=== PATIENT | male | born 1950 | race Caucasian/White ===

== ENCOUNTER 2017-01-03 22:12 | Emergency (ER) | payer MEDICARE, OTHER ==
[~2017-01-03] VITALS: Ht 177.8 cm; Wt 98.0 kg
[~2017-01-03 22:12] MED LIST: AMLO-147 PO; ASPI81TA3 PO; CLON-379 PO; FURO20TA3 PO; HYDR-3012 PO; LANT3I SC; Lisinopril PO; PIOG15TA21 PO
[2017-01-03 22:23] VITALS: Ht 177.8 cm; Wt 98.0 kg
--- NOTE | 2017-01-03 23:45 | ERD ---
ER Documentation Chief Complaint Date/Time DATE: 01/03/17 TIME: 23:41 Chief Complaint had tooth taken out at 2pm wont stop bleeding HPI This 66-year-old diabetic male patient reports bleeding s/p tooth extraction today patient is a diabetic with renal failure, has a left AV fistula // Sun. patient reports pain, blood dripping down his throat, denies chest pain shortness of breath, or dizziness. ROS All systems reviewed and are negative except as per history of present illness. Medications Home Meds Active Scripts [Lisinopril] 10 MG TAB No Conflict Check, 40 MG PO DAILY, TAB Prov:HENRRY DUONG MD 01/05/14 Insulin Glargine* (Lantus*) 100 Unit/Ml Soln, 9 UNIT SC HS, #1 BOTTLE Prov:HENRRY DUONG MD 01/05/14 Aspirin (Aspirin) 81 Mg Chew, 81 MG PO DAILY, #30 TAB Prov:HENRRY DUONG MD 01/05/14 Reported Medications Pioglitazone Hcl* (Pioglitazone Hcl*) 15 Mg Tablet, 15 MG PO DAILY, TAB 03/05/14 Furosemide* (Furosemide*) 20 Mg Tablet, 20 MG PO DAILY, TAB 03/05/14 Hydroxyzine Hcl* (Hydroxyzine Hcl*) 50 Mg Tablet, 50 MG PO Q6H Y for ITCHING, TAB 01/01/14 Clonidine Hcl* (Clonidine Hcl*) 0.1 Mg Tab, 0.1 MG PO Q8 09/13/12 Amlodipine Besylate* (Amlodipine Besylate*) 10 Mg Tablet, 10 MG PO DAILY 09/13/12 Allergies Allergies: Coded Allergies: No Known Drug Allergy (Verified Allergy, Unknown, 03/05/14) PMhx/Soc History of Surgery: Yes (PERMACATH PLACEMENT) Anesthesia Reaction: No Hx Neurological Disorder: No Hx Respiratory Disorders: No Hx Cardiac Disorders: Yes (HTN) Hx Psychiatric Problems: No Hx Miscellaneous Medical Probl: No Hx Alcohol Use: No Hx Substance Use: No Hx Tobacco Use: No Physical Exam Vitals Vital Signs Date Time Temp Pulse Resp B/P Pulse Ox O2 Delivery O2 Flow Rate FiO2 01/03/17 22:23 99.0 68 20 176/78 97 Vitals stable, triage notes reviewed Physical Exam Const: Well-nourished well-appearing male patient in no acute distress Head: Atraumatic Eyes: Normal Conjunctiva ENT: Normal External Ears, Nose left upper molar extraction 14 and 15, black suture in place on 15th molar, 14th more alert open and bleeding. No clot visual. Neck: Resp: Clear to auscultation bilaterally no rales wheezes or rhonchi Cardio: S1-S2 no S3-S4, left AV fistula with good bruit and thrill Abd: Skin: Back: Ext: Neur: Awake and alert Psych: Normal Mood and Affect Results 24 hrs Current Medications Medications (Trade) Dose Ordered Sig/Jose Route PRN Reason Start Time Stop Time Status Last Admin Dose Admin Desmopressin Acetate/Sodium Chloride (Ddavp/NS) 55 ml @ 110 mls/hr ONCE ONCE IVPB 01/04/17 01:30 01/04/17 01:59 DC 01/04/17 01:52 Morphine Sulfate (morphine) 4 mg ONCE STAT IV 01/04/17 01:20 01/04/17 01:22 DC 01/04/17 01:29 Ondansetron HCl (Zofran Inj) 4 mg ONCE STAT IV 01/04/17 01:21 01/04/17 01:22 DC 01/04/17 01:29 Procedures/MDM This pleasant 66-year-old male patient presents to emergency department for ruptured suture from dental extraction today. Patient is actively bleeding, history of diabetes and dialysis 3 days a week. Next dialysis is tomorrow. Patient has no symptoms of anemia, choking or respiratory distress. Patient treated with direct pressure on bleeding socket and biting on teabags for 60 minutes intervention ineffective, bleeding socket covered with Surgicel, instructed to apply pressure by biting on gauze and 20 mcg of DDAVP intravenously. Patient reassessed after 60 minutes with effective cessation of bleeding. Patient will be discharged home to follow-up with dentist tomorrow, return to emergency department if bleeding resumes. Patient is stable with no new complaints during ER course, clinically there is no current evidence to suggest meningitis, sepsis, acute abdomen, acute coronary syndromes, pulmonary embolism or any other emergent condition appearing to require further evaluation or hospitalization. I feel the patient is stable for discharge at this time. I have discussed results, examination findings, the treatment plan with the patient and family present prior to discharge. Indications for emergent reevaluation, side effects of medication were also discussed. All questions were answered. Patient verbalizes understanding and agrees with plan of care. Departure Diagnosis: Primary Impression: Oral bleeding Condition: Good Patient Instructions: Dental Cavity Additional Instructions: Thank you for for coming to [facility] for your care today. Please ask your nurse or provider if you have questions about your care today and do not leave until all your questions have been answered. Please use any medications given as directed and follow-up with your doctor (or the doctor you were referred to) in the next 2-3 days. If you do not have a primary care doctor you may follow up at the [facility] [place] (listed below). You may also use motrin and tylenol as needed for fever and/or pain unless instructed otherwise by your provider or nurse. Indications for more urgent follow-up have been discussed, but you may return to the Emergency Department at ANY time for any worrisome or worsening symptoms. If you have abdominal pain, please know that no test or exam you received is perfect and you should follow up within 8 hours for continued pain. If you had any imaging studies today, such as an X-Ray or CT Scan, these studies will be reviewed later by a radiologist. You will be called if there are important findings that were not identified today, so make sure the contact information you provided at registration is correct. If you received any narcotic pain control medicine today, such as Vicodin, Morphine or Dilaudid, your coordination and judgment may be affected for a number of hours. Please do not drive or operate heavy machinery, and you may want someone to assist you at home. If you were given a prescription for narcotic medication, be aware that it is very addictive- use sparingly and only if necessary. NATALIA RAINES Jan 03, 2017 23:44
[2017-01-04] MEDS ORDERED: morphine 4 MG/ML VIAL IV STA (01:20)
[2017-01-04] MEDS ORDERED: ONDANSETRON 4 MG INJ IV STA (01:21)
[2017-01-04] MEDS ORDERED: DESMOPRESSIN 20 MCG in SOD CHLORIDE 0.9% 50 ML IVPB ONE (01:30)
[2017-01-04 03:36] VITALS: BP 170/78; PULSE 76; RESP 20
== END 2017-01-04 03:25 | disposition home or self-care (01) ==
LOC: FTE 22:12
DX: K91.840 Postprocedural hemorrhage of a digestive system organ or structure following a digestive system procedure (principal); I10 Essential (primary) hypertension; E11.9 Type 2 diabetes mellitus without complications; Z79.4 Long term (current) use of insulin; Z79.82 Long term (current) use of aspirin
CPT/HCPCS: 96374; 96375; 99284; J2270; J2405; J2597

== ENCOUNTER 2017-08-17 09:48 | Day surgery (SDC) | END 2017-08-17 16:30 | disposition home or self-care (01) ==

== ENCOUNTER 2017-08-31 12:22 | Emergency (ER) | END 2017-08-31 12:34 | disposition home or self-care (01) ==

== ENCOUNTER 2018-07-08 22:10 | Inpatient (IN) | payer MEDICARE, OTHER ==
[~2018-07-08] VITALS: Ht 185.4 cm; Wt 93.5 kg
[~2018-07-08 22:10] MED LIST changes: +ASPI-831 PO; -ASPI81TA3 PO; -HYDR-3012 PO; +HYDR50TA15 PO; +LISI-313 PO; -Lisinopril PO; -PIOG15TA21 PO; +PIOG15TA67 PO
[2018-07-09] VITALS (26 sets, daily range): BP systolic 136–178; BP diastolic 57–90; PULSE 50–84; RESP 17–20; Ht 185.4 cm; Wt 93.5 kg
[2018-07-09] MEDS ORDERED: CEFEPIME 1GM/50 ML (PMX) 50 ML IVPB STA (00:06)
[2018-07-09] MEDS ORDERED: VANCOMYCIN 1 GM (PMX) 250 ML IVPB STA (00:06)
--- NOTE | 2018-07-09 02:22 | ERD ---
ER Documentation Chief Complaint Chief Complaint abd pain, vomiting, cough sob x2 days. ESRD w/ dialysis HPI This is a 67-year-old male coming with abdominal pain vomiting and cough for 2 days. He also complains of mild shortness of breath. Cough is mildly productive with greenish sputum. No fevers or chills. No nausea or vomiting. Dialysis on Wednesdays and Fridays. Says he is seeing Dr. De La Rosa at another hospital previously. ROS All systems reviewed and are negative except as per history of present illness. Medications Home Meds Active Scripts Insulin Glargine* (Lantus*) 100 Unit/Ml Soln, 9 UNIT SC HS, #1 BOTTLE Prov:HENRRY DUONG MD 01/05/14 Aspirin (Aspirin) 81 Mg Chew, 81 MG PO DAILY, #30 TAB Prov:HENRRY DUONG MD 01/05/14 Reported Medications Lisinopril* (Lisinopril*) 5 Mg Tablet, 5 MG PO DAILY, #30 TAB 08/17/17 Pioglitazone Hcl* (Pioglitazone Hcl*) 15 Mg Tablet, 15 MG PO DAILY, TAB 03/05/14 Furosemide* (Furosemide*) 20 Mg Tablet, 20 MG PO DAILY, TAB 03/05/14 Hydroxyzine Hcl* (Hydroxyzine Hcl*) 50 Mg Tablet, 50 MG PO Q6H PRN for ITCHING, TAB 01/01/14 Clonidine Hcl* (Clonidine Hcl*) 0.1 Mg Tab, 0.1 MG PO Q8 09/13/12 Amlodipine Besylate* (Amlodipine Besylate*) 10 Mg Tablet, 10 MG PO DAILY 09/13/12 Allergies Allergies: Coded Allergies: No Known Drug Allergy (Verified Allergy, Unknown, 03/05/14) PMhx/Soc History of Surgery: Yes (rt hand sx) Anesthesia Reaction: No Hx Neurological Disorder: No Hx Respiratory Disorders: No Hx Cardiac Disorders: No Hx Psychiatric Problems: No Hx Miscellaneous Medical Probl: Yes (ESRD) Hx Alcohol Use: Yes (rarely) Hx Substance Use: No Hx Tobacco Use: No Smoking Status: Never smoker Physical Exam Vitals Vital Signs Date Temp Pulse Resp B/P (MAP) Pulse Ox O2 O2 Flow FiO2 Time Delivery Rate 07/09/18 99.0 77 16 155/68 98 Nasal 2.0 00:23 (97) Cannula 07/08/18 Nasal 2 23:02 Cannula 07/08/18 99.7 114 24 204/86 90 22:16 (125) Physical Exam Const: No acute distress Head: Atraumatic Eyes: Normal Conjunctiva ENT: Normal External Ears, Nose and Mouth. Neck: Full range of motion. No meningismus. Resp: Clear to auscultation bilaterally Cardio: Regular rate and rhythm, no murmurs Abd: Soft, non tender, non distended. Normal bowel sounds Skin: No petechiae or rashes Back: No midline or flank tenderness Ext: No cyanosis, or edema Neur: Awake and alert Psych: Normal Mood and Affect Result Diagram: 07/08/18225107/08/182251 Results 24 hrs Laboratory Tests Test 07/08/18 22:52 White Blood Count 11.3 10^3/ul Red Blood Count 4.16 10^6/ul Hemoglobin 11.4 g/dl Hematocrit 36.7 % Mean Corpuscular Volume 88.2 fl Mean Corpuscular Hemoglobin 27.4 pg Mean Corpuscular Hemoglobin Concent 31.1 g/dl Red Cell Distribution Width 13.4 % Platelet Count 268 10^3/UL Mean Platelet Volume 9.3 fl Immature Granulocytes % 0.400 % Neutrophils % 89.6 % Lymphocytes % 3.5 % Monocytes % 5.7 % Eosinophils % 0.6 % Basophils % 0.2 % Nucleated Red Blood Cells % 0.0 /100WBC Immature Granulocytes # 0.050 10^3/ul Neutrophils # 10.1 10^3/ul Lymphocytes # 0.4 10^3/ul Monocytes # 0.6 10^3/ul Eosinophils # 0.1 10^3/ul Basophils # 0.0 10^3/ul Nucleated Red Blood Cells # 0.0 10^3/ul Prothrombin Time 14.8 Sec Prothrombin Time Ratio 1.2 INR International Normalized Ratio 1.15 Activated Partial Thromboplast Time 32.6 Sec Sodium Level 138 mmol/L Potassium Level 5.2 mmol/L Chloride Level 94 mmol/L Carbon Dioxide Level 24 mmol/L Anion Gap 20 Blood Urea Nitrogen 88 mg/dl Creatinine 9.81 mg/dl Est Glomerular Filtrat Rate mL/min 5 mL/min Glucose Level 147 mg/dl POC Venous Lactate 1.5 mmol/L Calcium Level 10.1 mg/dl Total Bilirubin 0.3 mg/dl Direct Bilirubin 0.00 mg/dl Indirect Bilirubin 0.3 mg/dl Aspartate Amino Transf (AST/SGOT) 13 IU/L Alanine Aminotransferase (ALT/SGPT) 23 IU/L Alkaline Phosphatase 250 IU/L Troponin I 0.097 ng/ml Total Protein 8.2 g/dl Albumin 4.2 g/dl Globulin 4.00 g/dl Albumin/Globulin Ratio 1.05 Current Medications Medications Dose Sig/Jose Start Time Status Last (Trade) Ordered Route PRN Stop Time Admin Dose Reason Admin Cefepime HCl 50 ml @ ONCE STAT 07/09/18 DC 07/09/18 100 mls/hr IVPB 00:06 00:30 07/09/18 00:35 Vancomycin 250 ml @ ONCE STAT 07/09/18 DC 07/09/18 HCl 125 mls/hr IVPB 00:06 01:02 07/09/18 02:05 Procedures/MDM Emergency department course: Patient seen and evaluated. Code sepsis called secondary to flagging positive via vital signs. Had intravenous access established. Had blood work done. Blood cultures done. Start on antibiotics. Code sepsis canceled. EKG: Rate/Rhythm: [Normal Sinus Rhythm] QRS, ST, T-waves: [No changes consistent w/ acute ischemia] Impression: [No evidence of ischemia or arrhythmia] Chest X-ray 1V Interpreted by me: Soft Tissue: No acute abnormalities Bones: No acute abnormalities Mediastinum/Cardiac Silhouette/Lungs: Bilateral lower lobe infiltrates Medical decision making: This is a 67-year-old male comes in with bilateral lower lobe pneumonia. No evidence of sepsis on laboratory examination on physical examination. Patient started on appropriate healthcare acquired antibiotic protocol. Admitted to Dr. De La Rosa. Departure Diagnosis: Primary Impression: Bilateral pneumonia Pneumonia type: due to unspecified organism Lung location: lower lobe of lung Qualified Codes: J18.1 - Lobar pneumonia, unspecified organism Condition: Serious THELMA NARAYANAN Jul 09, 2018 02:22
[2018-07-09] MEDS ORDERED: ONDANSETRON 4 MG INJ IV PRN (04:00)
[2018-07-09] MEDS ORDERED: ACETAMINOPHEN 325 MG TAB PO PRN (04:00)
[2018-07-09] MEDS ORDERED: hydrOXYzine HCL 50 MG TAB PO PRN (04:00)
[2018-07-09] MEDS ORDERED: VANCOMYCIN IV PER PHARMACY XX SCH (04:00)
[2018-07-09] MEDS ORDERED: DEXTROSE 50% 50 ML SYRINGE IV PRN ×2 (05:00)
[2018-07-09] MEDS ORDERED: VANCOMYCIN 1 GM 250 ML IVPB SCH (05:00)
[2018-07-09] MEDS ORDERED: GLUCOSE GEL 15 GRAM TUBE BUCCAL PRN (05:00)
[2018-07-09] MEDS ORDERED: GLUCAGON 1 MG INJ IM PRN (05:00)
[2018-07-09] MEDS ORDERED: GLUCOSE GEL 15 GRAM TUBE PO PRN ×2 (05:00)
[2018-07-09] MEDS ORDERED: hydrOXYzine HCL 25 MG TAB PO PRN (07:00)
[2018-07-09] MEDS: ACCU-CHEK XX SCH ×4 (07:00→21:24)
[2018-07-09] MEDS: INSULIN ASPART [NOVOLOG] 3 ML PEN SC SCH ×4 (07:57→20:09)
[2018-07-09] MEDS ORDERED: AMLODIPINE 2.5 MG TAB PO SCH (09:00)
[2018-07-09] MEDS: ASPIRIN 81 MG TAB PO SCH (09:07)
[2018-07-09] MEDS: CEFEPIME 1GM/50 ML (PMX) 50 ML IVPB SCH (09:08)
[2018-07-09] MEDS: FUROSEMIDE 20 MG TAB PO SCH (09:08)
[2018-07-09] MEDS: PIOGLITAZONE 15 MG TAB PO SCH (09:08)
[2018-07-09] MEDS: AMLODIPINE 10 MG TAB PO SCH (09:08)
[2018-07-09] MEDS: LISINOPRIL 5 MG TAB PO SCH (09:09)
--- NOTE | 2018-07-09 12:16 | HP ---
Date/Time of Note Date/Time of Note DATE: 07/09/18 TIME: 11:53 Assessment/Plan VTE Prophylaxis Risk score (from Ns)>0 risk: 4 SCD applied (from [facility] [place] [facility]): No SCD contraindicated: other Pharmacological prophylaxis: other Lines/Catheters IV Catheter Type (from [facility]): Saline Lock Assessment/Plan Assessment/Plan -Bilateral Pneumonia - admit to tele - Cefepime; Vancomycin per pharmacy - admission orders done - Acute shortness of breath possibly sec to fluid oveload - abdominal pain - none at present - GI consult - Dr michaud notified - will order CT abdomen w/o IV contrast - FU - Acute hyperkalemia- eliezer Dobbins. HD is TTS-no Kayexalete today - Acute Hyperphosphatemia - nephro follows - CHF - Cardiology consult appreciated - CAD - sp Pacemaker - no acute issues reported - Hypertension- med reconciliation - ESRD on Hemodialysis TTS ( [facility] - Nephro consult- Dr Garrett notified - HD Tues, Thur, Sat -Skipped dialysis today. usual HD days are TTS 1st shift -Recheck CXR post HD - Diabetes Mellitus W/ Nephropathy - glycemic control - Diabetic - Anemia - monitor CBC - Inguinal hernia- reported -no acute issue; will consult general surgery if needed -Protonix for GI prophylaxis Eliezer Mujica Result Diagram: 07/09/1852607/09/18526 Results 24hrs Laboratory Tests Test 07/08/18 22:52 07/09/18 02:59 07/09/18 05:27 07/09/18 07:43 White Blood Count 11.3 #H 11.2 H Red Blood Count 4.16 #L 3.53 L Hemoglobin 11.4 L 9.9 L Hematocrit 36.7 #L 30.9 L Mean Corpuscular 88.2 87.5 Volume Mean Corpuscular 27.4 L 28.0 L Hemoglobin Mean Corpuscular 31.1 L 32.0 Hemoglobin Concent Red Cell 13.4 13.6 Distribution Width Platelet Count 268 # 200 # Mean Platelet Volume 9.3 9.3 Immature 0.400 0.500 H Granulocytes % Neutrophils % 89.6 H 89.5 H Lymphocytes % 3.5 L 3.3 L Monocytes % 5.7 6.2 Eosinophils % 0.6 0.3 Basophils % 0.2 0.2 Nucleated Red Blood 0.0 0.0 Cells % Immature 0.050 H 0.060 H Granulocytes # Neutrophils # 10.1 H 10.0 H Lymphocytes # 0.4 L 0.4 L Monocytes # 0.6 0.7 Eosinophils # 0.1 0.0 Basophils # 0.0 0.0 Nucleated Red Blood 0.0 0.0 Cells # Prothrombin Time 14.8 Prothrombin Time 1.2 Ratio INR International 1.15 Normalized Ratio Activated 32.6 Partial Thromboplast Time Sodium Level 138 138 Potassium Level 5.2 H 5.2 H Chloride Level 94 L 97 Carbon Dioxide Level 24 25 Anion Gap 20 H 16 H Blood Urea Nitrogen 88 H 91 H Creatinine 9.81 H 9.81 H Est Glomerular 5 L 5 L Filtrat Rate mL/min Glucose Level 147 95 # POC Venous Lactate 1.5 Calcium Level 10.1 9.6 Total Bilirubin 0.3 Direct Bilirubin 0.00 Indirect Bilirubin 0.3 Aspartate Amino 13 L Transf (AST/SGOT) Alanine 23 Aminotransferase (AL T/SGPT) Alkaline Phosphatase 250 H Troponin I 0.097 Total Protein 8.2 H Albumin 4.2 Globulin 4.00 H Albumin/Globulin 1.05 Ratio Lactic Acid Level 0.7 Hemoglobin A1c 5.2 Triglycerides Level 92 Cholesterol Level 97 L LDL Cholesterol, 51 Calculated HDL Cholesterol 28 L Cholesterol/HDL 3.4 Ratio Bedside Glucose 83 HPI/ROS Admit Date/Time Admit Date/Time Jul 09, 2018 at 00:40 Hx of Present Illness HPI This is a 67-year-old male patient with ESRD w/ dialysis is admitted abdominal pain vomiting and cough for 2 days. He also complained of mild shortness of breath in ER but none at present. Per patient his cough is mildly productive with greenish sputum. No fevers or chills. No nausea or vomiting. Dialysis on Sun, , Sun and patient missed HD today. Patient denies any chest pain, shortness of breath, palpitations, Headaches, fever. Patient is admitted under Dr Mujica for further evaluation and evaluation ROS All systems reviewed and are negative except as per history of present illness. Medications Home Meds Active Scripts Insulin Glargine* (Lantus*) 100 Unit/Ml Soln, 9 UNIT SC HS, #1 BOTTLE Prov:HENRRY DUONG MD 01/05/14 Aspirin (Aspirin) 81 Mg Chew, 81 MG PO DAILY, #30 TAB Prov:HENRRY DUONG MD 01/05/14 Reported Medications Lisinopril* (Lisinopril*) 5 Mg Tablet, 5 MG PO DAILY, #30 TAB 08/17/17 Pioglitazone Hcl* (Pioglitazone Hcl*) 15 Mg Tablet, 15 MG PO DAILY, TAB 03/05/14 Furosemide* (Furosemide*) 20 Mg Tablet, 20 MG PO DAILY, TAB 03/05/14 Hydroxyzine Hcl* (Hydroxyzine Hcl*) 50 Mg Tablet, 50 MG PO Q6H PRN for ITCHING, TAB 01/01/14 Clonidine Hcl* (Clonidine Hcl*) 0.1 Mg Tab, 0.1 MG PO Q8 09/13/12 Amlodipine Besylate* (Amlodipine Besylate*) 10 Mg Tablet, 10 MG PO DAILY 09/13/12 Allergies Allergies: Coded Allergies: No Known Drug Allergy (Verified Allergy, Unknown, 03/05/14) ROS Constitutional: improved Eyes: no complaints ENT: no complaints Respiratory: no complaints Cardiovascular: no complaints Gastrointestinal: no complaints Genitourinary: no complaints Musculoskeletal: no complaints Skin: no complaints Neurologic: no complaints Endocrine: no complaints PMH/Family/Social Past Medical History PMhx/Soc History of Surgery: Yes (rt hand sx) Anesthesia Reaction: No Hx Neurological Disorder: No Hx Respiratory Disorders: No Hx Cardiac Disorders: No Hx Psychiatric Problems: No Hx Miscellaneous Medical Probl: Yes (ESRD) Hx Alcohol Use: Yes (rarely) Hx Substance Use: No Hx Tobacco Use: No Smoking Status: Never smoker Inguinal Hernia Medical History: diabetes, hypertension Medications Current Medications Amlodipine Besylate (Norvasc) 10 mg DAILY PO Last administered on 07/09/18at 09:08; Admin Dose 10 MG; Start 07/09/18 at 09:00 Aspirin (Aspirin) 81 mg DAILY PO Last administered on 07/09/18at 09:07; Admin Dose 81 MG; Start 07/09/18 at 09:00 Clonidine (Catapres) 0.1 mg Q8 PO Last administered on 07/09/18at 06:03; Admin Dose 0.1 MG; Start 07/09/18 at 06:00 Furosemide (Lasix) 20 mg DAILY PO Last administered on 07/09/18at 09:08; Admin Dose 20 MG; Start 07/09/18 at 09:00 Insulin Glargine (Lantus) 9 units HS SC ; Start 07/09/18 at 21:00 Lisinopril (Zestril) 5 mg DAILY PO Last administered on 07/09/18at 09:09; Admin Dose 5 MG; Start 07/09/18 at 09:00 Pioglitazone HCl (Actos) 15 mg DAILY PO Last administered on 07/09/18at 09:08; Admin Dose 15 MG; Start 07/09/18 at 09:00 Diagnostic Test (Pha) (Accu-Chek) 1 ea AC MEALS AND BEDTIME XX ; Start 07/09/18 at 07:00 Insulin Aspart (Novolog Insulin Pen) NOVOLOG *MILD* ALGORITHM WITH MEALS BEDTIME SC ; Start 07/09/18 at 08:00 Hydralazine HCl (Apresoline) 25 mg Q6H PRN PO ELEVATED BLOOD PRESSURE; Start 07/09/18 at 04:00 Vancomycin HCl (Vanco Iv Per Pharmacy) VANCOMYCIN PER PHARMACY PER PROTOCOL XX ; Start 07/09/18 at 04:00 Cefepime HCl 50 ml @ 100 mls/hr DAILY IVPB Last administered on 07/09/18at 09:08; Admin Dose 100 MLS/HR; Start 07/09/18 at 09:00 Acetaminophen (Tylenol Tab) 650 mg Q4H PRN PO MILD PAIN(1-3)OR ELEVATED TEMP [facility] administered on 07/09/18at 04:44; Admin Dose 650 MG; Start 07/09/18 at 04:00 Ondansetron HCl (Zofran Inj) 4 mg Q4H PRN IV NAUSEA AND/OR VOMITING Last administered on 07/09/18at 04:44; Admin Dose 4 MG; Start 07/09/18 at 04:00 Miscellaneous Information 1 ea NOTE XX ; Start 07/09/18 at 05:00 Glucose (Glutose) 15 gm Q15M PRN PO DECREASED GLUCOSE; Start 07/09/18 at 05:00 Glucose (Glutose) 22.5 gm Q15M PRN PO DECREASED GLUCOSE; Start 07/09/18 at 05:00 Dextrose (D50w Syringe) 25 ml Q15M PRN IV DECREASED GLUCOSE; Start 07/09/18 at 05:00 Dextrose (D50w Syringe) 50 ml Q15M PRN IV DECREASED GLUCOSE; Start 07/09/18 at 05:00 Glucagon (Glucagen) 1 mg Q15M PRN IM DECREASED GLUCOSE; Start 07/09/18 at 05:00 Glucose (Glutose) 15 gm Q15M PRN BUCCAL DECREASED GLUCOSE; Start 07/09/18 at 05:00 Hydroxyzine HCl (Atarax) 50 mg Q6H PRN PO ITCHING; Start 07/09/18 at 07:00 Coded Allergies: No Known Drug Allergy (Verified Allergy, Unknown, 03/05/14) Past Surgical History elbow sx Past Surgical Hx: other (LEFT elbow- ) Family History Significant Family History: no pertinent family hx Social History Alcohol Use: none Smoking Status: Never smoker Drug Use: none Exam/Review of Systems Vital Signs Vitals Vital Signs Date Temp Pulse Resp B/P (MAP) Pulse Ox O2 O2 Flow FiO2 Time Delivery Rate 07/09/18 97.4 58 18 136/63 95 11:41 (87) 07/09/18 Nasal 2.0 08:06 Cannula Intake and Output 07/08/18 07/08/18 07/09/18 1515:00 23:00 07:00 IntakeIntake Total 50 ml BalanceBalance 50 ml Exam Constitutional: alert, oriented, well developed Psych: nl mood/affect Head: atraumatic Eyes: nl conjunctiva, EOMI, nl lids ENMT: nl external ears & nose, nl lips & teeth, nl nasal mucosa & septum Neck: non-tender Respiratory: diminished breath sounds (at bases bilaterally) Cardiovascular: nl pulses, other (s1s2) Gastrointestinal: soft, tender (RUQ tenderness) Musculoskeletal: muscle weakness Extremities: edema (trace BLE ) Neurological: nl mental status, nl speech, nl strength Lymph: nontender FANI AYALA Jul 09, 2018 12:03
--- NOTE | 2018-07-09 12:30 | CONS ---
Assessment/Plan Assessment/Plan Assessment/Plan (Daily) - ESRD on Hemodialysis TTS ( From [facility] ) - DM / DM Nephropathy - PNA - CAD / Hypertension - CAD / CHF - Anemia - Hyperphosphatemia PLAN: Skipped dialysis today ( usual HD days are TTS 1st shift ) GI will see patient for Abdomen pain IV antibiotics for possible PNA Recheck CXR post HD Follow up with H/H THANK YOU Consultation Date/Type/Reason Admit Date/Time Jul 09, 2018 at 00:40 Date of Consultation: Jul 09, 2018 Type of Consult NEPHROLOGY Reason for Consultation ESRD on Hemodialysis Date/Time of Note DATE: 07/09/18 TIME: 12:26 Constitutional: requiring O2 Eyes: no complaints ENT: no complaints Respiratory: shortness of breath Cardiovascular: no complaints Gastrointestinal: pain Genitourinary: no complaints Past Medical History Medical History: diabetes, hypertension, renal disease Home Meds Active Scripts Insulin Glargine* (Lantus*) 100 Unit/Ml Soln, 9 UNIT SC HS, #1 BOTTLE Prov:HENRRY DUONG MD 01/05/14 Aspirin (Aspirin) 81 Mg Chew, 81 MG PO DAILY, #30 TAB Prov:HNERRY DUONG MD 01/05/14 Reported Medications Lisinopril* (Lisinopril*) 5 Mg Tablet, 5 MG PO DAILY, #30 TAB 08/17/17 Pioglitazone Hcl* (Pioglitazone Hcl*) 15 Mg Tablet, 15 MG PO DAILY, TAB 03/05/14 Furosemide* (Furosemide*) 20 Mg Tablet, 20 MG PO DAILY, TAB 03/05/14 Hydroxyzine Hcl* (Hydroxyzine Hcl*) 50 Mg Tablet, 50 MG PO Q6H PRN for ITCHING, TAB 01/01/14 Clonidine Hcl* (Clonidine Hcl*) 0.1 Mg Tab, 0.1 MG PO Q8 09/13/12 Amlodipine Besylate* (Amlodipine Besylate*) 10 Mg Tablet, 10 MG PO DAILY 09/13/12 Medications Current Medications Amlodipine Besylate (Norvasc) 10 mg DAILY PO Last administered on 07/09/18at 09:08; Admin Dose 10 MG; Start 07/09/18 at 09:00 Aspirin (Aspirin) 81 mg DAILY PO Last administered on 07/09/18at 09:07; Admin Dose 81 MG; Start 07/09/18 at 09:00 Clonidine (Catapres) 0.1 mg Q8 PO Last administered on 07/09/18at 06:03; Admin Dose 0.1 MG; Start 07/09/18 at 06:00 Furosemide (Lasix) 20 mg DAILY PO Last administered on 07/09/18at 09:08; Admin Dose 20 MG; Start 07/09/18 at 09:00 Insulin Glargine (Lantus) 9 units HS SC ; Start 07/09/18 at 21:00 Lisinopril (Zestril) 5 mg DAILY PO Last administered on 07/09/18at 09:09; Admin Dose 5 MG; Start 07/09/18 at 09:00 Pioglitazone HCl (Actos) 15 mg DAILY PO Last administered on 07/09/18at 09:08; Admin Dose 15 MG; Start 07/09/18 at 09:00 Diagnostic Test (Pha) (Accu-Chek) 1 ea AC MEALS AND BEDTIME XX ; Start 07/09/18 at 07:00 Insulin Aspart (Novolog Insulin Pen) NOVOLOG *MILD* ALGORITHM WITH MEALS BEDTIME SC ; Start 07/09/18 at 08:00 Hydralazine HCl (Apresoline) 25 mg Q6H PRN PO ELEVATED BLOOD PRESSURE; Start 07/09/18 at 04:00 Vancomycin HCl (Vanco Iv Per Pharmacy) VANCOMYCIN PER PHARMACY PER PROTOCOL XX ; Start 07/09/18 at 04:00 Cefepime HCl 50 ml @ 100 mls/hr DAILY IVPB Last administered on 07/09/18at 09:08; Admin Dose 100 MLS/HR; Start 07/09/18 at 09:00 Acetaminophen (Tylenol Tab) 650 mg Q4H PRN PO MILD PAIN(1-3)OR ELEVATED TEMP Last administered on 07/09/18at 04:44; Admin Dose 650 MG; Start 07/09/18 at 04:00 Ondansetron HCl (Zofran Inj) 4 mg Q4H PRN IV NAUSEA AND/OR VOMITING Last administered on 07/09/18at 04:44; Admin Dose 4 MG; Start 07/09/18 at 04:00 Miscellaneous Information 1 ea NOTE XX ; Start 07/09/18 at 05:00 Glucose (Glutose) 15 gm Q15M PRN PO DECREASED GLUCOSE; Start 07/09/18 at 05:00 Glucose (Glutose) 22.5 gm Q15M PRN PO DECREASED GLUCOSE; Start 07/09/18 at 05:00 Dextrose (D50w Syringe) 25 ml Q15M PRN IV DECREASED GLUCOSE; Start 07/09/18 at 05:00 Dextrose (D50w Syringe) 50 ml Q15M PRN IV DECREASED GLUCOSE; Start 07/09/18 at 05:00 Glucagon (Glucagen) 1 mg Q15M PRN IM DECREASED GLUCOSE; Start 07/09/18 at 05:00 Glucose (Glutose) 15 gm Q15M PRN BUCCAL DECREASED GLUCOSE; Start 07/09/18 at 05:00 Hydroxyzine HCl (Atarax) 50 mg Q6H PRN PO ITCHING; Start 07/09/18 at 07:00 Allergies: Coded Allergies: No Known Drug Allergy (Verified Allergy, Unknown, 03/05/14) Past Surgical History Past Surgical Hx: other (LEFT elbow- ) Family History Significant Family History: no pertinent family hx Social History Alcohol Use: none Smoking Status: Never smoker Drug Use: none Exam/Review of Systems Exam Vitals Vital Signs Date Temp Pulse Resp B/P (MAP) Pulse Ox O2 O2 Flow FiO2 Time Delivery Rate 07/09/18 Nasal 2.0 12:15 Cannula 07/09/18 97.4 58 18 136/63 95 11:41 (87) Intake and Output 07/08/18 07/08/18 07/09/18 1515:00 23:00 07:00 IntakeIntake Total 50 ml BalanceBalance 50 ml Constitutional: alert, oriented Head: normocephalic Eyes: nl conjunctiva Neck: jvd Respiratory: crackles/rales Cardiovascular: regular rate and rhythm, systolic murmur Gastrointestinal: soft Results Result Diagram: 07/09/1852607/09/18526 Results 24hrs Laboratory Tests Test 07/08/18 22:52 07/09/18 02:59 07/09/18 05:27 07/09/18 07:43 White Blood Count 11.3 #H 11.2 H Red Blood Count 4.16 #L 3.53 L Hemoglobin 11.4 L 9.9 L Hematocrit 36.7 #L 30.9 L Mean Corpuscular 88.2 87.5 Volume Mean Corpuscular 27.4 L 28.0 L Hemoglobin Mean Corpuscular 31.1 L 32.0 Hemoglobin Concent Red Cell 13.4 13.6 Distribution Width Platelet Count 268 # 200 # Mean Platelet Volume 9.3 9.3 Immature 0.400 0.500 H Granulocytes % Neutrophils % 89.6 H 89.5 H Lymphocytes % 3.5 L 3.3 L Monocytes % 5.7 6.2 Eosinophils % 0.6 0.3 Basophils % 0.2 0.2 Nucleated Red Blood 0.0 0.0 Cells % Immature 0.050 H 0.060 H Granulocytes # Neutrophils # 10.1 H 10.0 H Lymphocytes # 0.4 L 0.4 L Monocytes # 0.6 0.7 Eosinophils # 0.1 0.0 Basophils # 0.0 0.0 Nucleated Red Blood 0.0 0.0 Cells # Prothrombin Time 14.8 Prothrombin Time 1.2 Ratio INR International 1.15 Normalized Ratio Activated 32.6 Partial Thromboplast Time Sodium Level 138 138 Potassium Level 5.2 H 5.2 H Chloride Level 94 L 97 Carbon Dioxide Level 24 25 Anion Gap 20 H 16 H Blood Urea Nitrogen 88 H 91 H Creatinine 9.81 H 9.81 H Est Glomerular 5 L 5 L Filtrat Rate mL/min Glucose Level 147 95 # POC Venous Lactate 1.5 Calcium Level 10.1 9.6 Total Bilirubin 0.3 Direct Bilirubin 0.00 Indirect Bilirubin 0.3 Aspartate Amino 13 L Transf (AST/SGOT) Alanine 23 Aminotransferase (AL T/SGPT) Alkaline Phosphatase 250 H Troponin I 0.097 Total Protein 8.2 H Albumin 4.2 Globulin 4.00 H Albumin/Globulin 1.05 Ratio Lactic Acid Level 0.7 Hemoglobin A1c 5.2 Triglycerides Level 92 Cholesterol Level 97 L LDL Cholesterol, 51 Calculated HDL Cholesterol 28 L Cholesterol/HDL 3.4 Ratio Bedside Glucose 83 Test 07/09/18 12:04 Bedside Glucose 106 Medications Medication Current Medications Amlodipine Besylate (Norvasc) 10 mg DAILY PO Last administered on 07/09/18at 09:08; Admin Dose 10 MG; Start 07/09/18 at 09:00 Aspirin (Aspirin) 81 mg DAILY PO Last administered on 07/09/18 09:07; Admin Dose 81 MG; Start 07/09/18 at 09:00 Clonidine (Catapres) 0.1 mg Q8 PO Last administered on 07/09/18at 06:03; Admin Dose 0.1 MG; Start 07/09/18 at 06:00 Furosemide (Lasix) 20 mg DAILY PO Last administered on 07/09/18at 09:08; Admin Dose 20 MG; Start 07/09/18 at 09:00 Insulin Glargine (Lantus) 9 units HS SC ; Start 07/09/18 at 21:00 Lisinopril (Zestril) 5 mg DAILY PO Last administered on 07/09/18at 09:09; Admin Dose 5 MG; Start 07/09/18 at 09:00 Pioglitazone HCl (Actos) 15 mg DAILY PO Last administered on 07/09/18at 09:08; Admin Dose 15 MG; Start 07/09/18 at 09:00 Diagnostic Test (Pha) (Accu-Chek) 1 ea AC MEALS AND BEDTIME XX ; Start 07/09/18 at 07:00 Insulin Aspart (Novolog Insulin Pen) NOVOLOG *MILD* ALGORITHM WITH MEALS BEDTIME SC ; Start 07/09/18 at 08:00 Hydralazine HCl (Apresoline) 25 mg Q6H PRN PO ELEVATED BLOOD PRESSURE; Start 07/09/18 at 04:00 Vancomycin HCl (Vanco Iv Per Pharmacy) VANCOMYCIN PER PHARMACY PER PROTOCOL XX ; Start 07/09/18 at 04:00 Cefepime HCl 50 ml @ 100 mls/hr DAILY IVPB Last administered on 07/09/18at 09:08; Admin Dose 100 MLS/HR; Start 07/09/18 at 09:00 Acetaminophen (Tylenol Tab) 650 mg Q4H PRN PO MILD PAIN(1-3)OR ELEVATED TEMP Last administered on 07/09/18at 04:44; Admin Dose 650 MG; Start 07/09/18 at 04:00 Ondansetron HCl (Zofran Inj) 4 mg Q4H PRN IV NAUSEA AND/OR VOMITING Last administered on 07/09/18at 04:44; Admin Dose 4 MG; Start 07/09/18 at 04:00 Miscellaneous Information 1 ea NOTE XX ; Start 07/09/18 at 05:00 Glucose (Glutose) 15 gm Q15M PRN PO DECREASED GLUCOSE; Start 07/09/18 at 05:00 Glucose (Glutose) 22.5 gm Q15M PRN PO DECREASED GLUCOSE; Start 07/09/18 at 05:00 Dextrose (D50w Syringe) 25 ml Q15M PRN IV DECREASED GLUCOSE; Start 07/09/18 at 05:00 Dextrose (D50w Syringe) 50 ml Q15M PRN IV DECREASED GLUCOSE; Start 07/09/18 at 05:00 Glucagon (Glucagen) 1 mg Q15M PRN IM DECREASED GLUCOSE; Start 07/09/18 at 05:00 Glucose (Glutose) 15 gm Q15M PRN BUCCAL DECREASED GLUCOSE; Start 07/09/18 at 05:00 Hydroxyzine HCl (Atarax) 50 mg Q6H PRN PO ITCHING; Start 07/09/18 at 07:00 PACO LAZO MD Jul 09, 2018 12:30
[2018-07-09] MEDS: METOCLOPRAMIDE 10 MG INJ IV SCH ×2 (17:30→20:09)
[2018-07-09] MEDS ORDERED: IOHEXOL 14.3 MG(I)/ML (ADULT) BTL PO ONE (17:30)
--- NOTE | 2018-07-09 17:40 | CONS ---
DATE OF ADMISSION: 07/09/2018 DATE OF CONSULTATION: TYPE OF CONSULTATION: Gastroenterology. Dear Dr. Mujica: Thank you for asking me to see Mr. Briggs in GI consultation. HISTORY OF PRESENT ILLNESS: As you know, the patient is a 67-year-old male. He is admitted to the hospital because of history of abdominal pain and vomiting which he has had for 1 week prior to this admission. He has no history of vomiting blood or passing blood from the rectum. No fever. He does have nausea . No fever, no jaundice. He also complains of right upper quadrant pain which has been constant for the past couple of days. He has a chronic kidney disease and he is on hemodialysis. The other medical problems include occasional alcohol consumption in the past, history of diabetes an d hypertension. MEDICATIONS PRIOR TO THE ADMISSION: Include: 1. Insulin. 2. Aspirin. 3. Lisinopril. 4. Pioglitazone. 5. Furosemide. 6. Hydroxyzine. 7. Clonidine. 8. Amlodipine. 9. Norvasc. 10. Aspirin. 11. Catapres. 12. Lasix. 13. Lantus. 14. Zestril. 15. Actos. 16. NovoLog. 17. Apresoline. 18. Zofran. PAST SURGICAL HISTORY: None. PHYSICAL EXAMINATION: GENERAL: The patient is a 67-year-old male who at this time is alert, well built. VITAL SIGNS: He is afebrile. CARDIOVASCULAR: Normal heart sounds. RESPIRATORY: Normal breath sounds. ABDOMEN: Showed unremarkable findings except has got some right upper quadrant tenderness. LABORATORY WORKUP: WBC count is 11,200, hemoglobin 9.9. Potassium 5.2. Bilirubin 0.3, AST 13, ALT 23, alkaline phosphatase 250, albumin 4.2. HDL 28, LDL is 51, cholesterol 97. IMAGING STUDY: Renal ultrasound is indicating no renal calculi, atrophic right kidney, incidental as cites noted as well. CLINICAL IMPRESSION: 1. The patient is presenting with history of nausea, vomiting. It could be due to diabetic gastropa resis. Rule out gastroesophageal reflux disease. Rule out candidiasis of the esophagus. Rule out p eptic ulcer disease, gastritis. 2. He has got elevated alkaline phosphatase. Rule out choledocholithiasis. 3. History of diabetes. 4. Hypertension. 5. Chronic kidney disease, on hemodialysis. PLAN: I recommend CAT scan of the abdomen today and also upper endoscopy tomorrow. Once again, doctor, thank you for this consultation. Dictated By: NAILA LEVINE/CANDY Conf#: [id number] DID#: [id number] CC: SAURABH MUJICA MD;*EndCC*
[2018-07-09] MEDS: INSULIN GLARGINE [LANTus] (100 UNITS/ML) SYG SC SCH (21:24)
[2018-07-10] VITALS (15 sets, daily range): BP systolic 129–155; BP diastolic 53–75; PULSE 52–67; RESP 16–30
[2018-07-10] MEDS: PANTOPRAZOLE (EC) 40 MG TAB PO SCH (06:14)
[2018-07-10] MEDS: METOCLOPRAMIDE 10 MG INJ IV SCH ×4 (06:15→20:06)
[2018-07-10] MEDS: ACCU-CHEK XX SCH ×4 (07:00→20:06)
[2018-07-10] MEDS: INSULIN ASPART [NOVOLOG] 3 ML PEN SC SCH ×4 (08:00→20:11)
--- NOTE | 2018-07-10 08:34 | PREAC ---
Date/Time of Note Date/Time of Note DATE: 07/10/18 TIME: 08:32 Anesthesia Eval and Record Evaluation Time Pre-Procedure Interview DATE: 07/10/18 TIME: 08:32 Age 67 Sex male NPO: 8 hrs Preoperative diagnosis Nausea Planned procedure EGD Past Medical History Past Medical History: Includes Cardio: HTN Endo: Diabetes Renal: ESRD on dialysis Heme: Anemia Surgery & Anesthesia Issues No known issue Meds Anticoagulation: No Beta Ruthann within 24 hr: No Reason Beta Ruthann not given: Pt. not on B-Ruthann Active Scripts Insulin Glargine* (Lantus*) 100 Unit/Ml Soln, 9 UNIT SC HS, #1 BOTTLE Prov:HENRRY DUONG MD 01/05/14 Aspirin (Aspirin) 81 Mg Chew, 81 MG PO DAILY, #30 TAB Prov:HENRRY DUONG MD 01/05/14 Reported Medications Lisinopril* (Lisinopril*) 5 Mg Tablet, 5 MG PO DAILY, #30 TAB 08/17/17 Pioglitazone Hcl* (Pioglitazone Hcl*) 15 Mg Tablet, 15 MG PO DAILY, TAB 03/05/14 Furosemide* (Furosemide*) 20 Mg Tablet, 20 MG PO DAILY, TAB 03/05/14 Hydroxyzine Hcl* (Hydroxyzine Hcl*) 50 Mg Tablet, 50 MG PO Q6H PRN for ITCHING, TAB 01/01/14 Clonidine Hcl* (Clonidine Hcl*) 0.1 Mg Tab, 0.1 MG PO Q8 09/13/12 Amlodipine Besylate* (Amlodipine Besylate*) 10 Mg Tablet, 10 MG PO DAILY 09/13/12 Current Medications Amlodipine Besylate (Norvasc) 10 mg DAILY PO Last administered on 07/09/18at 09:08; Admin Dose 10 MG; Start 07/09/18 at 09:00 Aspirin (Aspirin) 81 mg DAILY PO Last administered on 07/09/18at 09:07; Admin Dose 81 MG; Start 07/09/18 at 09:00 Clonidine (Catapres) 0.1 mg Q8 PO Last administered on 07/10/18at 06:14; Admin Dose 0.1 MG; Start 07/09/18 at 06:00 Furosemide (Lasix) 20 mg DAILY PO Last administered on 07/09/18at 09:08; Admin Dose 20 MG; Start 07/09/18 at 09:00 Insulin Glargine (Lantus) 9 units HS SC Last administered on 07/09/18at 21:24; Admin Dose 9 UNITS; Start 07/09/18 at 21:00 Lisinopril (Zestril) 5 mg DAILY PO Last administered on 07/09/18 09:09; Admin Dose 5 MG; Start 07/09/18 at 09:00 Pioglitazone HCl (Actos) 15 mg DAILY PO Last administered on 07/09/18at 09:08; Admin Dose 15 MG; Start 07/09/18 at 09:00 Diagnostic Test (Pha) (Accu-Chek) 1 ea AC MEALS AND BEDTIME XX Last administered on 07/09/18at 21:24; Admin Dose 1 EA; Start 07/09/18 at 07:00 Insulin Aspart (Novolog Insulin Pen) NOVOLOG *MILD* ALGORITHM WITH MEALS BEDTIME SC ; Start 07/09/18 at 08:00 Hydralazine HCl (Apresoline) 25 mg Q6H PRN PO ELEVATED BLOOD PRESSURE; Start 07/09/18 at 04:00 Vancomycin HCl (Vanco Iv Per Pharmacy) VANCOMYCIN PER PHARMACY PER PROTOCOL XX ; Start 07/09/18 at 04:00 Cefepime HCl 50 ml @ 100 mls/hr DAILY IVPB Last administered on 07/09/18at 09:08; Admin Dose 100 MLS/HR; Start 07/09/18 at 09:00 Acetaminophen (Tylenol Tab) 650 mg Q4H PRN PO MILD PAIN(1-3)OR ELEVATED TEMP Last administered on 07/09/18at 04:44; Admin Dose 650 MG; Start 07/09/18 at 04:00 Ondansetron HCl (Zofran Inj) 4 mg Q4H PRN IV NAUSEA AND/OR VOMITING Last administered on 07/09/18at 04:44; Admin Dose 4 MG; Start 07/09/18 at 04:00 Miscellaneous Information 1 ea NOTE XX ; Start 07/09/18 at 05:00 Glucose (Glutose) 15 gm Q15M PRN PO DECREASED GLUCOSE; Start 07/09/18 at 05:00 Glucose (Glutose) 22.5 gm Q15M PRN PO DECREASED GLUCOSE; Start 07/09/18 at 05:00 Dextrose (D50w Syringe) 25 ml Q15M PRN IV DECREASED GLUCOSE; Start 07/09/18 at 05:00 Dextrose (D50w Syringe) 50 ml Q15M PRN IV DECREASED GLUCOSE; Start 07/09/18 at 05:00 Glucagon (Glucagen) 1 mg Q15M PRN IM DECREASED GLUCOSE; Start 07/09/18 at 05:00 Glucose (Glutose) 15 gm Q15M PRN BUCCAL DECREASED GLUCOSE; Start 07/09/18 at 05:00 Hydroxyzine HCl (Atarax) 50 mg Q6H PRN PO ITCHING; Start 07/09/18 at 07:00 Metoclopramide HCl (Reglan) 5 mg AC MEALS AND BEDTIME IV Last administered on 07/10/18at 06:15; Admin Dose 5 MG; Start 07/09/18 at 17:30 Pantoprazole (Protonix Tab) 40 mg DAILY@06 PO Last administered on 07/10/18at 06 :14; Admin Dose 40 MG; Start 07/10/18 at 06:00 Meds reviewed: Yes Allergies Coded Allergies: No Known Drug Allergy (Verified Allergy, Unknown, 03/05/14) Allergies Reviewed: Yes Labs/Studies Labs Reviewed: Reviewed by anesthesiologist Result Diagram: 07/10/1815 07/10/1815 Laboratory Tests 07/10/18 05:15 test: N/A Studies: ECG (n/a), CXR (n/a) Pre-procedure Exam Last vitals Vital Signs Date Temp Pulse Resp B/P (MAP) Pulse Ox O2 O2 Flow FiO2 Time Delivery Rate 07/10/18 98.4 63 20 149/69 95 Nasal 2.0 04:10 (95) Cannula Airway: Adequate mouth opening, Adequate thyromental dist Mallampati: Mallampati II Teeth: Normal Lung: Normal Heart: Normal ASA Physical Status ASA physical status: 3 Emergency: None Planned Anesthetic General/MAC: MAC Planned Pain Management Parenteral pain med Pre-operative Attestations Prior to commencing anesthesia and surgery, the patient was re-evaluated, there was verification of: *The patient's identity *The results of appropriate recent lab work and preoperative vital signs *The above evaluation not changing prior to induction *Anesthetic plan, risk benefits, alternative and complications discussed with patient/family; questions answered; patient/family understands, accepts and wishes to proceed. SONIA PLASCENCIA MD Jul 10, 2018 08:34
--- NOTE | 2018-07-10 08:48 | PAC ---
Date/Time of Note Date/Time of Note DATE: 07/10/18 TIME: 08:47 Post-Anesthesia Notes Post-Anesthesia Note Last documented vital signs Vital Signs Date Temp Pulse Resp B/P (MAP) Pulse Ox O2 O2 Flow FiO2 Time Delivery Rate 07/10/18 98.4 63 20 149/69 95 Nasal 2.0 08:50 (95) Cannula Activity: WNL Respiratory function: WNL Cardiovascular function: WNL Mental status: Baseline Pain reasonably controlled: Yes Hydration appropriate: Yes Nausea/Vomiting absent: Yes SONIA PLASCENCIA MD Jul 10, 2018 08:48
[2018-07-10] MEDS: FUROSEMIDE 20 MG TAB PO SCH ×2 (08:49→09:39)
[2018-07-10] MEDS: PIOGLITAZONE 15 MG TAB PO SCH ×2 (08:49→09:38)
[2018-07-10] MEDS: CEFEPIME 1GM/50 ML (PMX) 50 ML IVPB SCH ×2 (08:49→09:38)
[2018-07-10] MEDS: ASPIRIN 81 MG TAB PO SCH ×2 (08:49→09:39)
[2018-07-10] MEDS: AMLODIPINE 10 MG TAB PO SCH ×2 (08:54→09:40)
[2018-07-10] MEDS: LISINOPRIL 5 MG TAB PO SCH ×2 (08:54→09:40)
[2018-07-10] MEDS ORDERED: PROPOFOL 20 ML ONE (08:59)
--- NOTE | 2018-07-10 09:37 | CONS ---
Assessment/Plan Assessment/Plan Hospital Course (Demo Recall) 1. Dyspnea probably multifactorial possible pneumonia 2. Rule out CHF echocardiogram is pending 3. History of possible coronary artery disease and AR 4. Renal failure on dialysis 5. Abdominal distention/ascites follow-up with GI recommendations 6. Diabetes 7. Hypertension 8. History of sick sinus syndrome nicely. Patient is status post permanent pacemaker Recommendations: GI workup as per GI. We will continue to monitor on telemetry Continue with the beta-kamlesh. Blood pressure currently stable Hemodialysis as per renal to be continued. Antibiotic as per internal medicine consultants. Echocardiogram has been ordered. We will reviewed once is done Thank you for his referral. We will continue to follow along with you CHANDNI LOPEZ MD [facility] Consultation Date/Type/Reason Admit Date/Time Jul 09, 2018 at 00:40 Date of Consultation: Jul 10, 2018 Type of Consult Cardiology Reason for Consultation CAD. sick sinus. r/o CHF Requesting Provider: FANI AYALA Date/Time of Note DATE: 07/10/18 TIME: 09:31 Hx of Present Illness Interventional cardiology consultation note Chief complaint: Abdominal distention nausea vomiting shortness of breath Reason for consult: Coronary artery disease sick sinus syndrome sent for permanent pacemaker. Rule out CHF History of present illness: Thank you for this referral. History was obtained from the patient is a poor historian from discussion with staff and physicians. From review of the chart review of the old chart. This is a pleasant 67-year-old gentleman with history of renal failure on dialysis who presents emergency above complaint. Patient denies any chest pain or pressure to me now. At this point denies any shortness of breath to me however apparent in the ER also complains of shortness of breath. Chest x-ray showed possible multiple infiltrate. GI has been consulted and GI workup is being done. Patient also has a pacemaker. Could not remember who his regular electronic health records specialist is. Patient is a poor historian Allergies: No known drug allergies Medications were reviewed as per medical reconciliation sheet Family history: No history of any coronary artery disease Social history: No smoking at the moment Past medical history: Renal failure on dialysis, diabetes, hypertension , history of coronary artery status post AR a few years ago currently. He could not tell me what kind of workup and treatment he has had History of most likely sick sinus syndrome status post what appears to be a si ngle-chamber permanent pacemaker placed Review of system: Patient denies all others except for above-mentioned Past Medical History Home Meds Active Scripts Insulin Glargine* (Lantus*) 100 Unit/Ml Soln, 9 UNIT SC HS, #1 BOTTLE Prov:HENRRY DUONG MD 01/05/14 Aspirin (Aspirin) 81 Mg Chew, 81 MG PO DAILY, #30 TAB Prov:HENRRY DUONG MD 01/05/14 Reported Medications Lisinopril* (Lisinopril*) 5 Mg Tablet, 5 MG PO DAILY, #30 TAB 08/17/17 Pioglitazone Hcl* (Pioglitazone Hcl*) 15 Mg Tablet, 15 MG PO DAILY, TAB 03/05/14 Furosemide* (Furosemide*) 20 Mg Tablet, 20 MG PO DAILY, TAB 03/05/14 Hydroxyzine Hcl* (Hydroxyzine Hcl*) 50 Mg Tablet, 50 MG PO Q6H PRN for ITCHING, TAB 01/01/14 Clonidine Hcl* (Clonidine Hcl*) 0.1 Mg Tab, 0.1 MG PO Q8 09/13/12 Amlodipine Besylate* (Amlodipine Besylate*) 10 Mg Tablet, 10 MG PO DAILY 09/13/12 Medications Current Medications Amlodipine Besylate (Norvasc) 10 mg DAILY PO Last administered on 07/09/18at 09:08; Admin Dose 10 MG; Start 07/09/18 at 09:00 Aspirin (Aspirin) 81 mg DAILY PO Last administered on 07/09/18 09:07; Admin Dose 81 MG; Start 07/09/18 at 09:00 Clonidine (Catapres) 0.1 mg Q8 PO Last administered on 07/10/18at 06:14; Admin Dose 0.1 MG; Start 07/09/18 at 06:00 Furosemide (Lasix) 20 mg DAILY PO Last administered on 07/09/18 09:08; Admin Dose 20 MG; Start 07/09/18 at 09:00 Insulin Glargine (Lantus) 9 units HS SC Last administered on 07/09/18at 21:24; Admin Dose 9 UNITS; Start 07/09/18 at 21:00 Lisinopril (Zestril) 5 mg DAILY PO Last administered on 07/09/18at 09:09; Admin Dose 5 MG; Start 07/09/18 at 09:00 Pioglitazone HCl (Actos) 15 mg DAILY PO Last administered on 07/09/18at 09:08; Admin Dose 15 MG; Start 07/09/18 at 09:00 Diagnostic Test (Pha) (Accu-Chek) 1 ea AC MEALS AND BEDTIME XX Last adminis tered on 07/09/18at 21:24; Admin Dose 1 EA; Start 07/09/18 at 07:00 Insulin Aspart (Novolog Insulin Pen) NOVOLOG *MILD* ALGORITHM WITH MEALS BEDTIME SC ; Start 07/09/18 at 08:00 Hydralazine HCl (Apresoline) 25 mg Q6H PRN PO ELEVATED BLOOD PRESSURE; Start 07/09/18 at 04:00 Vancomycin HCl (Vanco Iv Per Pharmacy) VANCOMYCIN PER PHARMACY PER PROTOCOL XX ; Start 07/09/18 at 04:00 Cefepime HCl 50 ml @ 100 mls/hr DAILY IVPB Last administered on 07/09/18at 09:08; Admin Dose 100 MLS/HR; Start 07/09/18 at 09:00 Acetaminophen (Tylenol Tab) 650 mg Q4H PRN PO MILD PAIN(1-3)OR ELEVATED TEMP Last administered on 07/09/18at 04:44; Admin Dose 650 MG; Start 07/09/18 at 04:00 Ondansetron HCl (Zofran Inj) 4 mg Q4H PRN IV NAUSEA AND/OR VOMITING Last administered on 07/09/18at 04:44; Admin Dose 4 MG; Start 07/09/18 at 04:00 Miscellaneous Information 1 ea NOTE XX ; Start 07/09/18 at 05:00 Glucose (Glutose) 15 gm Q15M PRN PO DECREASED GLUCOSE; Start 07/09/18 at 05:00 Glucose (Glutose) 22.5 gm Q15M PRN PO DECREASED GLUCOSE; Start 07/09/18 at 05:00 Dextrose (D50w Syringe) 25 ml Q15M PRN IV DECREASED GLUCOSE; Start 07/09/18 at 05:00 Dextrose (D50w Syringe) 50 ml Q15M PRN IV DECREASED GLUCOSE; Start 07/09/18 at 05:00 Glucagon (Glucagen) 1 mg Q15M PRN IM DECREASED GLUCOSE; Start 07/09/18 at 05:00 Glucose (Glutose) 15 gm Q15M PRN BUCCAL DECREASED GLUCOSE; Start 07/09/18 at 05:00 Hydroxyzine HCl (Atarax) 50 mg Q6H PRN PO ITCHING; Start 07/09/18 at 07:00 Metoclopramide HCl (Reglan) 5 mg AC MEALS AND BEDTIME IV Last administered on 07/10/18at 06:15; Admin Dose 5 MG; Start 07/09/18 at 17:30 Pantoprazole (Protonix Tab) 40 mg DAILY@06 PO Last administered on 07/10/18at 06:14; Admin Dose 40 MG; Start 07/10/18 at 06:00 Allergies: Coded Allergies: No Known Drug Allergy (Verified Allergy, Unknown, 03/05/14) Past Surgical History Past Surgical Hx: other (LEFT elbow- ) Social History Alcohol Use: none Smoking Status: Never smoker Drug Use: none Exam/Review of Systems Vital Signs Vitals Vital Signs Date Temp Pulse Resp B/P (MAP) Pulse Ox O2 O2 Flow FiO2 Time Delivery Rate 07/10/18 59 09:16 07/10/18 97.8 16 143/75 100 Mask 08:52 (97) 07/10/18 15 08:45 Intake and Output 07/09/18 07/09/18 07/10/18 1515:00 23:00 07:00 IntakeIntake Total 500 ml 600 ml 900 ml OutputOutput Total 3400 ml BalanceBalance 500 ml -2800 ml 900 ml Exam Exam General: no acute distress HEENT: NC/AT. pupils are equal. round. NECK: NO JVD. no stridor. CV: RRR. systolic murmur; no gallop or rubs. PULM: no wheezing . Mild rhonchi. GI: SOFT, NT, ND, no rebound or guarding Extremity: trace B/L LE edema. no clubbing. neuro: awake and alert, OX3. Psych: calm and pleasant rectal: deferred : normal Vascular left arm edema dialysis access in place Chest: Right-sided permanent pacemaker in place CT of the abdomen shows: 1. Large volume ascites throughout the abdomen and pelvis with fluid extending into the right inguinal canal and right wanda scrotum. There is a suggestion of nodularity of the omentum which is concerning for possible omental tumor. Paracentesis with cytologic evaluation of the fluid is suggested. 2. Small bilateral pleural effusions with bibasilar atelectasis or infiltrates. Chest x-ray done in the emergency room shows: Patchy bibasilar opacities, possibly representing atelectasis or pneumonia. Enlarged cardiac silhouette. Cardiac pacemaker. EKG done 07/08/2018 shows normal sinus rhythm with frequent PACs. Nonspecific ST abnormalities Labs Result Diagram: 07/10/18 0515 07/10/18 0515 Results 24hrs Laboratory Tests Test 07/09/18 12:04 07/09/18 14:17 07/09/18 16:47 07/09/18 20:07 Bedside Glucose 106 104 152 Hepatitis B Surface NEGATIVE Antigen Hepatitis B Surface POSITIVE H Antibody Test 07/10/18 05:15 White Blood Count 7.3 # Red Blood Count 3.74 L Hemoglobin 10.4 L Hematocrit 32.7 L Mean Corpuscular 87.4 Volume Mean Corpuscular 27.8 L Hemoglobin Mean Corpuscular 31.8 L Hemoglobin Concent Red Cell 13.8 Distribution Width Platelet Count 207 Mean Platelet Volume 9.8 Immature 0.300 Granulocytes % Neutrophils % 82.2 H Lymphocytes % 6.2 L Monocytes % 8.0 Eosinophils % 3.0 Basophils % 0.3 Nucleated Red Blood 0.0 Cells % Immature 0.020 Granulocytes # Neutrophils # 6.0 Lymphocytes # 0.5 L Monocytes # 0.6 Eosinophils # 0.2 Basophils # 0.0 Nucleated Red Blood 0.0 Cells # Sodium Level 139 Potassium Level 4.8 Chloride Level 98 Carbon Dioxide Level 27 Anion Gap 14 H Blood Urea Nitrogen 59 #H Creatinine 6.99 #H Est Glomerular 8 L Filtrat Rate mL/min Glucose Level 90 Hemoglobin A1c 5.1 Calcium Level 9.6 Triglycerides Level 93 Cholesterol Level 102 LDL Cholesterol, 58 Calculated HDL Cholesterol 25 L Cholesterol/HDL 4.0 Ratio Medications Medications Current Medications Amlodipine Besylate (Norvasc) 10 mg DAILY PO Last administered on 07/09/18at 09:08; Admin Dose 10 MG; Start 07/09/18 at 09:00 Aspirin (Aspirin) 81 mg DAILY PO Last administered on 07/09/18at 09:07; Admin Dose 81 MG; Start 07/09/18 at 09:00 Clonidine (Catapres) 0.1 mg Q8 PO Last administered on 07/10/18at 06:14; Admin Dose 0.1 MG; Start 07/09/18 at 06:00 Furosemide (Lasix) 20 mg DAILY PO Last administered on 07/09/18 09:08; Admin Dose 20 MG; Start 07/09/18 at 09:00 Insulin Glargine (Lantus) 9 units HS SC Last administered on 07/09/18 21:24; Admin Dose 9 UNITS; Start 07/09/18 at 21:00 Lisinopril (Zestril) 5 mg DAILY PO Last administered on 07/09/18 09:09; Admin Dose 5 MG; Start 07/09/18 at 09:00 Pioglitazone HCl (Actos) 15 mg DAILY PO Last administered on 07/09/18 09:08; Admin Dose 15 MG; Start 07/09/18 at 09:00 Diagnostic Test (Pha) (Accu-Chek) 1 ea AC MEALS AND BEDTIME XX Last administered on 07/09/18 21:24; Admin Dose 1 EA; Start 07/09/18 at 07:00 Insulin Aspart (Novolog Insulin Pen) NOVOLOG *MILD* ALGORITHM WITH MEALS BEDTIME SC ; Start 07/09/18 at 08:00 Hydralazine HCl (Apresoline) 25 mg Q6H PRN PO ELEVATED BLOOD PRESSURE; Start 07/09/18 at 04:00 Vancomycin HCl (Vanco Iv Per Pharmacy) VANCOMYCIN PER PHARMACY PER PROTOCOL XX ; Start 07/09/18 at 04:00 Cefepime HCl 50 ml @ 100 mls/hr DAILY IVPB Last administered on 07/09/18 09:08; Admin Dose 100 MLS/HR; Start 07/09/18 at 09:00 Acetaminophen (Tylenol Tab) 650 mg Q4H PRN PO MILD PAIN(1-3)OR ELEVATED TEMP Last administered on 07/09/18at 04:44; Admin Dose 650 MG; Start 07/09/18 at 04:00 Ondansetron HCl (Zofran Inj) 4 mg Q4H PRN IV NAUSEA AND/OR VOMITING Last administered on 07/09/18 04:44; Admin Dose 4 MG; Start 07/09/18 at 04:00 Miscellaneous Information 1 ea NOTE XX ; Start 07/09/18 at 05:00 Glucose (Glutose) 15 gm Q15M PRN PO DECREASED GLUCOSE; Start 07/09/18 at 05:00 Glucose (Glutose) 22.5 gm Q15M PRN PO DECREASED GLUCOSE; Start 07/09/18 at 05:00 Dextrose (D50w Syringe) 25 ml Q15M PRN IV DECREASED GLUCOSE; Start 07/09/18 at 05:00 Dextrose (D50w Syringe) 50 ml Q15M PRN IV DECREASED GLUCOSE; Start 07/09/18 at 05:00 Glucagon (Glucagen) 1 mg Q15M PRN IM DECREASED GLUCOSE; Start 07/09/18 at 05:00 Glucose (Glutose) 15 gm Q15M PRN BUCCAL DECREASED GLUCOSE; Start 07/09/18 at 05:00 Hydroxyzine HCl (Atarax) 50 mg Q6H PRN PO ITCHING; Start 07/09/18 at 07:00 Metoclopramide HCl (Reglan) 5 mg AC MEALS AND BEDTIME IV Last administered on 07/10/18at 06:15; Admin Dose 5 MG; Start 07/09/18 at 17:30 Pantoprazole (Protonix Tab) 40 mg DAILY@06 PO Last administered on 07/10/18at 06:14; Admin Dose 40 MG; Start 07/10/18 at 06:00 CHANDNI LOPEZ MD Jul 10, 2018 09:37
--- NOTE | 2018-07-10 11:12 | RADRPT ---
Echocardiogram Report Patient Name: Rudy HERNANDEZ ID: [id number] : 1950 (67y 11m)Study Date: 07/10/2018 9:55:27 AM Gender: MAccession #: [id number] Tech: SN Location: Ref.Physician: FANI AYALA Height(Cm): BSA: Weight(Kg): Quality: AdequateAccount #: Procedures: Echocardiographic Report: Transthoracic echocardiogram with complete 2D, M-Mode, and doppler examination. Indications: Congestive Heart Failure. Measurements: 2D/M Mode Doppler Measurement Value Normal Range Measurement Value Normal Range LVIDd 2D 4.8 [ 4.2 - 5.8 ] cm AV Peak Deepak 1.7 [ 100.0 - 170.0 ] cm/sec LVIDs 2D 3.3 [ 2.5 - 4.0 ] cm AV Peak PG 11.0 [ 2.0 - 9.0 ] mmHg LVPWd 2D 1.6 [ 0.6 - 1.0 ] cm LVOT Peak Deepak 1.2 [ 70.0 - 110.0 ] cm/sec IVSd 2D 1.6 [ 0.6 - 1.0 ] cm LVOT Peak PG 6.0 [ 2.0 - 6.0 ] mmHg IVS/LVPW 2D 1.0 ratio MV E Peak Deepak 1.6 [ 60.0 - 130.0 ] cm/sec AoR Diam 2D 2.9 [ 2.6 - 3.4 ] cm MV A Peak Deepak 1.0 [ 100.0 - 120.0 ] cm/sec LA/Ao 2D 2 ratio MV E/A 1.6 [ 0.8 - 1.5 ] ratio LA Dimen 2D 4.9 [ 3.0 - 4.0 ] cm MV Decel Time 261 [ 104 - 258 ] msec Lat E` Deepak 0.1 [ 10.0 - 15.0 ] cm/sec Med E` Deepak 0.1 cm/sec MV E/A 1.6 [ 0.8 - 1.5 ] ratio TR Peak Deepak 2.7 [ 100.0 - 280.0 ] cm/sec TR Peak PG 30.0 mmHg RVSP 40.0 [ 10.0 - 36.0 ] mmHg Findings: Left Ventricle: Normal left ventricular systolic function. Normal left ventricular cavity size. Moderate concentric left ventricular hypertrophy. Ejection fraction is visually estimated at 55 %. Tissue Doppler/Mitral Doppler indices are consistent with pseudonormalization with mildly elevated left atrial pressure (Stage II diastolic dysfunction). Right Ventricle: Normal right ventricular systolic function. Moderate enlargement of right ventricle. Pacemaker right heart. Left Atrium: There is moderate enlargement of left atrium. Right Atrium: There is severe enlargement of right atrium. Mitral Valve: Mild mitral leaflet calcification. Mild mitral annular calcification. Trace mitral regurgitation. Aortic Valve: Aortic cusps appear mildly calcified. Mild aortic valve regurgitation. Tricuspid Valve: Normal appearance of the tricuspid valve. Estimated peak PA systolic pressure 40 mmHg. There is mild to moderate tricuspid regurgitation. Pulmonic Valve: Normal pulmonic valve appearance. Pericardium: Trivial pericardial effusion. Left pleural effusion seen. Aorta: Normal aortic root. IVC: Dilated IVC with respiratory collapse consistent with elevated right atrial pressure. Conclusions: Normal left ventricular systolic function. Normal left ventricular cavity size. Moderate concentric left ventricular hypertrophy. Ejection fraction is visually estimated at 55 %. Tissue Doppler/Mitral Doppler indices are consistent with pseudonormalization with mildly elevated left atrial pressure (Stage II diastolic dysfunction). There is moderate enlargement of left atrium. There is severe enlargement of right atrium. Mild mitral leaflet calcification. Mild mitral annular calcification. Trace mitral regurgitation. Aortic cusps appear mildly calcified. Mild aortic valve regurgitation. Normal appearance of the tricuspid valve. Estimated peak PA systolic pressure 40 mmHg. There is mild to moderate tricuspid regurgitation. Dilated IVC with respiratory collapse consistent with elevated right atrial pressure. Trivial pericardial effusion. Left pleural effusion seen. Electronically Signed By: Venu Feldman 2018-07-10 11:11:20 PST
[2018-07-10] MEDS ORDERED: LIDOCAINE 1% (MDV) 20 ML INJ ONE (16:57)
[2018-07-10] MEDS: INSULIN GLARGINE [LANTus] (100 UNITS/ML) SYG SC SCH (20:11)
--- NOTE | 2018-07-10 23:34 | PN ---
DATE: 07/10/2018 SUBJECTIVE: Follow up on nausea, vomiting, hypertension, pneumonia, end-stage renal disease, ascites , history of sick sinus syndrome, hypertension. The patient is breathing comfortably at rest. He de nies any chest pain, no reported fever or chills. No reported bleeding inside. No reported wheezing , no reported focal weakness. PHYSICAL EXAMINATION: GENERAL: The patient is awake, alert, follows simple commands. VITAL SIGNS: Temperature 98.2, pulse 56, respirations 18, blood pressure 135/63, O2 saturation 95 to 96% on room air. HEENT: No eye discharge or redness. Conjunctivae normal. Nose and ears are normal . NECK: Supple. No thyromegaly. CHEST: Diminished breath sounds at the bases. No wheezes. CARDIOVASCULAR: S1, S2 normal, no murmur. ABDOMEN: Soft. Mild upper abdomen, poorly localized tenderness. No guarding, rigidity. Bowel soun ds plus. NEUROLOGIC: The patient is awake, alert, fairly oriented with no gross focal deficit. LABORATORY DATA: Done this morning, WBC 7.3, down from 11.3, hemoglobin 10.4, platelet 207. Carpenter Repairer ry: Sodium 139, potassium 4.8, BUN 59, creatinine 6.9, glucose 90. Hemoglobin A1c 5.1. CEA slightl y elevated at 5.4. LDL 58. IMPRESSION AND PLAN: 1. Pneumonia. Continue cefepime. The patient clinically has been improving. 2. Status post nausea, vomiting, and abdominal pain. Workup underway. The patient will go for a pa racentesis today. The patient was seen by Dr. Lopez from GI standpoint. 3. Hypertension. 4. Coronary artery disease. The patient is being followed by Dr. Feldman. Continue Norvasc, aspirin, Zestril, lisinopril. 6. Diabetes. Blood sugar reasonably controlled with current dose of Lantus and sliding scale insuli n. 7. History of coronary artery disease. Continue aspirin. 8. End-stage renal disease. The patient is being followed by Dr. Dobbins from nephrology standpoint . Continue hemodialysis. Further recommendation will depend on hospital course. Dictated By: SAURABH VENCES/CANDY Conf#: [id number] DID#: [id number] CC: SAURABH WEINSTEIN MD; NAILA LOPEZ MD;*End*
--- NOTE | 2018-07-10 23:47 | CONS ---
DATE OF ADMISSION: 07/09/2018 DATE OF CONSULTATION: 07/10/2018 SUBJECTIVE: The patient was seen by me because of abdominal pain and vomiting. Upper endoscopy show ed severe gastritis. The pathology report is pending about H. pylori, however, CAT scan of the abdom en showed evidence of massive ascites and possible omental tumor, calcification in the tail of the pa ncreas. PHYSICAL EXAMINATION: GENERAL: He is alert. He is very comfortable. He feels better. VITAL SIGNS: Blood pressure is 135/63, pulse 59. CARDIOVASCULAR: Normal heart sounds. RESPIRATORY: Normal breath sounds. ABDOMEN: Shows soft abdomen with lot less distention. LABORATORY WORKUP: Hemoglobin is 10.4 at one time 9.9. The serum CEA was ordered by me, CEA is 5.4. He does have an elevated alkaline phosphatase of 250, AST 13, ALT is 23. CLINICAL IMPRESSION: The patient presenting with history of nausea, vomiting, abdominal pain. CAT s can of the abdomen shows massive ascites, although there is no comment about cirrhosis. 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 Elevated alkaline phosphatase, etiology not known. Rule out choledocholithiasis, although it is unli milan. PLAN: I recommend a serum CA 19-9, alpha fetoprotein, fluid was sent for cytology. We will wait for the cytology of the ascitic fluid and will make further advice after the results are back. Dictated By: NAILA LEVINE/NTS Conf#: [id number] DID#: [id number] CC: SAURABH WEINSTEIN MD; NAILA MERCER MD;*EndCC*
[2018-07-11] VITALS (27 sets, daily range): BP systolic 118–151; BP diastolic 57–71; PULSE 51–63; RESP 16–19
[2018-07-11] MEDS: PANTOPRAZOLE (EC) 40 MG TAB PO SCH (06:15)
[2018-07-11] MEDS: METOCLOPRAMIDE 10 MG INJ IV SCH ×4 (06:15→20:58)
[2018-07-11] MEDS: ACCU-CHEK XX SCH ×4 (06:15→20:58)
[2018-07-11] MEDS: INSULIN ASPART [NOVOLOG] 3 ML PEN SC SCH ×4 (07:46→20:58)
--- NOTE | 2018-07-11 07:58 | CONS ---
Consult Date/Type/Reason Admit Date/Time Jul 09, 2018 at 00:40 Initial Consult Date 07/10/18 Type of Consultation: cv Requesting Provider: FANI AYALA Date/Time of Note DATE: 07/11/18 TIME: 07:55 Subjective Cardiovascular follow-up progress note Subjective: Discussed with the staff and telemetry was reviewed patient remained normal sinus rhythm/sinus bradycardia He denies any left-sided chest pain or pressure to me denies any palpitation to me Objective: General: no acute distress HEENT: NC/AT. pupils are equal. round. NECK: NO JVD. no stridor. CV: RRR. systolic murmur; no gallop or rubs. PULM: no wheezing . Mild rhonchi. GI: SOFT, NT, ND, no rebound or guarding Extremity: trace B/L LE edema. no clubbing. neuro: awake and alert, OX3. Psych: calm and pleasant rectal: deferred : normal Vascular left arm edema dialysis access in place Chest: Right-sided permanent pacemaker in place CT of the abdomen shows: 1. Large volume ascites throughout the abdomen and pelvis with fluid extending into the right inguinal canal and right wanda scrotum. There is a suggestion of nodularity of the omentum which is concerning for possible omental tumor. Paracentesis with cytologic evaluation of the fluid is suggested. 2. Small bilateral pleural effusions with bibasilar atelectasis or infiltrates. Chest x-ray done in the emergency room shows: Patchy bibasilar opacities, possibly representing atelectasis or pneumonia. Enlarged cardiac silhouette. Cardiac pacemaker. EKG done 07/08/2018 shows normal sinus rhythm with frequent PACs. Nonspecific ST abnormalities Objective Vitals Vital Signs Date Temp Pulse Resp B/P (MAP) Pulse Ox O2 O2 Flow FiO2 Time Delivery Rate 07/11/18 98.1 59 19 121/59 92 07:19 (79) 07/11/18 Room Air 03:56 07/10/18 15 08:45 Intake and Output 07/10/18 07/10/18 07/11/18 1515:00 23:00 07:00 IntakeIntake Total 1300 ml 400 ml BalanceBalance 1300 ml 400 ml Results/Medications Result Diagram: 07/10/18 0515 07/10/18 0515 Results 24 hrs Laboratory Tests Test 07/10/18 09:37 07/10/18 11:30 07/10/18 15:56 07/10/18 16:00 Bedside Glucose 80 111 Alpha Fetoprotein < 0.83 CA 19-9 Antigen 27.1 Prothrombin Time 15.8 H Prothrombin Time 1.2 Ratio INR International 1.25 Normalized Ratio Activated 33.[address] Time Carcinoembryonic 5.4 H Antigen Test 07/10/18 17:00 07/10/18 17:21 07/10/18 20:05 07/11/18 04:49 Body Fluid Type ASCITES FLUID Body Fluid Volume 1050.0 Body Fluid Color YELLOW Body Fluid SLIGHTLY CLOUDY Appearance Body Fluid WBC 3413 Body Fluid RBC 4000 (Auto) Body Fluid 72.8 Polynuclear WBCs (%) Body Fluid 27.2 Mononuclear Cells % Auto Body Fluid Glucose 118 Body Fluid Total 3.9 Protein Bedside Glucose 112 182 Random Vancomycin 12.5 Level Test 07/11/18 07:43 Bedside Glucose 69 L Home Meds Active Scripts Insulin Glargine* (Lantus*) 100 Unit/Ml Soln, 9 UNIT SC HS, #1 BOTTLE Prov:HENRRY DUONG MD 01/05/14 Aspirin (Aspirin) 81 Mg Chew, 81 MG PO DAILY, #30 TAB Prov:HENRRY DUONG MD 01/05/14 Reported Medications Lisinopril* (Lisinopril*) 5 Mg Tablet, 5 MG PO DAILY, #30 TAB 08/17/17 Pioglitazone Hcl* (Pioglitazone Hcl*) 15 Mg Tablet, 15 MG PO DAILY, TAB 03/05/14 Furosemide* (Furosemide*) 20 Mg Tablet, 20 MG PO DAILY, TAB 03/05/14 Hydroxyzine Hcl* (Hydroxyzine Hcl*) 50 Mg Tablet, 50 MG PO Q6H PRN for ITCHING, TAB 01/01/14 Clonidine Hcl* (Clonidine Hcl*) 0.1 Mg Tab, 0.1 MG PO Q8 09/13/12 Amlodipine Besylate* (Amlodipine Besylate*) 10 Mg Tablet, 10 MG PO DAILY 09/13/12 Medications Current Medications Amlodipine Besylate (Norvasc) 10 mg DAILY PO Last administered on 07/10/18at 09:40; Admin Dose 10 MG; Start 07/09/18 at 09:00 Aspirin (Aspirin) 81 mg DAILY PO Last administered on 07/10/18 09:39; Admin Dose 81 MG; Start 07/09/18 at 09:00 Clonidine (Catapres) 0.1 mg Q8 PO Last administered on 07/11/18 06:15; Admin Dose 0.1 MG; Start 07/09/18 at 06:00 Furosemide (Lasix) 20 mg DAILY PO Last administered on 07/10/18 09:39; Admin Dose 20 MG; Start 07/09/18 at 09:00 Insulin Glargine (Lantus) 9 units HS SC Last administered on 07/10/18 20:11; Admin Dose 9 UNITS; Start 07/09/18 at 21:00 Lisinopril (Zestril) 5 mg DAILY PO Last administered on 07/10/18 09:40; Admin Dose 5 MG; Start 07/09/18 at 09:00 Pioglitazone HCl (Actos) 15 mg DAILY PO Last administered on 07/10/18 09:38; Admin Dose 15 MG; Start 07/09/18 at 09:00 Diagnostic Test (Pha) (Accu-Chek) 1 ea AC MEALS AND BEDTIME XX Last administered on 07/09/18 21:24; Admin Dose 1 EA; Start 07/09/18 at 07:00 Insulin Aspart (Novolog Insulin Pen) NOVOLOG *MILD* ALGORITHM WITH MEALS BEDTIME SC Last administered on 07/10/18 20:11; Admin Dose 1 UNIT; Start 07/09/18 at 08:00 Hydralazine HCl (Apresoline) 25 mg Q6H PRN PO ELEVATED BLOOD PRESSURE; Start 07/09/18 at 04:00 Vancomycin HCl (Vanco Iv Per Pharmacy) VANCOMYCIN PER PHARMACY PER PROTOCOL XX ; Start 07/09/18 at 04:00 Cefepime HCl 50 ml @ 100 mls/hr DAILY IVPB Last administered on 07/10/18 09:38; Admin Dose 100 MLS/HR; Start 07/09/18 at 09:00 Acetaminophen (Tylenol Tab) 650 mg Q4H PRN PO MILD PAIN(1-3)OR ELEVATED TEMP Last administered on 07/09/18 04:44; Admin Dose 650 MG; Start 07/09/18 at 04:00 Ondansetron HCl (Zofran Inj) 4 mg Q4H PRN IV NAUSEA AND/OR VOMITING Last administered on 07/09/18at 04:44; Admin Dose 4 MG; Start 07/09/18 at 04:00 Miscellaneous Information 1 ea NOTE XX ; Start 07/09/18 at 05:00 Glucose (Glutose) 15 gm Q15M PRN PO DECREASED GLUCOSE; Start 07/09/18 at 05:00 Glucose (Glutose) 22.5 gm Q15M PRN PO DECREASED GLUCOSE; Start 07/09/18 at 05:00 Dextrose (D50w Syringe) 25 ml Q15M PRN IV DECREASED GLUCOSE; Start 07/09/18 at 05:00 Dextrose (D50w Syringe) 50 ml Q15M PRN IV DECREASED GLUCOSE; Start 07/09/18 at 05:00 Glucagon (Glucagen) 1 mg Q15M PRN IM DECREASED GLUCOSE; Start 07/09/18 at 05:00 Glucose (Glutose) 15 gm Q15M PRN BUCCAL DECREASED GLUCOSE; Start 07/09/18 at 05:00 Hydroxyzine HCl (Atarax) 50 mg Q6H PRN PO ITCHING; Start 07/09/18 at 07:00 Metoclopramide HCl (Reglan) 5 mg AC MEALS AND BEDTIME IV Last administered on 07/11/18at 06:15; Admin Dose 5 MG; Start 07/09/18 at 17:30 Pantoprazole (Protonix Tab) 40 mg DAILY@06 PO Last administered on 07/11/18at 06:15; Admin Dose 40 MG; Start 07/10/18 at 06:00 Assessment/Plan Hospital Course (Demo Recall) 1. Dyspnea probably multifactorial possible pneumonia 2. Ascites 3. History of possible coronary artery disease and [place] 4. Renal failure on dialysis 5. Abdominal distention/ascites follow-up with GI recommendations 6. Diabetes 7. Hypertension 8. History of sick sinus syndrome Patient is status post permanent pacemaker Recommendations: GI workup as per GI. Status post paracentesis Patient pacemaker information/card was obtained from the patient and . It is a [employer] pacemaker which was placed in 2018 patient appears that has been followed up by . I will notify Dr. Bolaños and associated to follow the pt Continue with the beta-kamlesh. Blood pressure currently stable Hemodialysis as per renal to be continued. Antibiotic as per internal medicine consultants. Thank you for his referral. We will continue to follow along with you until Dr Boalños / or associates take over the cardiac care CHANDNI LOPEZ MD [facility] CHANDNI LOPEZ MD Jul 11, 2018 07:58
[2018-07-11] MEDS: CEFEPIME 1GM/50 ML (PMX) 50 ML IVPB SCH (08:12)
[2018-07-11] MEDS: PIOGLITAZONE 15 MG TAB PO SCH (08:12)
[2018-07-11] MEDS: AMLODIPINE 10 MG TAB PO SCH (08:13)
[2018-07-11] MEDS: ASPIRIN 81 MG TAB PO SCH (08:13)
[2018-07-11] MEDS: FUROSEMIDE 20 MG TAB PO SCH (08:13)
--- NOTE | 2018-07-11 09:02 | CONS ---
Assessment/Plan Assessment/Plan Assessment/Plan (Daily) - [facility] - DM / DM Nephropathy - PNA - CAD / Hypertension - CAD / CHF - Anemia - Hyperphosphatemia PLAN: Skipped dialysis today ( usual HD days are TTS 1st shift ) GI will see patient for Abdomen pain IV antibiotics for possible PNA Recheck CXR post HD Follow up with H/H Post EGD Bedside dialysis 07/11/2018 Follow up with PARACENTESIS results Follow up with H/H Follow up with serology sent by GI Consultation Date/Type/Reason Admit Date/Time Jul 09, 2018 at 00:40 Initial Consult Date 07/10/18 Type of Consult NEPHROLOGY Reason for Consultation ESRD on Dialysis @ [facility] Requesting Provider: FANI AYALA Date/Time of Note DATE: 07/11/18 TIME: 09:01 24 HR Interval Summary Constitutional: no complaints, improved Exam/Review of Systems Exam Vitals Vital Signs Date Temp Pulse Resp B/P (MAP) Pulse Ox O2 O2 Flow FiO2 Time Delivery Rate 07/11/18 98.1 59 19 121/59 92 07:19 (79) 07/11/18 Room Air 03:56 07/10/18 15 08:45 Intake and Output 07/10/18 07/10/18 07/11/18 1515:00 23:00 07:00 IntakeIntake Total 1300 ml 400 ml BalanceBalance 1300 ml 400 ml Constitutional: alert Psych: no complaints Respiratory: crackles/rales Cardiovascular: regular rate and rhythm, edema, systolic murmur Gastrointestinal: soft Results Result Diagram: 07/10/18 0515 07/10/18 0515 Results 24hrs Laboratory Tests Test 07/10/18 09:37 07/10/18 11:30 07/10/18 15:56 07/10/18 16:00 Bedside Glucose 80 111 Alpha Fetoprotein < 0.83 CA 19-9 Antigen 27.1 Prothrombin Time 15.8 H Prothrombin Time 1.2 Ratio INR International 1.25 Normalized Ratio Activated 33.[address] Time Carcinoembryonic 5.4 H Antigen Test 07/10/18 17:00 07/10/18 17:21 07/10/18 20:05 07/11/18 04:49 Body Fluid Type ASCITES FLUID Body Fluid Volume 1050.0 Body Fluid Color YELLOW Body Fluid SLIGHTLY CLOUDY Appearance Body Fluid WBC 3413 Body Fluid RBC 4000 (Auto) Body Fluid 72.8 Polynuclear WBCs (%) Body Fluid 27.2 Mononuclear Cells % Auto Body Fluid Glucose 118 Body Fluid Total 3.9 Protein Bedside Glucose 112 182 Random Vancomycin 12.5 Level Test 07/11/18 07:43 07/11/18 08:08 Bedside Glucose 69 L 99 Medications Medication Current Medications Amlodipine Besylate (Norvasc) 10 mg DAILY PO Last administered on 07/11/18 08:13; Admin Dose 10 MG; Start 07/09/18 at 09:00 Aspirin (Aspirin) 81 mg DAILY PO Last administered on 07/11/18 08:13; Admin Dose 81 MG; Start 07/09/18 at 09:00 Clonidine (Catapres) 0.1 mg Q8 PO Last administered on 07/11/18 06:15; Admin Dose 0.1 MG; Start 07/09/18 at 06:00 Furosemide (Lasix) 20 mg DAILY PO Last administered on 07/11/18 08:13; Admin Dose 20 MG; Start 07/09/18 at 09:00 Insulin Glargine (Lantus) 9 units HS SC Last administered on 07/10/18 20:11; Admin Dose 9 UNITS; Start 07/09/18 at 21:00 Lisinopril (Zestril) 5 mg DAILY PO Last administered on 07/10/18 09:40; Admin Dose 5 MG; Start 07/09/18 at 09:00 Pioglitazone HCl (Actos) 15 mg DAILY PO Last administered on 07/11/18 08:12; Admin Dose 15 MG; Start 07/09/18 at 09:00 Diagnostic Test (Pha) (Accu-Chek) 1 ea AC MEALS AND BEDTIME XX Last administered on 07/09/18 21:24; Admin Dose 1 EA; Start 07/09/18 at 07:00 Insulin Aspart (Novolog Insulin Pen) NOVOLOG *MILD* ALGORITHM WITH MEALS BEDTIME SC Last administered on 07/10/18at 20:11; Admin Dose 1 UNIT; Start 07/09/18 at 08:00 Hydralazine HCl (Apresoline) 25 mg Q6H PRN PO ELEVATED BLOOD PRESSURE; Start 07/09/18 at 04:00 Vancomycin HCl (Vanco Iv Per Pharmacy) VANCOMYCIN PER PHARMACY PER PROTOCOL XX ; Start 07/09/18 at 04:00 Cefepime HCl 50 ml @ 100 mls/hr DAILY IVPB Last administered on 07/11/18at 08:12; Admin Dose 100 MLS/HR; Start 07/09/18 at 09:00 Acetaminophen (Tylenol Tab) 650 mg Q4H PRN PO MILD PAIN(1-3)OR ELEVATED TEMP Last administered on 07/09/18at 04:44; Admin Dose 650 MG; Start 07/09/18 at 04:00 Ondansetron HCl (Zofran Inj) 4 mg Q4H PRN IV NAUSEA AND/OR VOMITING Last administered on 07/09/18at 04:44; Admin Dose 4 MG; Start 07/09/18 at 04:00 Miscellaneous Information 1 ea NOTE XX ; Start 07/09/18 at 05:00 Glucose (Glutose) 15 gm Q15M PRN PO DECREASED GLUCOSE; Start 07/09/18 at 05:00 Glucose (Glutose) 22.5 gm Q15M PRN PO DECREASED GLUCOSE; Start 07/09/18 at 05:00 Dextrose (D50w Syringe) 25 ml Q15M PRN IV DECREASED GLUCOSE; Start 07/09/18 at 05:00 Dextrose (D50w Syringe) 50 ml Q15M PRN IV DECREASED GLUCOSE; Start 07/09/18 at 05:00 Glucagon (Glucagen) 1 mg Q15M PRN IM DECREASED GLUCOSE; Start 07/09/18 at 05:00 Glucose (Glutose) 15 gm Q15M PRN BUCCAL DECREASED GLUCOSE; Start 07/09/18 at 05:00 Hydroxyzine HCl (Atarax) 50 mg Q6H PRN PO ITCHING; Start 07/09/18 at 07:00 Metoclopramide HCl (Reglan) 5 mg AC MEALS AND BEDTIME IV Last administered on 07/11/18at 06:15; Admin Dose 5 MG; Start 2/26/19 at 17:30 Pantoprazole (Protonix Tab) 40 mg DAILY@06 PO Last administered on 07/11/18at 06:15; Admin Dose 40 MG; Start 07/10/18 at 06:00 PACO LAZO MD Jul 11, 2018 09:02
--- NOTE | 2018-07-11 10:02 | PN ---
Date/Time of Note Date/Time of Note DATE: 07/11/18 TIME: 10:01 Assessment/Plan VTE Prophylaxis Risk score (from Ns)>0 risk: 3 SCD applied (from Ns): No Lines/Catheters IV Catheter Type (from Nrs): Saline Lock Urinary Cath still in place: No Assessment/Plan Assessment/Plan 1. Pneumonia. Continue cefepime. The patient clinically has been improving. 2. Status post nausea, vomiting, and abdominal pain. Workup underway. The patient will go for a paracentesis today. The patient was seen by Dr. Lopez from GI standpoint. 3. Hypertension. 4. Coronary artery disease. The patient is being followed by Dr. Feldman. Continue Norvasc, aspirin, Zestril, lisinopril. 6. Diabetes. Blood sugar reasonably controlled with current dose of Lantus and sliding scale insulin. 7. History of coronary artery disease. Continue aspirin. 8. End-stage renal disease. The patient is being followed by Dr. Dobbins from nephrology standpoint. Continue hemodialysis. Further recommendation will depend on hospital course. Result Diagram: 07/10/1851407/10/1815 Results 24hrs Laboratory Tests Test 07/10/18 11:30 07/10/18 15:56 07/10/18 16:00 07/10/18 17:00 Bedside Glucose 111 Alpha Fetoprotein < 0.83 CA 19-9 Antigen 27.1 Prothrombin Time 15.8 H Prothrombin Time 1.2 Ratio INR International 1.25 Normalized Ratio Activated 33.[address] Time Carcinoembryonic 5.4 H Antigen Body Fluid Type ASCITES FLUID Body Fluid Volume 1050.0 Body Fluid Color YELLOW Body Fluid SLIGHTLY CLOUDY Appearance Body Fluid WBC 3413 Body Fluid RBC 4000 (Auto) Body Fluid 72.8 Polynuclear WBCs (%) Body Fluid 27.2 Mononuclear Cells % Auto Body Fluid Glucose 118 Body Fluid Total 3.9 Protein Test 07/10/18 17:21 07/10/18 20:05 07/11/18 04:49 07/11/18 07:43 Bedside Glucose 112 182 69 L Random Vancomycin 12.5 Level Test 07/11/18 08:08 Bedside Glucose 99 Exam/Review of Systems Exam Vitals Vital Signs Date Temp Pulse Resp B/P (MAP) Pulse Ox O2 O2 Flow FiO2 Time Delivery Rate 07/11/18 59 08:02 07/11/18 98.1 19 121/59 92 07:19 (79) 07/11/18 Room Air 03:56 07/10/18 15 08:45 Intake and Output 07/10/18 07/10/18 07/11/18 1515:00 23:00 07:00 IntakeIntake Total 1300 ml 400 ml BalanceBalance 1300 ml 400 ml Results Results 24hrs Laboratory Tests Test 07/10/18 11:30 07/10/18 15:56 07/10/18 16:00 07/10/18 17:00 Bedside Glucose 111 Alpha Fetoprotein < 0.83 CA 19-9 Antigen 27.1 Prothrombin Time 15.8 H Prothrombin Time 1.2 Ratio INR International 1.25 Normalized Ratio Activated 33.[address] Time Carcinoembryonic 5.4 H Antigen Body Fluid Type ASCITES FLUID Body Fluid Volume 1050.0 Body Fluid Color YELLOW Body Fluid SLIGHTLY CLOUDY Appearance Body Fluid WBC 3413 Body Fluid RBC 4000 (Auto) Body Fluid 72.8 Polynuclear WBCs (%) Body Fluid 27.2 Mononuclear Cells % Auto Body Fluid Glucose 118 Body Fluid Total 3.9 Protein Test 07/10/18 17:21 07/10/18 20:05 07/11/18 04:49 07/11/18 07:43 Bedside Glucose 112 182 69 L Random Vancomycin 12.5 Level Test 07/11/18 08:08 Bedside Glucose 99 Medications Medication Current Medications Amlodipine Besylate (Norvasc) 10 mg DAILY PO Last administered on 07/11/18 08:13; Admin Dose 10 MG; Start 07/09/18 at 09:00 Aspirin (Aspirin) 81 mg DAILY PO Last administered on 07/11/18 08:13; Admin Dose 81 MG; Start 07/09/18 at 09:00 Clonidine (Catapres) 0.1 mg Q8 PO Last administered on 07/11/18 06:15; Admin Dose 0.1 MG; Start 07/09/18 at 06:00 Furosemide (Lasix) 20 mg DAILY PO Last administered on 07/11/18 08:13; Admin Dose 20 MG; Start 07/09/18 at 09:00 Insulin Glargine (Lantus) 9 units HS SC Last administered on 07/10/18 20:11; Admin Dose 9 UNITS; Start 07/09/18 at 21:00 Lisinopril (Zestril) 5 mg DAILY PO Last administered on 07/10/18at 09:40; Admin Dose 5 MG; Start 07/09/18 at 09:00 Pioglitazone HCl (Actos) 15 mg DAILY PO Last administered on 07/11/18 08:12; Admin Dose 15 MG; Start 07/09/18 at 09:00 Diagnostic Test (Pha) (Accu-Chek) 1 ea AC MEALS AND BEDTIME XX Last administered on 07/09/18at 21:24; Admin Dose 1 EA; Start 07/09/18 at 07:00 Insulin Aspart (Novolog Insulin Pen) NOVOLOG *MILD* ALGORITHM WITH MEALS BEDTIME SC Last administered on 07/10/18at 20:11; Admin Dose 1 UNIT; Start 07/09/18 at 08:00 Hydralazine HCl (Apresoline) 25 mg Q6H PRN PO ELEVATED BLOOD PRESSURE; Start 07/09/18 at 04:00 Vancomycin HCl (Vanco Iv Per Pharmacy) VANCOMYCIN PER PHARMACY PER PROTOCOL XX ; Start 07/09/18 at 04:00 Cefepime HCl 50 ml @ 100 mls/hr DAILY IVPB Last administered on 07/11/18 08:12; Admin Dose 100 MLS/HR; Start 07/09/18 at 09:00 Acetaminophen (Tylenol Tab) 650 mg Q4H PRN PO MILD PAIN(1-3)OR ELEVATED TEMP Last administered on 07/09/18at 04:44; Admin Dose 650 MG; Start 07/09/18 at 04:00 Ondansetron HCl (Zofran Inj) 4 mg Q4H PRN IV NAUSEA AND/OR VOMITING Last administered on 07/09/18at 04:44; Admin Dose 4 MG; Start 07/09/18 at 04:00 Miscellaneous Information 1 ea NOTE XX ; Start 07/09/18 at 05:00 Glucose (Glutose) 15 gm Q15M PRN PO DECREASED GLUCOSE; Start 07/09/18 at 05:00 Glucose (Glutose) 22.5 gm Q15M PRN PO DECREASED GLUCOSE; Start 07/09/18 at 05:00 Dextrose (D50w Syringe) 25 ml Q15M PRN IV DECREASED GLUCOSE; Start 07/09/18 at 05:00 Dextrose (D50w Syringe) 50 ml Q15M PRN IV DECREASED GLUCOSE; Start 07/09/18 at 05:00 Glucagon (Glucagen) 1 mg Q15M PRN IM DECREASED GLUCOSE; Start 07/09/18 at 05:00 Glucose (Glutose) 15 gm Q15M PRN BUCCAL DECREASED GLUCOSE; Start 07/09/18 at 05:00 Hydroxyzine HCl (Atarax) 50 mg Q6H PRN PO ITCHING; Start 07/09/18 at 07:00 Metoclopramide HCl (Reglan) 5 mg AC MEALS AND BEDTIME IV Last administered on 07/11/18at 06:15; Admin Dose 5 MG; Start 07/09/18 at 17:30 Pantoprazole (Protonix Tab) 40 mg DAILY@06 PO Last administered on 07/11/18at 06:15; Admin Dose 40 MG; Start 07/10/18 at 06:00 FANI AYALA Jul 11, 2018 10:02
[2018-07-11] MEDS ORDERED: VANCOMYCIN 1 GM 250 ML IVPB SCH (15:00)
[2018-07-11] MEDS ORDERED: PIPER-TAZO 3.375 GM IV (PMX) 100 ML IVPB SCH (18:00)
[2018-07-11] MEDS: PIPER-TAZO 2.25 GM/NS 50 ML IVPB SCH (18:50)
[2018-07-11] MEDS: INSULIN GLARGINE [LANTus] (100 UNITS/ML) SYG SC SCH (21:24)
[2018-07-12] VITALS (11 sets, daily range): BP systolic 121–147; BP diastolic 58–71; PULSE 57–66; RESP 18–22
[2018-07-12] MEDS: PIPER-TAZO 2.25 GM/NS 50 ML IVPB SCH ×3 (04:52→21:26)
[2018-07-12] MEDS: PANTOPRAZOLE (EC) 40 MG TAB PO SCH (04:52)
[2018-07-12] MEDS: METOCLOPRAMIDE 10 MG INJ IV SCH ×4 (04:53→20:26)
--- NOTE | 2018-07-12 06:49 | PN ---
DATE: 07/11/2018 SUBJECTIVE: The patient seems to be feeling better. No nausea or vomiting. The abdominal pain is m uch better. OBJECTIVE: VITAL SIGNS: Temperature 98.4 and blood pressure is 141/64. CARDIOVASCULAR: Normal heart sounds. RESPIRATORY: Normal breath sounds. ABDOMEN: Showed unremarkable findings. LABORATORY WORKUP: WBC 7.3 and hemoglobin is 10.4. The ascitic fluid showed evidence of WBC of 3413 , RBCs of 4000, polymorphonuclear leukocytes 72.81, mononuclear 27.2, protein is 3.9 and glucose is 1 18. The patient seems to have evidence of exudate of the ascitic fluid indicating there is evidence of a probable spontaneous bacterial peritonitis based on the ascitic fluid cell count. The patient currently is on vancomycin and he is not on any other antibiotics and it appears that he may already have received one dose only. We may have to get an infectious disease consultation for p gibson antibiotic therapy. We will wait for the cytology of the ascitic fluid. Dictated By: NAILA MERCER MD NC/NTS Conf#: [id number] DID#: [id number] CC: SAURABH WEINSTEIN MD;*EndCC*
[2018-07-12] MEDS: ACCU-CHEK XX SCH ×4 (07:30→21:00)
[2018-07-12] MEDS: INSULIN ASPART [NOVOLOG] 3 ML PEN SC SCH ×4 (08:00→21:31)
[2018-07-12] MEDS: PIOGLITAZONE 15 MG TAB PO SCH (08:45)
[2018-07-12] MEDS: FUROSEMIDE 20 MG TAB PO SCH (08:46)
[2018-07-12] MEDS: ASPIRIN 81 MG TAB PO SCH (08:46)
[2018-07-12] MEDS: AMLODIPINE 10 MG TAB PO SCH (08:47)
[2018-07-12] MEDS: LISINOPRIL 5 MG TAB PO SCH (08:47)
--- NOTE | 2018-07-12 10:47 | CONS ---
Assessment/Plan Assessment/Plan Assessment/Plan (Daily) Skipped dialysis today ( usual HD days are TTS 1st shift ) GI will see patient for Abdomen pain IV antibiotics for possible PNA Recheck CXR post HD Follow up with H/H Post EGD Bedside dialysis 07/11/2018 Follow up with PARACENTESIS results Follow up with H/H Follow up with serology sent by GI Had dialysis last yesterday Feels well Labs reviewed No Acute need for HD Plan for next Dialysis 07/13/2018 Follow up with cytology results of the paracentesis Follow up with results of the cultures Consultation Date/Type/Reason Admit Date/Time Jul 09, 2018 at 00:40 Initial Consult Date 07/10/18 Type of Consult NEPHROLOGY Reason for Consultation - ESRD on hemodialysis Requesting Provider: FANI AYALA Date/Time of Note DATE: 07/12/18 TIME: 10:45 24 HR Interval Summary Constitutional: no complaints, improved Exam/Review of Systems Exam Vitals Vital Signs Date Temp Pulse Resp B/P (MAP) Pulse Ox O2 O2 Flow FiO2 Time Delivery Rate 07/12/18 97.8 63 22 132/62 96 Room Air 08:36 (85) 07/10/18 15 08:45 Intake and Output 07/11/18 07/11/18 07/12/18 1515:00 23:00 07:00 IntakeIntake Total 50 ml 750 ml 500 ml OutputOutput Total 3400 ml BalanceBalance -3350 ml 750 ml 500 ml Constitutional: alert, oriented Psych: no complaints Neck: supple, non-tender Respiratory: crackles/rales Cardiovascular: regular rate and rhythm, systolic murmur Gastrointestinal: soft Results Result Diagram: 07/10/18 0515 07/10/18 0515 Results 24hrs Laboratory Tests Test 07/11/18 11:52 07/11/18 17:11 07/11/18 20:57 07/12/18 07:41 Bedside Glucose 111 122 176 81 Medications Medication Current Medications Amlodipine Besylate (Norvasc) 10 mg DAILY PO Last administered on 07/12/18 08:47; Admin Dose 10 MG; Start 07/09/18 at 09:00 Aspirin (Aspirin) 81 mg DAILY PO Last administered on 07/12/18 08:46; Admin Dose 81 MG; Start 07/09/18 at 09:00 Clonidine (Catapres) 0.1 mg Q8 PO Last administered on 07/12/18 04:53; Admin Dose 0.1 MG; Start 07/09/18 at 06:00 Furosemide (Lasix) 20 mg DAILY PO Last administered on 07/12/18 08:46; Admin Dose 20 MG; Start 07/09/18 at 09:00 Insulin Glargine (Lantus) 9 units HS SC Last administered on 07/11/18 21:24; Admin Dose 9 UNITS; Start 07/09/18 at 21:00 Lisinopril (Zestril) 5 mg DAILY PO Last administered on 07/12/18 08:47; Admin Dose 5 MG; Start 07/09/18 at 09:00 Pioglitazone HCl (Actos) 15 mg DAILY PO Last administered on 07/12/18 08:45; Admin Dose 15 MG; Start 07/09/18 at 09:00 Diagnostic Test (Pha) (Accu-Chek) 1 ea AC MEALS AND BEDTIME XX Last administered on 07/12/18 07:30; Admin Dose 1 EA; Start 07/09/18 at 07:00 Insulin Aspart (Novolog Insulin Pen) NOVOLOG *MILD* ALGORITHM WITH MEALS BEDT OLYA SC Last administered on 07/10/18 20:11; Admin Dose 1 UNIT; Start 07/09/18 at 08:00 Hydralazine HCl (Apresoline) 25 mg Q6H PRN PO ELEVATED BLOOD PRESSURE; Start 07/09/18 at 04:00 Vancomycin HCl (Vanco Iv Per Pharmacy) VANCOMYCIN PER PHARMACY PER PROTOCOL XX ; Start 07/09/18 at 04:00 Acetaminophen (Tylenol Tab) 650 mg Q4H PRN PO MILD PAIN(1-3)OR ELEVATED TEMP Last administered on 07/09/18at 04:44; Admin Dose 650 MG; Start 07/09/18 at 04:00 Ondansetron HCl (Zofran Inj) 4 mg Q4H PRN IV NAUSEA AND/OR VOMITING Last administered on 07/09/18at 04:44; Admin Dose 4 MG; Start 07/09/18 at 04:00 Miscellaneous Information 1 ea NOTE XX ; Start 07/09/18 at 05:00 Glucose (Glutose) 15 gm Q15M PRN PO DECREASED GLUCOSE; Start 07/09/18 at 05:00 Glucose (Glutose) 22.5 gm Q15M PRN PO DECREASED GLUCOSE; Start 07/09/18 at 05:00 Dextrose (D50w Syringe) 25 ml Q15M PRN IV DECREASED GLUCOSE; Start 07/09/18 at 05:00 Dextrose (D50w Syringe) 50 ml Q15M PRN IV DECREASED GLUCOSE; Start 07/09/18 at 05:00 Glucagon (Glucagen) 1 mg Q15M PRN IM DECREASED GLUCOSE; Start 07/09/18 at 05:00 Glucose (Glutose) 15 gm Q15M PRN BUCCAL DECREASED GLUCOSE; Start 07/09/18 at 05:00 Hydroxyzine HCl (Atarax) 50 mg Q6H PRN PO ITCHING; Start 07/09/18 at 07:00 Metoclopramide HCl (Reglan) 5 mg AC MEALS AND BEDTIME IV Last administered on 07/12/18at 04:53; Admin Dose 5 MG; Start 07/09/18 at 17:30 Pantoprazole (Protonix Tab) 40 mg DAILY@06 PO Last administered on 07/12/18at 04:52; Admin Dose 40 MG; Start 07/10/18 at 06:00 Piperacillin Sod/ Tazobactam Sod 50 ml @ 100 mls/hr Q8 IVPB Last administered on 07/12/18at 04:52; Admin Dose 100 MLS/HR; Start 07/11/18 at 18:45 PACO LAZO MD Jul 12, 2018 10:47
--- NOTE | 2018-07-12 10:49 | CONS ---
Consultation Date/Type/Reason Admit Date/Time Jul 09, 2018 at 00:40 Requesting Provider: NAILA MERCER MD Date/Time of Note DATE: 07/12/18 TIME: 10:49 Past Medical History Medical History: diabetes, hypertension, renal disease Home Meds Active Scripts Insulin Glargine* (Lantus*) 100 Unit/Ml Soln, 9 UNIT SC HS, #1 BOTTLE Prov:HENRRY DUONG MD 01/05/14 Aspirin (Aspirin) 81 Mg Chew, 81 MG PO DAILY, #30 TAB Prov:HENRRY DUONG MD 01/05/14 Reported Medications Lisinopril* (Lisinopril*) 5 Mg Tablet, 5 MG PO DAILY, #30 TAB 08/17/17 Pioglitazone Hcl* (Pioglitazone Hcl*) 15 Mg Tablet, 15 MG PO DAILY, TAB 03/05/14 Furosemide* (Furosemide*) 20 Mg Tablet, 20 MG PO DAILY, TAB 03/05/14 Hydroxyzine Hcl* (Hydroxyzine Hcl*) 50 Mg Tablet, 50 MG PO Q6H PRN for ITCHING, TAB 01/01/14 Clonidine Hcl* (Clonidine Hcl*) 0.1 Mg Tab, 0.1 MG PO Q8 09/13/12 Amlodipine Besylate* (Amlodipine Besylate*) 10 Mg Tablet, 10 MG PO DAILY 09/13/12 Medications Current Medications Amlodipine Besylate (Norvasc) 10 mg DAILY PO Last administered on 07/12/18at 08:47; Admin Dose 10 MG; Start 07/09/18 at 09:00 Aspirin (Aspirin) 81 mg DAILY PO Last administered on 07/12/18at 08:46; Admin Dose 81 MG; Start 07/09/18 at 09:00 Clonidine (Catapres) 0.1 mg Q8 PO Last administered on 07/12/18at 04:53; Admin Dose 0.1 MG; Start 07/09/18 at 06:00 Furosemide (Lasix) 20 mg DAILY PO Last administered on 07/12/18at 08:46; Admin Dose 20 MG; Start 07/09/18 at 09:00 Insulin Glargine (Lantus) 9 units HS SC Last administered on 07/11/18at 21:24; Admin Dose 9 UNITS; Start 07/09/18 at 21:00 Lisinopril (Zestril) 5 mg DAILY PO Last administered on 07/12/18at 08:47; Admin Dose 5 MG; Start 07/09/18 at 09:00 Pioglitazone HCl (Actos) 15 mg DAILY PO Last administered on 07/12/18at 08:45; Admin Dose 15 MG; Start 07/09/18 at 09:00 Diagnostic Test (Pha) (Accu-Chek) 1 ea AC MEALS AND BEDTIME XX Last administered on 07/12/18at 07:30; Admin Dose 1 EA; Start 07/09/18 at 07:00 Insulin Aspart (Novolog Insulin Pen) NOVOLOG *MILD* ALGORITHM WITH MEALS BEDTIME SC Last administered on 07/10/18at 20:11; Admin Dose 1 UNIT; Start 07/09/18 at 08:00 Hydralazine HCl (Apresoline) 25 mg Q6H PRN PO ELEVATED BLOOD PRESSURE; Start at 04:00 Vancomycin HCl (Vanco Iv Per Pharmacy) VANCOMYCIN PER PHARMACY PER PROTOCOL XX ; Start 07/09/18 at 04:00 Acetaminophen (Tylenol Tab) 650 mg Q4H PRN PO MILD PAIN(1-3)OR ELEVATED TEMP L ast administered on 07/09/18at 04:44; Admin Dose 650 MG; Start 07/09/18 at 04:00 Ondansetron HCl (Zofran Inj) 4 mg Q4H PRN IV NAUSEA AND/OR VOMITING Last administered on 07/09/18at 04:44; Admin Dose 4 MG; Start 07/09/18 at 04:00 Miscellaneous Information 1 ea NOTE XX ; Start 07/09/18 at 05:00 Glucose (Glutose) 15 gm Q15M PRN PO DECREASED GLUCOSE; Start 07/09/18 at 05:00 Glucose (Glutose) 22.5 gm Q15M PRN PO DECREASED GLUCOSE; Start 07/09/18 at 05:00 Dextrose (D50w Syringe) 25 ml Q15M PRN IV DECREASED GLUCOSE; Start 07/09/18 at 05:00 Dextrose (D50w Syringe) 50 ml Q15M PRN IV DECREASED GLUCOSE; Start 07/09/18 at 05:00 Glucagon (Glucagen) 1 mg Q15M PRN IM DECREASED GLUCOSE; Start 07/09/18 at 05:00 Glucose (Glutose) 15 gm Q15M PRN BUCCAL DECREASED GLUCOSE; Start 07/09/18 at 05:00 Hydroxyzine HCl (Atarax) 50 mg Q6H PRN PO ITCHING; Start 07/09/18 at 07:00 Metoclopramide HCl (Reglan) 5 mg AC MEALS AND BEDTIME IV Last administered on 07/12/18at 04:53; Admin Dose 5 MG; Start 07/09/18 at 17:30 Pantoprazole (Protonix Tab) 40 mg DAILY@06 PO Last administered on 07/12/18at 04:52; Admin Dose 40 MG; Start 07/10/18 at 06:00 Piperacillin Sod/ Tazobactam Sod 50 ml @ 100 mls/hr Q8 IVPB Last administered on 07/12/18at 04:52; Admin Dose 100 MLS/HR; Start 07/11/18 at 18:45 Allergies: Coded Allergies: No Known Drug Allergy (Verified Allergy, Unknown, 03/05/14) Past Surgical History Past Surgical Hx: other (LEFT elbow- ) Social History Alcohol Use: none Smoking Status: Never smoker Drug Use: none Exam/Review of Systems Exam Vitals Vital Signs Date Temp Pulse Resp B/P (MAP) Pulse Ox O2 O2 Flow FiO2 Time Delivery Rate 07/12/18 97.8 63 22 132/62 96 Room Air 08:36 (85) 07/10/18 15 08:45 Intake and Output 07/11/18 07/11/18 07/12/18 1414:59 22:59 06:59 IntakeIntake Total 50 ml 750 ml 500 ml OutputOutput Total 3400 ml BalanceBalance -3350 ml 750 ml 500 ml Results Result Diagram: 07/10/18 0515 07/10/18 0515 Results 24hrs Laboratory Tests Test 07/11/18 11:52 07/11/18 17:11 07/11/18 20:57 07/12/18 07:41 Bedside Glucose 111 122 176 81 Medications Medication Current Medications Amlodipine Besylate (Norvasc) 10 mg DAILY PO Last administered on 07/12/18at 08:47; Admin Dose 10 MG; Start 07/09/18 at 09:00 Aspirin (Aspirin) 81 mg DAILY PO Last administered on 07/12/18at 08:46; Admin Dose 81 MG; Start 07/09/18 at 09:00 Clonidine (Catapres) 0.1 mg Q8 PO Last administered on 07/12/18 04:53; Admin Dose 0.1 MG; Start 07/09/18 at 06:00 Furosemide (Lasix) 20 mg DAILY PO Last administered on 07/12/18 08:46; Admin Dose 20 MG; Start 07/09/18 at 09:00 Insulin Glargine (Lantus) 9 units HS SC Last administered on 07/11/18 21:24; Admin Dose 9 UNITS; Start 07/09/18 at 21:00 Lisinopril (Zestril) 5 mg DAILY PO Last administered on 07/12/18 08:47; Admin Dose 5 MG; Start 07/09/18 at 09:00 Pioglitazone HCl (Actos) 15 mg DAILY PO Last administered on 07/12/18 08:45; Admin Dose 15 MG; Start 07/09/18 at 09:00 Diagnostic Test (Pha) (Accu-Chek) 1 ea AC MEALS AND BEDTIME XX Last administered on 07/12/18 07:30; Admin Dose 1 EA; Start 07/09/18 at 07:00 Insulin Aspart (Novolog Insulin Pen) NOVOLOG *MILD* ALGORITHM WITH MEALS BED TIME SC Last administered on 07/10/18 20:11; Admin Dose 1 UNIT; Start 07/09/18 at 08:00 Hydralazine HCl (Apresoline) 25 mg Q6H PRN PO ELEVATED BLOOD PRESSURE; Start 07/09/18 at 04:00 Vancomycin HCl (Vanco Iv Per Pharmacy) VANCOMYCIN PER PHARMACY PER PROTOCOL XX ; Start 07/09/18 at 04:00 Acetaminophen (Tylenol Tab) 650 mg Q4H PRN PO MILD PAIN(1-3)OR ELEVATED TEMP Last administered on 07/09/18 04:44; Admin Dose 650 MG; Start 07/09/18 at 04:00 Ondansetron HCl (Zofran Inj) 4 mg Q4H PRN IV NAUSEA AND/OR VOMITING Last administered on 07/09/18 04:44; Admin Dose 4 MG; Start 07/09/18 at 04:00 Miscellaneous Information 1 ea NOTE XX ; Start 07/09/18 at 05:00 Glucose (Glutose) 15 gm Q15M PRN PO DECREASED GLUCOSE; Start 07/09/18 at 05:00 Glucose (Glutose) 22.5 gm Q15M PRN PO DECREASED GLUCOSE; Start 07/09/18 at 05:00 Dextrose (D50w Syringe) 25 ml Q15M PRN IV DECREASED GLUCOSE; Start 07/09/18 at 05:00 Dextrose (D50w Syringe) 50 ml Q15M PRN IV DECREASED GLUCOSE; Start 07/09/18 at 05:00 Glucagon (Glucagen) 1 mg Q15M PRN IM DECREASED GLUCOSE; Start 07/09/18 at 05:00 Glucose (Glutose) 15 gm Q15M PRN BUCCAL DECREASED GLUCOSE; Start 07/09/18 at 05:00 Hydroxyzine HCl (Atarax) 50 mg Q6H PRN PO ITCHING; Start 07/09/18 at 07:00 Metoclopramide HCl (Reglan) 5 mg AC MEALS AND BEDTIME IV Last administered on 07/12/18at 04:53; Admin Dose 5 MG; Start 07/09/18 at 17:30 Pantoprazole (Protonix Tab) 40 mg DAILY@06 PO Last administered on 07/12/18at 04:52; Admin Dose 40 MG; Start 07/10/18 at 06:00 Piperacillin Sod/ Tazobactam Sod 50 ml @ 100 mls/hr Q8 IVPB Last administered on 07/12/18at 04:52; Admin Dose 100 MLS/HR; Start 07/11/18 at 18:45 SYEDA LEÓN NP Jul 12, 2018 10:49
--- NOTE | 2018-07-12 14:51 | CONS ---
DATE OF ADMISSION: 07/09/2018 DATE OF CONSULTATION: 07/12/2018 TYPE OF CONSULTATION: Infectious disease. REASON FOR CONSULTATION: Antibiotic management. HISTORY OF PRESENT ILLNESS: Gio Wagoner is a 67-year-old male admitted on [facility] 07/08/2018 with abdominal pain, nausea, vomiting and cough of 2 days' duration. The patient a lso has a history of end-stage renal failure on dialysis. On admission, his white count was 11.3, H and H of 11.4 and 36.7, platelet count 268,000. BUN and creatinine is 88/9.81, glucose of 147. The patient had 90% neutrophils, was on vancomycin and cefepime. The patient was noted to have bilateral lower lobe pneumonia. The patient was started as noted on vancomycin and cefepime. He was seen by Dr. Dobbins for renal consultation. He was seen by Dr. Lopez because of history of abdominal pain, nausea and vomiting which he had a week prior to admission. He complains of right upper quadrant raul n which has been constant for the past couple of days prior to admission. He has occasional alcohol consumption. On 07/09/2018, his white count was 11.2, hemoglobin 9.9. The patient was also seen by Dr. Venu Feldman in cardiology consultation. He had dyspnea, probably multifactorial related to pneu monia and possible CHF. He complained of abdominal distention. He has coronary artery disease, sick sinus syndrome, sent for permanent pacemaker, rule out CHF. He had upper endoscopy which showed sev ere gastritis. On 07/10/2018, CAT scan of the abdomen showed evidence of massive ascites and possibl e omental tumor, calcifications in the tail of the pancreas. The patient could have a carcinoma of t he peritoneum according to Dr. Lopez. On 07/11/2018, he felt better. Ascites fluid shows white cou nt of . He has evidence of exudate of the ascitic fluid, evidence of probable spontaneous bacte rial peritonitis. The patient is on vancomycin and currently is on Zosyn as well added by Dr. Lopez . On ultrasound, took out 5 liters of serous fluid. PAST MEDICAL HISTORY: Operations as outlined. Status post left elbow surgery. FAMILY HISTORY: Noncontributory. SOCIAL HISTORY: He does not smoke, drink or abuse drugs. ALLERGIES: NONE TO PENICILLIN, SULFA OR FOODS. MEDICATIONS: Per chart. REVIEW OF SYSTEMS: Noncontributory. PHYSICAL EXAMINATION: GENERAL: The patient is in no acute distress. VITAL SIGNS: Stable. He is afebrile. SKIN: Without generalized rash. HEENT: Within normal limits. NECK: Supple. LYMPH NODES: None palpable. CHEST: Decreased breath sounds at the bases. ABDOMEN: Soft, nontender without organosplenomegaly or masses. EXTREMITIES: Without cyanosis, clubbing or edema. RECTAL AND GENITAL: Deferred. NEUROLOGICAL: No focal neurological abnormality. IMPRESSION AND PLAN: The patient at this point appears to have spontaneous bacterial peritonitis. W e will await the culture results. He may require only Zosyn or cefepime rather than vancomycin. He has end-stage renal disease, so 1 dose of vancomycin will not do him any harm. I will dictate my fin dings to Dr. Weinstein, Dr. Lopez, Dr. Dobbins, Dr. Feldman. Dictated By: AGUEDA SHEARER MD, JD/NTS Conf#: [id number] DID#: [id number] CC: NAILA LOPEZ MD; SAURABH WEINSTEIN MD;*EndCC*
--- NOTE | 2018-07-12 15:05 | CONS ---
Consult Date/Type/Reason Admit Date/Time Jul 09, 2018 at 00:40 Initial Consult Date 07/10/18 Type of Consultation: cv Requesting Provider: FANI AYALA Date/Time of Note DATE: 07/12/18 TIME: 15:04 Subjective Cardiovascular follow-up progress note Subjective: Discussed with the staff and telemetry was reviewed patient remained normal sinus rhythm/sinus bradycardia He denies any left-sided chest pain or pressure to me denies any palpitation to me Feels better today Objective: General: no acute distress HEENT: NC/AT. pupils are equal. round. NECK: NO JVD. no stridor. CV: RRR. systolic murmur; no gallop or rubs. PULM: no wheezing . Mild rhonchi. GI: SOFT, NT, ND, no rebound or guarding Extremity: trace B/L LE edema. no clubbing. neuro: awake and alert, OX3. Psych: calm and pleasant rectal: deferred : normal Vascular left arm edema dialysis access in place Chest: Right-sided permanent pacemaker in place CT of the abdomen shows: 1. Large volume ascites throughout the abdomen and pelvis with fluid extending into the right inguinal canal and right wanda scrotum. There is a suggestion of nodularity of the omentum which is concerning for possible omental tumor. Paracentesis with cytologic evaluation of the fluid is suggested. 2. Small bilateral pleural effusions with bibasilar atelectasis or infiltrates. Chest x-ray done in the emergency room shows: Patchy bibasilar opacities, possibly representing atelectasis or pneumonia. Enlarged cardiac silhouette. Cardiac pacemaker. EKG done 07/08/2018 shows normal sinus rhythm with frequent PACs. Nonspecific ST abnormalities Objective Vitals Vital Signs Date Temp Pulse Resp B/P (MAP) Pulse Ox O2 O2 Flow FiO2 Time Delivery Rate 07/12/18 64 12:22 07/12/18 97.8 22 147/71 96 11:40 (96) 07/12/18 Room Air 08:36 07/10/18 15 08:45 Intake and Output 07/11/18 07/11/18 07/12/18 1515:00 23:00 07:00 IntakeIntake Total 50 ml 750 ml 500 ml OutputOutput Total 3400 ml BalanceBalance -3350 ml 750 ml 500 ml Results/Medications Result Diagram: 07/10/18 0515 07/10/18 0515 Results 24 hrs Laboratory Tests Test 07/11/18 17:11 07/11/18 20:57 07/12/18 07:41 07/12/18 11:46 Bedside Glucose 122 176 81 115 Home Meds Active Scripts Insulin Glargine* (Lantus*) 100 Unit/Ml Soln, 9 UNIT SC HS, #1 BOTTLE Prov:HENRRY DUONG MD 01/05/14 Aspirin (Aspirin) 81 Mg Chew, 81 MG PO DAILY, #30 TAB Prov:HENRRY DUONG MD 01/05/14 Reported Medications Lisinopril* (Lisinopril*) 5 Mg Tablet, 5 MG PO DAILY, #30 TAB 08/17/17 Pioglitazone Hcl* (Pioglitazone Hcl*) 15 Mg Tablet, 15 MG PO DAILY, TAB 03/05/14 Furosemide* (Furosemide*) 20 Mg Tablet, 20 MG PO DAILY, TAB 03/05/14 Hydroxyzine Hcl* (Hydroxyzine Hcl*) 50 Mg Tablet, 50 MG PO Q6H PRN for ITCHING, TAB 01/01/14 Clonidine Hcl* (Clonidine Hcl*) 0.1 Mg Tab, 0.1 MG PO Q8 09/13/12 Amlodipine Besylate* (Amlodipine Besylate*) 10 Mg Tablet, 10 MG PO DAILY 09/13/12 Medications Current Medications Amlodipine Besylate (Norvasc) 10 mg DAILY PO Last administered on 07/12/18at 08:47; Admin Dose 10 MG; Start 07/09/18 at 09:00 Aspirin (Aspirin) 81 mg DAILY PO Last administered on 07/12/18at 08:46; Admin Dose 81 MG; Start 07/09/18 at 09:00 Clonidine (Catapres) 0.1 mg Q8 PO Last administered on 07/12/18at 14:17; Admin Dose 0.1 MG; Start 07/09/18 at 06:00 Furosemide (Lasix) 20 mg DAILY PO Last administered on 07/12/18at 08:46; Admin Dose 20 MG; Start 07/09/18 at 09:00 Insulin Glargine (Lantus) 9 units HS SC Last administered on 07/11/18at 21:24; Admin Dose 9 UNITS; Start 07/09/18 at 21:00 Lisinopril (Zestril) 5 mg DAILY PO Last administered on 07/12/18at 08:47; Admin Dose 5 MG; Start 07/09/18 at 09:00 Pioglitazone HCl (Actos) 15 mg DAILY PO Last administered on 07/12/18at 08:45; Admin Dose 15 MG; Start 07/09/18 at 09:00 Diagnostic Test (Pha) (Accu-Chek) 1 ea AC MEALS AND BEDTIME XX Last administered on 07/12/18at 11:48; Admin Dose 1 EA; Start 07/09/18 at 07:00 Insulin Aspart (Novolog Insulin Pen) NOVOLOG *MILD* ALGORITHM WITH MEALS BEDTIME SC Last administered on 07/10/18at 20:11; Admin Dose 1 UNIT; Start 07/09/18 at 08:00 Hydralazine HCl (Apresoline) 25 mg Q6H PRN PO ELEVATED BLOOD PRESSURE; Start 07/09/18 at 04:00 Vancomycin HCl (Vanco Iv Per Pharmacy) VANCOMYCIN PER PHARMACY PER PROTOCOL XX ; Start 07/09/18 at 04:00 Acetaminophen (Tylenol Tab) 650 mg Q4H PRN PO MILD PAIN(1-3)OR ELEVATED TEMP Last administered on 07/09/18at 04:44; Admin Dose 650 MG; Start 07/09/18 at 04:00 Ondansetron HCl (Zofran Inj) 4 mg Q4H PRN IV NAUSEA AND/OR VOMITING Last administered on 07/09/18at 04:44; Admin Dose 4 MG; Start 07/09/18 at 04:00 Miscellaneous Information 1 ea NOTE XX ; Start 07/09/18 at 05:00 Glucose (Glutose) 15 gm Q15M PRN PO DECREASED GLUCOSE; Start 07/09/18 at 05:00 Glucose (Glutose) 22.5 gm Q15M PRN PO DECREASED GLUCOSE; Start 07/09/18 at 05: 00 Dextrose (D50w Syringe) 25 ml Q15M PRN IV DECREASED GLUCOSE; Start 07/09/18 at 05:00 Dextrose (D50w Syringe) 50 ml Q15M PRN IV DECREASED GLUCOSE; Start 07/09/18 at 05:00 Glucagon (Glucagen) 1 mg Q15M PRN IM DECREASED GLUCOSE; Start 07/09/18 at 05:00 Glucose (Glutose) 15 gm Q15M PRN BUCCAL DECREASED GLUCOSE; Start 07/09/18 at 05:00 Hydroxyzine HCl (Atarax) 50 mg Q6H PRN PO ITCHING; Start 07/09/18 at 07:00 Metoclopramide HCl (Reglan) 5 mg AC MEALS AND BEDTIME IV Last administered on 07/12/18at 11:48; Admin Dose 5 MG; Start 07/09/18 at 17:30 Pantoprazole (Protonix Tab) 40 mg DAILY@06 PO Last administered on 07/12/18at 04:52; Admin Dose 40 MG; Start 07/10/18 at 06:00 Piperacillin Sod/ Tazobactam Sod 50 ml @ 100 mls/hr Q8 IVPB Last administered on 07/12/18at 14:16; Admin Dose 100 MLS/HR; Start 07/11/18 at 18:45 Assessment/Plan Hospital Course (Demo Recall) 1. Dyspnea probably multifactorial possible pneumonia 2. Ascites: s/p paracentesis 3. History of possible coronary artery disease and [place] 4. Renal failure on dialysis 5. Abdominal distention/ascites follow-up with GI recommendations 6. Diabetes 7. Hypertension 8. History of sick sinus syndrome Patient is status post permanent pacemaker Recommendations: GI workup as per GI. Status post paracentesis Patient pacemaker information/card was obtained from the patient and . It is a [employer] pacemaker which was placed in 2018 patient appears that has been followed up by . Continue with the beta-kamlesh. Blood pressure currently stable Hemodialysis as per renal to be continued. Antibiotic as per internal medicine consultants. Dr. Bolaños and associated to follow the pt tomorrow Thank you for his referral. We will continue to follow along with you until Dr Bolaños / or associates take over the cardiac care CHANDNI LOPEZ MD [facility] CHANDNI LOPEZ MD Jul 12, 2018 15:05
--- NOTE | 2018-07-12 15:15 | PN ---
Date/Time of Note Date/Time of Note DATE: 07/12/18 TIME: 15:14 Assessment/Plan VTE Prophylaxis Risk score (from Nsg)>0 risk: 4 SCD applied (from Nsg): No Lines/Catheters IV Catheter Type (from Nrs): [place] Urinary Cath still in place: No Assessment/Plan Assessment/Plan 1. Pneumonia. Continue cefepime. The patient clinically has been improving. 2. Status post nausea, vomiting, and abdominal pain. Workup underway. The patient will go for a paracentesis today. The patient was seen by Dr. Lopez from GI standpoint. 3. Hypertension. 4. Coronary artery disease. The patient is being followed by Dr. Feldman. Continue Norvasc, aspirin, Zestril, lisinopril. 6. Diabetes. Blood sugar reasonably controlled with current dose of Lantus and sliding scale insulin. 7. History of coronary artery disease. Continue aspirin. 8. End-stage renal disease. The patient is being followed by Dr. Dobbins from nephrology standpoint. Continue hemodialysis. Further recommendation will depend on hospital course. Result Diagram: 07/10/1851407/10/1815 Results 24hrs Laboratory Tests Test 07/11/18 17:11 07/11/18 20:57 07/12/18 07:41 07/12/18 11:46 Bedside Glucose 122 176 81 115 Exam/Review of Systems Exam Vitals Vital Signs Date Temp Pulse Resp B/P (MAP) Pulse Ox O2 O2 Flow FiO2 Time Delivery Rate 07/12/18 64 12:22 07/12/18 97.8 22 147/71 96 11:40 (96) 07/12/18 Room Air 08:36 07/10/18 15 08:45 Intake and Output 07/11/18 07/11/18 07/12/18 1515:00 23:00 07:00 IntakeIntake Total 50 ml 750 ml 500 ml OutputOutput Total 3400 ml BalanceBalance -3350 ml 750 ml 500 ml Results Results 24hrs Laboratory Tests Test 07/11/18 17:11 07/11/18 20:57 07/12/18 07:41 07/12/18 11:46 Bedside Glucose 122 176 81 115 Medications Medication Current Medications Amlodipine Besylate (Norvasc) 10 mg DAILY PO Last administered on 07/12/18at 08:47; Admin Dose 10 MG; Start 07/09/18 at 09:00 Aspirin (Aspirin) 81 mg DAILY PO Last administered on 07/12/18 08:46; Admin Dose 81 MG; Start 07/09/18 at 09:00 Clonidine (Catapres) 0.1 mg Q8 PO Last administered on 07/12/18 14:17; Admin Dose 0.1 MG; Start 07/09/18 at 06:00 Furosemide (Lasix) 20 mg DAILY PO Last administered on 07/12/18 08:46; Admin Dose 20 MG; Start 07/09/18 at 09:00 Insulin Glargine (Lantus) 9 units HS SC Last administered on 07/11/18 21:24; Admin Dose 9 UNITS; Start 07/09/18 at 21:00 Lisinopril (Zestril) 5 mg DAILY PO Last administered on 07/12/18 08:47; Admin Dose 5 MG; Start 07/09/18 at 09:00 Pioglitazone HCl (Actos) 15 mg DAILY PO Last administered on 07/12/18 08:45; Admin Dose 15 MG; Start 07/09/18 at 09:00 Diagnostic Test (Pha) (Accu-Chek) 1 ea AC MEALS AND BEDTIME XX Last administered on 07/12/18 11:48; Admin Dose 1 EA; Start 07/09/18 at 07:00 Insulin Aspart (Novolog Insulin Pen) NOVOLOG *MILD* ALGORITHM WITH MEALS BEDTIME SC Last administered on 07/10/18 20:11; Admin Dose 1 UNIT; Start 07/09/18 at 08:00 Hydralazine HCl (Apresoline) 25 mg Q6H PRN PO ELEVATED BLOOD PRESSURE; Start 07/09/18 at 04:00 Vancomycin HCl (Vanco Iv Per Pharmacy) VANCOMYCIN PER PHARMACY PER PROTOCOL XX ; Start 07/09/18 at 04:00 Acetaminophen (Tylenol Tab) 650 mg Q4H PRN PO MILD PAIN(1-3)OR ELEVATED TEMP Last administered on 07/09/18 04:44; Admin Dose 650 MG; Start 07/09/18 at 04:00 Ondansetron HCl (Zofran Inj) 4 mg Q4H PRN IV NAUSEA AND/OR VOMITING Last administered on 07/09/18 04:44; Admin Dose 4 MG; Start 07/09/18 at 04:00 Miscellaneous Information 1 ea NOTE XX ; Start 07/09/18 at 05:00 Glucose (Glutose) 15 gm Q15M PRN PO DECREASED GLUCOSE; Start 07/09/18 at 05:00 Glucose (Glutose) 22.5 gm Q15M PRN PO DECREASED GLUCOSE; Start 07/09/18 at 05:00 Dextrose (D50w Syringe) 25 ml Q15M PRN IV DECREASED GLUCOSE; Start 07/09/18 at 05:00 Dextrose (D50w Syringe) 50 ml Q15M PRN IV DECREASED GLUCOSE; Start 07/09/18 at 05:00 Glucagon (Glucagen) 1 mg Q15M PRN IM DECREASED GLUCOSE; Start 07/09/18 at 05:00 Glucose (Glutose) 15 gm Q15M PRN BUCCAL DECREASED GLUCOSE; Start 07/09/18 at 05:00 Hydroxyzine HCl (Atarax) 50 mg Q6H PRN PO ITCHING; Start 07/09/18 at 07:00 Metoclopramide HCl (Reglan) 5 mg AC MEALS AND BEDTIME IV Last administered on 07/12/18at 11:48; Admin Dose 5 MG; Start 07/09/18 at 17:30 Pantoprazole (Protonix Tab) 40 mg DAILY@06 PO Last administered on 07/12/18at 04:52; Admin Dose 40 MG; Start 07/10/18 at 06:00 Piperacillin Sod/ Tazobactam Sod 50 ml @ 100 mls/hr Q8 IVPB Last administered on 07/12/18at 14:16; Admin Dose 100 MLS/HR; Start 07/11/18 at 18:45 FANI AYALA Jul 12, 2018 15:15
[2018-07-12] MEDS: INSULIN GLARGINE [LANTus] (100 UNITS/ML) SYG SC SCH (21:35)
[2018-07-13] VITALS (25 sets, daily range): BP systolic 109–144; BP diastolic 48–70; PULSE 50–69; RESP 16–20
[2018-07-13] MEDS: METOCLOPRAMIDE 10 MG INJ IV SCH ×4 (06:08→19:36)
[2018-07-13] MEDS: PANTOPRAZOLE (EC) 40 MG TAB PO SCH (06:09)
[2018-07-13] MEDS: PIPER-TAZO 2.25 GM/NS 50 ML IVPB SCH ×3 (06:10→19:36)
[2018-07-13] MEDS: ACCU-CHEK XX SCH ×4 (07:00→19:35)
[2018-07-13] MEDS: INSULIN ASPART [NOVOLOG] 3 ML PEN SC SCH ×4 (08:00→20:37)
[2018-07-13] MEDS: PIOGLITAZONE 15 MG TAB PO SCH (09:16)
[2018-07-13] MEDS: ASPIRIN 81 MG TAB PO SCH (09:16)
[2018-07-13] MEDS: FUROSEMIDE 20 MG TAB PO SCH (09:17)
[2018-07-13] MEDS: LISINOPRIL 5 MG TAB PO SCH (09:17)
[2018-07-13] MEDS: AMLODIPINE 10 MG TAB PO SCH (09:17)
--- NOTE | 2018-07-13 09:59 | CONS ---
Assessment/Plan Assessment/Plan Hospital Course (Demo Recall) ID PROGRESS NOTE CURRENT ABX: DAY #5=> Vanco IV + Zosyn s/p Cefepime 24H INTERVAL SUMMARY * Sleeping, VSS, no fevers,WBC normalized -- awakens -- overall feels better * s/p Paracentesis 07/10/18 == Approximately 5 liters of serous fluid 2/ 73% POLY WBCs * `PATHO: MICROSCOPIC DESCRIPTION:The cell button and the smears show numerous neutrophils with scattered histiocytes and mesothelial cells. MICR OSCOPIC DIAGNOSIS:Ascites: -- No malignant cells are identified. DIAGNOSTIC IMAGING CT of the abdomen shows: 1. Large volume ascites throughout the abdomen and pelvis with fluid extending into the right inguinal canal and right wanda scrotum. There is a suggestion of nodularity of the omentum which is concerning for possible omental tumor. Paracentesis with cytologic evaluation of the fluid is suggested. 2. Small bilateral pleural effusions with bibasilar atelectasis or infiltrates. Chest x-ray done in the emergency room shows: Patchy bibasilar opacities, possibly representing atelectasis or pneumonia. Enlarged cardiac silhouette. Cardiac pacemaker. EKG done 07/08/2018 shows normal sinus rhythm with frequent PACs. Nonspecific ST abnormalities MICRO/OTHER * All micro negative to date PHYSICAL EXAMINATION: GENERAL: VSS HEENT: AT, NC, anicteric NECK: Supple, CHEST: Equal chest rise bilaterally, without dyspnea on observation HEART: Pulse RRR / Pacer pocket without infection ABDOMEN: Soft / NT EXTREMITIES: Warm, dry == LUEXT edema /AVF SKIN: No rash, no diaphoresis ID ASSESSMENT 67 yo admit with: 1. Dyspnea probably multifactorial possible pneumonia + Ascites 2. Ascites: s/p paracentesis * Large volume ascites w/scrotal edema * CT concern: There is a suggestion of nodularity of the omentum which is concerning for possible omental tumor. * PATHO REPORT = No malignant cells 3. s/p SIRS due to spontaneous bacterial peritonitis vs PNA 4. Renal failure on dialysis 5. History of possible coronary artery disease and [place] 6. Diabetes 7. Hypertension 8. History of sick sinus syndrome Patient is status post permanent pacemaker ABX ALLERGIES: KNDA INVASIVES: PIV CURRENT ABX: DAY #5=> Vanco IV + Zosyn s/p Cefepime ID RECOMMENDATIONS/PLAN: 1. Continue current ABX 2. Consider change to PO Augmentin or Levaquin + Flagyl and DC soon Consultation Date/Type/Reason Admit Date/Time Jul 09, 2018 at 00:40 Initial Consult Date 07/10/18 Requesting Provider: FANI AYALA Date/Time of Note DATE: 07/13/18 TIME: 09:59 Exam/Review of Systems Exam Vitals Vital Signs Date Temp Pulse Resp B/P (MAP) Pulse Ox O2 O2 Flow FiO2 Time Delivery Rate 07/13/18 51 08:34 07/13/18 97.8 17 144/70 96 07:50 (94) 07/12/18 Room Air 16:00 07/10/18 15 08:45 Intake and Output 07/12/18 07/12/18 07/13/18 1515:00 23:00 07:00 IntakeIntake Total 360 ml 600 ml 480 ml BalanceBalance 360 ml 600 ml 480 ml Results Result Diagram: 07/13/18 0513 07/13/18 0513 Results 24hrs Laboratory Tests Test 07/12/18 11:46 07/12/18 17:19 07/12/18 20:22 07/13/18 02:50 Bedside Glucose 115 120 200 128 Test 07/13/18 05:13 07/13/18 08:29 White Blood Count 5.8 # Red Blood Count 3.61 L Hemoglobin 9.9 L Hematocrit 31.2 L Mean Corpuscular Volume 86.4 Mean Corpuscular 27.4 L Hemoglobin Mean Corpuscular 31.7 L Hemoglobin Concent Red Cell Distribution 13.8 Width Platelet Count 189 Mean Platelet Volume 10.0 Immature Granulocytes % 0.700 H Neutrophils % 76.0 Lymphocytes % 10.3 L Monocytes % 9.1 Eosinophils % 3.6 Basophils % 0.3 Nucleated Red Blood 0.0 Cells % Immature Granulocytes # 0.040 H Neutrophils # 4.4 Lymphocytes # 0.6 L Monocytes # 0.5 Eosinophils # 0.2 Basophils # 0.0 Nucleated Red Blood 0.0 Cells # Sodium Level 134 L Potassium Level 5.9 H Chloride Level 94 L Carbon Dioxide Level 25 Anion Gap 15 H Blood Urea Nitrogen 53 H Creatinine 6.53 H Est Glomerular Filtrat 9 L Rate mL/min Glucose Level 122 Calcium Level 9.0 Bedside Glucose 105 Medications Medication Current Medications Amlodipine Besylate (Norvasc) 10 mg DAILY PO Last administered on 07/13/18 09:17; Admin Dose 10 MG; Start 07/09/18 at 09:00 Aspirin (Aspirin) 81 mg DAILY PO Last administered on 07/13/18 09:16; Admin Dose 81 MG; Start 07/09/18 at 09:00 Clonidine (Catapres) 0.1 mg Q8 PO Last administered on 07/13/18 06:09; Admin Dose 0.1 MG; Start 07/09/18 at 06:00 Furosemide (Lasix) 20 mg DAILY PO Last administered on 07/13/18 09:17; Admin Dose 20 MG; Start 07/09/18 at 09:00 Insulin Glargine (Lantus) 9 units HS SC Last administered on 07/12/18 21:35; Admin Dose 9 UNITS; Start 07/09/18 at 21:00 Lisinopril (Zestril) 5 mg DAILY PO Last administered on 07/13/18 09:17; Admin Dose 5 MG; Start 07/09/18 at 09:00 Pioglitazone HCl (Actos) 15 mg DAILY PO Last administered on 07/13/18 09:16; Admin Dose 15 MG; Start 07/09/18 at 09:00 Diagnostic Test (Pha) (Accu-Chek) 1 ea AC MEALS AND BEDTIME XX Last administered on 07/13/18 07:00; Admin Dose 1 EA; Start 07/09/18 at 07:00 Insulin Aspart (Novolog Insulin Pen) NOVOLOG *MILD* ALGORITHM WITH MEALS BEDTIME SC Last administered on 07/12/18 21:31; Admin Dose 1 UNIT; Start 07/09/18 at 08:00 Hydralazine HCl (Apresoline) 25 mg Q6H PRN PO ELEVATED BLOOD PRESSURE; Start 07/09/18 at 04:00 Vancomycin HCl (Vanco Iv Per Pharmacy) VANCOMYCIN PER PHARMACY PER PROTOCOL XX ; Start 07/09/18 at 04:00 Acetaminophen (Tylenol Tab) 650 mg Q4H PRN PO MILD PAIN(1-3)OR ELEVATED TEMP Last administered on 07/09/18 04:44; Admin Dose 650 MG; Start 07/09/18 at 04:00 Ondansetron HCl (Zofran Inj) 4 mg Q4H PRN IV NAUSEA AND/OR VOMITING Last administered on 07/09/18at 04:44; Admin Dose 4 MG; Start 07/09/18 at 04:00 Miscellaneous Information 1 ea NOTE XX ; Start 07/09/18 at 05:00 Glucose (Glutose) 15 gm Q15M PRN PO DECREASED GLUCOSE; Start 07/09/18 at 05:00 Glucose (Glutose) 22.5 gm Q15M PRN PO DECREASED GLUCOSE; Start 07/09/18 at 0 5:00 Dextrose (D50w Syringe) 25 ml Q15M PRN IV DECREASED GLUCOSE; Start 07/09/18 at 05:00 Dextrose (D50w Syringe) 50 ml Q15M PRN IV DECREASED GLUCOSE; Start 07/09/18 at 05:00 Glucagon (Glucagen) 1 mg Q15M PRN IM DECREASED GLUCOSE; Start 07/09/18 at 05:00 Glucose (Glutose) 15 gm Q15M PRN BUCCAL DECREASED GLUCOSE; Start 07/09/18 at 05:00 Hydroxyzine HCl (Atarax) 50 mg Q6H PRN PO ITCHING; Start 07/09/18 at 07:00 Metoclopramide HCl (Reglan) 5 mg AC MEALS AND BEDTIME IV Last administered on 07/13/18at 06:08; Admin Dose 5 MG; Start 07/09/18 at 17:30 Pantoprazole (Protonix Tab) 40 mg DAILY@06 PO Last administered on 07/13/18at 06:09; Admin Dose 40 MG; Start 07/10/18 at 06:00 Piperacillin Sod/ Tazobactam Sod 50 ml @ 100 mls/hr Q8 IVPB Last administered on 07/13/18at 06:10; Admin Dose 100 MLS/HR; Start 07/11/18 at 18:45 CORNELIUS NUNES NP Jul 13, 2018 09:59
--- NOTE | 2018-07-13 10:58 | CONS ---
Assessment/Plan Assessment/Plan Assessment/Plan (Daily) 1. Dyspnea probably multifactorial possible pneumonia 2. Ascites: s/p paracentesis 3. History of possible coronary artery disease and [place] 4. Renal failure on dialysis 5. Abdominal distention/ascites follow-up with GI recommendations 6. Diabetes 7. Hypertension 8. History of sick sinus syndrome Patient is status post permanent pacemaker Recommendations: GI workup as per GI. Status post paracentesis Patient pacemaker information/card was obtained from the patient and . It is a [employer] pacemaker which was placed in 2018 patient appears that has been followed up by . Continue with the beta-kamlesh. Blood pressure currently stable Hemodialysis as per renal to be continued. Antibiotic as per internal medicine consultants. Consultation Date/Type/Reason Admit Date/Time Jul 09, 2018 at 00:40 Initial Consult Date 07/10/18 Type of Consult Cardiology Requesting Provider: FANI AYALA Date/Time of Note DATE: 07/13/18 TIME: 10:57 24 HR Interval Summary Free Text/Dictation the patient with no cahnge Exam/Review of Systems Vital Signs Vitals Vital Signs Date Temp Pulse Resp B/P (MAP) Pulse Ox O2 O2 Flow FiO2 Time Delivery Rate 07/13/18 51 08:34 07/13/18 97.8 17 144/70 96 07:50 (94) 07/12/18 Room Air 16:00 07/10/18 15 08:45 Intake and Output 07/12/18 07/12/18 07/13/18 1414:59 22:59 06:59 IntakeIntake Total 360 ml 600 ml 480 ml BalanceBalance 360 ml 600 ml 480 ml Labs Result Diagram: 07/13/18 0513 07/13/18 0513 Results 24hrs Laboratory Tests Test 07/12/18 11:46 07/12/18 17:19 07/12/18 20:22 07/13/18 02:50 Bedside Glucose 115 120 200 128 Test 07/13/18 05:13 07/13/18 08:29 White Blood Count 5.8 # Red Blood Count 3.61 L Hemoglobin 9.9 L Hematocrit 31.2 L Mean Corpuscular Volume 86.4 Mean Corpuscular 27.4 L Hemoglobin Mean Corpuscular 31.7 L Hemoglobin Concent Red Cell Distribution 13.8 Width Platelet Count 189 Mean Platelet Volume 10.0 Immature Granulocytes % 0.700 H Neutrophils % 76.0 Lymphocytes % 10.3 L Monocytes % 9.1 Eosinophils % 3.6 Basophils % 0.3 Nucleated Red Blood 0.0 Cells % Immature Granulocytes # 0.040 H Neutrophils # 4.4 Lymphocytes # 0.6 L Monocytes # 0.5 Eosinophils # 0.2 Basophils # 0.0 Nucleated Red Blood 0.0 Cells # Sodium Level 134 L Potassium Level 5.9 H Chloride Level 94 L Carbon Dioxide Level 25 Anion Gap 15 H Blood Urea Nitrogen 53 H Creatinine 6.53 H Est Glomerular Filtrat 9 L Rate mL/min Glucose Level 122 Calcium Level 9.0 Bedside Glucose 105 Medications Medications Current Medications Amlodipine Besylate (Norvasc) 10 mg DAILY PO Last administered on 07/13/18 09:17; Admin Dose 10 MG; Start 07/09/18 at 09:00 Aspirin (Aspirin) 81 mg DAILY PO Last administered on 07/13/18 09:16; Admin Dose 81 MG; Start 07/09/18 at 09:00 Clonidine (Catapres) 0.1 mg Q8 PO Last administered on 07/13/18 06:09; Admin Dose 0.1 MG; Start 07/09/18 at 06:00 Furosemide (Lasix) 20 mg DAILY PO Last administered on 07/13/18 09:17; Admin Dose 20 MG; Start 07/09/18 at 09:00 Insulin Glargine (Lantus) 9 units HS SC Last administered on 07/12/18 21:35; Admin Dose 9 UNITS; Start 07/09/18 at 21:00 Lisinopril (Zestril) 5 mg DAILY PO Last administered on 07/13/18 09:17; Admin Dose 5 MG; Start 07/09/18 at 09:00 Pioglitazone HCl (Actos) 15 mg DAILY PO Last administered on 07/13/18 09:16; Admin Dose 15 MG; Start 07/09/18 at 09:00 Diagnostic Test (Pha) (Accu-Chek) 1 ea AC MEALS AND BEDTIME XX Last administered on 07/13/18 07:00; Admin Dose 1 EA; Start 07/09/18 at 07:00 Insulin Aspart (Novolog Insulin Pen) NOVOLOG *MILD* ALGORITHM WITH MEALS BEDTIME SC Last administered on 3/1/19at 21:31; Admin Dose 1 UNIT; Start 07/09/18 at 08:00 Hydralazine HCl (Apresoline) 25 mg Q6H PRN PO ELEVATED BLOOD PRESSURE; Start 07/09/18 at 04:00 Vancomycin HCl (Vanco Iv Per Pharmacy) VANCOMYCIN PER PHARMACY PER PROTOCOL XX ; Start 07/09/18 at 04:00 Acetaminophen (Tylenol Tab) 650 mg Q4H PRN PO MILD PAIN(1-3)OR ELEVATED TEMP Last administered on 07/09/18at 04:44; Admin Dose 650 MG; Start 07/09/18 at 04:00 Ondansetron HCl (Zofran Inj) 4 mg Q4H PRN IV NAUSEA AND/OR VOMITING Last administered on 07/09/18at 04:44; Admin Dose 4 MG; Start 07/09/18 at 04:00 Miscellaneous Information 1 ea NOTE XX ; Start 07/09/18 at 05:00 Glucose (Glutose) 15 gm Q15M PRN PO DECREASED GLUCOSE; Start 07/09/18 at 05:00 Glucose (Glutose) 22.5 gm Q15M PRN PO DECREASED GLUCOSE; Start 07/09/18 at 05:00 Dextrose (D50w Syringe) 25 ml Q15M PRN IV DECREASED GLUCOSE; Start 07/09/18 at 05:00 Dextrose (D50w Syringe) 50 ml Q15M PRN IV DECREASED GLUCOSE; Start 07/09/18 at 05:00 Glucagon (Glucagen) 1 mg Q15M PRN IM DECREASED GLUCOSE; Start 07/09/18 at 05:00 Glucose (Glutose) 15 gm Q15M PRN BUCCAL DECREASED GLUCOSE; Start 07/09/18 at 05:00 Hydroxyzine HCl (Atarax) 50 mg Q6H PRN PO ITCHING; Start 07/09/18 at 07:00 Metoclopramide HCl (Reglan) 5 mg AC MEALS AND BEDTIME IV Last administered on 07/13/18at 06:08; Admin Dose 5 MG; Start 07/09/18 at 17:30 Pantoprazole (Protonix Tab) 40 mg DAILY@06 PO Last administered on 07/13/18at 06:09; Admin Dose 40 MG; Start 07/10/18 at 06:00 Piperacillin Sod/ Tazobactam Sod 50 ml @ 100 mls/hr Q8 IVPB Last administered on 07/13/18at 06:10; Admin Dose 100 MLS/HR; Start 07/11/18 at 18:45 BRIAN TYSON MD Jul 13, 2018 10:58
--- NOTE | 2018-07-13 12:34 | PN ---
Date/Time of Note Date/Time of Note DATE: 07/13/18 TIME: 12:34 Assessment/Plan VTE Prophylaxis Risk score (from Ns)>0 risk: 3 SCD applied (from Ns): No Lines/Catheters IV Catheter Type (from Nrs): Saline Lock Urinary Cath still in place: No Assessment/Plan Result Diagram: 07/13/18 0513 07/13/18 0513 Results 24hrs Laboratory Tests Test 07/12/18 17:19 07/12/18 20:22 07/13/18 02:50 07/13/18 05:13 Bedside Glucose 120 200 128 White Blood Count 5.8 # Red Blood Count 3.61 L Hemoglobin 9.9 L Hematocrit 31.2 L Mean Corpuscular Volume 86.4 Mean Corpuscular 27.4 L Hemoglobin Mean Corpuscular 31.7 L Hemoglobin Concent Red Cell Distribution 13.8 Width Platelet Count 189 Mean Platelet Volume 10.0 Immature Granulocytes % 0.700 H Neutrophils % 76.0 Lymphocytes % 10.3 L Monocytes % 9.1 Eosinophils % 3.6 Basophils % 0.3 Nucleated Red Blood 0.0 Cells % Immature Granulocytes # 0.040 H Neutrophils # 4.4 Lymphocytes # 0.6 L Monocytes # 0.5 Eosinophils # 0.2 Basophils # 0.0 Nucleated Red Blood 0.0 Cells # Sodium Level 134 L Potassium Level 5.9 H Chloride Level 94 L Carbon Dioxide Level 25 Anion Gap 15 H Blood Urea Nitrogen 53 H Creatinine 6.53 H Est Glomerular Filtrat 9 L Rate mL/min Glucose Level 122 Calcium Level 9.0 Test 07/13/18 08:29 Bedside Glucose 105 Exam/Review of Systems Exam Vitals Vital Signs Date Temp Pulse Resp B/P (MAP) Pulse Ox O2 O2 Flow FiO2 Time Delivery Rate 07/13/18 50 12:10 07/13/18 98.6 18 129/69 95 11:35 (89) 07/12/18 Room Air 16:00 07/10/18 15 08:45 Intake and Output 07/12/18 07/12/18 07/13/18 1515:00 23:00 07:00 IntakeIntake Total 360 ml 600 ml 480 ml BalanceBalance 360 ml 600 ml 480 ml Results Results 24hrs Laboratory Tests Test 07/12/18 17:19 07/12/18 20:22 07/13/18 02:50 07/13/18 05:13 Bedside Glucose 120 200 128 White Blood Count 5.8 # Red Blood Count 3.61 L Hemoglobin 9.9 L Hematocrit 31.2 L Mean Corpuscular Volume 86.4 Mean Corpuscular 27.4 L Hemoglobin Mean Corpuscular 31.7 L Hemoglobin Concent Red Cell Distribution 13.8 Width Platelet Count 189 Mean Platelet Volume 10.0 Immature Granulocytes % 0.700 H Neutrophils % 76.0 Lymphocytes % 10.3 L Monocytes % 9.1 Eosinophils % 3.6 Basophils % 0.3 Nucleated Red Blood 0.0 Cells % Immature Granulocytes # 0.040 H Neutrophils # 4.4 Lymphocytes # 0.6 L Monocytes # 0.5 Eosinophils # 0.2 Basophils # 0.0 Nucleated Red Blood 0.0 Cells # Sodium Level 134 L Potassium Level 5.9 H Chloride Level 94 L Carbon Dioxide Level 25 Anion Gap 15 H Blood Urea Nitrogen 53 H Creatinine 6.53 H Est Glomerular Filtrat 9 L Rate mL/min Glucose Level 122 Calcium Level 9.0 Test 07/13/18 08:29 Bedside Glucose 105 Medications Medication Current Medications Amlodipine Besylate (Norvasc) 10 mg DAILY PO Last administered on 07/13/18 09:17; Admin Dose 10 MG; Start 07/09/18 at 09:00 Aspirin (Aspirin) 81 mg DAILY PO Last administered on 07/13/18 09:16; Admin Dose 81 MG; Start 07/09/18 at 09:00 Clonidine (Catapres) 0.1 mg Q8 PO Last administered on 07/13/18 06:09; Admin Dose 0.1 MG; Start 07/09/18 at 06:00 Furosemide (Lasix) 20 mg DAILY PO Last administered on 07/13/18 09:17; Admin Dose 20 MG; Start 07/09/18 at 09:00 Insulin Glargine (Lantus) 9 units HS SC Last administered on 07/12/18 21:35; Admin Dose 9 UNITS; Start 07/09/18 at 21:00 Lisinopril (Zestril) 5 mg DAILY PO Last administered on 07/13/18 09:17; Admin Dose 5 MG; Start 07/09/18 at 09:00 Pioglitazone HCl (Actos) 15 mg DAILY PO Last administered on 07/13/18 09:16; Admin Dose 15 MG; Start 07/09/18 at 09:00 Diagnostic Test (Pha) (Accu-Chek) 1 ea AC MEALS AND BEDTIME XX Last administered on 07/13/18at 07:00; Admin Dose 1 EA; Start 07/09/18 at 07:00 Insulin Aspart (Novolog Insulin Pen) NOVOLOG *MILD* ALGORITHM WITH MEALS BEDTIME SC Last administered on 07/12/18at 21:31; Admin Dose 1 UNIT; Start 07/09/18 at 08:00 Hydralazine HCl (Apresoline) 25 mg Q6H PRN PO ELEVATED BLOOD PRESSURE; Start 07/09/18 at 04:00 Vancomycin HCl (Vanco Iv Per Pharmacy) VANCOMYCIN PER PHARMACY PER PROTOCOL XX ; Start 07/09/18 at 04:00 Acetaminophen (Tylenol Tab) 650 mg Q4H PRN PO MILD PAIN(1-3)OR ELEVATED TEMP Last administered on 07/09/18at 04:44; Admin Dose 650 MG; Start 07/09/18 at 04:00 Ondansetron HCl (Zofran Inj) 4 mg Q4H PRN IV NAUSEA AND/OR VOMITING Last administered on 07/09/18at 04:44; Admin Dose 4 MG; Start 07/09/18 at 04:00 Miscellaneous Information 1 ea NOTE XX ; Start 07/09/18 at 05:00 Glucose (Glutose) 15 gm Q15M PRN PO DECREASED GLUCOSE; Start 07/09/18 at 05:00 Glucose (Glutose) 22.5 gm Q15M PRN PO DECREASED GLUCOSE; Start 07/09/18 at 05:00 Dextrose (D50w Syringe) 25 ml Q15M PRN IV DECREASED GLUCOSE; Start 07/09/18 at 05:00 Dextrose (D50w Syringe) 50 ml Q15M PRN IV DECREASED GLUCOSE; Start 07/09/18 at 05:00 Glucagon (Glucagen) 1 mg Q15M PRN IM DECREASED GLUCOSE; Start 07/09/18 at 05:00 Glucose (Glutose) 15 gm Q15M PRN BUCCAL DECREASED GLUCOSE; Start 07/09/18 at 05:00 Hydroxyzine HCl (Atarax) 50 mg Q6H PRN PO ITCHING; Start 07/09/18 at 07:00 Metoclopramide HCl (Reglan) 5 mg AC MEALS AND BEDTIME IV Last administered on 3/2/19at 06:08; Admin Dose 5 MG; Start 07/09/18 at 17:30 Pantoprazole (Protonix Tab) 40 mg DAILY@06 PO Last administered on 07/13/18at 06:09; Admin Dose 40 MG; Start 07/10/18 at 06:00 Piperacillin Sod/ Tazobactam Sod 50 ml @ 100 mls/hr Q8 IVPB Last administered on 07/13/18at 06:10; Admin Dose 100 MLS/HR; Start 07/11/18 at 18:45 Miscellaneous Information (*Rx Drug Level Order Reminder*) RANDOM VANCOMYCIN LEVEL ... ONCE ONCE XX ; Start 07/14/18 at 05:00; Stop 07/14/18 at 05:01 FANI AYALA Jul 13, 2018 12:34
--- NOTE | 2018-07-13 17:07 | CONS ---
DATE OF ADMISSION: 07/09/2018 DATE OF CONSULTATION: The patient is seen by me because of abdominal pain, vomiting. Routine evaluation showed ascites. P aracentesis was done. At this time, still we are waiting for the cytology. However, I see that repo rt of the cytology is negative, but CAT scan of the abdomen shows a thickening of the omentum. Possi ble carcinomatosis is still a consideration. PLAN: At this time, it is a good idea to perhaps consider to do a biopsy of the peritoneal mass. Jose Martin l discuss with Dr. Mujica. Dictated By: NAILA MERCER MD NC/NTS Conf#: [id number] DID#: [id number] CC: SAURABH MUJICA MD;*EndCC*
[2018-07-13] MEDS: INSULIN GLARGINE [LANTus] (100 UNITS/ML) SYG SC SCH (20:37)
[2018-07-14] VITALS (11 sets, daily range): BP systolic 122–153; BP diastolic 57–71; PULSE 52–74; RESP 16–18
[2018-07-14] MEDS: PIPER-TAZO 2.25 GM/NS 50 ML IVPB SCH ×3 (06:39→20:18)
[2018-07-14] MEDS: METOCLOPRAMIDE 10 MG INJ IV SCH ×4 (06:49→20:17)
[2018-07-14] MEDS: PANTOPRAZOLE (EC) 40 MG TAB PO SCH (06:49)
[2018-07-14] MEDS: ACCU-CHEK XX SCH ×4 (07:56→20:17)
[2018-07-14] MEDS: INSULIN ASPART [NOVOLOG] 3 ML PEN SC SCH ×4 (08:00→20:17)
[2018-07-14] MEDS: AMLODIPINE 10 MG TAB PO SCH (08:21)
[2018-07-14] MEDS: PIOGLITAZONE 15 MG TAB PO SCH (08:21)
[2018-07-14] MEDS: LISINOPRIL 5 MG TAB PO SCH (08:22)
[2018-07-14] MEDS: FUROSEMIDE 20 MG TAB PO SCH (08:22)
[2018-07-14] MEDS: ASPIRIN 81 MG TAB PO SCH (08:22)
[2018-07-14] MEDS ORDERED: VANCOMYCIN 1 GM 250 ML IVPB SCH (10:00)
--- NOTE | 2018-07-14 11:00 | CONS ---
Consultation Date/Type/Reason Admit Date/Time Jul 09, 2018 at 00:40 Initial Consult Date 07/10/18 Type of Consult Cardiology Requesting Provider: FANI AYALA Date/Time of Note DATE: 07/14/18 TIME: 10:59 24 HR Interval Summary Free Text/Dictation 1. Dyspnea probably multifactorial possible pneumonia 2. Ascites: s/p paracentesis 3. History of possible coronary artery disease and [place] 4. Renal failure on dialysis 5. Abdominal distention/ascites follow-up with GI recommendations 6. Diabetes 7. Hypertension 8. History of sick sinus syndrome Patient is status post permanent pacemaker Recommendations: GI workup as per GI. Status post paracentesis Pacemaker Continue with the beta-kamlesh. Blood pressure currently stable Hemodialysis as per renal to be continued. Antibiotic as per internal medicine consultants. Constitutional: no complaints Detailed Summary Respiratory: no complaints (improving) Cardiovascular: no complaints Exam/Review of Systems Vital Signs Vitals Vital Signs Date Temp Pulse Resp B/P (MAP) Pulse Ox O2 O2 Flow FiO2 Time Delivery Rate 07/14/18 67 08:10 07/14/18 98.4 18 146/69 97 07:39 (94) 07/13/18 Room Air 20:00 07/10/18 15 08:45 Intake and Output 07/13/18 07/13/18 07/14/18 1515:00 23:00 07:00 IntakeIntake Total 600 ml 400 ml OutputOutput Total 0 ml 4400 ml BalanceBalance 0 ml -3800 ml 400 ml Exam Psych: no complaints Respiratory: diminished breath sounds Cardiovascular: regular rate and rhythm Musculoskeletal: nl extremities to inspection Labs Result Diagram: 07/13/18 0513 07/13/18 0513 Results 24hrs Laboratory Tests Test 07/13/18 12:56 07/13/18 18:10 07/13/18 19:34 07/14/18 05:21 Bedside Glucose 96 145 225 H Random Vancomycin Level 12.2 Test 07/14/18 07:54 07/14/18 08:19 Bedside Glucose 69 L 101 Medications Medications Current Medications Amlodipine Besylate (Norvasc) 10 mg DAILY PO Last administered on 07/14/18at 08:21; Admin Dose 10 MG; Start 07/09/18 at 09:00 Aspirin (Aspirin) 81 mg DAILY PO Last administered on 07/14/18at 08:22; Admin Dose 81 MG; Start 07/09/18 at 09:00 Clonidine (Catapres) 0.1 mg Q8 PO Last administered on 07/14/18 06:49; Admin Dose 0.1 MG; Start 07/09/18 at 06:00 Furosemide (Lasix) 20 mg DAILY PO Last administered on 07/14/18 08:22; Admin Dose 20 MG; Start 07/09/18 at 09:00 Insulin Glargine (Lantus) 9 units HS SC Last administered on 07/13/18 20:37; Admin Dose 9 UNITS; Start 07/09/18 at 21:00 Lisinopril (Zestril) 5 mg DAILY PO Last administered on 07/14/18 08:22; Admin Dose 5 MG; Start 07/09/18 at 09:00 Pioglitazone HCl (Actos) 15 mg DAILY PO Last administered on 07/14/18 08:21; Admin Dose 15 MG; Start 07/09/18 at 09:00 Diagnostic Test (Pha) (Accu-Chek) 1 ea AC MEALS AND BEDTIME XX Last administered on 07/14/18 07:56; Admin Dose 1 EA; Start 07/09/18 at 07:00 Insulin Aspart (Novolog Insulin Pen) NOVOLOG *MILD* ALGORITHM WITH MEALS BEDTIME SC Last administered on 07/13/18 20:37; Admin Dose 2 UNIT; Start at 08:00 Hydralazine HCl (Apresoline) 25 mg Q6H PRN PO ELEVATED BLOOD PRESSURE; Start 07/09/18 at 04:00 Vancomycin HCl (Vanco Iv Per Pharmacy) VANCOMYCIN PER PHARMACY PER PROTOCOL XX ; Start 07/09/18 at 04:00 Acetaminophen (Tylenol Tab) 650 mg Q4H PRN PO MILD PAIN(1-3)OR ELEVATED TEMP Last administered on 07/09/18 04:44; Admin Dose 650 MG; Start 07/09/18 at 04:00 Ondansetron HCl (Zofran Inj) 4 mg Q4H PRN IV NAUSEA AND/OR VOMITING Last administered on 07/09/18 04:44; Admin Dose 4 MG; Start 07/09/18 at 04:00 Miscellaneous Information 1 ea NOTE XX ; Start 07/09/18 at 05:00 Glucose (Glutose) 15 gm Q15M PRN PO DECREASED GLUCOSE; Start 07/09/18 at 05:00 Glucose (Glutose) 22.5 gm Q15M PRN PO DECREASED GLUCOSE; Start 07/09/18 at 05:00 Dextrose (D50w Syringe) 25 ml Q15M PRN IV DECREASED GLUCOSE; Start 07/09/18 at 05:00 Dextrose (D50w Syringe) 50 ml Q15M PRN IV DECREASED GLUCOSE; Start 07/09/18 at 05:00 Glucagon (Glucagen) 1 mg Q15M PRN IM DECREASED GLUCOSE; Start 07/09/18 at 05:00 Glucose (Glutose) 15 gm Q15M PRN BUCCAL DECREASED GLUCOSE; Start 07/09/18 at 05:00 Hydroxyzine HCl (Atarax) 50 mg Q6H PRN PO ITCHING; Start 07/09/18 at 07:00 Metoclopramide HCl (Reglan) 5 mg AC MEALS AND BEDTIME IV Last administered on 07/14/18at 06:49; Admin Dose 5 MG; Start 07/09/18 at 17:30 Pantoprazole (Protonix Tab) 40 mg DAILY@06 PO Last administered on 07/14/18at 06:49; Admin Dose 40 MG; Start 07/10/18 at 06:00 Piperacillin Sod/ Tazobactam Sod 50 ml @ 100 mls/hr Q8 IVPB Last administered on 07/14/18at 06:39; Admin Dose 100 MLS/HR; Start 07/11/18 at 18:45 Vancomycin HCl 250 ml @ 125 mls/hr ONCE IVPB Last administered on 07/14/18at 10:06; Admin Dose 125 MLS/HR; Start 07/14/18 at 10:00; Stop 07/14/18 at 23:59 VIRA CRUMP MD Jul 14, 2018 11:00
--- NOTE | 2018-07-14 12:38 | PN ---
DATE: 07/14/2018 SUBJECTIVE: Follow up on coronary artery disease, CKD on hemodialysis, possible pneumonia, ascites a nd status post paracentesis, history of pacemaker placement and possible spontaneous bacterial perito nitis with omental nodularity. The patient is breathing comfortably at rest. Denies any chest pain, abdominal pain. No reported nausea or vomiting. The patient did not have any bleeding from any sit e. No reported fever or chills. No reported hypoglycemic episode. PHYSICAL EXAMINATION: GENERAL: Revealed the patient to be awake, alert. VITAL SIGNS: Temperature 98.4, pulse 67, respiration 18, blood pressure 146/69, O2 saturation 97% on room air. HEENT: No eye discharge or redness. Conjunctivae and lids are normal. Oropharynx is clear. NECK: Supple. No thyromegaly. CHEST: Diminished air entry at bases. No use of accessory muscles. CARDIOVASCULAR: S1, S2 normal. No murmur. ABDOMEN: Soft, decreased ascites, nontender. EXTREMITIES: No edema, clubbing, cyanosis. NEUROLOGIC: The patient is awake, alert, fairly oriented with no gross focal deficit. LABORATORY DATA: Recently, WBC 5.8, hemoglobin 9.9, platelet 189. Coagulation profile revealed INR of 1.2. Chemistry: Glucose 101. Hemoglobin A1c is 5.1. Ascitic fluid cytology is negative for mal ignancy. Culture is negative. AFB and fungal are pending. Acid fast bacilli smear is however negat merlin. IMPRESSION: 1. Pneumonia, improving. Continue IV vancomycin and Zosyn. 2. Spontaneous bacterial peritonitis. Continue vancomycin and Zosyn. 3. Diabetes. The patient has 1 episode of blood sugar of 69 today; however, has not had any further episode of blood sugar less than 70. We will continue to monitor on current dose of Lantus and slid ing scale insulin. 4. Hypertension. Blood pressure is reasonably controlled with Norvasc, Lasix, Zestril and clonidine . 5. End-stage renal disease. Continue hemodialysis as tolerated. 6. Possible history of coronary artery disease, status post myocardial infarction. Continue aspirin . Echocardiogram however revealed EF of 55% with no wall motion abnormality. The patient does have diastolic dysfunction. We will continue to follow. Dictated By: SAURABH VENCES/CANDY Conf#: [id number] [facility]#: [id number] CC: NAILA MERCER MD;*End*
--- NOTE | 2018-07-14 16:02 | CONS ---
Assessment/Plan Assessment/Plan Hospital Course (Demo Recall) Patient is alert, looks comfortable, family at bedside, no fevers overnight. No labs this morning Microbiology: All cultures negative Antimicrobials: Vancomycin Zosyn Physical examination: Well-developed elderly man who is awake in no distress. Head atraumatic normocephalic sclera nonicteric. Neck is supple. Chest rise symmetrical, breath sounds diminished bases. Heart: S1-S2. abdomen soft, bowel sounds present. Extremities without cyanosis Assessment: 1. SBP 2. Questionable omental tumor per CT of the abdomen 3. Coronary artery disease, status post permanent pacemaker . 4. Chronic kidney disease, hemodialysis dependent 5. Questionable pneumonia Plan: Patient remains stable, continue present care and antibiotics, follow recommendations of specialists, per GI patient needs omental biopsy prior to discharge Consultation Date/Type/Reason Admit Date/Time Jul 09, 2018 at 00:40 Initial Consult Date 07/10/18 Type of Consult id Requesting Provider: FANI AYALA Date/Time of Note DATE: 07/14/18 TIME: 16:01 Exam/Review of Systems Exam Vitals Vital Signs Date Temp Pulse Resp B/P (MAP) Pulse Ox O2 O2 Flow FiO2 Time Delivery Rate 07/14/18 98.6 58 17 130/66 98 15:24 (87) 07/13/18 Room Air 20:00 07/10/18 15 08:45 Intake and Output 07/13/18 07/13/18 07/14/18 1515:00 23:00 07:00 IntakeIntake Total 600 ml 400 ml OutputOutput Total 0 ml 4400 ml BalanceBalance 0 ml -3800 ml 400 ml Results Result Diagram: 07/13/18 0513 07/13/18 0513 Results 24hrs Laboratory Tests Test 07/13/18 18:10 07/13/18 19:34 07/14/18 05:21 07/14/18 07:54 Bedside Glucose 145 225 H 69 L Random Vancomycin Level 12.2 Test 07/14/18 08:19 07/14/18 11:34 Bedside Glucose 101 118 Medications Medication Current Medications Amlodipine Besylate (Norvasc) 10 mg DAILY PO Last administered on 07/14/18at 08:21; Admin Dose 10 MG; Start 07/09/18 at 09:00 Aspirin (Aspirin) 81 mg DAILY PO Last administered on 07/14/18 08:22; Admin Dose 81 MG; Start 07/09/18 at 09:00 Clonidine (Catapres) 0.1 mg Q8 PO Last administered on 07/14/18 13:57; Admin Dose 0.1 MG; Start 07/09/18 at 06:00 Furosemide (Lasix) 20 mg DAILY PO Last administered on 07/14/18 08:22; Admin Dose 20 MG; Start 07/09/18 at 09:00 Insulin Glargine (Lantus) 9 units HS SC Last administered on 07/13/18 20:37; Admin Dose 9 UNITS; Start 07/09/18 at 21:00 Lisinopril (Zestril) 5 mg DAILY PO Last administered on 07/14/18 08:22; Admin Dose 5 MG; Start 07/09/18 at 09:00 Pioglitazone HCl (Actos) 15 mg DAILY PO Last administered on 07/14/18 08:21; Admin Dose 15 MG; Start 07/09/18 at 09:00 Diagnostic Test (Pha) (Accu-Chek) 1 ea AC MEALS AND BEDTIME XX Last administered on 07/14/18 11:35; Admin Dose 1 EA; Start 07/09/18 at 07:00 Insulin Aspart (Novolog Insulin Pen) NOVOLOG *MILD* ALGORITHM WITH MEALS BEDTIME SC Last administered on 07/13/18 20:37; Admin Dose 2 UNIT; Start 07/09/18 at 08:00 Hydralazine HCl (Apresoline) 25 mg Q6H PRN PO ELEVATED BLOOD PRESSURE; Start 07/09/18 at 04:00 Vancomycin HCl (Vanco Iv Per Pharmacy) VANCOMYCIN PER PHARMACY PER PROTOCOL XX ; Start 07/09/18 at 04:00 Acetaminophen (Tylenol Tab) 650 mg Q4H PRN PO MILD PAIN(1-3)OR ELEVATED TEMP Last administered on 07/09/18 04:44; Admin Dose 650 MG; Start 07/09/18 at 04:00 Ondansetron HCl (Zofran Inj) 4 mg Q4H PRN IV NAUSEA AND/OR VOMITING Last administered on 07/09/18 04:44; Admin Dose 4 MG; Start 07/09/18 at 04:00 Miscellaneous Information 1 ea NOTE XX ; Start 07/09/18 at 05:00 Glucose (Glutose) 15 gm Q15M PRN PO DECREASED GLUCOSE; Start 07/09/18 at 05:00 Glucose (Glutose) 22.5 gm Q15M PRN PO DECREASED GLUCOSE; Start 07/09/18 at 05:00 Dextrose (D50w Syringe) 25 ml Q15M PRN IV DECREASED GLUCOSE; Start 07/09/18 at 05:00 Dextrose (D50w Syringe) 50 ml Q15M PRN IV DECREASED GLUCOSE; Start 07/09/18 at 05:00 Glucagon (Glucagen) 1 mg Q15M PRN IM DECREASED GLUCOSE; Start 07/09/18 at 05:00 Glucose (Glutose) 15 gm Q15M PRN BUCCAL DECREASED GLUCOSE; Start 07/09/18 at 05:00 Hydroxyzine HCl (Atarax) 50 mg Q6H PRN PO ITCHING; Start 07/09/18 at 07:00 Metoclopramide HCl (Reglan) 5 mg AC MEALS AND BEDTIME IV Last administered on 07/14/18at 11:37; Admin Dose 5 MG; Start 07/09/18 at 17:30 Pantoprazole (Protonix Tab) 40 mg DAILY@06 PO Last administered on 07/14/18at 06:49; Admin Dose 40 MG; Start 07/10/18 at 06:00 Piperacillin Sod/ Tazobactam Sod 50 ml @ 100 mls/hr Q8 IVPB Last administered on 07/14/18at 13:57; Admin Dose 100 MLS/HR; Start 07/11/18 at 18:45 Vancomycin HCl 250 ml @ 125 mls/hr ONCE IVPB Last administered on 07/14/18at 10:06; Admin Dose 125 MLS/HR; Start 07/14/18 at 10:00; Stop 07/14/18 at 23:59 SYEDA LEÓN NP Jul 14, 2018 16:02
[2018-07-14] MEDS: INSULIN GLARGINE [LANTus] (100 UNITS/ML) SYG SC SCH (20:48)
[2018-07-15] VITALS (13 sets, daily range): BP systolic 117–158; BP diastolic 56–71; PULSE 56–84; RESP 17–18
[2018-07-15] MEDS: PANTOPRAZOLE (EC) 40 MG TAB PO SCH (06:24)
[2018-07-15] MEDS: METOCLOPRAMIDE 10 MG INJ IV SCH ×4 (06:27→20:48)
[2018-07-15] MEDS: PIPER-TAZO 2.25 GM/NS 50 ML IVPB SCH ×3 (06:27→20:48)
[2018-07-15] MEDS: ACCU-CHEK XX SCH ×4 (07:00→20:47)
[2018-07-15] MEDS: INSULIN ASPART [NOVOLOG] 3 ML PEN SC SCH ×4 (07:39→20:50)
[2018-07-15] MEDS: PIOGLITAZONE 15 MG TAB PO SCH (08:16)
[2018-07-15] MEDS: AMLODIPINE 10 MG TAB PO SCH (08:16)
[2018-07-15] MEDS: ASPIRIN 81 MG TAB PO SCH (08:16)
[2018-07-15] MEDS: LISINOPRIL 5 MG TAB PO SCH (08:16)
[2018-07-15] MEDS: FUROSEMIDE 20 MG TAB PO SCH (08:17)
--- NOTE | 2018-07-15 14:32 | CONS ---
Assessment/Plan Assessment/Plan Hospital Course (Demo Recall) Patient is alert, feels good wants to go home Microbiology: All cultures negative Antimicrobials: Vancomycin Zosyn Physical examination: Well-developed elderly man who is awake in no distress. Head atraumatic normocephalic sclera nonicteric. Neck is supple. Chest rise symmetrical, breath sounds diminished bases. Heart: S1-S2. abdomen soft, bowel sounds present. Extremities without cyanosis Assessment: 1. SBP 2. Questionable omental tumor per CT of the abdomen 3. Coronary artery disease, status post permanent pacemaker 4. Chronic kidney disease, hemodialysis dependent/L AVF 5. Questionable pneumonia Plan: Patient remains stable, ok dc on PO Levaquin and Augmentin for 7 more days, GI rec-s Consultation Date/Type/Reason Admit Date/Time Jul 09, 2018 at 00:40 Initial Consult Date 07/10/18 Type of Consult id Requesting Provider: FANI AYALA Date/Time of Note DATE: 07/15/18 TIME: 14:30 Exam/Review of Systems Exam Vitals Vital Signs Date Temp Pulse Resp B/P (MAP) Pulse Ox O2 O2 Flow FiO2 Time Delivery Rate 07/15/18 65 12:01 07/15/18 98.2 18 137/71 98 11:47 (93) 07/13/18 Room Air 20:00 Intake and Output 07/14/18 07/14/18 07/15/18 1515:00 23:00 07:00 IntakeIntake Total 250 ml 650 ml BalanceBalance 250 ml 650 ml Results Result Diagram: 07/15/18 0507 07/13/18 0513 Results 24hrs Laboratory Tests Test 07/14/18 17:13 07/14/18 20:16 07/15/18 05:07 07/15/18 07:39 Bedside Glucose 187 175 89 White Blood Count 6.6 Red Blood Count 3.70 L Hemoglobin 9.9 L Hematocrit 31.8 L Mean Corpuscular Volume 85.9 Mean Corpuscular 26.8 L Hemoglobin Mean Corpuscular 31.1 L Hemoglobin Concent Red Cell Distribution 14.0 Width Platelet Count 203 Mean Platelet Volume 9.8 Immature Granulocytes % 0.900 H Neutrophils % 76.3 Lymphocytes % 10.1 L Monocytes % 8.5 Eosinophils % 3.6 Basophils % 0.6 Nucleated Red Blood 0.0 Cells % Immature Granulocytes # 0.060 H Neutrophils # 5.0 Lymphocytes # 0.7 L Monocytes # 0.6 Eosinophils # 0.2 Basophils # 0.0 Nucleated Red Blood 0.0 Cells # Test 07/15/18 11:22 Bedside Glucose 102 Medications Medication Current Medications Amlodipine Besylate (Norvasc) 10 mg DAILY PO Last administered on 07/15/18 08:16; Admin Dose 10 MG; Start 07/09/18 at 09:00 Aspirin (Aspirin) 81 mg DAILY PO Last administered on 07/15/18 08:16; Admin Dose 81 MG; Start 07/09/18 at 09:00 Clonidine (Catapres) 0.1 mg Q8 PO Last administered on 07/15/18 13:05; Admin Dose 0.1 MG; Start 07/09/18 at 06:00 Furosemide (Lasix) 20 mg DAILY PO Last administered on 07/15/18 08:17; Admin Dose 20 MG; Start 07/09/18 at 09:00 Insulin Glargine (Lantus) 9 units HS SC Last administered on 07/14/18 20:48; Admin Dose 9 UNITS; Start 07/09/18 at 21:00 Lisinopril (Zestril) 5 mg DAILY PO Last administered on 07/15/18 08:16; Admin Dose 5 MG; Start 07/09/18 at 09:00 Pioglitazone HCl (Actos) 15 mg DAILY PO Last administered on 07/15/18 08:16; Admin Dose 15 MG; Start 07/09/18 at 09:00 Diagnostic Test (Pha) (Accu-Chek) 1 ea AC MEALS AND BEDTIME XX Last administered on 07/14/18 17:14; Admin Dose 1 EA; Start 07/09/18 at 07:00 Insulin Aspart (Novolog Insulin Pen) NOVOLOG *MILD* ALGORITHM WITH MEALS BEDTIME SC Last administered on 07/14/18 17:48; Admin Dose 2 UNIT; Start 07/09/18 at 08:00 Hydralazine HCl (Apresoline) 25 mg Q6H PRN PO ELEVATED BLOOD PRESSURE; Start 07/09/18 at 04:00 Vancomycin HCl (Vanco Iv Per Pharmacy) VANCOMYCIN PER PHARMACY PER PROTOCOL XX ; Start 07/09/18 at 04:00 Acetaminophen (Tylenol Tab) 650 mg Q4H PRN PO MILD PAIN(1-3)OR ELEVATED TEMP Last administered on 07/09/18at 04:44; Admin Dose 650 MG; Start 07/09/18 at 04:00 Ondansetron HCl (Zofran Inj) 4 mg Q4H PRN IV NAUSEA AND/OR VOMITING Last administered on 07/09/18at 04:44; Admin Dose 4 MG; Start 07/09/18 at 04:00 Miscellaneous Information 1 ea NOTE XX ; Start 07/09/18 at 05:00 Glucose (Glutose) 15 gm Q15M PRN PO DECREASED GLUCOSE; Start 07/09/18 at 05:00 Glucose (Glutose) 22.5 gm Q15M PRN PO DECREASED GLUCOSE; Start 07/09/18 at 05:00 Dextrose (D50w Syringe) 25 ml Q15M PRN IV DECREASED GLUCOSE; Start 07/09/18 at 05:00 Dextrose (D50w Syringe) 50 ml Q15M PRN IV DECREASED GLUCOSE; Start 07/09/18 at 05:00 Glucagon (Glucagen) 1 mg Q15M PRN IM DECREASED GLUCOSE; Start 07/09/18 at 05:00 Glucose (Glutose) 15 gm Q15M PRN BUCCAL DECREASED GLUCOSE; Start 07/09/18 at 05:00 Hydroxyzine HCl (Atarax) 50 mg Q6H PRN PO ITCHING; Start 07/09/18 at 07:00 Metoclopramide HCl (Reglan) 5 mg AC MEALS AND BEDTIME IV Last administered on 07/15/18at 11:53; Admin Dose 5 MG; Start 07/09/18 at 17:30 Pantoprazole (Protonix Tab) 40 mg DAILY@06 PO Last administered on 07/15/18 06:24; Admin Dose 40 MG; Start 07/10/18 at 06:00 Piperacillin Sod/ Tazobactam Sod 50 ml @ 100 mls/hr Q8 IVPB Last administered on 07/15/18at 13:06; Admin Dose 100 MLS/HR; Start 07/11/18 at 18:45 SYEDA LEÓN NP Jul 15, 2018 14:32
--- NOTE | 2018-07-15 16:47 | CONS ---
Assessment/Plan Assessment/Plan Hospital Course (Demo Recall) Dyspnea probably multifactorial possible pneumonia Preserved ejection fraction Ascites: s/p paracentesis History of possible coronary artery disease and [place] Renal failure on dialysis Abdominal distention/ascites status post paracentesis Diabetes Hypertension History of pacemaker -Denies any shortness of breath, palpitations or chest pain -Fluid management via hemodialysis as per nephrology -Blood pressure trend overall stable Consultation Date/Type/Reason Admit Date/Time Jul 09, 2018 at 00:40 Initial Consult Date 07/10/18 Type of Consult Cardiology Requesting Provider: FANI AYALA Date/Time of Note DATE: 07/15/18 TIME: 16:43 24 HR Interval Summary Free Text/Dictation Denies chest pain, shortness of breath or palpitations. Feeling better compared to yesterday. Exam/Review of Systems Vital Signs Vitals Vital Signs Date Temp Pulse Resp B/P (MAP) Pulse Ox O2 O2 Flow FiO2 Time Delivery Rate 07/15/18 56 16:01 07/15/18 97.9 18 117/56 98 15:24 (76) 07/13/18 Room Air 20:00 Intake and Output 07/14/18 07/14/18 07/15/18 1515:00 23:00 07:00 IntakeIntake Total 250 ml 650 ml BalanceBalance 250 ml 650 ml Exam Constitutional: alert, oriented (No apparent distress, no dyspnea with sp eaking) Head: normocephalic Respiratory: other (Coarse breath sounds bilaterally, no wheezing) Cardiovascular: regular rate and rhythm (S1-S2 heard) Gastrointestinal: soft, non-tender, bowel sounds Extremities: edema Labs Result Diagram: 07/15/18 0507 07/13/18 0513 Results 24hrs Laboratory Tests Test 07/14/18 17:13 07/14/18 20:16 07/15/18 05:07 07/15/18 07:39 Bedside Glucose 187 175 89 White Blood Count 6.6 Red Blood Count 3.70 L Hemoglobin 9.9 L Hematocrit 31.8 L Mean Corpuscular Volume 85.9 Mean Corpuscular 26.8 L Hemoglobin Mean Corpuscular 31.1 L Hemoglobin Concent Red Cell Distribution 14.0 Width Platelet Count 203 Mean Platelet Volume 9.8 Immature Granulocytes % 0.900 H Neutrophils % 76.3 Lymphocytes % 10.1 L Monocytes % 8.5 Eosinophils % 3.6 Basophils % 0.6 Nucleated Red Blood 0.0 Cells % Immature Granulocytes # 0.060 H Neutrophils # 5.0 Lymphocytes # 0.7 L Monocytes # 0.6 Eosinophils # 0.2 Basophils # 0.0 Nucleated Red Blood 0.0 Cells # Test 07/15/18 11:22 Bedside Glucose 102 Medications Medications Current Medications Amlodipine Besylate (Norvasc) 10 mg DAILY PO Last administered on 07/15/18 08:16; Admin Dose 10 MG; Start 07/09/18 at 09:00 Aspirin (Aspirin) 81 mg DAILY PO Last administered on 07/15/18 08:16; Admin Dose 81 MG; Start 07/09/18 at 09:00 Clonidine (Catapres) 0.1 mg Q8 PO Last administered on 07/15/18 13:05; Admin Dose 0.1 MG; Start 07/09/18 at 06:00 Furosemide (Lasix) 20 mg DAILY PO Last administered on 07/15/18 08:17; Admin Dose 20 MG; Start 07/09/18 at 09:00 Insulin Glargine (Lantus) 9 units HS SC Last administered on 07/14/18 20:48; Admin Dose 9 UNITS; Start 07/09/18 at 21:00 Lisinopril (Zestril) 5 mg DAILY PO Last administered on 07/15/18 08:16; Admin Dose 5 MG; Start 07/09/18 at 09:00 Pioglitazone HCl (Actos) 15 mg DAILY PO Last administered on 07/15/18 08:16; Admin Dose 15 MG; Start 07/09/18 at 09:00 Diagnostic Test (Pha) (Accu-Chek) 1 ea AC MEALS AND BEDTIME XX Last administered on 07/14/18 17:14; Admin Dose 1 EA; Start 07/09/18 at 07:00 Insulin Aspart (Novolog Insulin Pen) NOVOLOG *MILD* ALGORITHM WITH MEALS BEDTIME SC Last administered on 07/14/18 17:48; Admin Dose 2 UNIT; Start 07/09/18 at 08:00 Hydralazine HCl (Apresoline) 25 mg Q6H PRN PO ELEVATED BLOOD PRESSURE; Start 07/09/18 at 04:00 Vancomycin HCl (Vanco Iv Per Pharmacy) VANCOMYCIN PER PHARMACY PER PROTOCOL XX ; Start 07/09/18 at 04:00 Acetaminophen (Tylenol Tab) 650 mg Q4H PRN PO MILD PAIN(1-3)OR ELEVATED TEMP Last administered on 07/09/18at 04:44; Admin Dose 650 MG; Start 07/09/18 at 04:00 Ondansetron HCl (Zofran Inj) 4 mg Q4H PRN IV NAUSEA AND/OR VOMITING Last administered on 07/09/18at 04:44; Admin Dose 4 MG; Start 07/09/18 at 04:00 Miscellaneous Information 1 ea NOTE XX ; Start 07/09/18 at 05:00 Glucose (Glutose) 15 gm Q15M PRN PO DECREASED GLUCOSE; Start 07/09/18 at 05:00 Glucose (Glutose) 22.5 gm Q15M PRN PO DECREASED GLUCOSE; Start 07/09/18 at 05:00 Dextrose (D50w Syringe) 25 ml Q15M PRN IV DECREASED GLUCOSE; Start 07/09/18 at 05:00 Dextrose (D50w Syringe) 50 ml Q15M PRN IV DECREASED GLUCOSE; Start 07/09/18 at 05:00 Glucagon (Glucagen) 1 mg Q15M PRN IM DECREASED GLUCOSE; Start 07/09/18 at 05:00 Glucose (Glutose) 15 gm Q15M PRN BUCCAL DECREASED GLUCOSE; Start 07/09/18 at 05:00 Hydroxyzine HCl (Atarax) 50 mg Q6H PRN PO ITCHING; Start 07/09/18 at 07:00 Metoclopramide HCl (Reglan) 5 mg AC MEALS AND BEDTIME IV Last administered on 07/15/18at 11:53; Admin Dose 5 MG; Start 07/09/18 at 17:30 Pantoprazole (Protonix Tab) 40 mg DAILY@06 PO Last administered on 07/15/18 06:24; Admin Dose 40 MG; Start 07/10/18 at 06:00 Piperacillin Sod/ Tazobactam Sod 50 ml @ 100 mls/hr Q8 IVPB Last administered on 07/15/18at 13:06; Admin Dose 100 MLS/HR; Start 07/11/18 at 18:45 Edgar Holland DO Jul 15, 2018 16:47
--- NOTE | 2018-07-15 17:54 | PN ---
Date/Time of Note Date/Time of Note DATE: 07/15/18 TIME: 17:54 Assessment/Plan VTE Prophylaxis Risk score (from [facility] [place])>0 risk: 2 SCD applied (from [facility] [place]): Yes Pharmacological prophylaxis: NA/contraindicated Pharm contraindication: liver dx, other Lines/Catheters IV [facility]from [facility] Urinary Cath still in place: No Assessment/Plan Hospital Course Patient is sitting at the bedside eating dinner denies shortness of breath denies fevers Assessment/Plan - Pneumonia, improving. Continue IV vancomycin and Zosyn. - Spontaneous bacterial peritonitis. Continue vancomycin and Zosyn. - Diabetes. Continue Lantus and NovoLog. - Hypertension. Continue Norvasc, Lasix, Zestril and clonidine. - End-stage renal disease. Continue hemodialysis as tolerated. - Possible history of coronary artery disease, status post myocardial infar ction. Continue aspirin. - EF is 55% - Ascites, status post paracentesis. Dr. Lopez is following in gastroenterology consultation. Further recommendations based on clinical course. Plan of care discussed with Dr. Mujica. Result Diagram: 07/15/18 0507 07/13/18 0513 Results 24hrs Laboratory Tests Test 07/14/18 20:16 07/15/18 05:07 07/15/18 07:39 07/15/18 11:22 Bedside Glucose 175 89 102 White Blood Count 6.6 Red Blood Count 3.70 L Hemoglobin 9.9 L Hematocrit 31.8 L Mean Corpuscular Volume 85.9 Mean Corpuscular 26.8 L Hemoglobin Mean Corpuscular 31.1 L Hemoglobin Concent Red Cell Distribution 14.0 Width Platelet Count 203 Mean Platelet Volume 9.8 Immature Granulocytes % 0.900 H Neutrophils % 76.3 Lymphocytes % 10.1 L Monocytes % 8.5 Eosinophils % 3.6 Basophils % 0.6 Nucleated Red Blood 0.0 Cells % Immature Granulocytes # 0.060 H Neutrophils # 5.0 Lymphocytes # 0.7 L Monocytes # 0.6 Eosinophils # 0.2 Basophils # 0.0 Nucleated Red Blood 0.0 Cells # Test 07/15/18 17:23 Bedside Glucose 131 Exam/Review of Systems Exam Vitals Vital Signs Date Temp Pulse Resp B/P (MAP) Pulse Ox O2 O2 Flow FiO2 Time Delivery Rate 07/15/18 56 16:01 07/15/18 97.9 18 117/56 98 15:24 (76) 07/13/18 Room Air 20:00 Intake and Output 07/14/18 07/14/18 07/15/18 1515:00 23:00 07:00 IntakeIntake Total 250 ml 650 ml BalanceBalance 250 ml 650 ml Constitutional: alert, oriented Head: normocephalic Neck: supple Respiratory: diminished breath sounds Cardiovascular: regular rate and rhythm Gastrointestinal: soft, non-tender Musculoskeletal: nl extremities to inspection Results Results 24hrs Laboratory Tests Test 07/14/18 20:16 07/15/18 05:07 07/15/18 07:39 07/15/18 11:22 Bedside Glucose 175 89 102 White Blood Count 6.6 Red Blood Count 3.70 L Hemoglobin 9.9 L Hematocrit 31.8 L Mean Corpuscular Volume 85.9 Mean Corpuscular 26.8 L Hemoglobin Mean Corpuscular 31.1 L Hemoglobin Concent Red Cell Distribution 14.0 Width Platelet Count 203 Mean Platelet Volume 9.8 Immature Granulocytes % 0.900 H Neutrophils % 76.3 Lymphocytes % 10.1 L Monocytes % 8.5 Eosinophils % 3.6 Basophils % 0.6 Nucleated Red Blood 0.0 Cells % Immature Granulocytes # 0.060 H Neutrophils # 5.0 Lymphocytes # 0.7 L Monocytes # 0.6 Eosinophils # 0.2 Basophils # 0.0 Nucleated Red Blood 0.0 Cells # Test 07/15/18 17:23 Bedside Glucose 131 Medications Medication Current Medications Amlodipine Besylate (Norvasc) 10 mg DAILY PO Last administered on 07/15/18 08:16; Admin Dose 10 MG; Start 07/09/18 at 09:00 Aspirin (Aspirin) 81 mg DAILY PO Last administered on 07/15/18 08:16; Admin Dose 81 MG; Start 07/09/18 at 09:00 Clonidine (Catapres) 0.1 mg Q8 PO Last administered on 07/15/18 13:05; Admin Dose 0.1 MG; Start 07/09/18 at 06:00 Furosemide (Lasix) 20 mg DAILY PO Last administered on 07/15/18 08:17; Admin Dose 20 MG; Start 07/09/18 at 09:00 Insulin Glargine (Lantus) 9 units HS SC Last administered on 07/14/18 20:48; Admin Dose 9 UNITS; Start 07/09/18 at 21:00 Lisinopril (Zestril) 5 mg DAILY PO Last administered on 07/15/18 08:16; Admin Dose 5 MG; Start 07/09/18 at 09:00 Pioglitazone HCl (Actos) 15 mg DAILY PO Last administered on 07/15/18 08:16; Admin Dose 15 MG; Start 07/09/18 at 09:00 Diagnostic Test (Pha) (Accu-Chek) 1 ea AC MEALS AND BEDTIME XX Last administered on 07/14/18 17:14; Admin Dose 1 EA; Start 07/09/18 at 07:00 Insulin Aspart (Novolog Insulin Pen) NOVOLOG *MILD* ALGORITHM WITH MEALS BEDTIME SC Last administered on 07/14/18 17:48; Admin Dose 2 UNIT; Start 07/09/18 at 08:00 Hydralazine HCl (Apresoline) 25 mg Q6H PRN PO ELEVATED BLOOD PRESSURE; Start 07/09/18 at 04:00 Vancomycin HCl (Vanco Iv Per Pharmacy) VANCOMYCIN PER PHARMACY PER PROTOCOL XX ; Start 07/09/18 at 04:00 Acetaminophen (Tylenol Tab) 650 mg Q4H PRN PO MILD PAIN(1-3)OR ELEVATED TEMP Last administered on 07/09/18 04:44; Admin Dose 650 MG; Start 07/09/18 at 04:00 Ondansetron HCl (Zofran Inj) 4 mg Q4H PRN IV NAUSEA AND/OR VOMITING Last administered on 07/09/18 04:44; Admin Dose 4 MG; Start 07/09/18 at 04:00 Miscellaneous Information 1 ea NOTE XX ; Start 07/09/18 at 05:00 Glucose (Glutose) 15 gm Q15M PRN PO DECREASED GLUCOSE; Start 07/09/18 at 05:00 Glucose (Glutose) 22.5 gm Q15M PRN PO DECREASED GLUCOSE; Start 07/09/18 at 05:00 Dextrose (D50w Syringe) 25 ml Q15M PRN IV DECREASED GLUCOSE; Start 07/09/18 at 05:00 Dextrose (D50w Syringe) 50 ml Q15M PRN IV DECREASED GLUCOSE; Start 07/09/18 at 05:00 Glucagon (Glucagen) 1 mg Q15M PRN IM DECREASED GLUCOSE; Start 07/09/18 at 05:00 Glucose (Glutose) 15 gm Q15M PRN BUCCAL DECREASED GLUCOSE; Start 07/09/18 at 05:00 Hydroxyzine HCl (Atarax) 50 mg Q6H PRN PO ITCHING; Start 07/09/18 at 07:00 Metoclopramide HCl (Reglan) 5 mg AC MEALS AND BEDTIME IV Last administered on 07/15/18 17:22; Admin Dose 5 MG; Start 07/09/18 at 17:30 Pantoprazole (Protonix Tab) 40 mg DAILY@06 PO Last administered on 07/15/18 06:24; Admin Dose 40 MG; Start 07/10/18 at 06:00 Piperacillin Sod/ Tazobactam Sod 50 ml @ 100 mls/hr Q8 IVPB Last administered on 07/15/18 13:06; Admin Dose 100 MLS/HR; Start 07/11/18 at 18:45 YUMIKO PAINTING Jul 15, 2018 17:54
[2018-07-15] MEDS: INSULIN GLARGINE [LANTus] (100 UNITS/ML) SYG SC SCH (20:51)
[2018-07-16] VITALS (23 sets, daily range): BP systolic 133–166; BP diastolic 60–77; PULSE 52–79; RESP 18
[2018-07-16] MEDS: PANTOPRAZOLE (EC) 40 MG TAB PO SCH (06:08)
[2018-07-16] MEDS: METOCLOPRAMIDE 10 MG INJ IV SCH ×3 (06:09→17:27)
[2018-07-16] MEDS: PIPER-TAZO 2.25 GM/NS 50 ML IVPB SCH (06:09)
[2018-07-16] MEDS: ACCU-CHEK XX SCH ×4 (07:00→21:00)
[2018-07-16] MEDS ORDERED: SODIUM POLYSTYRENE 15 GM KIT (POWDER + SORBITOL) PO ONE (07:00)
[2018-07-16] MEDS: INSULIN ASPART [NOVOLOG] 3 ML PEN SC SCH ×4 (07:57→19:57)
[2018-07-16] MEDS ORDERED: NA POLYST SULFON 15 GM/60 ML BTL PO ONE ×2 (08:00)
[2018-07-16] MEDS: PIOGLITAZONE 15 MG TAB PO SCH (08:06)
[2018-07-16] MEDS: ASPIRIN 81 MG TAB PO SCH (08:47)
[2018-07-16] MEDS: AMLODIPINE 10 MG TAB PO SCH (08:47)
[2018-07-16] MEDS: LISINOPRIL 5 MG TAB PO SCH (08:47)
[2018-07-16] MEDS: FUROSEMIDE 20 MG TAB PO SCH (08:47)
--- NOTE | 2018-07-16 12:57 | CONS ---
Assessment/Plan Assessment/Plan Hospital Course (Demo Recall) No events, afebrile, nad, no fevers Microbiology: All cultures negative Antimicrobials: Vancomycin Zosyn Physical examination: Well-developed elderly man who is awake in no distress. Head atraumatic normocephalic sclera nonicteric. Neck is supple. Chest rise symmetrical, breath sounds diminished bases. Heart: S1-S2. abdomen soft, bowel sounds present. Extremities without cyanosis Assessment: 1. SBP 2. Questionable omental tumor per CT of the abdomen 3. Coronary artery disease, status post permanent pacemaker 4. Chronic kidney disease, hemodialysis dependent/L AVF 5. Questionable pneumonia Plan: Patient remains stable, change abx to PO Levaquin and Augmentin for 7 more days Consultation Date/Type/Reason Admit Date/Time Jul 09, 2018 at 00:40 Initial Consult Date 07/10/18 Type of Consult id Requesting Provider: FANI AYALA Date/Time of Note DATE: 07/16/18 TIME: 12:56 Exam/Review of Systems Exam Vitals Vital Signs Date Temp Pulse Resp B/P (MAP) Pulse Ox O2 O2 Flow FiO2 Time Delivery Rate 07/16/18 62 12:01 07/16/18 98.3 18 166/77 96 11:47 (106) 07/13/18 Room Air 20:00 Intake and Output 07/15/18 07/15/18 07/16/18 1515:00 23:00 07:00 IntakeIntake Total 50 ml 800 ml 600 ml BalanceBalance 50 ml 800 ml 600 ml Results Result Diagram: 07/16/18 0454 07/16/18 0454 Results 24hrs Laboratory Tests Test 07/15/18 17:23 07/15/18 20:49 07/16/18 04:54 07/16/18 07:49 Bedside Glucose 131 151 80 White Blood Count 6.9 Red Blood Count 3.64 L Hemoglobin 9.8 L Hematocrit 31.8 L Mean Corpuscular Volume 87.4 Mean Corpuscular 26.9 L Hemoglobin Mean Corpuscular 30.8 L Hemoglobin Concent Red Cell Distribution 14.1 Width Platelet Count 206 Mean Platelet Volume 9.7 Immature Granulocytes % 1.000 H Neutrophils % 78.3 H Lymphocytes % 8.8 L Monocytes % 8.8 Eosinophils % 3.0 Basophils % 0.1 Nucleated Red Blood 0.0 Cells % Immature Granulocytes # 0.070 H Neutrophils # 5.4 Lymphocytes # 0.6 L Monocytes # 0.6 Eosinophils # 0.2 Basophils # 0.0 Nucleated Red Blood 0.0 Cells # Sodium Level 133 L Potassium Level 6.6 *H Chloride Level 96 L Carbon Dioxide Level 22 Anion Gap 15 H Blood Urea Nitrogen 49 H Creatinine 6.79 H Est Glomerular Filtrat 8 L Rate mL/min Glucose Level 85 Calcium Level 9.0 Test 07/16/18 12:34 Bedside Glucose 126 Medications Medication Current Medications Amlodipine Besylate (Norvasc) 10 mg DAILY PO Last administered on 07/16/18 08:47; Admin Dose 10 MG; Start 07/09/18 at 09:00 Aspirin (Aspirin) 81 mg DAILY PO Last administered on 07/16/18 08:47; Admin Dose 81 MG; Start 07/09/18 at 09:00 Clonidine (Catapres) 0.1 mg Q8 PO Last administered on 07/16/18 06:09; Admin Dose 0.1 MG; Start 07/09/18 at 06:00 Furosemide (Lasix) 20 mg DAILY PO Last administered on 07/16/18 08:47; Admin Dose 20 MG; Start 07/09/18 at 09:00 Insulin Glargine (Lantus) 9 units HS SC Last administered on 07/15/18 20:51; Admin Dose 9 UNITS; Start 07/09/18 at 21:00 Lisinopril (Zestril) 5 mg DAILY PO Last administered on 07/16/18 08:47; Admin Dose 5 MG; Start 07/09/18 at 09:00 Pioglitazone HCl (Actos) 15 mg DAILY PO Last administered on 07/16/18 08:06; Admin Dose 15 MG; Start 07/09/18 at 09:00 Diagnostic Test (Pha) (Accu-Chek) 1 ea AC MEALS AND BEDTIME XX Last administered on 07/15/18 20:47; Admin Dose 1 EA; Start 07/09/18 at 07:00 Insulin Aspart (Novolog Insulin Pen) NOVOLOG *MILD* ALGORITHM WITH MEALS BEDTIME SC Last administered on 07/14/18 17:48; Admin Dose 2 UNIT; Start 07/09/18 at 08:00 Hydralazine HCl (Apresoline) 25 mg Q6H PRN PO ELEVATED BLOOD PRESSURE; Start 07/09/18 at 04:00 Vancomycin HCl (Vanco Iv Per Pharmacy) VANCOMYCIN PER PHARMACY PER PROTOCOL XX ; Start 07/09/18 at 04:00 Acetaminophen (Tylenol Tab) 650 mg Q4H PRN PO MILD PAIN(1-3)OR ELEVATED TEMP Last administered on 07/09/18at 04:44; Admin Dose 650 MG; Start 07/09/18 at 04:00 Ondansetron HCl (Zofran Inj) 4 mg Q4H PRN IV NAUSEA AND/OR VOMITING Last administered on 07/09/18at 04:44; Admin Dose 4 MG; Start 07/09/18 at 04:00 Miscellaneous Information 1 ea NOTE XX ; Start 07/09/18 at 05:00 Glucose (Glutose) 15 gm Q15M PRN PO DECREASED GLUCOSE; Start 07/09/18 at 05:00 Glucose (Glutose) 22.5 gm Q15M PRN PO DECREASED GLUCOSE; Start 07/09/18 at 05:00 Dextrose (D50w Syringe) 25 ml Q15M PRN IV DECREASED GLUCOSE; Start 07/09/18 at 05:00 Dextrose (D50w Syringe) 50 ml Q15M PRN IV DECREASED GLUCOSE; Start 07/09/18 at 05:00 Glucagon (Glucagen) 1 mg Q15M PRN IM DECREASED GLUCOSE; Start 07/09/18 at 05:00 Glucose (Glutose) 15 gm Q15M PRN BUCCAL DECREASED GLUCOSE; Start 07/09/18 at 05:00 Hydroxyzine HCl (Atarax) 50 mg Q6H PRN PO ITCHING; Start 07/09/18 at 07:00 Metoclopramide HCl (Reglan) 5 mg AC MEALS AND BEDTIME IV Last administered on 07/16/18at 11:30; Admin Dose 5 MG; Start 07/09/18 at 17:30 Pantoprazole (Protonix Tab) 40 mg DAILY@06 PO Last administered on 07/16/18at 06:08; Admin Dose 40 MG; Start 07/10/18 at 06:00 Piperacillin Sod/ Tazobactam Sod 50 ml @ 100 mls/hr Q8 IVPB Last administered on 07/16/18at 06:09; Admin Dose 100 MLS/HR; Start 07/11/18 at 18:45 SYEDA LEÓN NP Jul 16, 2018 12:57
--- NOTE | 2018-07-16 13:54 | CONS ---
Assessment/Plan Assessment/Plan Assessment/Plan (Daily) ESRD on Hemodialysis TTS ( From [facility] ) - DM / DM Nephropathy - PNA - CAD / Hypertension - CAD / CHF - Anemia - Hyperphosphatemia PLAN: Bedside dialysis for hyperkalemia On Abx for PNA & Peritonitis Monitor H/H Recheck Potassium in AM for need for another HD Limit PO intake of potassium Consultation Date/Type/Reason Admit Date/Time Jul 09, 2018 at 00:40 Initial Consult Date 07/10/18 Type of Consult NEPHROLOGY Reason for Consultation - ESRD on hemodialysis Requesting Provider: FANI AYALA Date/Time of Note DATE: 07/16/18 TIME: 13:53 24 HR Interval Summary Constitutional: no complaints, improved Exam/Review of Systems Exam Vitals Vital Signs Date Temp Pulse Resp B/P (MAP) Pulse Ox O2 O2 Flow FiO2 Time Delivery Rate 07/16/18 62 12:01 07/16/18 98.3 18 166/77 96 11:47 (106) 07/13/18 Room Air 20:00 Intake and Output 07/15/18 07/15/18 07/16/18 1515:00 23:00 07:00 IntakeIntake Total 50 ml 800 ml 600 ml BalanceBalance 50 ml 800 ml 600 ml Constitutional: alert, oriented Psych: no complaints Head: normocephalic Respiratory: crackles/rales Cardiovascular: regular rate and rhythm, edema, systolic murmur Gastrointestinal: soft Results Result Diagram: 07/16/18 0454 07/16/18 0454 Results 24hrs Laboratory Tests Test 07/15/18 17:23 07/15/18 20:49 07/16/18 04:54 07/16/18 07:49 Bedside Glucose 131 151 80 White Blood Count 6.9 Red Blood Count 3.64 L Hemoglobin 9.8 L Hematocrit 31.8 L Mean Corpuscular Volume 87.4 Mean Corpuscular 26.9 L Hemoglobin Mean Corpuscular 30.8 L Hemoglobin Concent Red Cell Distribution 14.1 Width Platelet Count 206 Mean Platelet Volume 9.7 Immature Granulocytes % 1.000 H Neutrophils % 78.3 H Lymphocytes % 8.8 L Monocytes % 8.8 Eosinophils % 3.0 Basophils % 0.1 Nucleated Red Blood 0.0 Cells % Immature Granulocytes # 0.070 H Neutrophils # 5.4 Lymphocytes # 0.6 L Monocytes # 0.6 Eosinophils # 0.2 Basophils # 0.0 Nucleated Red Blood 0.0 Cells # Sodium Level 133 L Potassium Level 6.6 *H Chloride Level 96 L Carbon Dioxide Level 22 Anion Gap 15 H Blood Urea Nitrogen 49 H Creatinine 6.79 H Est Glomerular Filtrat 8 L Rate mL/min Glucose Level 85 Calcium Level 9.0 Test 07/16/18 12:34 Bedside Glucose 126 Medications Medication Current Medications Amlodipine Besylate (Norvasc) 10 mg DAILY PO Last administered on 07/16/18 08:47; Admin Dose 10 MG; Start 07/09/18 at 09:00 Aspirin (Aspirin) 81 mg DAILY PO Last administered on 07/16/18 08:47; Admin Dose 81 MG; Start 07/09/18 at 09:00 Clonidine (Catapres) 0.1 mg Q8 PO Last administered on 07/16/18 06:09; Admin Dose 0.1 MG; Start 07/09/18 at 06:00 Furosemide (Lasix) 20 mg DAILY PO Last administered on 07/16/18 08:47; Admin Dose 20 MG; Start 07/09/18 at 09:00 Insulin Glargine (Lantus) 9 units HS SC Last administered on 07/15/18 20:51; Admin Dose 9 UNITS; Start 07/09/18 at 21:00 Lisinopril (Zestril) 5 mg DAILY PO Last administered on 07/16/18 08:47; Admin Dose 5 MG; Start 07/09/18 at 09:00 Pioglitazone HCl (Actos) 15 mg DAILY PO Last administered on 07/16/18 08:06; Admin Dose 15 MG; Start 07/09/18 at 09:00 Diagnostic Test (Pha) (Accu-Chek) 1 ea AC MEALS AND BEDTIME XX Last administered on 07/15/18 20:47; Admin Dose 1 EA; Start 07/09/18 at 07:00 Insulin Aspart (Novolog Insulin Pen) NOVOLOG *MILD* ALGORITHM WITH MEALS BEDTIME SC Last administered on 07/14/18 17:48; Admin Dose 2 UNIT; Start 07/09/18 at 08:00 Hydralazine HCl (Apresoline) 25 mg Q6H PRN PO ELEVATED BLOOD PRESSURE; Start at 04:00 Acetaminophen (Tylenol Tab) 650 mg Q4H PRN PO MILD PAIN(1-3)OR ELEVATED TEMP Last administered on 07/09/18at 04:44; Admin Dose 650 MG; Start 07/09/18 at 04:00 Ondansetron HCl (Zofran Inj) 4 mg Q4H PRN IV NAUSEA AND/OR VOMITING Last administered on 07/09/18at 04:44; Admin Dose 4 MG; Start 07/09/18 at 04:00 Miscellaneous Information 1 ea NOTE XX ; Start 07/09/18 at 05:00 Glucose (Glutose) 15 gm Q15M PRN PO DECREASED GLUCOSE; Start 07/09/18 at 05:00 Glucose (Glutose) 22.5 gm Q15M PRN PO DECREASED GLUCOSE; Start 07/09/18 at 05:00 Dextrose (D50w Syringe) 25 ml Q15M PRN IV DECREASED GLUCOSE; Start 07/09/18 at 05:00 Dextrose (D50w Syringe) 50 ml Q15M PRN IV DECREASED GLUCOSE; Start 07/09/18 at 05:00 Glucagon (Glucagen) 1 mg Q15M PRN IM DECREASED GLUCOSE; Start 07/09/18 at 05:00 Glucose (Glutose) 15 gm Q15M PRN BUCCAL DECREASED GLUCOSE; Start 07/09/18 at 05:00 Hydroxyzine HCl (Atarax) 50 mg Q6H PRN PO ITCHING; Start 07/09/18 at 07:00 Metoclopramide HCl (Reglan) 5 mg AC MEALS AND BEDTIME IV Last administered on 07/16/18at 11:30; Admin Dose 5 MG; Start 07/09/18 at 17:30 Pantoprazole (Protonix Tab) 40 mg DAILY@06 PO Last administered on 07/16/18at 06:08; Admin Dose 40 MG; Start 07/10/18 at 06:00 Levofloxacin (Levaquin) 250 mg DAILY@06 PO ; Start 07/17/18 at 06:00 Amoxicillin/ Clavulanate Potassium (Augmentin) 250 mg Q8 PO ; Start 07/16/18 at 14:00 PACO LAZO MD Jul 16, 2018 13:53
[2018-07-16] MEDS: AMOXICILLIN/CLAV 250 MG TAB PO SCH (15:03)
--- NOTE | 2018-07-16 16:34 | CONS ---
Assessment/Plan Assessment/Plan Hospital Course (Demo Recall) Dyspnea probably multifactorial possible pneumonia Preserved ejection fraction Ascites: s/p paracentesis History of possible coronary artery disease and RI Renal failure on dialysis Abdominal distention/ascites status post paracentesis Diabetes Hypertension History of pacemaker -Denies any shortness of breath, palpitations or chest pain -Fluid management via hemodialysis as per nephrology -Blood pressure trend overall stable Consultation Date/Type/Reason Admit Date/Time Jul 09, 2018 at 00:40 Initial Consult Date 07/10/18 Type of Consult Cardiology Requesting Provider: FANI AYALA Date/Time of Note DATE: 07/16/18 TIME: 16:33 24 HR Interval Summary Free Text/Dictation No shortness of breath, chest pain, palpitations Exam/Review of Systems Vital Signs Vitals Vital Signs Date Temp Pulse Resp B/P (MAP) Pulse Ox O2 O2 Flow FiO2 Time Delivery Rate 07/16/18 98.6 58 18 154/72 98 15:53 (99) 07/13/18 Room Air 20:00 Intake and Output 07/15/18 07/15/18 07/16/18 1515:00 23:00 07:00 IntakeIntake Total 50 ml 800 ml 600 ml BalanceBalance 50 ml 800 ml 600 ml Exam Constitutional: alert, oriented (No apparent distress) Head: normocephalic Respiratory: other (Coarse breath sounds bilaterally, no wheezing) Cardiovascular: regular rate and rhythm, other (S1-S2 heard) Gastrointestinal: soft, non-tender, bowel sounds Extremities: edema Labs Result Diagram: 07/16/18 0454 07/16/18 0454 Results 24hrs Laboratory Tests Test 07/15/18 17:23 07/15/18 20:49 07/16/18 04:54 07/16/18 07:49 Bedside Glucose 131 151 80 White Blood Count 6.9 Red Blood Count 3.64 L Hemoglobin 9.8 L Hematocrit 31.8 L Mean Corpuscular Volume 87.4 Mean Corpuscular 26.9 L Hemoglobin Mean Corpuscular 30.8 L Hemoglobin Concent Red Cell Distribution 14.1 Width Platelet Count 206 Mean Platelet Volume 9.7 Immature Granulocytes % 1.000 H Neutrophils % 78.3 H Lymphocytes % 8.8 L Monocytes % 8.8 Eosinophils % 3.0 Basophils % 0.1 Nucleated Red Blood 0.0 Cells % Immature Granulocytes # 0.070 H Neutrophils # 5.4 Lymphocytes # 0.6 L Monocytes # 0.6 Eosinophils # 0.2 Basophils # 0.0 Nucleated Red Blood 0.0 Cells # Sodium Level 133 L Potassium Level 6.6 *H Chloride Level 96 L Carbon Dioxide Level 22 Anion Gap 15 H Blood Urea Nitrogen 49 H Creatinine 6.79 H Est Glomerular Filtrat 8 L Rate mL/min Glucose Level 85 Calcium Level 9.0 Test 07/16/18 12:34 Bedside Glucose 126 Medications Medications Current Medications Amlodipine Besylate (Norvasc) 10 mg DAILY PO Last administered on 07/16/18 08:47; Admin Dose 10 MG; Start 07/09/18 at 09:00 Aspirin (Aspirin) 81 mg DAILY PO Last administered on 07/16/18 08:47; Admin Dose 81 MG; Start 07/09/18 at 09:00 Clonidine (Catapres) 0.1 mg Q8 PO Last administered on 07/16/18 15:03; Admin Dose 0.1 MG; Start 07/09/18 at 06:00 Furosemide (Lasix) 20 mg DAILY PO Last administered on 07/16/18 08:47; Admin Dose 20 MG; Start 07/09/18 at 09:00 Insulin Glargine (Lantus) 9 units HS SC Last administered on 07/15/18 20:51; Admin Dose 9 UNITS; Start 07/09/18 at 21:00 Lisinopril (Zestril) 5 mg DAILY PO Last administered on 07/16/18 08:47; Admin Dose 5 MG; Start 07/09/18 at 09:00 Pioglitazone HCl (Actos) 15 mg DAILY PO Last administered on 07/16/18 08:06; Admin Dose 15 MG; Start 07/09/18 at 09:00 Diagnostic Test (Pha) (Accu-Chek) 1 ea AC MEALS AND BEDTIME XX Last administered on 07/15/18 20:47; Admin Dose 1 EA; Start 07/09/18 at 07:00 Insulin Aspart (Novolog Insulin Pen) NOVOLOG *MILD* ALGORITHM WITH MEALS BEDTIME SC Last administered on 07/14/18 17:48; Admin Dose 2 UNIT; Start 07/09/18 at 08:00 Hydralazine HCl (Apresoline) 25 mg Q6H PRN PO ELEVATED BLOOD PRESSURE; Start 07/09/18 at 04:00 Acetaminophen (Tylenol Tab) 650 mg Q4H PRN PO MILD PAIN(1-3)OR ELEVATED TEMP Last administered on 07/09/18at 04:44; Admin Dose 650 MG; Start 07/09/18 at 04:00 Ondansetron HCl (Zofran Inj) 4 mg Q4H PRN IV NAUSEA AND/OR VOMITING Last administered on 07/09/18at 04:44; Admin Dose 4 MG; Start 07/09/18 at 04:00 Miscellaneous Information 1 ea NOTE XX ; Start 07/09/18 at 05:00 Glucose (Glutose) 15 gm Q15M PRN PO DECREASED GLUCOSE; Start 07/09/18 at 05:00 Glucose (Glutose) 22.5 gm Q15M PRN PO DECREASED GLUCOSE; Start 07/09/18 at 05:00 Dextrose (D50w Syringe) 25 ml Q15M PRN IV DECREASED GLUCOSE; Start 07/09/18 at 05:00 Dextrose (D50w Syringe) 50 ml Q15M PRN IV DECREASED GLUCOSE; Start 07/09/18 at 05:00 Glucagon (Glucagen) 1 mg Q15M PRN IM DECREASED GLUCOSE; Start 07/09/18 at 05:00 Glucose (Glutose) 15 gm Q15M PRN BUCCAL DECREASED GLUCOSE; Start 07/09/18 at 05:00 Hydroxyzine HCl (Atarax) 50 mg Q6H PRN PO ITCHING; Start 07/09/18 at 07:00 Metoclopramide HCl (Reglan) 5 mg AC MEALS AND BEDTIME IV Last administered on 07/16/18at 11:30; Admin Dose 5 MG; Start 07/09/18 at 17:30 Pantoprazole (Protonix Tab) 40 mg DAILY@06 PO Last administered on 07/16/18 06:08; Admin Dose 40 MG; Start 07/10/18 at 06:00 Levofloxacin (Levaquin) 250 mg DAILY@06 PO ; Start 07/17/18 at 06:00 Amoxicillin/ Clavulanate Potassium (Augmentin) 250 mg Q8 PO Last administered on 07/16/18at 15:03; Admin Dose 250 MG; Start 07/16/18 at 14:00 Edgar Holland DO Jul 16, 2018 16:34
--- NOTE | 2018-07-16 17:39 | PN ---
Date/Time of Note Date/Time of Note DATE: 07/16/18 TIME: 17:33 Assessment/Plan VTE Prophylaxis Risk score (from [facility]0 risk: 4 SCD applied (from [facility]): Yes Pharmacological prophylaxis: NA/contraindicated Pharm contraindication: surgical contra Lines/Catheters IV [facility]from [facility] [place] Urinary Cath still in place: No Assessment/Plan Hospital Course Patient was given Kayexalate for potassium 6.6, hemodialysis. Omental mass, di scussed with Dr. Lopez, ordered CT-guided biopsy by radiology. Assessment/Plan - Hyperkalemia status post Kayexalate, pending hemodialysis - Pneumonia, improving. Status post vancomycin and Zosyn, currently on Augmentin and Levaquin. - Spontaneous bacterial peritonitis. S/p vancomycin and Zosyn. - Diabetes. Continue Lantus and NovoLog. - Hypertension. Continue Norvasc and lisinopril. - End-stage renal disease. Continue hemodialysis as tolerated. - Possible history of coronary artery disease, status post myocardial infarction. Continue aspirin. - EF is 55% - Ascites, status post paracentesis. Dr. Lopez is following in gastroenterology consultation. - Omental mass, pending CT-guided biopsy by radiology. Further recommendations based on clinical course. Plan of care discussed with Dr. Mujica. Result Diagram: 07/16/18 0454 07/16/18 0454 Results 24hrs Laboratory Tests Test 07/15/18 20:49 07/16/18 04:54 07/16/18 07:49 07/16/18 12:34 Bedside Glucose 151 80 126 White Blood Count 6.9 Red Blood Count 3.64 L Hemoglobin 9.8 L Hematocrit 31.8 L Mean Corpuscular Volume 87.4 Mean Corpuscular 26.9 L Hemoglobin Mean Corpuscular 30.8 L Hemoglobin Concent Red Cell Distribution 14.1 Width Platelet Count 206 Mean Platelet Volume 9.7 Immature Granulocytes % 1.000 H Neutrophils % 78.3 H Lymphocytes % 8.8 L Monocytes % 8.8 Eosinophils % 3.0 Basophils % 0.1 Nucleated Red Blood 0.0 Cells % Immature Granulocytes # 0.070 H Neutrophils # 5.4 Lymphocytes # 0.6 L Monocytes # 0.6 Eosinophils # 0.2 Basophils # 0.0 Nucleated Red Blood 0.0 Cells # Sodium Level 133 L Potassium Level 6.6 *H Chloride Level 96 L Carbon Dioxide Level 22 Anion Gap 15 H Blood Urea Nitrogen 49 H Creatinine 6.79 H Est Glomerular Filtrat 8 L Rate mL/min Glucose Level 85 Calcium Level 9.0 Test 07/16/18 17:20 Bedside Glucose 108 Exam/Review of Systems Exam Vitals Vital Signs Date Temp Pulse Resp B/P (MAP) Pulse Ox O2 O2 Flow FiO2 Time Delivery Rate 07/16/18 56 16:01 07/16/18 98.6 18 154/72 98 15:53 (99) 07/13/18 Room Air 20:00 Intake and Output 07/15/18 07/15/18 07/16/18 1515:00 23:00 07:00 IntakeIntake Total 50 ml 800 ml 600 ml BalanceBalance 50 ml 800 ml 600 ml Exam Constitutional: alert, oriented Neck: supple Respiratory: diminished breath sounds Cardiovascular: regular rate and rhythm Gastrointestinal: soft, non-tender Musculoskeletal: nl extremities to inspection Results Results 24hrs Laboratory Tests Test 07/15/18 20:49 07/16/18 04:54 07/16/18 07:49 07/16/18 12:34 Bedside Glucose 151 80 126 White Blood Count 6.9 Red Blood Count 3.64 L Hemoglobin 9.8 L Hematocrit 31.8 L Mean Corpuscular Volume 87.4 Mean Corpuscular 26.9 L Hemoglobin Mean Corpuscular 30.8 L Hemoglobin Concent Red Cell Distribution 14.1 Width Platelet Count 206 Mean Platelet Volume 9.7 Immature Granulocytes % 1.000 H Neutrophils % 78.3 H Lymphocytes % 8.8 L Monocytes % 8.8 Eosinophils % 3.0 Basophils % 0.1 Nucleated Red Blood 0.0 Cells % Immature Granulocytes # 0.070 H Neutrophils # 5.4 Lymphocytes # 0.6 L Monocytes # 0.6 Eosinophils # 0.2 Basophils # 0.0 Nucleated Red Blood 0.0 Cells # Sodium Level 133 L Potassium Level 6.6 *H Chloride Level 96 L Carbon Dioxide Level 22 Anion Gap 15 H Blood Urea Nitrogen 49 H Creatinine 6.79 H Est Glomerular Filtrat 8 L Rate mL/min Glucose Level 85 Calcium Level 9.0 Test 07/16/18 17:20 Bedside Glucose 108 Medications Medication Current Medications Amlodipine Besylate (Norvasc) 10 mg DAILY PO Last administered on 07/16/18 08:47; Admin Dose 10 MG; Start 07/09/18 at 09:00 Aspirin (Aspirin) 81 mg DAILY PO Last administered on 07/16/18 08:47; Admin Dose 81 MG; Start 07/09/18 at 09:00 Clonidine (Catapres) 0.1 mg Q8 PO Last administered on 07/16/18 15:03; Admin D ose 0.1 MG; Start 07/09/18 at 06:00 Furosemide (Lasix) 20 mg DAILY PO Last administered on 07/16/18 08:47; Admin Dose 20 MG; Start 07/09/18 at 09:00 Insulin Glargine (Lantus) 9 units HS SC Last administered on 07/15/18 20:51; Admin Dose 9 UNITS; Start 07/09/18 at 21:00 Lisinopril (Zestril) 5 mg DAILY PO Last administered on 07/16/18 08:47; Admin Dose 5 MG; Start 07/09/18 at 09:00 Pioglitazone HCl (Actos) 15 mg DAILY PO Last administered on 07/16/18 08:06; Admin Dose 15 MG; Start 07/09/18 at 09:00 Diagnostic Test (Pha) (Accu-Chek) 1 ea AC MEALS AND BEDTIME XX Last administered on 07/15/18 20:47; Admin Dose 1 EA; Start 07/09/18 at 07:00 Insulin Aspart (Novolog Insulin Pen) NOVOLOG *MILD* ALGORITHM WITH MEALS BEDTIME SC Last administered on 07/14/18 17:48; Admin Dose 2 UNIT; Start at 08:00 Hydralazine HCl (Apresoline) 25 mg Q6H PRN PO ELEVATED BLOOD PRESSURE; Start 07/09/18 at 04:00 Acetaminophen (Tylenol Tab) 650 mg Q4H PRN PO MILD PAIN(1-3)OR ELEVATED TEMP Last administered on 07/09/18 04:44; Admin Dose 650 MG; Start 07/09/18 at 04:00 Ondansetron HCl (Zofran Inj) 4 mg Q4H PRN IV NAUSEA AND/OR VOMITING Last administered on 07/09/18 04:44; Admin Dose 4 MG; Start 07/09/18 at 04:00 Miscellaneous Information 1 ea NOTE XX ; Start 07/09/18 at 05:00 Glucose (Glutose) 15 gm Q15M PRN PO DECREASED GLUCOSE; Start 07/09/18 at 05:00 Glucose (Glutose) 22.5 gm Q15M PRN PO DECREASED GLUCOSE; Start 07/09/18 at 05:00 Dextrose (D50w Syringe) 25 ml Q15M PRN IV DECREASED GLUCOSE; Start 07/09/18 at 05:00 Dextrose (D50w Syringe) 50 ml Q15M PRN IV DECREASED GLUCOSE; Start 07/09/18 at 05:00 Glucagon (Glucagen) 1 mg Q15M PRN IM DECREASED GLUCOSE; Start 07/09/18 at 05:00 Glucose (Glutose) 15 gm Q15M PRN BUCCAL DECREASED GLUCOSE; Start 07/09/18 at 05:00 Hydroxyzine HCl (Atarax) 50 mg Q6H PRN PO ITCHING; Start 07/09/18 at 07:00 Metoclopramide HCl (Reglan) 5 mg AC MEALS AND BEDTIME IV Last administered on 07/16/18at 17:27; Admin Dose 5 MG; Start 07/09/18 at 17:30 Pantoprazole (Protonix Tab) 40 mg DAILY@06 PO Last administered on 07/16/18at 06:08; Admin Dose 40 MG; Start 07/10/18 at 06:00 Levofloxacin (Levaquin) 250 mg DAILY@06 PO ; Start 07/17/18 at 06:00 Amoxicillin/ Clavulanate Potassium (Augmentin) 250 mg Q8 PO Last administered on 07/16/18at 15:03; Admin Dose 250 MG; Start 07/16/18 at 14:00 YUMIKO PAINTING Jul 16, 2018 17:39
[2018-07-16] MEDS: INSULIN GLARGINE [LANTus] (100 UNITS/ML) SYG SC SCH (19:57)
[2018-07-17] VITALS (20 sets, daily range): BP systolic 114–155; BP diastolic 53–74; PULSE 56–67; RESP 14–25
[2018-07-17] MEDS: AMOXICILLIN/CLAV 250 MG TAB PO SCH ×4 (00:42→21:16)
[2018-07-17] MEDS: METOCLOPRAMIDE 10 MG INJ IV SCH ×5 (00:42→21:20)
[2018-07-17] MEDS: LEVOFLOXACIN 250 MG TAB PO SCH (05:52)
[2018-07-17] MEDS: PANTOPRAZOLE (EC) 40 MG TAB PO SCH (05:52)
[2018-07-17] MEDS: ACCU-CHEK XX SCH ×4 (07:00→21:16)
[2018-07-17] MEDS: INSULIN ASPART [NOVOLOG] 3 ML PEN SC SCH ×4 (08:00→21:00)
[2018-07-17] MEDS ORDERED: LIDOCAINE 1% (MDV) 20 ML INJ ONE (09:12)
--- NOTE | 2018-07-17 09:46 | PREAC ---
Date/Time of Note Date/Time of Note DATE: 07/17/18 TIME: 09:44 Anesthesia Eval and Record Evaluation Time Pre-Procedure Interview DATE: 07/17/18 TIME: 09:44 Age 67 Sex male NPO: 8 hrs Preoperative diagnosis omentum biopsy Planned procedure omentum biopsy IR guided Past Medical History Past Medical History: Includes Cardio: HTN, Dyslipidemia, PPM/AICD, CHF Endo: Diabetes Neuro: Peripheral neuropathy Renal: ESRD on dialysis Heme: Anemia Surgery & Anesthesia Issues No known issue Meds Anticoagulation: No Beta Ruthann within 24 hr: No Reason Beta Ruthann not given: Pt. not on B-Ruthann Active Scripts Insulin Glargine* (Lantus*) 100 Unit/Ml Soln, 9 UNIT SC HS, #1 BOTTLE Prov:HENRRY DUONG MD 01/05/14 Aspirin (Aspirin) 81 Mg Chew, 81 MG PO DAILY, #30 TAB Prov:HENRRY DUONG MD 01/05/14 Reported Medications Lisinopril* (Lisinopril*) 5 Mg Tablet, 5 MG PO DAILY, #30 TAB 08/17/17 Pioglitazone Hcl* (Pioglitazone Hcl*) 15 Mg Tablet, 15 MG PO DAILY, TAB 03/05/14 Furosemide* (Furosemide*) 20 Mg Tablet, 20 MG PO DAILY, TAB 03/05/14 Hydroxyzine Hcl* (Hydroxyzine Hcl*) 50 Mg Tablet, 50 MG PO Q6H PRN for ITCHING, TAB 01/01/14 Clonidine Hcl* (Clonidine Hcl*) 0.1 Mg Tab, 0.1 MG PO Q8 09/13/12 Amlodipine Besylate* (Amlodipine Besylate*) 10 Mg Tablet, 10 MG PO DAILY 09/13/12 Current Medications Amlodipine Besylate (Norvasc) 10 mg DAILY PO Last administered on 07/16/18at 08 :47; Admin Dose 10 MG; Start 07/09/18 at 09:00 Aspirin (Aspirin) 81 mg DAILY PO Last administered on 07/16/18at 08:47; Admin Dose 81 MG; Start 07/09/18 at 09:00 Clonidine (Catapres) 0.1 mg Q8 PO Last administered on 07/17/18at 05:54; Admin Dose 0.1 MG; Start 07/09/18 at 06:00 Furosemide (Lasix) 20 mg DAILY PO Last administered on 07/16/18 08:47; Admin Dose 20 MG; Start 07/09/18 at 09:00 Insulin Glargine (Lantus) 9 units HS SC Last administered on 07/16/18 19:57; Admin Dose 9 UNITS; Start 07/09/18 at 21:00 Lisinopril (Zestril) 5 mg DAILY PO Last administered on 07/16/18 08:47; Admin Dose 5 MG; Start 07/09/18 at 09:00 Pioglitazone HCl (Actos) 15 mg DAILY PO Last administered on 07/16/18 08:06; Admin Dose 15 MG; Start 07/09/18 at 09:00 Diagnostic Test (Pha) (Accu-Chek) 1 ea AC MEALS AND BEDTIME XX Last administered on 07/16/18 21:00; Admin Dose 1 EA; Start 07/09/18 at 07:00 Insulin Aspart (Novolog Insulin Pen) NOVOLOG *MILD* ALGORITHM WITH MEALS BEDTIME SC Last administered on 07/14/18 17:48; Admin Dose 2 UNIT; Start 07/09/18 at 08:00 Hydralazine HCl (Apresoline) 25 mg Q6H PRN PO ELEVATED BLOOD PRESSURE; Start 07/09/18 at 04:00 Acetaminophen (Tylenol Tab) 650 mg Q4H PRN PO MILD PAIN(1-3)OR ELEVATED TEMP Last administered on 07/09/18 04:44; Admin Dose 650 MG; Start 07/09/18 at 04:00 Ondansetron HCl (Zofran Inj) 4 mg Q4H PRN IV NAUSEA AND/OR VOMITING Last administered on 07/09/18 04:44; Admin Dose 4 MG; Start 07/09/18 at 04:00 Miscellaneous Information 1 ea NOTE XX ; Start 07/09/18 at 05:00 Glucose (Glutose) 15 gm Q15M PRN PO DECREASED GLUCOSE; Start 07/09/18 at 05:00 Glucose (Glutose) 22.5 gm Q15M PRN PO DECREASED GLUCOSE; Start 07/09/18 at 05:00 Dextrose (D50w Syringe) 25 ml Q15M PRN IV DECREASED GLUCOSE Last administered on 07/17/18 08:21; Admin Dose 25 ML; Start 07/09/18 at 05:00 Dextrose (D50w Syringe) 50 ml Q15M PRN IV DECREASED GLUCOSE; Start 07/09/18 at 05:00 Glucagon (Glucagen) 1 mg Q15M PRN IM DECREASED GLUCOSE; Start 07/09/18 at 05:00 Glucose (Glutose) 15 gm Q15M PRN BUCCAL DECREASED GLUCOSE; Start 07/09/18 at 05:00 Hydroxyzine HCl (Atarax) 50 mg Q6H PRN PO ITCHING; Start 07/09/18 at 07:00 Metoclopramide HCl (Reglan) 5 mg AC MEALS AND BEDTIME IV Last administered on 07/17/18at 06:20; Admin Dose 5 MG; Start 07/09/18 at 17:30 Pantoprazole (Protonix Tab) 40 mg DAILY@06 PO Last administered on 07/17/18at 05:52; Admin Dose 40 MG; Start 07/10/18 at 06:00 Levofloxacin (Levaquin) 250 mg DAILY@06 PO Last administered on 07/17/18at 05:52; Admin Dose 250 MG; Start 07/17/18 at 06:00 Amoxicillin/ Clavulanate Potassium (Augmentin) 250 mg Q8 PO Last administered on 07/17/18at 05:51; Admin Dose 250 MG; Start 07/16/18 at 14:00 Meds reviewed: Yes Allergies Coded Allergies: No Known Drug Allergy (Verified Allergy, Unknown, 03/05/14) Allergies Reviewed: Yes Labs/Studies Labs Reviewed: Reviewed by anesthesiologist Result Diagram: 07/17/1852607/17/18526 Laboratory Tests 07/17/18 05:27 test: N/A Pre-procedure Exam Last vitals Vital Signs Date Temp Pulse Resp B/P (MAP) Pulse Ox O2 O2 Flow FiO2 Time Delivery Rate 07/17/18 60 08:00 07/17/18 98.0 22 134/61 96 07:53 (85) 07/17/18 Room Air 00:11 Airway: Adequate mouth opening, Adequate thyromental dist Mallampati: Mallampati III Teeth: Normal Lung: Normal Heart: Normal ASA Physical Status ASA physical status: 4 Emergency: None Pre-operative Attestations Prior to commencing anesthesia and surgery, the patient was re-evaluated, there was verification of: *The patient's identity *The results of appropriate recent lab work and preoperative vital signs *The above evaluation not changing prior to induction *Anesthetic plan, risk benefits, alternative and complications discussed with patient/family; questions answered; patient/family understands, accepts and wishes to proceed. JIMBO MATUTE DO Jul 17, 2018 09:46
[2018-07-17] MEDS ORDERED: MIDAZOLAM 1 MG/ML 2 ML INJ ONE (09:49)
[2018-07-17] MEDS ORDERED: FENTAnyl 50 MCG/ML VIAL ONE ×2 (09:49)
[2018-07-17] MEDS ORDERED: NALOXONE (0.4 MG/ML) INJ ONE (09:50)
--- NOTE | 2018-07-17 10:19 | PN ---
Date/Time of Note Date/Time of Note DATE: 07/17/18 TIME: 10:16 Assessment/Plan VTE Prophylaxis [place] [facility] risk: 4 SCD applied [place] [facility] Yes Pharmacological prophylaxis: NA/contraindicated Pharm contraindication: surgical contra Lines/Catheters [facility]from [facility] [place] Urinary Cath still in place: No Assessment/Plan Hospital Course Patient is taken to radiology for CT-guided biopsy of omental mass, no acute events reported prior to procedure, discussed with OSCAR Clayton Assessment/Plan - Hyperkalemia status post Kayexalate, pending hemodialysis - Pneumonia, improving. Status post vancomycin and Zosyn, currently on Augmentin and Levaquin. - Spontaneous bacterial peritonitis. S/p vancomycin and Zosyn. - Diabetes. Continue Lantus and NovoLog. - Hypertension. Continue Norvasc and lisinopril. - End-stage renal disease. Continue hemodialysis as tolerated. - Possible history of coronary artery disease, status post myocardial infarction. Continue aspirin. - EF is 55% - Ascites, status post paracentesis. Dr. Lopez is following in gastroenterology consultation. - Omental mass, pending CT-guided biopsy by radiology. Further recommendations based on clinical course. Plan of care discussed with Dr. Mujica. Result Diagram: 07/17/1852607/17/18526 Results 24hrs Laboratory Tests Test 07/16/18 12:34 07/16/18 17:20 07/16/18 19:52 07/17/18 05:27 Bedside Glucose 126 108 140 Platelet Count 185 Prothrombin Time 15.6 H Prothrombin Time Ratio 1.2 INR International 1.23 Normalized Ratio Activated 36.5 H Partial Thromboplast Time Thrombin Time 15.6 Sodium Level 136 Potassium Level 4.5 # Chloride Level 97 Carbon Dioxide Level 30 Anion Gap 9 # Blood Urea Nitrogen 28 #H Creatinine 4.70 #H Est Glomerular Filtrat 12 L Rate mL/min Glucose Level 83 Calcium Level 8.6 Test 07/17/18 08:09 07/17/18 08:42 Bedside Glucose 65 L 113 Exam/Review of Systems Exam Vitals Vital Signs Date Temp Pulse Resp B/P (MAP) Pulse Ox O2 O2 Flow FiO2 Time Delivery Rate 07/17/18 60 08:00 07/17/18 98.0 22 134/61 96 07:53 (85) 07/17/18 Room Air 00:11 Intake and Output 07/16/18 07/16/18 07/17/18 1515:00 23:00 07:00 IntakeIntake Total 450 ml 100 ml OutputOutput Total 2400 ml BalanceBalance 450 ml -2300 ml Results Results 24hrs Laboratory Tests Test 07/16/18 12:34 07/16/18 17:20 07/16/18 19:52 07/17/18 05:27 Bedside Glucose 126 108 140 Platelet Count 185 Prothrombin Time 15.6 H Prothrombin Time Ratio 1.2 INR International 1.23 Normalized Ratio Activated 36.5 H Partial Thromboplast Time Thrombin Time 15.6 Sodium Level 136 Potassium Level 4.5 # Chloride Level 97 Carbon Dioxide Level 30 Anion Gap 9 # Blood Urea Nitrogen 28 #H Creatinine 4.70 #H Est Glomerular Filtrat 12 L Rate mL/min Glucose Level 83 Calcium Level 8.6 Test 07/17/18 08:09 07/17/18 08:42 Bedside Glucose 65 L 113 Medications Medication Current Medications Amlodipine Besylate (Norvasc) 10 mg DAILY PO Last administered on 07/16/18 08:47; Admin Dose 10 MG; Start 07/09/18 at 09:00 Aspirin (Aspirin) 81 mg DAILY PO Last administered on 07/16/18 08:47; Admin Dose 81 MG; Start 07/09/18 at 09:00 Clonidine (Catapres) 0.1 mg Q8 PO Last administered on 07/17/18 05:54; Admin Dose 0.1 MG; Start 07/09/18 at 06:00 Furosemide (Lasix) 20 mg DAILY PO Last administered on 07/16/18 08:47; Admin Dose 20 MG; Start 07/09/18 at 09:00 Insulin Glargine (Lantus) 9 units HS SC Last administered on 07/16/18 19:57; Admin Dose 9 UNITS; Start 07/09/18 at 21:00 Lisinopril (Zestril) 5 mg DAILY PO Last administered on 07/16/18 08:47; Admin Dose 5 MG; Start 07/09/18 at 09:00 Pioglitazone HCl (Actos) 15 mg DAILY PO Last administered on 07/16/18 08:06; Admin Dose 15 MG; Start 07/09/18 at 09:00 Diagnostic Test (Pha) (Accu-Chek) 1 ea AC MEALS AND BEDTIME XX Last administered on 07/16/18 21:00; Admin Dose 1 EA; Start 07/09/18 at 07:00 Insulin Aspart (Novolog Insulin Pen) NOVOLOG *MILD* ALGORITHM WITH MEALS BEDTIME SC Last administered on 07/14/18 17:48; Admin Dose 2 UNIT; Start 07/09/18 at 08:00 Hydralazine HCl (Apresoline) 25 mg Q6H PRN PO ELEVATED BLOOD PRESSURE; Start 07/09/18 at 04:00 Acetaminophen (Tylenol Tab) 650 mg Q4H PRN PO MILD PAIN(1-3)OR ELEVATED TEMP Last administered on 07/09/18at 04:44; Admin Dose 650 MG; Start 07/09/18 at 04:00 Ondansetron HCl (Zofran Inj) 4 mg Q4H PRN IV NAUSEA AND/OR VOMITING Last administered on 07/09/18at 04:44; Admin Dose 4 MG; Start 07/09/18 at 04:00 Miscellaneous Information 1 ea NOTE XX ; Start 07/09/18 at 05:00 Glucose (Glutose) 15 gm Q15M PRN PO DECREASED GLUCOSE; Start 07/09/18 at 05:00 Glucose (Glutose) 22.5 gm Q15M PRN PO DECREASED GLUCOSE; Start 07/09/18 at 05:0 0 Dextrose (D50w Syringe) 25 ml Q15M PRN IV DECREASED GLUCOSE Last administered on 07/17/18 08:21; Admin Dose 25 ML; Start 07/09/18 at 05:00 Dextrose (D50w Syringe) 50 ml Q15M PRN IV DECREASED GLUCOSE; Start 07/09/18 at 05:00 Glucagon (Glucagen) 1 mg Q15M PRN IM DECREASED GLUCOSE; Start 07/09/18 at 05:00 Glucose (Glutose) 15 gm Q15M PRN BUCCAL DECREASED GLUCOSE; Start 07/09/18 at 05:00 Hydroxyzine HCl (Atarax) 50 mg Q6H PRN PO ITCHING; Start 07/09/18 at 07:00 Metoclopramide HCl (Reglan) 5 mg AC MEALS AND BEDTIME IV Last administered on 07/17/18 06:20; Admin Dose 5 MG; Start 07/09/18 at 17:30 Pantoprazole (Protonix Tab) 40 mg DAILY@06 PO Last administered on 07/17/18at 05:52; Admin Dose 40 MG; Start 07/10/18 at 06:00 Levofloxacin (Levaquin) 250 mg DAILY@06 PO Last administered on 07/17/18at 05:52; Admin Dose 250 MG; Start 07/17/18 at 06:00 Amoxicillin/ Clavulanate Potassium (Augmentin) 250 mg Q8 PO Last administered on 07/17/18at 05:51; Admin Dose 250 MG; Start 07/16/18 at 14:00 YUMIKO PAINTING Jul 17, 2018 10:19
--- NOTE | 2018-07-17 10:37 | PAC ---
Date/Time of Note Date/Time of Note DATE: 07/17/18 TIME: 10:37 Post-Anesthesia Notes Post-Anesthesia Note Last documented vital signs Vital Signs Date Temp Pulse Resp B/P (MAP) Pulse Ox O2 O2 Flow FiO2 Time Delivery Rate 07/17/18 98 65 15 120/68 97 1037 07/17/18 98.0 22 134/61 96 07:53 (85) 07/17/18 Room Air 00:11 Activity: WNL Respiratory function: WNL Cardiovascular function: WNL Mental status: Baseline Pain reasonably controlled: Yes Hydration appropriate: Yes Nausea/Vomiting absent: Yes JIMBO MATUTE DO Jul 17, 2018 10:37
--- NOTE | 2018-07-17 10:48 | HPN ---
Date/Time of Note Date/Time of Note DATE: 07/17/18 TIME: 10:47 Interval H&P Admission Note Pt. seen H&P reviewed: No system changes JERRY SULLIVAN MD Jul 17, 2018 10:47
[2018-07-17] MEDS: AMLODIPINE 10 MG TAB PO SCH (12:11)
[2018-07-17] MEDS: ASPIRIN 81 MG TAB PO SCH (12:11)
[2018-07-17] MEDS: LISINOPRIL 5 MG TAB PO SCH (12:11)
[2018-07-17] MEDS: FUROSEMIDE 20 MG TAB PO SCH (12:12)
[2018-07-17] MEDS: PIOGLITAZONE 15 MG TAB PO SCH (12:17)
--- NOTE | 2018-07-17 12:55 | CONS ---
Assessment/Plan Assessment/Plan Hospital Course (Demo Recall) Dyspnea probably multifactorial possible pneumonia Preserved ejection fraction Ascites: s/p paracentesis History of possible coronary artery disease and [place] Renal failure on dialysis Abdominal distention/ascites status post paracentesis Diabetes Hypertension History of pacemaker -Denies any shortness of breath, palpitations or chest pain -Fluid management via hemodialysis as per nephrology -Blood pressure trend slightly elevated, if remains so, would titrate anti-HTN meds Consultation Date/Type/Reason Admit Date/Time Jul 09, 2018 at 00:40 Initial Consult Date 07/10/18 Type of Consult Cardiology Requesting Provider: FANI AYALA Date/Time of Note DATE: 07/17/18 TIME: 12:55 24 HR Interval Summary Free Text/Dictation Denies shortness of breath, palpitations, dizziness Exam/Review of Systems Vital Signs Vitals Vital Signs Date Temp Pulse Resp B/P (MAP) Pulse Ox O2 O2 Flow FiO2 Time Delivery Rate 07/17/18 98.2 59 22 137/71 96 Room Air 11:43 (93) Intake and Output 07/16/18 07/16/18 07/17/18 1515:00 23:00 07:00 IntakeIntake Total 450 ml 100 ml OutputOutput Total 2400 ml BalanceBalance 450 ml -2300 ml Exam Constitutional: alert, oriented (nad) Head: normocephalic Respiratory: other (course bs, no wheeze) Cardiovascular: regular rate and rhythm (s1s2) Gastrointestinal: soft, non-tender, bowel sounds Extremities: edema Labs Result Diagram: 07/17/1827 07/17/1827 Results 24hrs Laboratory Tests Test 07/16/18 17:20 07/16/18 19:52 07/17/18 05:27 07/17/18 08:09 Bedside Glucose 108 140 65 L Platelet Count 185 Prothrombin Time 15.6 H Prothrombin Time Ratio 1.2 INR International 1.23 Normalized Ratio Activated 36.5 H Partial Thromboplast Time Thrombin Time 15.6 Sodium Level 136 Potassium Level 4.5 # Chloride Level 97 Carbon Dioxide Level 30 Anion Gap 9 # Blood Urea Nitrogen 28 #H Creatinine 4.70 #H Est Glomerular Filtrat 12 L Rate mL/min Glucose Level 83 Calcium Level 8.6 Test 07/17/18 08:42 07/17/18 12:10 Bedside Glucose 113 80 Medications Medications Current Medications Amlodipine Besylate (Norvasc) 10 mg DAILY PO Last administered on 07/17/18 12:11; Admin Dose 10 MG; Start 07/09/18 at 09:00 Aspirin (Aspirin) 81 mg DAILY PO Last administered on 07/17/18 12:11; Admin Dose 81 MG; Start 07/09/18 at 09:00 Clonidine (Catapres) 0.1 mg Q8 PO Last administered on 07/17/18 05:54; Admin Dose 0.1 MG; Start 07/09/18 at 06:00 Furosemide (Lasix) 20 mg DAILY PO Last administered on 07/17/18 12:12; Admin Dose 20 MG; Start 07/09/18 at 09:00 Insulin Glargine (Lantus) 9 units HS SC Last administered on 07/16/18 19:57; Admin Dose 9 UNITS; Start 07/09/18 at 21:00 Lisinopril (Zestril) 5 mg DAILY PO Last administered on 07/17/18 12:11; Admin Dose 5 MG; Start 07/09/18 at 09:00 Pioglitazone HCl (Actos) 15 mg DAILY PO Last administered on 07/17/18 12:17; Admin Dose 15 MG; Start 07/09/18 at 09:00 Diagnostic Test (Pha) (Accu-Chek) 1 ea AC MEALS AND BEDTIME XX Last administered on 07/16/18 21:00; Admin Dose 1 EA; Start 07/09/18 at 07:00 Insulin Aspart (Novolog Insulin Pen) NOVOLOG *MILD* ALGORITHM WITH MEALS BEDTIME SC Last administered on 07/14/18 17:48; Admin Dose 2 UNIT; Start 07/09/18 at 08:00 Hydralazine HCl (Apresoline) 25 mg Q6H PRN PO ELEVATED BLOOD PRESSURE; Start 07/09/18 at 04:00 Acetaminophen (Tylenol Tab) 650 mg Q4H PRN PO MILD PAIN(1-3)OR ELEVATED TEMP Last administered on 07/09/18 04:44; Admin Dose 650 MG; Start 07/09/18 at 04:00 Ondansetron HCl (Zofran Inj) 4 mg Q4H PRN IV NAUSEA AND/OR VOMITING Last administered on 07/09/18 04:44; Admin Dose 4 MG; Start 07/09/18 at 04:00 Miscellaneous Information 1 ea NOTE XX ; Start 07/09/18 at 05:00 Glucose (Glutose) 15 gm Q15M PRN PO DECREASED GLUCOSE; Start 07/09/18 at 05:00 Glucose (Glutose) 22.5 gm Q15M PRN PO DECREASED GLUCOSE; Start 07/09/18 at 05 :00 Dextrose (D50w Syringe) 25 ml Q15M PRN IV DECREASED GLUCOSE Last administered on 07/17/18at 08:21; Admin Dose 25 ML; Start 07/09/18 at 05:00 Dextrose (D50w Syringe) 50 ml Q15M PRN IV DECREASED GLUCOSE; Start 07/09/18 at 05:00 Glucagon (Glucagen) 1 mg Q15M PRN IM DECREASED GLUCOSE; Start 07/09/18 at 05:00 Glucose (Glutose) 15 gm Q15M PRN BUCCAL DECREASED GLUCOSE; Start 07/09/18 at 05:00 Hydroxyzine HCl (Atarax) 50 mg Q6H PRN PO ITCHING; Start 07/09/18 at 07:00 Metoclopramide HCl (Reglan) 5 mg AC MEALS AND BEDTIME IV Last administered on 07/17/18at 12:11; Admin Dose 5 MG; Start 07/09/18 at 17:30 Pantoprazole (Protonix Tab) 40 mg DAILY@06 PO Last administered on 07/17/18at 05:52; Admin Dose 40 MG; Start 07/10/18 at 06:00 Levofloxacin (Levaquin) 250 mg DAILY@06 PO Last administered on 07/17/18at 05:52; Admin Dose 250 MG; Start 07/17/18 at 06:00 Amoxicillin/ Clavulanate Potassium (Augmentin) 250 mg Q8 PO Last administered on 07/17/18at 05:51; Admin Dose 250 MG; Start 07/16/18 at 14:00 Edgar Holland DO Jul 17, 2018 12:55
--- NOTE | 2018-07-17 14:17 | CONS ---
Assessment/Plan Assessment/Plan Hospital Course (Demo Recall) No acute changes patient is alert looks comfortable status post CT-guided biopsy of right upper quadrant omental thickening this morning, no fevers Antimicrobials: Augmentin, Levaquin Microbiology: All cultures negative Physical examination: Well-developed elderly man who is awake in no distress. Head atraumatic normocephalic sclera nonicteric. Neck is supple. Chest rise symmetrical, breath sounds diminished bases. Heart: S1-S2. abdomen soft, bowel sounds present. Extremities without cyanosis Assessment: 1. SBP 2. Questionable omental tumor per CT of the abdomen 3. Coronary artery disease, status post permanent pacemaker 4. Chronic kidney disease, hemodialysis dependent/L AVF 5. Questionable pneumonia Plan: Patient remains stable, okay to discharge on current antibiotics for 6 more days, follow-up pathology report and GI recommendations Consultation Date/Type/Reason Admit Date/Time Jul 09, 2018 at 00:40 Initial Consult Date 07/10/18 Type of Consult id Requesting Provider: FANI AYALA Date/Time of Note DATE: 07/17/18 TIME: 14:17 Exam/Review of Systems Exam Vitals Vital Signs Date Temp Pulse Resp B/P (MAP) Pulse Ox O2 O2 Flow FiO2 Time Delivery Rate 07/17/18 59 12:00 07/17/18 98.2 22 137/71 96 Room Air 11:43 (93) Intake and Output 07/16/18 07/16/18 07/17/18 1515:00 23:00 07:00 IntakeIntake Total 450 ml 100 ml OutputOutput Total 2400 ml BalanceBalance 450 ml -2300 ml Results Result Diagram: 07/17/18 0527 07/17/18 0527 Results 24hrs Laboratory Tests Test 07/16/18 17:20 07/16/18 19:52 07/17/18 05:27 07/17/18 08:09 Bedside Glucose 108 140 65 L Platelet Count 185 Prothrombin Time 15.6 H Prothrombin Time Ratio 1.2 INR International 1.23 Normalized Ratio Activated 36.5 H Partial Thromboplast Time Thrombin Time 15.6 Sodium Level 136 Potassium Level 4.5 # Chloride Level 97 Carbon Dioxide Level 30 Anion Gap 9 # Blood Urea Nitrogen 28 #H Creatinine 4.70 #H Est Glomerular Filtrat 12 L Rate mL/min Glucose Level 83 Calcium Level 8.6 Test 07/17/18 08:42 07/17/18 12:10 Bedside Glucose 113 80 Medications Medication Current Medications Amlodipine Besylate (Norvasc) 10 mg DAILY PO Last administered on 07/17/18 12:11; Admin Dose 10 MG; Start 07/09/18 at 09:00 Aspirin (Aspirin) 81 mg DAILY PO Last administered on 07/17/18 12:11; Admin Dose 81 MG; Start 07/09/18 at 09:00 Clonidine (Catapres) 0.1 mg Q8 PO Last administered on 07/17/18 05:54; Admin Dose 0.1 MG; Start 07/09/18 at 06:00 Furosemide (Lasix) 20 mg DAILY PO Last administered on 07/17/18 12:12; Admin Dose 20 MG; Start 07/09/18 at 09:00 Insulin Glargine (Lantus) 9 units HS SC Last administered on 07/16/18 19:57; A dmin Dose 9 UNITS; Start 07/09/18 at 21:00 Lisinopril (Zestril) 5 mg DAILY PO Last administered on 07/17/18 12:11; Admin Dose 5 MG; Start 07/09/18 at 09:00 Pioglitazone HCl (Actos) 15 mg DAILY PO Last administered on 07/17/18 12:17; Admin Dose 15 MG; Start 07/09/18 at 09:00 Diagnostic Test (Pha) (Accu-Chek) 1 ea AC MEALS AND BEDTIME XX Last administered on 07/16/18 21:00; Admin Dose 1 EA; Start 07/09/18 at 07:00 Insulin Aspart (Novolog Insulin Pen) NOVOLOG *MILD* ALGORITHM WITH MEALS BEDTIM E SC Last administered on 07/14/18 17:48; Admin Dose 2 UNIT; Start 07/09/18 at 08:00 Hydralazine HCl (Apresoline) 25 mg Q6H PRN PO ELEVATED BLOOD PRESSURE; Start 07/09/18 at 04:00 Acetaminophen (Tylenol Tab) 650 mg Q4H PRN PO MILD PAIN(1-3)OR ELEVATED TEMP Last administered on 07/09/18 04:44; Admin Dose 650 MG; Start 07/09/18 at 04:00 Ondansetron HCl (Zofran Inj) 4 mg Q4H PRN IV NAUSEA AND/OR VOMITING Last administered on 07/09/18at 04:44; Admin Dose 4 MG; Start 07/09/18 at 04:00 Miscellaneous Information 1 ea NOTE XX ; Start 07/09/18 at 05:00 Glucose (Glutose) 15 gm Q15M PRN PO DECREASED GLUCOSE; Start 07/09/18 at 05:00 Glucose (Glutose) 22.5 gm Q15M PRN PO DECREASED GLUCOSE; Start 07/09/18 at 05:00 Dextrose (D50w Syringe) 25 ml Q15M PRN IV DECREASED GLUCOSE Last administered on 07/17/18at 08:21; Admin Dose 25 ML; Start 07/09/18 at 05:00 Dextrose (D50w Syringe) 50 ml Q15M PRN IV DECREASED GLUCOSE; Start 07/09/18 at 05:00 Glucagon (Glucagen) 1 mg Q15M PRN IM DECREASED GLUCOSE; Start 07/09/18 at 05:00 Glucose (Glutose) 15 gm Q15M PRN BUCCAL DECREASED GLUCOSE; Start 07/09/18 at 05:00 Hydroxyzine HCl (Atarax) 50 mg Q6H PRN PO ITCHING; Start 07/09/18 at 07:00 Metoclopramide HCl (Reglan) 5 mg AC MEALS AND BEDTIME IV Last administered on 07/17/18at 12:11; Admin Dose 5 MG; Start 07/09/18 at 17:30 Pantoprazole (Protonix Tab) 40 mg DAILY@06 PO Last administered on 07/17/18at 05: 52; Admin Dose 40 MG; Start 07/10/18 at 06:00 Levofloxacin (Levaquin) 250 mg DAILY@06 PO Last administered on 07/17/18at 05:52; Admin Dose 250 MG; Start 07/17/18 at 06:00 Amoxicillin/ Clavulanate Potassium (Augmentin) 250 mg Q8 PO Last administered on 07/17/18at 05:51; Admin Dose 250 MG; Start 07/16/18 at 14:00 SYEDA LEÓN NP Jul 17, 2018 14:17
--- NOTE | 2018-07-17 19:24 | CONS ---
DATE OF ADMISSION: 07/09/2018 DATE OF CONSULTATION: SUBJECTIVE: The patient has omental mass in the CAT scan. Discussed with Dr. Lee Johnson, [facility] radiologist who has agreed to do a needle biopsy through the CT guidance of the mass. Tumor markers are negative. PHYSICAL EXAMINATION: VITAL SIGNS: Temperature 98, pulse is 63, blood pressure 154/74. ABDOMEN: Unremarkable except a soft abdomen with ascites. CLINICAL IMPRESSION: The patient does have omental mass and ascites. It appears that the patient al ready had a CT-guided needle biopsy of the omental mass. PLAN: We will wait for the pathology report. Dictated By: NAILA MERCER MD NC/NTS Conf#: [id number] DID#: [id number] CC: SAURABH WEINSTEIN MD;*EndCC*
[2018-07-17] MEDS: INSULIN GLARGINE [LANTus] (100 UNITS/ML) SYG SC SCH (21:26)
[2018-07-18] VITALS (25 sets, daily range): BP systolic 110–162; BP diastolic 55–73; PULSE 53–70; RESP 18–20
[2018-07-18] MEDS: LEVOFLOXACIN 250 MG TAB PO SCH (06:06)
[2018-07-18] MEDS: PANTOPRAZOLE (EC) 40 MG TAB PO SCH (06:06)
[2018-07-18] MEDS: METOCLOPRAMIDE 10 MG INJ IV SCH ×4 (06:07→21:10)
[2018-07-18] MEDS: AMOXICILLIN/CLAV 250 MG TAB PO SCH ×3 (06:07→21:09)
[2018-07-18] MEDS: ACCU-CHEK XX SCH ×4 (07:00→21:22)
[2018-07-18] MEDS: INSULIN ASPART [NOVOLOG] 3 ML PEN SC SCH ×4 (08:00→21:18)
[2018-07-18] MEDS: LISINOPRIL 5 MG TAB PO SCH (08:51)
[2018-07-18] MEDS: ASPIRIN 81 MG TAB PO SCH (08:51)
[2018-07-18] MEDS: FUROSEMIDE 20 MG TAB PO SCH (08:51)
[2018-07-18] MEDS: AMLODIPINE 10 MG TAB PO SCH (08:51)
[2018-07-18] MEDS: PIOGLITAZONE 15 MG TAB PO SCH (08:51)
--- NOTE | 2018-07-18 08:57 | CONS ---
Assessment/Plan Assessment/Plan Assessment/Plan (Daily) - ESRD on Hemodialysis TTS ( From [facility] ) - DM / DM Nephropathy - PNA - CAD / Hypertension - CAD / CHF - Anemia - Hyperphosphatemia PLAN: Bedside dialysis for hyperkalemia ( regular HD days are TTS ) On Abx for PNA & Peritonitis Monitor H/H Limit PO intake of potassium Aim for UF ~ 2-3 kg as tolerates Next HD on 07/20/2018 Consultation Date/Type/Reason Admit Date/Time Jul 09, 2018 at 00:40 Initial Consult Date 07/10/18 Type of Consult NEPHROLOGY Reason for Consultation - ESRD on Hemodialysis Requesting Provider: FANI AYALA Date/Time of Note DATE: 07/18/18 TIME: 08:56 24 HR Interval Summary Constitutional: no complaints, improved Exam/Review of Systems Exam Vitals Vital Signs Date Temp Pulse Resp B/P (MAP) Pulse Ox O2 O2 Flow FiO2 Time Delivery Rate 07/18/18 64 08:00 07/18/18 98.3 18 141/68 94 Room Air 07:11 (92) Intake and Output 07/17/18 07/17/18 07/18/18 1414:59 22:59 06:59 IntakeIntake Total 600 ml BalanceBalance 600 ml Constitutional: alert, oriented Psych: no complaints Respiratory: crackles/rales Cardiovascular: regular rate and rhythm, edema, systolic murmur Gastrointestinal: soft Results Result Diagram: 07/17/18 0527 07/18/18 0537 Results 24hrs Laboratory Tests Test 07/17/18 12:10 07/17/18 17:52 07/17/18 21:08 07/18/18 05:37 Bedside Glucose 80 140 151 Sodium Level 132 L Potassium Level 5.3 H Chloride Level 93 L Carbon Dioxide Level 27 Anion Gap 12 Blood Urea Nitrogen 37 H Creatinine 6.13 H Est Glomerular Filtrat 9 L Rate mL/min Glucose Level 92 Calcium Level 8.9 Test 07/18/18 07:54 Bedside Glucose 93 Medications Medication Current Medications Amlodipine Besylate (Norvasc) 10 mg DAILY PO Last administered on 07/18/18at 08:51; Admin Dose 10 MG; Start 07/09/18 at 09:00 Aspirin (Aspirin) 81 mg DAILY PO Last administered on 07/18/18at 08:51; Admin Dose 81 MG; Start 07/09/18 at 09:00 Clonidine (Catapres) 0.1 mg Q8 PO Last administered on 07/18/18 06:07; Admin Dose 0.1 MG; Start 07/09/18 at 06:00 Furosemide (Lasix) 20 mg DAILY PO Last administered on 07/18/18 08:51; Admin Dose 20 MG; Start 07/09/18 at 09:00 Insulin Glargine (Lantus) 9 units HS SC Last administered on 07/17/18 21:26; Admin Dose 9 UNITS; Start 07/09/18 at 21:00 Lisinopril (Zestril) 5 mg DAILY PO Last administered on 07/18/18 08:51; Admin Dose 5 MG; Start 07/09/18 at 09:00 Pioglitazone HCl (Actos) 15 mg DAILY PO Last administered on 07/18/18 08:51; Admin Dose 15 MG; Start 07/09/18 at 09:00 Diagnostic Test (Pha) (Accu-Chek) 1 ea AC MEALS AND BEDTIME XX Last administe red on 07/18/18 07:00; Admin Dose 1 EA; Start 07/09/18 at 07:00 Insulin Aspart (Novolog Insulin Pen) NOVOLOG *MILD* ALGORITHM WITH MEALS BEDTIME SC Last administered on 07/14/18 17:48; Admin Dose 2 UNIT; Start 07/09/18 at 08:00 Hydralazine HCl (Apresoline) 25 mg Q6H PRN PO ELEVATED BLOOD PRESSURE; Start 07/09/18 at 04:00 Acetaminophen (Tylenol Tab) 650 mg Q4H PRN PO MILD PAIN(1-3)OR ELEVATED TEMP Last administered on 07/09/18 04:44; Admin Dose 650 MG; Start 07/09/18 at 04:00 Ondansetron HCl (Zofran Inj) 4 mg Q4H PRN IV NAUSEA AND/OR VOMITING Last administered on 07/09/18 04:44; Admin Dose 4 MG; Start 07/09/18 at 04:00 Miscellaneous Information 1 ea NOTE XX ; Start 07/09/18 at 05:00 Glucose (Glutose) 15 gm Q15M PRN PO DECREASED GLUCOSE; Start 07/09/18 at 05:00 Glucose (Glutose) 22.5 gm Q15M PRN PO DECREASED GLUCOSE; Start 07/09/18 at 05:00 Dextrose (D50w Syringe) 25 ml Q15M PRN IV DECREASED GLUCOSE Last administered on 07/17/18at 08:21; Admin Dose 25 ML; Start 07/09/18 at 05:00 Dextrose (D50w Syringe) 50 ml Q15M PRN IV DECREASED GLUCOSE; Start 07/09/18 at 05:00 Glucagon (Glucagen) 1 mg Q15M PRN IM DECREASED GLUCOSE; Start 07/09/18 at 05:00 Glucose (Glutose) 15 gm Q15M PRN BUCCAL DECREASED GLUCOSE; Start 07/09/18 at 05:00 Hydroxyzine HCl (Atarax) 50 mg Q6H PRN PO ITCHING; Start 07/09/18 at 07:00 Metoclopramide HCl (Reglan) 5 mg AC MEALS AND BEDTIME IV Last administered on 07/18/18at 06:07; Admin Dose 5 MG; Start 07/09/18 at 17:30 Pantoprazole (Protonix Tab) 40 mg DAILY@06 PO Last administered on 07/18/18at 06:06; Admin Dose 40 MG; Start 07/10/18 at 06:00 Levofloxacin (Levaquin) 250 mg DAILY@06 PO Last administered on 07/18/18at 06:06; Admin Dose 250 MG; Start 07/17/18 at 06:00 Amoxicillin/ Clavulanate Potassium (Augmentin) 250 mg Q8 PO Last administered on 07/18/18at 06:07; Admin Dose 250 MG; Start 07/16/18 at 14:00 PACO LAZO MD Jul 18, 2018 08:57
--- NOTE | 2018-07-18 13:13 | PN ---
Date/Time of Note Date/Time of Note DATE: 07/18/18 TIME: 13:10 Assessment/Plan VTE Prophylaxis Risk score (from [facility])>0 risk: 5 SCD applied (from [facility]): Yes Pharmacological prophylaxis: NA/contraindicated Pharm contraindication: other Lines/Catheters IV Catheter Type (from [facility]): Peripheral IV Urinary Cath still in place: No Assessment/Plan Hospital Course Patient is undergoing hemodialysis, status post CT-guided biopsy of omental mass yesterday. Assessment/Plan - Hyperkalemia, continue hemodialysis per nephrology. Dr. Dobbins is following in nephrology consultation - Pneumonia, improving. Status post vancomycin and Zosyn, currently on Augmentin and Levaquin. - Spontaneous bacterial peritonitis. S/p vancomycin and Zosyn. - Diabetes. Continue Lantus and NovoLog. - Hypertension. Continue Norvasc and lisinopril. - End-stage renal disease. Continue hemodialysis as tolerated. - Possible history of coronary artery disease, status post myocardial infarction. Continue aspirin. - EF is 55% - Ascites, status post paracentesis. Dr. Lopez is following in gastroenterology consultation. - Omental mass, s/p CT-guided biopsy by radiology, follow-up on the results. Further recommendations based on clinical course. Plan of care discussed with Dr. Mujica. Result Diagram: 07/17/18 0527 07/18/18 0537 Results 24hrs Laboratory Tests Test 07/17/18 17:52 07/17/18 21:08 07/18/18 05:37 07/18/18 07:54 Bedside Glucose 140 151 93 Sodium Level 132 L Potassium Level 5.3 H Chloride Level 93 L Carbon Dioxide Level 27 Anion Gap 12 Blood Urea Nitrogen 37 H Creatinine 6.13 H Est Glomerular Filtrat 9 L Rate mL/min Glucose Level 92 Calcium Level 8.9 Test 07/18/18 11:47 Bedside Glucose 147 Exam/Review of Systems Exam Vitals Vital Signs Date Temp Pulse Resp B/P (MAP) Pulse Ox O2 O2 Flow FiO2 Time Delivery Rate 07/18/18 59 12:00 07/18/18 98.0 20 141/67 94 Room Air 11:09 (91) Intake and Output 07/17/18 07/17/18 07/18/18 1414:59 22:59 06:59 IntakeIntake Total 600 ml BalanceBalance 600 ml Exam Constitutional: alert, oriented Respiratory: diminished breath sounds Cardiovascular: regular rate and rhythm Gastrointestinal: soft, non-tender Musculoskeletal: nl extremities to inspection Results Results 24hrs Laboratory Tests Test 07/17/18 17:52 07/17/18 21:08 07/18/18 05:37 07/18/18 07:54 Bedside Glucose 140 151 93 Sodium Level 132 L Potassium Level 5.3 H Chloride Level 93 L Carbon Dioxide Level 27 Anion Gap 12 Blood Urea Nitrogen 37 H Creatinine 6.13 H Est Glomerular Filtrat 9 L Rate mL/min Glucose Level 92 Calcium Level 8.9 Test 07/18/18 11:47 Bedside Glucose 147 Medications Medication Current Medications Amlodipine Besylate (Norvasc) 10 mg DAILY PO Last administered on 07/18/18 0 8:51; Admin Dose 10 MG; Start 07/09/18 at 09:00 Aspirin (Aspirin) 81 mg DAILY PO Last administered on 07/18/18 08:51; Admin Dose 81 MG; Start 07/09/18 at 09:00 Clonidine (Catapres) 0.1 mg Q8 PO Last administered on 07/18/18 06:07; Admin Dose 0.1 MG; Start 07/09/18 at 06:00 Furosemide (Lasix) 20 mg DAILY PO Last administered on 07/18/18 08:51; Admin Dose 20 MG; Start 07/09/18 at 09:00 Insulin Glargine (Lantus) 9 units HS SC Last administered on 07/17/18 21:26; Admin Dose 9 UNITS; Start 07/09/18 at 21:00 Lisinopril (Zestril) 5 mg DAILY PO Last administered on 07/18/18 08:51; Admin Dose 5 MG; Start 07/09/18 at 09:00 Pioglitazone HCl (Actos) 15 mg DAILY PO Last administered on 07/18/18 08:51; Admin Dose 15 MG; Start 07/09/18 at 09:00 Diagnostic Test (Pha) (Accu-Chek) 1 ea AC MEALS AND BEDTIME XX Last administered on 07/18/18 11:46; Admin Dose 1 EA; Start 07/09/18 at 07:00 Insulin Aspart (Novolog Insulin Pen) NOVOLOG *MILD* ALGORITHM WITH MEALS BEDTIME SC Last administered on 3/3/19at 17:48; Admin Dose 2 UNIT; Start 07/09/18 at 08:00 Hydralazine HCl (Apresoline) 25 mg Q6H PRN PO ELEVATED BLOOD PRESSURE; Start 07/09/18 at 04:00 Acetaminophen (Tylenol Tab) 650 mg Q4H PRN PO MILD PAIN(1-3)OR ELEVATED TEMP Last administered on 07/09/18at 04:44; Admin Dose 650 MG; Start 07/09/18 at 04:00 Ondansetron HCl (Zofran Inj) 4 mg Q4H PRN IV NAUSEA AND/OR VOMITING Last administered on 07/09/18at 04:44; Admin Dose 4 MG; Start 07/09/18 at 04:00 Miscellaneous Information 1 ea NOTE XX ; Start 07/09/18 at 05:00 Glucose (Glutose) 15 gm Q15M PRN PO DECREASED GLUCOSE; Start 07/09/18 at 05:00 Glucose (Glutose) 22.5 gm Q15M PRN PO DECREASED GLUCOSE; Start 07/09/18 at 05:00 Dextrose (D50w Syringe) 25 ml Q15M PRN IV DECREASED GLUCOSE Last administered on 07/17/18 08:21; Admin Dose 25 ML; Start 07/09/18 at 05:00 Dextrose (D50w Syringe) 50 ml Q15M PRN IV DECREASED GLUCOSE; Start 07/09/18 at 05:00 Glucagon (Glucagen) 1 mg Q15M PRN IM DECREASED GLUCOSE; Start 07/09/18 at 05:00 Glucose (Glutose) 15 gm Q15M PRN BUCCAL DECREASED GLUCOSE; Start 07/09/18 at 05:00 Hydroxyzine HCl (Atarax) 50 mg Q6H PRN PO ITCHING; Start 07/09/18 at 07:00 Metoclopramide HCl (Reglan) 5 mg AC MEALS AND BEDTIME IV Last administered on 07/18/18at 11:46; Admin Dose 5 MG; Start 07/09/18 at 17:30 Pantoprazole (Protonix Tab) 40 mg DAILY@06 PO Last administered on 07/18/18 06:06; Admin Dose 40 MG; Start 07/10/18 at 06:00 Levofloxacin (Levaquin) 250 mg DAILY@06 PO Last administered on 07/18/18at 06:06; Admin Dose 250 MG; Start 07/17/18 at 06:00 Amoxicillin/ Clavulanate Potassium (Augmentin) 250 mg Q8 PO Last administered on 07/18/18at 06:07; Admin Dose 250 MG; Start 07/16/18 at 14:00 YUMIKO PAINTING Jul 18, 2018 13:13
--- NOTE | 2018-07-18 15:01 | CONS ---
Assessment/Plan Assessment/Plan Hospital Course (Demo Recall) No acute changes patient looks comfortable no fevers Antimicrobials: Augmentin, Levaquin Microbiology: All cultures negative Physical examination: Well-developed elderly man who is awake in no distress. Head atraumatic normocephalic sclera nonicteric. Neck is supple. Chest rise symmetrical, breath sounds diminished bases. Heart: S1-S2. abdomen soft, bowel sounds present. Extremities without cyanosis Assessment: 1. SBP 2. Questionable omental tumor per CT of the abdomen 3. Coronary artery disease, status post permanent pacemaker 4. Chronic kidney disease, hemodialysis dependent/L AVF 5. Questionable pneumonia Plan: Patient remains stable, okay to discharge on current antibiotics for 5 more days, follow-up pathology report and GI recommendations Consultation Date/Type/Reason Admit Date/Time Jul 09, 2018 at 00:40 Initial Consult Date 07/10/18 Type of Consult id Requesting Provider: FANI AYALA Date/Time of Note DATE: 07/18/18 TIME: 15:00 Exam/Review of Systems Exam Vitals Vital Signs Date Temp Pulse Resp B/P (MAP) Pulse Ox O2 O2 Flow FiO2 Time Delivery Rate 07/18/18 61 14:45 07/18/18 20 118/55 Room Air 12:30 (76) 07/18/18 98.0 94 11:09 Intake and Output 07/17/18 07/17/18 07/18/18 1515:00 23:00 07:00 IntakeIntake Total 600 ml BalanceBalance 600 ml Results Result Diagram: 07/17/18 0527 07/18/18 0537 Results 24hrs Laboratory Tests Test 07/17/18 17:52 07/17/18 21:08 07/18/18 05:37 07/18/18 07:54 Bedside Glucose 140 151 93 Sodium Level 132 L Potassium Level 5.3 H Chloride Level 93 L Carbon Dioxide Level 27 Anion Gap 12 Blood Urea Nitrogen 37 H Creatinine 6.13 H Est Glomerular Filtrat 9 L Rate mL/min Glucose Level 92 Calcium Level 8.9 Test 07/18/18 11:47 Bedside Glucose 147 Medications Medication Current Medications Amlodipine Besylate (Norvasc) 10 mg DAILY PO Last administered on 07/18/18at 08:51; Admin Dose 10 MG; Start 07/09/18 at 09:00 Aspirin (Aspirin) 81 mg DAILY PO Last administered on 07/18/18 08:51; Admin Dose 81 MG; Start 07/09/18 at 09:00 Clonidine (Catapres) 0.1 mg Q8 PO Last administered on 07/18/18 06:07; Admin Dose 0.1 MG; Start 07/09/18 at 06:00 Furosemide (Lasix) 20 mg DAILY PO Last administered on 07/18/18 08:51; Admin Dose 20 MG; Start 07/09/18 at 09:00 Insulin Glargine (Lantus) 9 units HS SC Last administered on 07/17/18 21:26; Admin Dose 9 UNITS; Start 07/09/18 at 21:00 Lisinopril (Zestril) 5 mg DAILY PO Last administered on 07/18/18 08:51; Admin Dose 5 MG; Start 07/09/18 at 09:00 Pioglitazone HCl (Actos) 15 mg DAILY PO Last administered on 07/18/18 08:51; Admin Dose 15 MG; Start 07/09/18 at 09:00 Diagnostic Test (Pha) (Accu-Chek) 1 ea AC MEALS AND BEDTIME XX Last a dministered on 07/18/18 11:46; Admin Dose 1 EA; Start 07/09/18 at 07:00 Insulin Aspart (Novolog Insulin Pen) NOVOLOG *MILD* ALGORITHM WITH MEALS BEDTIME SC Last administered on 07/14/18 17:48; Admin Dose 2 UNIT; Start 07/09/18 at 08:00 Hydralazine HCl (Apresoline) 25 mg Q6H PRN PO ELEVATED BLOOD PRESSURE; Start 07/09/18 at 04:00 Acetaminophen (Tylenol Tab) 650 mg Q4H PRN PO MILD PAIN(1-3)OR ELEVATED TEMP Last administered on 07/09/18 04:44; Admin Dose 650 MG; Start 07/09/18 at 04:00 Ondansetron HCl (Zofran Inj) 4 mg Q4H PRN IV NAUSEA AND/OR VOMITING Last administered on 07/09/18 04:44; Admin Dose 4 MG; Start 07/09/18 at 04:00 Miscellaneous Information 1 ea NOTE XX ; Start 07/09/18 at 05:00 Glucose (Glutose) 15 gm Q15M PRN PO DECREASED GLUCOSE; Start 07/09/18 at 05:00 Glucose (Glutose) 22.5 gm Q15M PRN PO DECREASED GLUCOSE; Start 07/09/18 at 05:00 Dextrose (D50w Syringe) 25 ml Q15M PRN IV DECREASED GLUCOSE Last administered on 07/17/18at 08:21; Admin Dose 25 ML; Start 07/09/18 at 05:00 Dextrose (D50w Syringe) 50 ml Q15M PRN IV DECREASED GLUCOSE; Start 07/09/18 at 05:00 Glucagon (Glucagen) 1 mg Q15M PRN IM DECREASED GLUCOSE; Start 07/09/18 at 05:00 Glucose (Glutose) 15 gm Q15M PRN BUCCAL DECREASED GLUCOSE; Start 07/09/18 at 05:00 Hydroxyzine HCl (Atarax) 50 mg Q6H PRN PO ITCHING; Start 07/09/18 at 07:00 Metoclopramide HCl (Reglan) 5 mg AC MEALS AND BEDTIME IV Last administered on 07/18/18at 11:46; Admin Dose 5 MG; Start 07/09/18 at 17:30 Pantoprazole (Protonix Tab) 40 mg DAILY@06 PO Last administered on 07/18/18at 06:06; Admin Dose 40 MG; Start 07/10/18 at 06:00 Levofloxacin (Levaquin) 250 mg DAILY@06 PO Last administered on 07/18/18at 06:06; Admin Dose 250 MG; Start 07/17/18 at 06:00 Amoxicillin/ Clavulanate Potassium (Augmentin) 250 mg Q8 PO Last administered on 07/18/18at 06:07; Admin Dose 250 MG; Start 07/16/18 at 14:00 SYEDA LEÓN NP Jul 18, 2018 15:01
--- NOTE | 2018-07-18 15:06 | CONS ---
Assessment/Plan Assessment/Plan Hospital Course (Demo Recall) Dyspnea probably multifactorial possible pneumonia Preserved ejection fraction Ascites: s/p paracentesis History of possible coronary artery disease and ND Renal failure on dialysis Abdominal distention/ascites status post paracentesis Diabetes Hypertension History of pacemaker -Denies any shortness of breath, palpitations or chest pain -Fluid management via hemodialysis as per nephrology -Blood pressure trend improved, if needed, titrate antihypertensives Consultation Date/Type/Reason Admit Date/Time Jul 09, 2018 at 00:40 Initial Consult Date 07/10/18 Type of Consult Cardiology Requesting Provider: FANI AYALA Date/Time of Note DATE: 07/18/18 TIME: 15:05 24 HR Interval Summary Free Text/Dictation No shortness of breath, chest pain or palpitations Exam/Review of Systems Vital Signs Vitals Vital Signs Date Temp Pulse Resp B/P (MAP) Pulse Ox O2 O2 Flow FiO2 Time Delivery Rate 07/18/18 61 14:45 07/18/18 20 118/55 Room Air 12:30 (76) 07/18/18 98.0 94 11:09 Intake and Output 07/17/18 07/17/18 07/18/18 1515:00 23:00 07:00 IntakeIntake Total 600 ml BalanceBalance 600 ml Exam Constitutional: alert, oriented (Undergoing hemodialysis) Respiratory: other (Coarse breath sounds bilaterally, no wheezing) Cardiovascular: regular rate and rhythm (S1-S2 heard) Gastrointestinal: soft, non-tender, bowel sounds Extremities: edema Labs Result Diagram: 07/17/18 0527 07/18/18 0537 Results 24hrs Laboratory Tests Test 07/17/18 17:52 07/17/18 21:08 07/18/18 05:37 07/18/18 07:54 Bedside Glucose 140 151 93 Sodium Level 132 L Potassium Level 5.3 H Chloride Level 93 L Carbon Dioxide Level 27 Anion Gap 12 Blood Urea Nitrogen 37 H Creatinine 6.13 H Est Glomerular Filtrat 9 L Rate mL/min Glucose Level 92 Calcium Level 8.9 Test 07/18/18 11:47 Bedside Glucose 147 Medications Medications Current Medications Amlodipine Besylate (Norvasc) 10 mg DAILY PO Last administered on 07/18/18at 08:51; Admin Dose 10 MG; Start 07/09/18 at 09:00 Aspirin (Aspirin) 81 mg DAILY PO Last administered on 07/18/18 08:51; Admin Dose 81 MG; Start 07/09/18 at 09:00 Clonidine (Catapres) 0.1 mg Q8 PO Last administered on 07/18/18 06:07; Admin Dose 0.1 MG; Start 07/09/18 at 06:00 Furosemide (Lasix) 20 mg DAILY PO Last administered on 07/18/18 08:51; Admin Dose 20 MG; Start 07/09/18 at 09:00 Insulin Glargine (Lantus) 9 units HS SC Last administered on 07/17/18 21:26; Admin Dose 9 UNITS; Start 07/09/18 at 21:00 Lisinopril (Zestril) 5 mg DAILY PO Last administered on 07/18/18 08:51; Admin Dose 5 MG; Start 07/09/18 at 09:00 Pioglitazone HCl (Actos) 15 mg DAILY PO Last administered on 07/18/18 08:51; Admin Dose 15 MG; Start 07/09/18 at 09:00 Diagnostic Test (Pha) (Accu-Chek) 1 ea AC MEALS AND BEDTIME XX Last a dministered on 07/18/18 11:46; Admin Dose 1 EA; Start 07/09/18 at 07:00 Insulin Aspart (Novolog Insulin Pen) NOVOLOG *MILD* ALGORITHM WITH MEALS BEDTIME SC Last administered on 07/14/18 17:48; Admin Dose 2 UNIT; Start 07/09/18 at 08:00 Hydralazine HCl (Apresoline) 25 mg Q6H PRN PO ELEVATED BLOOD PRESSURE; Start 07/09/18 at 04:00 Acetaminophen (Tylenol Tab) 650 mg Q4H PRN PO MILD PAIN(1-3)OR ELEVATED TEMP Last administered on 07/09/18 04:44; Admin Dose 650 MG; Start 07/09/18 at 04:00 Ondansetron HCl (Zofran Inj) 4 mg Q4H PRN IV NAUSEA AND/OR VOMITING Last administered on 07/09/18 04:44; Admin Dose 4 MG; Start 07/09/18 at 04:00 Miscellaneous Information 1 ea NOTE XX ; Start 07/09/18 at 05:00 Glucose (Glutose) 15 gm Q15M PRN PO DECREASED GLUCOSE; Start 07/09/18 at 05:00 Glucose (Glutose) 22.5 gm Q15M PRN PO DECREASED GLUCOSE; Start 07/09/18 at 05:00 Dextrose (D50w Syringe) 25 ml Q15M PRN IV DECREASED GLUCOSE Last administered on 07/17/18at 08:21; Admin Dose 25 ML; Start 07/09/18 at 05:00 Dextrose (D50w Syringe) 50 ml Q15M PRN IV DECREASED GLUCOSE; Start 07/09/18 at 05:00 Glucagon (Glucagen) 1 mg Q15M PRN IM DECREASED GLUCOSE; Start 07/09/18 at 05:00 Glucose (Glutose) 15 gm Q15M PRN BUCCAL DECREASED GLUCOSE; Start 07/09/18 at 05:00 Hydroxyzine HCl (Atarax) 50 mg Q6H PRN PO ITCHING; Start 07/09/18 at 07:00 Metoclopramide HCl (Reglan) 5 mg AC MEALS AND BEDTIME IV Last administered on 07/18/18at 11:46; Admin Dose 5 MG; Start 07/09/18 at 17:30 Pantoprazole (Protonix Tab) 40 mg DAILY@06 PO Last administered on 07/18/18at 06:06; Admin Dose 40 MG; Start 07/10/18 at 06:00 Levofloxacin (Levaquin) 250 mg DAILY@06 PO Last administered on 07/18/18at 06:06; Admin Dose 250 MG; Start 07/17/18 at 06:00 Amoxicillin/ Clavulanate Potassium (Augmentin) 250 mg Q8 PO Last administered on 07/18/18at 06:07; Admin Dose 250 MG; Start 07/16/18 at 14:00 Edgar Holland DO Jul 18, 2018 15:06
[2018-07-18] MEDS: INSULIN GLARGINE [LANTus] (100 UNITS/ML) SYG SC SCH (21:12)
[2018-07-19] VITALS (11 sets, daily range): BP systolic 123–158; BP diastolic 59–70; PULSE 59–85; RESP 18–19
[2018-07-19] MEDS: AMOXICILLIN/CLAV 250 MG TAB PO SCH ×2 (05:50→13:42)
[2018-07-19] MEDS: LEVOFLOXACIN 250 MG TAB PO SCH (05:50)
[2018-07-19] MEDS: PANTOPRAZOLE (EC) 40 MG TAB PO SCH (05:50)
[2018-07-19] MEDS: METOCLOPRAMIDE 10 MG INJ IV SCH ×4 (07:00→22:57)
[2018-07-19] MEDS: ACCU-CHEK XX SCH ×4 (07:00→22:50)
[2018-07-19] MEDS: INSULIN ASPART [NOVOLOG] 3 ML PEN SC SCH ×4 (08:00→22:50)
[2018-07-19] MEDS: ASPIRIN 81 MG TAB PO SCH (08:03)
[2018-07-19] MEDS: AMLODIPINE 10 MG TAB PO SCH (08:03)
[2018-07-19] MEDS: FUROSEMIDE 20 MG TAB PO SCH (08:03)
[2018-07-19] MEDS: LISINOPRIL 5 MG TAB PO SCH (08:03)
[2018-07-19] MEDS: PIOGLITAZONE 15 MG TAB PO SCH (08:03)
--- NOTE | 2018-07-19 12:22 | CONS ---
Assessment/Plan Assessment/Plan Hospital Course (Demo Recall) Dyspnea probably multifactorial possible pneumonia Preserved ejection fraction Ascites: s/p paracentesis History of possible coronary artery disease and OH Renal failure on dialysis Abdominal distention/ascites status post paracentesis Diabetes Hypertension History of pacemaker -Denies any shortness of breath, palpitations or chest pain -Fluid management via hemodialysis as per nephrology -Blood pressure trend overall stable Consultation Date/Type/Reason Admit Date/Time Jul 09, 2018 at 00:40 Initial Consult Date 07/10/18 Type of Consult Cardiology Requesting Provider: FANI AYALA Date/Time of Note DATE: 07/19/18 TIME: 12:21 24 HR Interval Summary Free Text/Dictation No shortness of breath, dizziness, palpitations or chest pain Exam/Review of Systems Vital Signs Vitals Vital Signs Date Temp Pulse Resp B/P (MAP) Pulse Ox O2 O2 Flow FiO2 Time Delivery Rate 07/19/18 69 12:13 07/19/18 98.2 18 141/62 96 11:09 (88) 07/18/18 Room Air 15:11 Intake and Output 07/18/18 07/18/18 07/19/18 1515:00 23:00 07:00 IntakeIntake Total 800 ml 320 ml OutputOutput Total 200 ml 2400 ml BalanceBalance -200 ml -1600 ml 320 ml Exam Constitutional: alert, oriented (No apparent distress, sitting in chair) Head: normocephalic Respiratory: other (Coarse breath sounds bilaterally, no wheezing) Cardiovascular: regular rate and rhythm (S1-S2 heard) Gastrointestinal: soft, non-tender, bowel sounds Extremities: edema Labs Result Diagram: 07/19/18 0533 07/19/18 0533 Results 24hrs Laboratory Tests Test 07/18/18 16:41 07/18/18 20:05 07/19/18 05:33 07/19/18 07:51 Bedside Glucose 150 195 112 White Blood Count 5.9 Red Blood Count 3.42 L Hemoglobin 9.2 L Hematocrit 29.4 L Mean Corpuscular Volume 86.0 Mean Corpuscular 26.9 L Hemoglobin Mean Corpuscular 31.3 L Hemoglobin Concent Red Cell Distribution 14.4 Width Platelet Count 175 Mean Platelet Volume 9.4 Immature Granulocytes % 0.500 H Neutrophils % 78.2 H Lymphocytes % 9.5 L Monocytes % 9.8 Eosinophils % 1.7 Basophils % 0.3 Nucleated Red Blood 0.0 Cells % Immature Granulocytes # 0.030 Neutrophils # 4.6 Lymphocytes # 0.6 L Monocytes # 0.6 Eosinophils # 0.1 Basophils # 0.0 Nucleated Red Blood 0.0 Cells # Sodium Level 137 Potassium Level 4.5 Chloride Level 97 Carbon Dioxide Level 29 Anion Gap 11 Blood Urea Nitrogen 26 #H Creatinine 4.90 #H Est Glomerular Filtrat 12 L Rate mL/min Glucose Level 105 Calcium Level 8.7 Test 07/19/18 11:24 Bedside Glucose 166 Medications Medications Current Medications Amlodipine Besylate (Norvasc) 10 mg DAILY PO Last administered on 07/19/18 08:03; Admin Dose 10 MG; Start 07/09/18 at 09:00 Aspirin (Aspirin) 81 mg DAILY PO Last administered on 07/19/18 08:03; Admin Dose 81 MG; Start 07/09/18 at 09:00 Clonidine (Catapres) 0.1 mg Q8 PO Last administered on 07/19/18 05:50; Admin Dose 0.1 MG; Start 07/09/18 at 06:00 Furosemide (Lasix) 20 mg DAILY PO Last administered on 07/19/18 08:03; Admin Dose 20 MG; Start 07/09/18 at 09:00 Insulin Glargine (Lantus) 9 units HS SC Last administered on 07/18/18 21:12; Admin Dose 9 UNITS; Start 07/09/18 at 21:00 Lisinopril (Zestril) 5 mg DAILY PO Last administered on 07/19/18 08:03; Admin Dose 5 MG; Start 07/09/18 at 09:00 Pioglitazone HCl (Actos) 15 mg DAILY PO Last administered on 07/19/18 08:03; Admin Dose 15 MG; Start 07/09/18 at 09:00 Diagnostic Test (Pha) (Accu-Chek) 1 ea AC MEALS AND BEDTIME XX Last administered on 07/19/18 11:25; Admin Dose 1 EA; Start 07/09/18 at 07:00 Insulin Aspart (Novolog Insulin Pen) NOVOLOG *MILD* ALGORITHM WITH MEALS BEDTIME SC Last administered on 07/19/18 11:38; Admin Dose 1 UNIT; Start 07/09/18 at 08:00 Hydralazine HCl (Apresoline) 25 mg Q6H PRN PO ELEVATED BLOOD PRESSURE; Start 07/09/18 at 04:00 Acetaminophen (Tylenol Tab) 650 mg Q4H PRN PO MILD PAIN(1-3)OR ELEVATED TEMP Last administered on 07/09/18at 04:44; Admin Dose 650 MG; Start 07/09/18 at 04:00 Ondansetron HCl (Zofran Inj) 4 mg Q4H PRN IV NAUSEA AND/OR VOMITING Last administered on 07/09/18at 04:44; Admin Dose 4 MG; Start 07/09/18 at 04:00 Miscellaneous Information 1 ea NOTE XX ; Start 07/09/18 at 05:00 Glucose (Glutose) 15 gm Q15M PRN PO DECREASED GLUCOSE; Start 07/09/18 at 05:00 Glucose (Glutose) 22.5 gm Q15M PRN PO DECREASED GLUCOSE; Start 07/09/18 at 05:00 Dextrose (D50w Syringe) 25 ml Q15M PRN IV DECREASED GLUCOSE Last administered on 07/17/18at 08:21; Admin Dose 25 ML; Start 07/09/18 at 05:00 Dextrose (D50w Syringe) 50 ml Q15M PRN IV DECREASED GLUCOSE; Start 07/09/18 at 05:00 Glucagon (Glucagen) 1 mg Q15M PRN IM DECREASED GLUCOSE; Start 07/09/18 at 05:00 Glucose (Glutose) 15 gm Q15M PRN BUCCAL DECREASED GLUCOSE; Start 07/09/18 at 05:00 Hydroxyzine HCl (Atarax) 50 mg Q6H PRN PO ITCHING; Start 07/09/18 at 07:00 Metoclopramide HCl (Reglan) 5 mg AC MEALS AND BEDTIME IV Last administered on 07/18/18at 21:10; Admin Dose 5 MG; Start 07/09/18 at 17:30 Pantoprazole (Protonix Tab) 40 mg DAILY@06 PO Last administered on 07/19/18 05:50; Admin Dose 40 MG; Start 07/10/18 at 06:00 Levofloxacin (Levaquin) 250 mg DAILY@06 PO Last administered on 07/19/18at 05:50; Admin Dose 250 MG; Start 07/17/18 at 06:00 Amoxicillin/ Clavulanate Potassium (Augmentin) 250 mg Q8 PO Last administered on 07/19/18at 05:50; Admin Dose 250 MG; Start 07/16/18 at 14:00 Edgar Holland DO Jul 19, 2018 12:22
--- NOTE | 2018-07-19 13:45 | PN ---
Date/Time of Note Date/Time of Note DATE: 07/19/18 TIME: 13:43 Assessment/Plan VTE Prophylaxis Risk score (from [facility] [place])>0 risk: 3 SCD applied (from [facility] [place]): No SCD contraindicated: other Pharmacological prophylaxis: other Pharm contraindication: other Lines/Catheters IV Catheter Type (from [facility]): [facility] Urinary Cath still in place: No Assessment/Plan Assessment/Plan - Hyperkalemia- resolved - continue hemodialysis per nephrology. Dr. Dobbins is following in nephrology consultation - Pneumonia, improving. Status post vancomycin and Zosyn, currently on Augmentin and Levaquin. - Spontaneous bacterial peritonitis. S/p vancomycin and Zosyn. - Diabetes. Continue Lantus and NovoLog. - Hypertension. Continue Norvasc and lisinopril. - End-stage renal disease. Continue hemodialysis as tolerated. - Possible history of coronary artery disease, status post myocardial infarction. Continue aspirin. - EF is 55% - Ascites, status post paracentesis. -Dr. Lopez is following in gastroenterology consultation. - Omental mass, s/p CT-guided biopsy by radiology- fu results Further recommendations based on clinical course. Plan of care discussed with Dr. Mujica. Result Diagram: 07/19/18 0533 07/19/18 0533 Results 24hrs Laboratory Tests Test 07/18/18 16:41 07/18/18 20:05 07/19/18 05:33 07/19/18 07:51 Bedside Glucose 150 195 112 White Blood Count 5.9 Red Blood Count 3.42 L Hemoglobin 9.2 L Hematocrit 29.4 L Mean Corpuscular Volume 86.0 Mean Corpuscular 26.9 L Hemoglobin Mean Corpuscular 31.3 L Hemoglobin Concent Red Cell Distribution 14.4 Width Platelet Count 175 Mean Platelet Volume 9.4 Immature Granulocytes % 0.500 H Neutrophils % 78.2 H Lymphocytes % 9.5 L Monocytes % 9.8 Eosinophils % 1.7 Basophils % 0.3 Nucleated Red Blood 0.0 Cells % Immature Granulocytes # 0.030 Neutrophils # 4.6 Lymphocytes # 0.6 L Monocytes # 0.6 Eosinophils # 0.1 Basophils # 0.0 Nucleated Red Blood 0.0 Cells # Sodium Level 137 Potassium Level 4.5 Chloride Level 97 Carbon Dioxide Level 29 Anion Gap 11 Blood Urea Nitrogen 26 #H Creatinine 4.90 #H Est Glomerular Filtrat 12 L Rate mL/min Glucose Level 105 Calcium Level 8.7 Test 07/19/18 11:24 Bedside Glucose 166 Subjective 24 Hr Interval Summary Free Text/Dictation nad - afebrile - 07/17/2018- SP CT guided biopsy of right upper quadrant omental thickening. - no new events reported last night per staff Constitutional: improved Eyes: no complaints ENT: no complaints Respiratory: no complaints Cardiovascular: no complaints Gastrointestinal: no complaints Genitourinary: no complaints Musculoskeletal: no complaints Skin: no complaints Neurologic: no complaints Endocrine: no complaints Lymphatic: no complaints Psychological: nl mood/affect Immunologic: no complaints Exam/Review of Systems Exam Vitals Vital Signs Date Temp Pulse Resp B/P (MAP) Pulse Ox O2 O2 Flow FiO2 Time Delivery Rate 07/19/18 69 12:13 07/19/18 98.2 18 141/62 96 11:09 (88) 07/18/18 Room Air 15:11 Intake and Output 07/18/18 07/18/18 07/19/18 1414:59 22:59 06:59 IntakeIntake Total 800 ml 320 ml OutputOutput Total 200 ml 2400 ml BalanceBalance -200 ml -1600 ml 320 ml Constitutional: alert, oriented, well developed Psych: nl mood/affect Head: atraumatic Eyes: EOMI, nl lids, nl sclera ENMT: nl external ears & nose Neck: non-tender Respiratory: clear to auscultation, diminished breath sounds Cardiovascular: nl pulses, other (s1s2) Gastrointestinal: soft, tender (RUQ tenderness positive), other Musculoskeletal: nl extremities to inspection Extremities: normal pulses Neurological: nl mental status, nl speech Lymph: nontender Results Results 24hrs Laboratory Tests Test 07/18/18 16:41 07/18/18 20:05 07/19/18 05:33 07/19/18 07:51 Bedside Glucose 150 195 112 White Blood Count 5.9 Red Blood Count 3.42 L Hemoglobin 9.2 L Hematocrit 29.4 L Mean Corpuscular Volume 86.0 Mean Corpuscular 26.9 L Hemoglobin Mean Corpuscular 31.3 L Hemoglobin Concent Red Cell Distribution 14.4 Width Platelet Count 175 Mean Platelet Volume 9.4 Immature Granulocytes % 0.500 H Neutrophils % 78.2 H Lymphocytes % 9.5 L Monocytes % 9.8 Eosinophils % 1.7 Basophils % 0.3 Nucleated Red Blood 0.0 Cells % Immature Granulocytes # 0.030 Neutrophils # 4.6 Lymphocytes # 0.6 L Monocytes # 0.6 Eosinophils # 0.1 Basophils # 0.0 Nucleated Red Blood 0.0 Cells # Sodium Level 137 Potassium Level 4.5 Chloride Level 97 Carbon Dioxide Level 29 Anion Gap 11 Blood Urea Nitrogen 26 #H Creatinine 4.90 #H Est Glomerular Filtrat 12 L Rate mL/min Glucose Level 105 Calcium Level 8.7 Test 07/19/18 11:24 Bedside Glucose 166 Medications Medication Current Medications Amlodipine Besylate (Norvasc) 10 mg DAILY PO Last administered on 07/19/18 08 :03; Admin Dose 10 MG; Start 07/09/18 at 09:00 Aspirin (Aspirin) 81 mg DAILY PO Last administered on 07/19/18 08:03; Admin Dose 81 MG; Start 07/09/18 at 09:00 Clonidine (Catapres) 0.1 mg Q8 PO Last administered on 07/19/18 13:42; Admin Dose 0.1 MG; Start 07/09/18 at 06:00 Furosemide (Lasix) 20 mg DAILY PO Last administered on 07/19/18 08:03; Admin Dose 20 MG; Start 07/09/18 at 09:00 Insulin Glargine (Lantus) 9 units HS SC Last administered on 07/18/18 21:12; Admin Dose 9 UNITS; Start 07/09/18 at 21:00 Lisinopril (Zestril) 5 mg DAILY PO Last administered on 07/19/18 08:03; Admin Dose 5 MG; Start 07/09/18 at 09:00 Pioglitazone HCl (Actos) 15 mg DAILY PO Last administered on 07/19/18 08:03; Admin Dose 15 MG; Start 07/09/18 at 09:00 Diagnostic Test (Pha) (Accu-Chek) 1 ea AC MEALS AND BEDTIME XX Last administered on 07/19/18 11:25; Admin Dose 1 EA; Start 07/09/18 at 07:00 Insulin Aspart (Novolog Insulin Pen) NOVOLOG *MILD* ALGORITHM WITH MEALS BEDTIME SC Last administered on 07/19/18 11:38; Admin Dose 1 UNIT; Start 07/09/18 at 08:00 Hydralazine HCl (Apresoline) 25 mg Q6H PRN PO ELEVATED BLOOD PRESSURE; Start 07/09/18 at 04:00 Acetaminophen (Tylenol Tab) 650 mg Q4H PRN PO MILD PAIN(1-3)OR ELEVATED TEMP Last administered on 07/09/18at 04:44; Admin Dose 650 MG; Start 07/09/18 at 04:00 Ondansetron HCl (Zofran Inj) 4 mg Q4H PRN IV NAUSEA AND/OR VOMITING Last administered on 07/09/18at 04:44; Admin Dose 4 MG; Start 07/09/18 at 04:00 Miscellaneous Information 1 ea NOTE XX ; Start 07/09/18 at 05:00 Glucose (Glutose) 15 gm Q15M PRN PO DECREASED GLUCOSE; Start 07/09/18 at 05:00 Glucose (Glutose) 22.5 gm Q15M PRN PO DECREASED GLUCOSE; Start 07/09/18 at 05:00 Dextrose (D50w Syringe) 25 ml Q15M PRN IV DECREASED GLUCOSE Last administered on 07/17/18at 08:21; Admin Dose 25 ML; Start 07/09/18 at 05:00 Dextrose (D50w Syringe) 50 ml Q15M PRN IV DECREASED GLUCOSE; Start 07/09/18 at 05:00 Glucagon (Glucagen) 1 mg Q15M PRN IM DECREASED GLUCOSE; Start 07/09/18 at 05:00 Glucose (Glutose) 15 gm Q15M PRN BUCCAL DECREASED GLUCOSE; Start 07/09/18 at 05:00 Hydroxyzine HCl (Atarax) 50 mg Q6H PRN PO ITCHING; Start 07/09/18 at 07:00 Metoclopramide HCl (Reglan) 5 mg AC MEALS AND BEDTIME IV Last administered on 07/18/18at 21:10; Admin Dose 5 MG; Start 07/09/18 at 17:30 Pantoprazole (Protonix Tab) 40 mg DAILY@06 PO Last administered on 07/19/18 05:50; Admin Dose 40 MG; Start 07/10/18 at 06:00 Levofloxacin (Levaquin) 250 mg DAILY@06 PO Last administered on 07/19/18at 05:50; Admin Dose 250 MG; Start 07/17/18 at 06:00 Amoxicillin/ Clavulanate Potassium (Augmentin) 250 mg Q8 PO Last administered on 07/19/18at 13:42; Admin Dose 250 MG; Start 07/16/18 at 14:00 FANI AYALA Jul 19, 2018 13:45
--- NOTE | 2018-07-19 15:13 | CONS ---
Assessment/Plan Assessment/Plan Hospital Course (Demo Recall) No acute changes patient looks comfortable no fevers Antimicrobials: Augmentin, Levaquin Microbiology: All cultures negative Omental mass, CT-guided needle core biopsies: -- Adipose tissue with interstitial fibrosis, mesothelial cell hyperplasia, focal fat necrosis and focal mild chronic inflammation (see comment). Physical examination: Well-developed elderly man who is awake in no distress. Head atraumatic normocephalic sclera nonicteric. Neck is supple. Chest rise symmetrical, breath sounds diminished bases. Heart: S1-S2. abdomen soft, bowel sounds present. Extremities without cyanosis Assessment: 1. SBP 2. Questionable omental tumor per CT of the abdomen 3. Coronary artery disease, status post permanent pacemaker 4. Chronic kidney disease, hemodialysis dependent/L AVF 5. Questionable pneumonia Plan: Patient remains stable, DC Augmentin, continue oral Levaquin for 4 more days Consultation Date/Type/Reason Admit Date/Time Jul 09, 2018 at 00:40 Initial Consult Date 07/10/18 Type of Consult id Requesting Provider: FANI AYALA Date/Time of Note DATE: 07/19/18 TIME: 15:12 Exam/Review of Systems Exam Vitals Vital Signs Date Temp Pulse Resp B/P (MAP) Pulse Ox O2 O2 Flow FiO2 Time Delivery Rate 07/19/18 69 12:13 07/19/18 98.2 18 141/62 96 11:09 (88) 07/18/18 Room Air 15:11 Intake and Output 07/18/18 07/18/18 07/19/18 1414:59 22:59 06:59 IntakeIntake Total 800 ml 320 ml OutputOutput Total 200 ml 2400 ml BalanceBalance -200 ml -1600 ml 320 ml Results Result Diagram: 07/19/18 0533 07/19/18 0533 Results 24hrs Laboratory Tests Test 07/18/18 16:41 07/18/18 20:05 07/19/18 05:33 07/19/18 07:51 Bedside Glucose 150 195 112 White Blood Count 5.9 Red Blood Count 3.42 L Hemoglobin 9.2 L Hematocrit 29.4 L Mean Corpuscular Volume 86.0 Mean Corpuscular 26.9 L Hemoglobin Mean Corpuscular 31.3 L Hemoglobin Concent Red Cell Distribution 14.4 Width Platelet Count 175 Mean Platelet Volume 9.4 Immature Granulocytes % 0.500 H Neutrophils % 78.2 H Lymphocytes % 9.5 L Monocytes % 9.8 Eosinophils % 1.7 Basophils % 0.3 Nucleated Red Blood 0.0 Cells % Immature Granulocytes # 0.030 Neutrophils # 4.6 Lymphocytes # 0.6 L Monocytes # 0.6 Eosinophils # 0.1 Basophils # 0.0 Nucleated Red Blood 0.0 Cells # Sodium Level 137 Potassium Level 4.5 Chloride Level 97 Carbon Dioxide Level 29 Anion Gap 11 Blood Urea Nitrogen 26 #H Creatinine 4.90 #H Est Glomerular Filtrat 12 L Rate mL/min Glucose Level 105 Calcium Level 8.7 Test 07/19/18 11:24 Bedside Glucose 166 Medications Medication Current Medications Amlodipine Besylate (Norvasc) 10 mg DAILY PO Last administered on 07/19/18 08:03; Admin Dose 10 MG; Start 07/09/18 at 09:00 Aspirin (Aspirin) 81 mg DAILY PO Last administered on 07/19/18 08:03; Admin Dose 81 MG; Start 07/09/18 at 09:00 Clonidine (Catapres) 0.1 mg Q8 PO Last administered on 07/19/18 13:42; Admin Dose 0.1 MG; Start 07/09/18 at 06:00 Furosemide (Lasix) 20 mg DAILY PO Last administered on 07/19/18 08:03; Admin Dose 20 MG; Start 07/09/18 at 09:00 Insulin Glargine (Lantus) 9 units HS SC Last administered on 07/18/18 21:12; Admin Dose 9 UNITS; Start 07/09/18 at 21:00 Lisinopril (Zestril) 5 mg DAILY PO Last administered on 07/19/18 08:03; Admin Dose 5 MG; Start 07/09/18 at 09:00 Pioglitazone HCl (Actos) 15 mg DAILY PO Last administered on 07/19/18 08:03; Admin Dose 15 MG; Start 07/09/18 at 09:00 Diagnostic Test (Pha) (Accu-Chek) 1 ea AC MEALS AND BEDTIME XX Last administered on 07/19/18 11:25; Admin Dose 1 EA; Start 07/09/18 at 07:00 Insulin Aspart (Novolog Insulin Pen) NOVOLOG *MILD* ALGORITHM WITH MEALS BEDTIME SC Last administered on 07/19/18at 11:38; Admin Dose 1 UNIT; Start 07/09/18 at 08:00 Hydralazine HCl (Apresoline) 25 mg Q6H PRN PO ELEVATED BLOOD PRESSURE; Start 07/09/18 at 04:00 Acetaminophen (Tylenol Tab) 650 mg Q4H PRN PO MILD PAIN(1-3)OR ELEVATED TEMP Last administered on 07/09/18at 04:44; Admin Dose 650 MG; Start 07/09/18 at 04:00 Ondansetron HCl (Zofran Inj) 4 mg Q4H PRN IV NAUSEA AND/OR VOMITING Last administered on 07/09/18 04:44; Admin Dose 4 MG; Start 07/09/18 at 04:00 Miscellaneous Information 1 ea NOTE XX ; Start 07/09/18 at 05:00 Glucose (Glutose) 15 gm Q15M PRN PO DECREASED GLUCOSE; Start 07/09/18 at 05:00 Glucose (Glutose) 22.5 gm Q15M PRN PO DECREASED GLUCOSE; Start 07/09/18 at 05:00 Dextrose (D50w Syringe) 25 ml Q15M PRN IV DECREASED GLUCOSE Last administered on 07/17/18 08:21; Admin Dose 25 ML; Start 07/09/18 at 05:00 Dextrose (D50w Syringe) 50 ml Q15M PRN IV DECREASED GLUCOSE; Start 07/09/18 at 05:00 Glucagon (Glucagen) 1 mg Q15M PRN IM DECREASED GLUCOSE; Start 07/09/18 at 05:00 Glucose (Glutose) 15 gm Q15M PRN BUCCAL DECREASED GLUCOSE; Start 07/09/18 at 05:00 Hydroxyzine HCl (Atarax) 50 mg Q6H PRN PO ITCHING; Start 07/09/18 at 07:00 Metoclopramide HCl (Reglan) 5 mg AC MEALS AND BEDTIME IV Last administered on 07/18/18at 21:10; Admin Dose 5 MG; Start 07/09/18 at 17:30 Pantoprazole (Protonix Tab) 40 mg DAILY@06 PO Last administered on 07/19/18 05:50; Admin Dose 40 MG; Start 07/10/18 at 06:00 Levofloxacin (Levaquin) 250 mg DAILY@06 PO Last administered on 3/8/19at 05:50; Admin Dose 250 MG; Start 07/17/18 at 06:00 Amoxicillin/ Clavulanate Potassium (Augmentin) 250 mg Q8 PO Last administered on 07/19/18at 13:42; Admin Dose 250 MG; Start 07/16/18 at 14:00 SYEDA LEÓN NP Jul 19, 2018 15:13
--- NOTE | 2018-07-19 16:08 | CONS ---
Assessment/Plan Assessment/Plan Assessment/Plan (Daily) - [facility] [place] [facility] - DM / DM Nephropathy - PNA - CAD / Hypertension - CAD / CHF - Anemia - Hyperphosphatemia PLAN: Bedside dialysis for hyperkalemia ( regular HD days are TTS ) On Abx for PNA & Peritonitis Monitor H/H Limit PO intake of potassium Aim for UF ~ 2-3 kg as tolerates Next HD on 07/20/2018 Uneventful day Plan for HD 07/20/2018 Monitor labs Follow up with H/H Abx per ID Consultation Date/Type/Reason Admit Date/Time Jul 09, 2018 at 00:40 Initial Consult Date 07/10/18 Type of Consult NEPHROLOGY Requesting Provider: FANI AYALA Date/Time of Note DATE: 07/19/18 TIME: 16:07 24 HR Interval Summary Constitutional: no complaints, improved Exam/Review of Systems Exam Vitals Vital Signs Date Temp Pulse Resp B/P (MAP) Pulse Ox O2 O2 Flow FiO2 Time Delivery Rate 07/19/18 98.2 60 19 123/59 97 15:26 (80) 07/18/18 Room Air 15:11 Intake and Output 07/18/18 07/18/18 07/19/18 1414:59 22:59 06:59 IntakeIntake Total 800 ml 320 ml OutputOutput Total 200 ml 2400 ml BalanceBalance -200 ml -1600 ml 320 ml Constitutional: alert, oriented Respiratory: clear to auscultation Cardiovascular: regular rate and rhythm, systolic murmur Gastrointestinal: soft Results Result Diagram: 07/19/18 0533 07/19/18 0533 Results 24hrs Laboratory Tests Test 07/18/18 16:41 07/18/18 20:05 07/19/18 05:33 07/19/18 07:51 Bedside Glucose 150 195 112 White Blood Count 5.9 Red Blood Count 3.42 L Hemoglobin 9.2 L Hematocrit 29.4 L Mean Corpuscular Volume 86.0 Mean Corpuscular 26.9 L Hemoglobin Mean Corpuscular 31.3 L Hemoglobin Concent Red Cell Distribution 14.4 Width Platelet Count 175 Mean Platelet Volume 9.4 Immature Granulocytes % 0.500 H Neutrophils % 78.2 H Lymphocytes % 9.5 L Monocytes % 9.8 Eosinophils % 1.7 Basophils % 0.3 Nucleated Red Blood 0.0 Cells % Immature Granulocytes # 0.030 Neutrophils # 4.6 Lymphocytes # 0.6 L Monocytes # 0.6 Eosinophils # 0.1 Basophils # 0.0 Nucleated Red Blood 0.0 Cells # Sodium Level 137 Potassium Level 4.5 Chloride Level 97 Carbon Dioxide Level 29 Anion Gap 11 Blood Urea Nitrogen 26 #H Creatinine 4.90 #H Est Glomerular Filtrat 12 L Rate mL/min Glucose Level 105 Calcium Level 8.7 Test 07/19/18 11:24 Bedside Glucose 166 Medications Medication Current Medications Amlodipine Besylate (Norvasc) 10 mg DAILY PO Last administered on 07/19/18 08:03; Admin Dose 10 MG; Start 07/09/18 at 09:00 Aspirin (Aspirin) 81 mg DAILY PO Last administered on 07/19/18 08:03; Admin Dose 81 MG; Start 07/09/18 at 09:00 Clonidine (Catapres) 0.1 mg Q8 PO Last administered on 07/19/18 13:42; Admin Dose 0.1 MG; Start 07/09/18 at 06:00 Furosemide (Lasix) 20 mg DAILY PO Last administered on 07/19/18 08:03; Admin Dose 20 MG; Start 07/09/18 at 09:00 Insulin Glargine (Lantus) 9 units HS SC Last administered on 07/18/18 21:12; Admin Dose 9 UNITS; Start 07/09/18 at 21:00 Lisinopril (Zestril) 5 mg DAILY PO Last administered on 07/19/18 08:03; Admin Dose 5 MG; Start 07/09/18 at 09:00 Pioglitazone HCl (Actos) 15 mg DAILY PO Last administered on 07/19/18 08:03; Admin Dose 15 MG; Start 07/09/18 at 09:00 Diagnostic Test (Pha) (Accu-Chek) 1 ea AC MEALS AND BEDTIME XX Last administered on 07/19/18 11:25; Admin Dose 1 EA; Start 07/09/18 at 07:00 Insulin Aspart (Novolog Insulin Pen) NOVOLOG *MILD* ALGORITHM WITH MEALS BEDTIME SC Last administered on 07/19/18 11:38; Admin Dose 1 UNIT; Start 07/09/18 at 08:00 Hydralazine HCl (Apresoline) 25 mg Q6H PRN PO ELEVATED BLOOD PRESSURE; Start 07/09/18 at 04:00 Acetaminophen (Tylenol Tab) 650 mg Q4H PRN PO MILD PAIN(1-3)OR ELEVATED TEMP Last administered on 07/09/18at 04:44; Admin Dose 650 MG; Start 07/09/18 at 04:00 Ondansetron HCl (Zofran Inj) 4 mg Q4H PRN IV NAUSEA AND/OR VOMITING Last administered on 07/09/18 04:44; Admin Dose 4 MG; Start 07/09/18 at 04:00 Miscellaneous Information 1 ea NOTE XX ; Start 07/09/18 at 05:00 Glucose (Glutose) 15 gm Q15M PRN PO DECREASED GLUCOSE; Start 07/09/18 at 05:00 Glucose (Glutose) 22.5 gm Q15M PRN PO DECREASED GLUCOSE; Start 07/09/18 at 05:00 Dextrose (D50w Syringe) 25 ml Q15M PRN IV DECREASED GLUCOSE Last administered on 07/17/18 08:21; Admin Dose 25 ML; Start 07/09/18 at 05:00 Dextrose (D50w Syringe) 50 ml Q15M PRN IV DECREASED GLUCOSE; Start 07/09/18 at 05:00 Glucagon (Glucagen) 1 mg Q15M PRN IM DECREASED GLUCOSE; Start 07/09/18 at 05:00 Glucose (Glutose) 15 gm Q15M PRN BUCCAL DECREASED GLUCOSE; Start 07/09/18 at 05:00 Hydroxyzine HCl (Atarax) 50 mg Q6H PRN PO ITCHING; Start 07/09/18 at 07:00 Metoclopramide HCl (Reglan) 5 mg AC MEALS AND BEDTIME IV Last administered on 07/18/18 21:10; Admin Dose 5 MG; Start 07/09/18 at 17:30 Pantoprazole (Protonix Tab) 40 mg DAILY@06 PO Last administered on 07/19/18 05:50; Admin Dose 40 MG; Start 07/10/18 at 06:00 Levofloxacin (Levaquin) 250 mg DAILY@06 PO Last administered on 07/19/18at 05:50; Admin Dose 250 MG; Start 07/17/18 at 06:00 PACO LAZO MD Jul 19, 2018 16:08
[2018-07-19] MEDS: INSULIN GLARGINE [LANTus] (100 UNITS/ML) SYG SC SCH (23:08)
[2018-07-20] VITALS (26 sets, daily range): BP systolic 111–152; BP diastolic 52–71; PULSE 50–90; RESP 17–22
[2018-07-20] MEDS: LEVOFLOXACIN 250 MG TAB PO SCH (05:36)
[2018-07-20] MEDS: PANTOPRAZOLE (EC) 40 MG TAB PO SCH (05:36)
[2018-07-20] MEDS: METOCLOPRAMIDE 10 MG INJ IV SCH ×4 (07:00→20:09)
[2018-07-20] MEDS: ACCU-CHEK XX SCH ×4 (07:00→21:08)
[2018-07-20] MEDS: INSULIN ASPART [NOVOLOG] 3 ML PEN SC SCH ×4 (08:00→20:08)
[2018-07-20] MEDS: PIOGLITAZONE 15 MG TAB PO SCH (08:35)
[2018-07-20] MEDS: ASPIRIN 81 MG TAB PO SCH (08:35)
--- NOTE | 2018-07-20 09:37 | PN ---
Date/Time of Note Date/Time of Note DATE: 07/20/18 TIME: 09:36 Assessment/Plan VTE Prophylaxis Risk score (from Ns)>0 risk: 3 SCD applied (from [facility]): No SCD contraindicated: other Pharmacological prophylaxis: heparin Lines/Catheters IV Catheter Type (from [facility] Saline Lock Urinary Cath still in place: No Assessment/Plan Hospital Course - Hyperkalemia- resolved - continue hemodialysis per nephrology. Dr. Dobbins is following in nephrology consultation - Pneumonia, improving. Status post vancomycin and Zosyn, currently on Augmentin and Levaquin. - Spontaneous bacterial peritonitis. S/p vancomycin and Zosyn. - Diabetes. Continue Lantus and NovoLog. - Hypertension. Continue Norvasc and lisinopril. - End-stage renal disease. Continue hemodialysis as tolerated. - Possible history of coronary artery disease, status post myocardial infarction. Continue aspirin. - EF is 55% - Ascites, status post paracentesis. -Dr. Lopez is following in gastroenterology consultation. - Omental mass, s/p CT-guided biopsy by radiology- fu results Result Diagram: 07/19/18 0533 07/20/18 0535 Results 24hrs Laboratory Tests Test 07/19/18 11:24 07/19/18 18:10 07/19/18 22:51 07/20/18 05:35 Bedside Glucose 166 139 144 Sodium Level 135 Potassium Level 4.7 Chloride Level 96 L Carbon Dioxide Level 25 Anion Gap 14 H Blood Urea Nitrogen 36 H Creatinine 6.62 H Est Glomerular Filtrat 8 L Rate mL/min Glucose Level 122 Calcium Level 8.7 Test 07/20/18 07:39 Bedside Glucose 129 Subjective 24 Hr Interval Summary Free Text/Dictation Patient has no complaints, is currently receiving hemodialysis Exam/Review of Systems Exam Vitals Vital Signs Date Temp Pulse Resp B/P (MAP) Pulse Ox O2 O2 Flow FiO2 Time Delivery Rate 07/20/18 51 09:20 07/20/18 20 144/60 98 Room Air 08:30 (88) 07/20/18 98.5 07:26 Intake and Output 07/19/18 07/19/18 07/20/18 1414:59 22:59 06:59 IntakeIntake Total 1300 ml 880 ml BalanceBalance 1300 ml 880 ml Constitutional: well developed Head: normocephalic, atraumatic Neck: supple Respiratory: diminished breath sounds Cardiovascular: regular rate and rhythm Gastrointestinal: soft, non-tender Extremities: normal pulses Results Results 24hrs Laboratory Tests Test 07/19/18 11:24 07/19/18 18:10 07/19/18 22:51 07/20/18 05:35 Bedside Glucose 166 139 144 Sodium Level 135 Potassium Level 4.7 Chloride Level 96 L Carbon Dioxide Level 25 Anion Gap 14 H Blood Urea Nitrogen 36 H Creatinine 6.62 H Est Glomerular Filtrat 8 L Rate mL/min Glucose Level 122 Calcium Level 8.7 Test 07/20/18 07:39 Bedside Glucose 129 Medications Medication Current Medications Amlodipine Besylate (Norvasc) 10 mg DAILY PO Last administered on 07/19/18 08:03; Admin Dose 10 MG; Start 07/09/18 at 09:00 Aspirin (Aspirin) 81 mg DAILY PO Last administered on 07/20/18 08:35; Admin Dose 81 MG; Start 07/09/18 at 09:00 Clonidine (Catapres) 0.1 mg Q8 PO Last administered on 07/20/18 05:36; Admin Dose 0.1 MG; Start 07/09/18 at 06:00 Furosemide (Lasix) 20 mg DAILY PO Last administered on 07/19/18 08:03; Admin Dose 20 MG; Start 07/09/18 at 09:00 Insulin Glargine (Lantus) 9 units HS SC Last administered on 07/19/18 23:08; Admin Dose 9 UNITS; Start 07/09/18 at 21:00 Lisinopril (Zestril) 5 mg DAILY PO Last administered on 07/19/18 08:03; Admin Dose 5 MG; Start 07/09/18 at 09:00 Pioglitazone HCl (Actos) 15 mg DAILY PO Last administered on 07/20/18 08:35; Admin Dose 15 MG; Start 07/09/18 at 09:00 Diagnostic Test (Pha) (Accu-Chek) 1 ea AC MEALS AND BEDTIME XX Last administered on 07/19/18 22:50; Admin Dose 1 EA; Start 07/09/18 at 07:00 Insulin Aspart (Novolog Insulin Pen) NOVOLOG *MILD* ALGORITHM WITH MEALS BEDTIME SC Last administered on 07/19/18 11:38; Admin Dose 1 UNIT; Start 07/09/18 at 08:00 Hydralazine HCl (Apresoline) 25 mg Q6H PRN PO ELEVATED BLOOD PRESSURE; Start 07/09/18 at 04:00 Acetaminophen (Tylenol Tab) 650 mg Q4H PRN PO MILD PAIN(1-3)OR ELEVATED TEMP Last administered on 07/09/18at 04:44; Admin Dose 650 MG; Start 07/09/18 at 04:00 Ondansetron HCl (Zofran Inj) 4 mg Q4H PRN IV NAUSEA AND/OR VOMITING Last administered on 07/09/18at 04:44; Admin Dose 4 MG; Start 07/09/18 at 04:00 Miscellaneous Information 1 ea NOTE XX ; Start 07/09/18 at 05:00 Glucose (Glutose) 15 gm Q15M PRN PO DECREASED GLUCOSE; Start 07/09/18 at 05:00 Glucose (Glutose) 22.5 gm Q15M PRN PO DECREASED GLUCOSE; Start 07/09/18 at 05:00 Dextrose (D50w Syringe) 25 ml Q15M PRN IV DECREASED GLUCOSE Last administered on 07/17/18at 08:21; Admin Dose 25 ML; Start 07/09/18 at 05:00 Dextrose (D50w Syringe) 50 ml Q15M PRN IV DECREASED GLUCOSE; Start 07/09/18 at 05:00 Glucagon (Glucagen) 1 mg Q15M PRN IM DECREASED GLUCOSE; Start 07/09/18 at 05:00 Glucose (Glutose) 15 gm Q15M PRN BUCCAL DECREASED GLUCOSE; Start 07/09/18 at 05:00 Hydroxyzine HCl (Atarax) 50 mg Q6H PRN PO ITCHING; Start 07/09/18 at 07:00 Metoclopramide HCl (Reglan) 5 mg AC MEALS AND BEDTIME IV Last administered on 07/19/18at 22:57; Admin Dose 5 MG; Start 07/09/18 at 17:30 Pantoprazole (Protonix Tab) 40 mg DAILY@06 PO Last administered on 07/20/18at 05:36; Admin Dose 40 MG; Start 07/10/18 at 06:00 Levofloxacin (Levaquin) 250 mg DAILY@06 PO Last administered on 07/20/18at 05:36; Admin Dose 250 MG; Start 07/17/18 at 06:00 RONALD HIDALGO Jul 20, 2018 09:37
[2018-07-20] MEDS: FUROSEMIDE 20 MG TAB PO SCH (12:02)
[2018-07-20] MEDS: LISINOPRIL 5 MG TAB PO SCH (12:03)
[2018-07-20] MEDS: AMLODIPINE 10 MG TAB PO SCH (12:03)
--- NOTE | 2018-07-20 13:57 | CONS ---
Consultation Date/Type/Reason Admit Date/Time Jul 09, 2018 at 00:40 Initial Consult Date SUBJECTIVE: Pt is awake, alert, afebrile. Resting in bed. VS: stable T: 98.4 LABS: reviewed. WBC remained WNL. Antimicrobials: Levaquin Microbiology: All cultures negative Omental mass, CT-guided needle core biopsies: -- Adipose tissue with interstitial fibrosis, mesothelial cell hyperplasia, focal fat necrosis and focal mild chronic inflammation (see comment). Physical examination: GEN: Well-developed elderly man who is awake in no distress. HENT: Head atraumatic normocephalic, sclera nonicteric. Neck is supple. PULM: Chest rise symmetrical, breath sounds diminished bases. Heart: S1-S2. Abdomen soft, bowel sounds present. Extremities without cyanosis Assessment: 1. SBP 2. Questionable omental tumor per CT of the abdomen 3. Coronary artery disease, status post permanent pacemaker 4. Chronic kidney disease, hemodialysis dependent/L AVF 5. Questionable pneumonia Plan: Patient remains stable. Continue oral Levaquin for 3 more days. Requesting Provider: FANI AYALA Date/Time of Note DATE: 07/20/18 TIME: 13:54 Exam/Review of Systems Exam Vitals Vital Signs Date Temp Pulse Resp B/P (MAP) Pulse Ox O2 O2 Flow FiO2 Time Delivery Rate 07/20/18 58 12:01 07/20/18 98.4 20 131/54 94 Room Air 11:04 (79) Intake and Output 07/19/18 07/19/18 07/20/18 1515:00 23:00 07:00 IntakeIntake Total 1300 ml 880 ml BalanceBalance 1300 ml 880 ml Results Result Diagram: 07/19/18 0533 07/20/18 0535 Results 24hrs Laboratory Tests Test 07/19/18 18:10 07/19/18 22:51 07/20/18 05:35 07/20/18 07:39 Bedside Glucose 139 144 129 Sodium Level 135 Potassium Level 4.7 Chloride Level 96 L Carbon Dioxide Level 25 Anion Gap 14 H Blood Urea Nitrogen 36 H Creatinine 6.62 H Est Glomerular Filtrat 8 L Rate mL/min Glucose Level 122 Calcium Level 8.7 Test 07/20/18 11:59 Bedside Glucose 122 Medications Medication Current Medications Amlodipine Besylate (Norvasc) 10 mg DAILY PO Last administered on 07/20/18 12:03; Admin Dose 10 MG; Start 07/09/18 at 09:00 Aspirin (Aspirin) 81 mg DAILY PO Last administered on 07/20/18 08:35; Admin Dose 81 MG; Start 07/09/18 at 09:00 Clonidine (Catapres) 0.1 mg Q8 PO Last administered on 07/20/18 13:33; Admin Dose 0.1 MG; Start 07/09/18 at 06:00 Furosemide (Lasix) 20 mg DAILY PO Last administered on 07/20/18 12:02; Admin Dose 20 MG; Start 07/09/18 at 09:00 Insulin Glargine (Lantus) 9 units HS SC Last administered on 07/19/18 23:08; Admin Dose 9 UNITS; Start 07/09/18 at 21:00 Lisinopril (Zestril) 5 mg DAILY PO Last administered on 07/20/18 12:03; Admin Dose 5 MG; Start 07/09/18 at 09:00 Pioglitazone HCl (Actos) 15 mg DAILY PO Last administered on 07/20/18 08:35; Admin Dose 15 MG; Start 07/09/18 at 09:00 Diagnostic Test (Pha) (Accu-Chek) 1 ea AC MEALS AND BEDTIME XX Last administered on 07/19/18 22:50; Admin Dose 1 EA; Start 07/09/18 at 07:00 Insulin Aspart (Novolog Insulin Pen) NOVOLOG *MILD* ALGORITHM WITH MEALS BEDTIME SC Last administered on 07/19/18 11:38; Admin Dose 1 UNIT; Start 07/09/18 at 08:00 Hydralazine HCl (Apresoline) 25 mg Q6H PRN PO ELEVATED BLOOD PRESSURE; Start 07/09/18 at 04:00 Acetaminophen (Tylenol Tab) 650 mg Q4H PRN PO MILD PAIN(1-3)OR ELEVATED TEMP Last administered on 07/09/18 04:44; Admin Dose 650 MG; Start 07/09/18 at 04:00 Ondansetron HCl (Zofran Inj) 4 mg Q4H PRN IV NAUSEA AND/OR VOMITING Last administered on 07/09/18 04:44; Admin Dose 4 MG; Start 07/09/18 at 04:00 Miscellaneous Information 1 ea NOTE XX ; Start 07/09/18 at 05:00 Glucose (Glutose) 15 gm Q15M PRN PO DECREASED GLUCOSE; Start 07/09/18 at 05:00 Glucose (Glutose) 22.5 gm Q15M PRN PO DECREASED GLUCOSE; Start 07/09/18 at 05:00 Dextrose (D50w Syringe) 25 ml Q15M PRN IV DECREASED GLUCOSE Last administered on 07/17/18at 08:21; Admin Dose 25 ML; Start 07/09/18 at 05:00 Dextrose (D50w Syringe) 50 ml Q15M PRN IV DECREASED GLUCOSE; Start 07/09/18 at 05:00 Glucagon (Glucagen) 1 mg Q15M PRN IM DECREASED GLUCOSE; Start 07/09/18 at 05:00 Glucose (Glutose) 15 gm Q15M PRN BUCCAL DECREASED GLUCOSE; Start 07/09/18 at 05:00 Hydroxyzine HCl (Atarax) 50 mg Q6H PRN PO ITCHING; Start 07/09/18 at 07:00 Metoclopramide HCl (Reglan) 5 mg AC MEALS AND BEDTIME IV Last administered on 07/20/18at 12:03; Admin Dose 5 MG; Start 07/09/18 at 17:30 Pantoprazole (Protonix Tab) 40 mg DAILY@06 PO Last administered on 07/20/18at 05:36; Admin Dose 40 MG; Start 07/10/18 at 06:00 Levofloxacin (Levaquin) 250 mg DAILY@06 PO Last administered on 07/20/18at 05:36; Admin Dose 250 MG; Start 07/17/18 at 06:00 ESA CARTER Jul 20, 2018 13:57
--- NOTE | 2018-07-20 15:17 | CONS ---
DATE OF ADMISSION: 07/09/2018 DATE OF CONSULTATION: The patient underwent percutaneous biopsy of the mesenteric mass-like structure. This pathology came back as benign process. There is no malignancy that was obviously seen in the given tissue. PHYSICAL EXAMINATION: GENERAL: The patient appears alert. VITAL SIGNS: Normal. CARDIOVASCULAR: Normal heart sounds. RESPIRATORY: Normal breath sounds. ABDOMEN: Showed unremarkable findings. Minimal prominence in terms of ascites is appreciated. LABORATORY WORKUP: Hemoglobin 9.2, potassium 4.7. CLINICAL IMPRESSION: The patient is status post CT-guided biopsy of the mesenteric mass which is a be nign process. Etiology of the ascites is not clear. It could be due to renal failure, could be due to congestive heart failure. PLAN: Continue diuretic therapy. Continue antibiotics for spontaneous bacterial peritonitis. Dictated By: NAILA MERCER MD NC/NTS Conf#: [id number] DID#: [id number] CC: SAURABH WEINSTEIN MD;*EndCC*
[2018-07-20] MEDS: INSULIN GLARGINE [LANTus] (100 UNITS/ML) SYG SC SCH (20:27)
[2018-07-21] VITALS (11 sets, daily range): BP systolic 129–160; BP diastolic 60–77; PULSE 54–71; RESP 18–20
[2018-07-21] MEDS: METOCLOPRAMIDE 10 MG INJ IV SCH ×4 (06:52→20:19)
[2018-07-21] MEDS: LEVOFLOXACIN 250 MG TAB PO SCH (06:52)
[2018-07-21] MEDS: PANTOPRAZOLE (EC) 40 MG TAB PO SCH (06:52)
[2018-07-21] MEDS: ACCU-CHEK XX SCH ×4 (07:34→20:20)
[2018-07-21] MEDS: INSULIN ASPART [NOVOLOG] 3 ML PEN SC SCH ×4 (08:00→20:19)
[2018-07-21] MEDS: PIOGLITAZONE 15 MG TAB PO SCH (08:12)
[2018-07-21] MEDS: AMLODIPINE 10 MG TAB PO SCH (08:12)
[2018-07-21] MEDS: FUROSEMIDE 20 MG TAB PO SCH (08:12)
[2018-07-21] MEDS: ASPIRIN 81 MG TAB PO SCH (08:13)
[2018-07-21] MEDS: LISINOPRIL 5 MG TAB PO SCH (08:13)
--- NOTE | 2018-07-21 11:24 | PN ---
Date/Time of Note Date/Time of Note DATE: 07/21/18 TIME: 11:23 Assessment/Plan VTE Prophylaxis Risk score (from Ns)>0 risk: 3 SCD applied (from [facility] No SCD contraindicated: other Pharmacological prophylaxis: LMWH Lines/Catheters IV Catheter Type (from [facility]): Saline Lock Urinary Cath still in place: No Assessment/Plan Hospital Course - Hyperkalemia- resolved - continue hemodialysis per nephrology. Dr. Dobbins is following in nephrology consultation - Pneumonia, improving. Status post vancomycin and Zosyn, currently on Augmentin and Levaquin. - Spontaneous bacterial peritonitis. S/p vancomycin and Zosyn. - Diabetes. Continue Lantus and NovoLog. - Hypertension. Continue Norvasc and lisinopril. - End-stage renal disease. Continue hemodialysis as tolerated. - Possible history of coronary artery disease, status post myocardial infarction. Continue aspirin. - EF is 55% - Ascites, status post paracentesis. -Dr. Lopez is following in gastroenterology consultation. - Omental mass, s/p CT-guided biopsy by radiology- fu results Result Diagram: 07/19/18 0533 07/21/18 0557 Results 24hrs Laboratory Tests Test 07/20/18 11:59 07/20/18 17:11 07/20/18 20:06 07/21/18 05:57 Bedside Glucose 122 121 150 Sodium Level 137 Potassium Level 4.3 Chloride Level 97 Carbon Dioxide Level 30 Anion Gap 10 Blood Urea Nitrogen 29 H Creatinine 5.49 H Est Glomerular Filtrat 10 L Rate mL/min Glucose Level 104 Calcium Level 8.8 Test 07/21/18 07:55 Bedside Glucose 105 Subjective 24 Hr Interval Summary Free Text/Dictation Patient has no complaints Exam/Review of Systems Exam Vitals Vital Signs Date Temp Pulse Resp B/P (MAP) Pulse Ox O2 O2 Flow FiO2 Time Delivery Rate 07/21/18 69 08:01 07/21/18 98.4 20 139/66 93 Room Air 07:45 (90) Intake and Output 07/20/18 07/20/18 07/21/18 1414:59 22:59 06:59 IntakeIntake Total 880 ml 500 ml OutputOutput Total 3700 ml 3100 ml BalanceBalance -3700 ml -2220 ml 500 ml Constitutional: well developed Head: normocephalic, atraumatic Neck: supple Respiratory: clear to auscultation Cardiovascular: regular rate and rhythm Gastrointestinal: soft, non-tender Extremities: normal pulses Results Results 24hrs Laboratory Tests Test 07/20/18 11:59 07/20/18 17:11 07/20/18 20:06 07/21/18 05:57 Bedside Glucose 122 121 150 Sodium Level 137 Potassium Level 4.3 Chloride Level 97 Carbon Dioxide Level 30 Anion Gap 10 Blood Urea Nitrogen 29 H Creatinine 5.49 H Est Glomerular Filtrat 10 L Rate mL/min Glucose Level 104 Calcium Level 8.8 Test 07/21/18 07:55 Bedside Glucose 105 Medications Medication Current Medications Amlodipine Besylate (Norvasc) 10 mg DAILY PO Last administered on 07/21/18 08:12; Admin Dose 10 MG; Start 07/09/18 at 09:00 Aspirin (Aspirin) 81 mg DAILY PO Last administered on 07/21/18 08:13; Admin Dose 81 MG; Start 07/09/18 at 09:00 Clonidine (Catapres) 0.1 mg Q8 PO Last administered on 07/21/18 06:53; Admin Dose 0.1 MG; Start 07/09/18 at 06:00 Furosemide (Lasix) 20 mg DAILY PO Last administered on 07/21/18 08:12; Admin Dose 20 MG; Start 07/09/18 at 09:00 Insulin Glargine (Lantus) 9 units HS SC Last administered on 07/20/18 20:27; Admin Dose 9 UNITS; Start 07/09/18 at 21:00 Lisinopril (Zestril) 5 mg DAILY PO Last administered on 07/21/18 08:13; Admin Dose 5 MG; Start 07/09/18 at 09:00 Pioglitazone HCl (Actos) 15 mg DAILY PO Last administered on 07/21/18 08:12; Admin Dose 15 MG; Start 07/09/18 at 09:00 Diagnostic Test (Pha) (Accu-Chek) 1 ea AC MEALS AND BEDTIME XX Last administered on 07/21/18 07:34; Admin Dose 1 EA; Start 07/09/18 at 07:00 Insulin Aspart (Novolog Insulin Pen) NOVOLOG *MILD* ALGORITHM WITH MEALS BEDTIME SC Last administered on 3/8/19at 11:38; Admin Dose 1 UNIT; Start 07/09/18 at 08:00 Hydralazine HCl (Apresoline) 25 mg Q6H PRN PO ELEVATED BLOOD PRESSURE; Start 07/09/18 at 04:00 Acetaminophen (Tylenol Tab) 650 mg Q4H PRN PO MILD PAIN(1-3)OR ELEVATED TEMP Last administered on 07/09/18at 04:44; Admin Dose 650 MG; Start 07/09/18 at 04:00 Ondansetron HCl (Zofran Inj) 4 mg Q4H PRN IV NAUSEA AND/OR VOMITING Last ad ministered on 07/09/18at 04:44; Admin Dose 4 MG; Start 07/09/18 at 04:00 Miscellaneous Information 1 ea NOTE XX ; Start 07/09/18 at 05:00 Glucose (Glutose) 15 gm Q15M PRN PO DECREASED GLUCOSE; Start 07/09/18 at 05:00 Glucose (Glutose) 22.5 gm Q15M PRN PO DECREASED GLUCOSE; Start 07/09/18 at 05:00 Dextrose (D50w Syringe) 25 ml Q15M PRN IV DECREASED GLUCOSE Last administered on 07/17/18at 08:21; Admin Dose 25 ML; Start 07/09/18 at 05:00 Dextrose (D50w Syringe) 50 ml Q15M PRN IV DECREASED GLUCOSE; Start 07/09/18 at 05:00 Glucagon (Glucagen) 1 mg Q15M PRN IM DECREASED GLUCOSE; Start 07/09/18 at 05:00 Glucose (Glutose) 15 gm Q15M PRN BUCCAL DECREASED GLUCOSE; Start 07/09/18 at 05:00 Hydroxyzine HCl (Atarax) 50 mg Q6H PRN PO ITCHING; Start 07/09/18 at 07:00 Metoclopramide HCl (Reglan) 5 mg AC MEALS AND BEDTIME IV Last administered on 07/20/18at 17:15; Admin Dose 5 MG; Start 07/09/18 at 17:30 Pantoprazole (Protonix Tab) 40 mg DAILY@06 PO Last administered on 07/21/18 06:52; Admin Dose 40 MG; Start 07/10/18 at 06:00 Levofloxacin (Levaquin) 250 mg DAILY@06 PO Last administered on 07/21/18at 06:52; Admin Dose 250 MG; Start 07/17/18 at 06:00 RONALD HIDALGO Jul 21, 2018 11:24
--- NOTE | 2018-07-21 11:41 | CONS ---
Consultation Date/Type/Reason Admit Date/Time Jul 09, 2018 at 00:40 Initial Consult Date SUBJECTIVE: Pt is awake, alert, afebrile. No acute events over night VS: stable T: 98.4 LABS: reviewed. Antimicrobials: Levaquin Microbiology: All cultures negative Omental mass, CT-guided needle core biopsies: -- Adipose tissue with interstitial fibrosis, mesothelial cell hyperplasia, focal fat necrosis and focal mild chronic inflammation (see comment). Physical examination: GEN: Well-developed elderly man who is awake in no distress. HENT: Head atraumatic normocephalic, sclera nonicteric. Neck is supple. PULM: Chest rise symmetrical, breath sounds diminished bases. Heart: S1-S2. Abdomen soft, bowel sounds present. Extremities without cyanosis Assessment: 1. SBP 2. Questionable omental tumor per CT of the abdomen 3. Coronary artery disease, status post permanent pacemaker 4. Chronic kidney disease, hemodialysis dependent/L AVF 5. Questionable pneumonia Plan: Patient remains stable. Continue oral Levaquin for 2 more days. Requesting Provider: FANI AYALA Date/Time of Note DATE: 07/21/18 TIME: 11:40 Exam/Review of Systems Exam Vitals Vital Signs Date Temp Pulse Resp B/P (MAP) Pulse Ox O2 O2 Flow FiO2 Time Delivery Rate 07/21/18 69 08:01 07/21/18 98.4 20 139/66 93 Room Air 07:45 (90) Intake and Output 07/20/18 07/20/18 07/21/18 1515:00 23:00 07:00 IntakeIntake Total 880 ml 500 ml OutputOutput Total 3700 ml 3100 ml BalanceBalance -3700 ml -2220 ml 500 ml Results Result Diagram: 07/19/18 0533 07/21/18 0557 Results 24hrs Laboratory Tests Test 07/20/18 11:59 07/20/18 17:11 07/20/18 20:06 07/21/18 05:57 Bedside Glucose 122 121 150 Sodium Level 137 Potassium Level 4.3 Chloride Level 97 Carbon Dioxide Level 30 Anion Gap 10 Blood Urea Nitrogen 29 H Creatinine 5.49 H Est Glomerular Filtrat 10 L Rate mL/min Glucose Level 104 Calcium Level 8.8 Test 07/21/18 07:55 Bedside Glucose 105 Medications Medication Current Medications Amlodipine Besylate (Norvasc) 10 mg DAILY PO Last administered on 07/21/18 08:12; Admin Dose 10 MG; Start 07/09/18 at 09:00 Aspirin (Aspirin) 81 mg DAILY PO Last administered on 07/21/18 08:13; Admin Dose 81 MG; Start 07/09/18 at 09:00 Clonidine (Catapres) 0.1 mg Q8 PO Last administered on 07/21/18 06:53; Admin Dose 0.1 MG; Start 07/09/18 at 06:00 Furosemide (Lasix) 20 mg DAILY PO Last administered on 07/21/18 08:12; Admin Dose 20 MG; Start 07/09/18 at 09:00 Insulin Glargine (Lantus) 9 units HS SC Last administered on 07/20/18 20:27; Admin Dose 9 UNITS; Start 07/09/18 at 21:00 Lisinopril (Zestril) 5 mg DAILY PO Last administered on 07/21/18 08:13; Admin Dose 5 MG; Start 07/09/18 at 09:00 Pioglitazone HCl (Actos) 15 mg DAILY PO Last administered on 07/21/18 08:12; Admin Dose 15 MG; Start 07/09/18 at 09:00 Diagnostic Test (Pha) (Accu-Chek) 1 ea AC MEALS AND BEDTIME XX Last administered on 07/21/18 07:34; Admin Dose 1 EA; Start 07/09/18 at 07:00 Insulin Aspart (Novolog Insulin Pen) NOVOLOG *MILD* ALGORITHM WITH MEALS BEDTIME SC Last administered on 07/19/18 11:38; Admin Dose 1 UNIT; Start 07/09/18 at 08:00 Hydralazine HCl (Apresoline) 25 mg Q6H PRN PO ELEVATED BLOOD PRESSURE; Start 07/09/18 at 04:00 Acetaminophen (Tylenol Tab) 650 mg Q4H PRN PO MILD PAIN(1-3)OR ELEVATED TEMP Last administered on 07/09/18 04:44; Admin Dose 650 MG; Start 07/09/18 at 04:00 Ondansetron HCl (Zofran Inj) 4 mg Q4H PRN IV NAUSEA AND/OR VOMITING Last ad ministered on 07/09/18 04:44; Admin Dose 4 MG; Start 07/09/18 at 04:00 Miscellaneous Information 1 ea NOTE XX ; Start 07/09/18 at 05:00 Glucose (Glutose) 15 gm Q15M PRN PO DECREASED GLUCOSE; Start 07/09/18 at 05:00 Glucose (Glutose) 22.5 gm Q15M PRN PO DECREASED GLUCOSE; Start 07/09/18 at 05:00 Dextrose (D50w Syringe) 25 ml Q15M PRN IV DECREASED GLUCOSE Last administered on 07/17/18at 08:21; Admin Dose 25 ML; Start 07/09/18 at 05:00 Dextrose (D50w Syringe) 50 ml Q15M PRN IV DECREASED GLUCOSE; Start 07/09/18 at 05:00 Glucagon (Glucagen) 1 mg Q15M PRN IM DECREASED GLUCOSE; Start 07/09/18 at 05:00 Glucose (Glutose) 15 gm Q15M PRN BUCCAL DECREASED GLUCOSE; Start 07/09/18 at 05:00 Hydroxyzine HCl (Atarax) 50 mg Q6H PRN PO ITCHING; Start 07/09/18 at 07:00 Metoclopramide HCl (Reglan) 5 mg AC MEALS AND BEDTIME IV Last administered on 07/20/18at 17:15; Admin Dose 5 MG; Start 07/09/18 at 17:30 Pantoprazole (Protonix Tab) 40 mg DAILY@06 PO Last administered on 07/21/18at 06:52; Admin Dose 40 MG; Start 07/10/18 at 06:00 Levofloxacin (Levaquin) 250 mg DAILY@06 PO Last administered on 07/21/18at 06:52; Admin Dose 250 MG; Start 07/17/18 at 06:00 ESA CARTER Jul 21, 2018 11:41
[2018-07-21] MEDS: INSULIN GLARGINE [LANTus] (100 UNITS/ML) SYG SC SCH (20:30)
[2018-07-22] VITALS (8 sets, daily range): BP systolic 136–162; BP diastolic 64–69; PULSE 57–65; RESP 17–19
[2018-07-22] MEDS: LEVOFLOXACIN 250 MG TAB PO SCH (06:14)
[2018-07-22] MEDS: PANTOPRAZOLE (EC) 40 MG TAB PO SCH (06:14)
[2018-07-22] MEDS: ACCU-CHEK XX SCH ×2 (07:00→11:30)
[2018-07-22] MEDS: INSULIN ASPART [NOVOLOG] 3 ML PEN SC SCH ×2 (07:35→11:53)
[2018-07-22] MEDS: METOCLOPRAMIDE 10 MG INJ IV SCH ×2 (07:43→11:30)
[2018-07-22] MEDS: PIOGLITAZONE 15 MG TAB PO SCH (08:09)
[2018-07-22] MEDS: ASPIRIN 81 MG TAB PO SCH (08:09)
[2018-07-22] MEDS: FUROSEMIDE 20 MG TAB PO SCH (08:09)
[2018-07-22] MEDS: AMLODIPINE 10 MG TAB PO SCH (08:09)
[2018-07-22] MEDS: LISINOPRIL 5 MG TAB PO SCH (08:10)
--- NOTE | 2018-07-22 12:33 | CONS ---
Assessment/Plan Assessment/Plan Hospital Course (Demo Recall) No acute changes patient looks comfortable no fevers Antimicrobials: Augmentin, Levaquin Microbiology: All cultures negative Omental mass, CT-guided needle core biopsies: -- Adipose tissue with interstitial fibrosis, mesothelial cell hyperplasia, focal fat necrosis and focal mild chronic inflammation (see comment). Physical examination: Well-developed elderly man who is awake in no distress. Head atraumatic normocephalic sclera nonicteric. Neck is supple. Chest rise symmetrical, breath sounds diminished bases. Heart: S1-S2. abdomen soft, bowel sounds present. Extremities without cyanosis Assessment: 1. SBP 2. Questionable omental tumor per CT of the abdomen 3. Coronary artery disease, status post permanent pacemaker 4. Chronic kidney disease, hemodialysis dependent/L AVF 5. Questionable pneumonia Plan: Patient remains stable, completing abx, pending dc home Consultation Date/Type/Reason Admit Date/Time Jul 09, 2018 at 00:40 Initial Consult Date 07/10/18 Type of Consult id Requesting Provider: FANI AYALA Date/Time of Note DATE: 07/22/18 TIME: 12:32 Exam/Review of Systems Exam Vitals Vital Signs Date Temp Pulse Resp B/P (MAP) Pulse Ox O2 O2 Flow FiO2 Time Delivery Rate 07/22/18 98.2 61 19 136/64 91 11:09 (88) 07/21/18 Room Air 16:02 Intake and Output 07/21/18 07/21/18 07/22/18 1515:00 23:00 07:00 IntakeIntake Total 880 ml 500 ml BalanceBalance 880 ml 500 ml Results Result Diagram: 07/19/18 0533 07/21/18 0557 Results 24hrs Laboratory Tests Test 07/21/18 17:38 07/21/18 20:18 07/22/18 07:34 07/22/18 11:53 Bedside Glucose 136 107 77 108 Medications Medication Current Medications Amlodipine Besylate (Norvasc) 10 mg DAILY PO Last administered on 07/22/18at 0 8:09; Admin Dose 10 MG; Start 07/09/18 at 09:00 Aspirin (Aspirin) 81 mg DAILY PO Last administered on 07/22/18at 08:09; Admin Dose 81 MG; Start 07/09/18 at 09:00 Clonidine (Catapres) 0.1 mg Q8 PO Last administered on 07/22/18 06:15; Admin Dose 0.1 MG; Start 07/09/18 at 06:00 Furosemide (Lasix) 20 mg DAILY PO Last administered on 07/22/18 08:09; Admin Dose 20 MG; Start 07/09/18 at 09:00 Insulin Glargine (Lantus) 9 units HS SC Last administered on 07/21/18 20:30; Admin Dose 9 UNITS; Start 07/09/18 at 21:00 Lisinopril (Zestril) 5 mg DAILY PO Last administered on 07/22/18 08:10; Admin Dose 5 MG; Start 07/09/18 at 09:00 Pioglitazone HCl (Actos) 15 mg DAILY PO Last administered on 07/22/18 08:09; Admin Dose 15 MG; Start 07/09/18 at 09:00 Diagnostic Test (Pha) (Accu-Chek) 1 ea AC MEALS AND BEDTIME XX Last administered on 07/21/18 20:20; Admin Dose 1 EA; Start 07/09/18 at 07:00 Insulin Aspart (Novolog Insulin Pen) NOVOLOG *MILD* ALGORITHM WITH MEALS BEDTIME SC Last administered on 07/21/18 12:09; Admin Dose 1 UNIT; Start 07/09/18 at 08:00 Hydralazine HCl (Apresoline) 25 mg Q6H PRN PO ELEVATED BLOOD PRESSURE; Start 07/09/18 at 04:00 Acetaminophen (Tylenol Tab) 650 mg Q4H PRN PO MILD PAIN(1-3)OR ELEVATED TEMP Last administered on 07/09/18 04:44; Admin Dose 650 MG; Start 07/09/18 at 04:00 Ondansetron HCl (Zofran Inj) 4 mg Q4H PRN IV NAUSEA AND/OR VOMITING Last administered on 07/09/18 04:44; Admin Dose 4 MG; Start 07/09/18 at 04:00 Miscellaneous Information 1 ea NOTE XX ; Start 07/09/18 at 05:00 Glucose (Glutose) 15 gm Q15M PRN PO DECREASED GLUCOSE; Start 07/09/18 at 05:00 Glucose (Glutose) 22.5 gm Q15M PRN PO DECREASED GLUCOSE; Start 07/09/18 at 05:00 Dextrose (D50w Syringe) 25 ml Q15M PRN IV DECREASED GLUCOSE Last administered on 07/17/18at 08:21; Admin Dose 25 ML; Start 07/09/18 at 05:00 Dextrose (D50w Syringe) 50 ml Q15M PRN IV DECREASED GLUCOSE; Start 07/09/18 at 05:00 Glucagon (Glucagen) 1 mg Q15M PRN IM DECREASED GLUCOSE; Start 07/09/18 at 05:00 Glucose (Glutose) 15 gm Q15M PRN BUCCAL DECREASED GLUCOSE; Start 07/09/18 at 05:00 Hydroxyzine HCl (Atarax) 50 mg Q6H PRN PO ITCHING; Start 07/09/18 at 07:00 Metoclopramide HCl (Reglan) 5 mg AC MEALS AND BEDTIME IV Last administered on 07/22/18at 07:43; Admin Dose 5 MG; Start 07/09/18 at 17:30 Pantoprazole (Protonix Tab) 40 mg DAILY@06 PO Last administered on 07/22/18at 06:14; Admin Dose 40 MG; Start 07/10/18 at 06:00 Levofloxacin (Levaquin) 250 mg DAILY@06 PO Last administered on 07/22/18at 06:14; Admin Dose 250 MG; Start 07/17/18 at 06:00 SYEDA LEÓN NP Jul 22, 2018 12:32
[2018-07-22] MEDS ORDERED: LANT3I SC (15:43)
[2018-07-22] MEDS ORDERED: PANT40TA4 PO (15:43)
== END 2018-07-22 16:50 | disposition home or self-care (01) | DRG 371 ==
LOC: E/R 22:10 → 6WM 07-09 00:40
PROVIDERS: ADMIT Internal Medicine; ATTEND Internal Medicine
PROC: 5A1D70Z Performance of Urinary Filtration, Intermittent, Less than 6 Hours Per Day (ICD-10-PCS; 2018-07-09)
PROC: 0DB38ZX Excision of Lower Esophagus, Via Natural or Artificial Opening Endoscopic, Diagnostic (ICD-10-PCS; 2018-07-10)
PROC: 0DB68ZX Excision of Stomach, Via Natural or Artificial Opening Endoscopic, Diagnostic (ICD-10-PCS; 2018-07-10)
PROC: 0W9G3ZZ Drainage of Peritoneal Cavity, Percutaneous Approach (ICD-10-PCS; principal; 2018-07-10 07:30)
PROC: 0DBU3ZX Excision of Omentum, Percutaneous Approach, Diagnostic (ICD-10-PCS; 2018-07-17)
DX: K65.2 Spontaneous bacterial peritonitis (principal); J18.9 Pneumonia, unspecified organism; N18.6 End stage renal disease; I13.2 Hypertensive heart and chronic kidney disease with heart failure and with stage 5 chronic kidney disease, or end stage renal disease; R18.8 Other ascites; D63.1 Anemia in chronic kidney disease; K29.30 Chronic superficial gastritis without bleeding; E11.22 Type 2 diabetes mellitus with diabetic chronic kidney disease; E87.5 Hyperkalemia; E11.21 Type 2 diabetes mellitus with diabetic nephropathy; E83.39 Other disorders of phosphorus metabolism; I50.9 Heart failure, unspecified; I25.10 Atherosclerotic heart disease of native coronary artery without angina pectoris; R19.09 Other intra-abdominal and pelvic swelling, mass and lump; I25.2 Old myocardial infarction; Z95.0 Presence of cardiac pacemaker; Z99.2 Dependence on renal dialysis; Z79.82 Long term (current) use of aspirin; Z79.4 Long term (current) use of insulin
CPT/HCPCS: 71045; 74176; 76775; 77012; 80048; 80053; 80061; 80202; 82105; 82378; 82945; 82962; 83036; 83605; 84157; 84484; 85025; 85049; 85610; 85670; 85730; 86301; 86706; 87040; 87070; 87102; 87116; 87340; 88104; 88305; 88307; 88312; 88313; 89051; 90935; 93005; 93306; 96374; J0692; J1815; J2250; J2310; J2405; J2543; J2765; J3010; J3370; Q9967

== ENCOUNTER 2018-08-07 08:32 | Emergency (ER) | payer MEDICARE, OTHER ==
[~2018-08-07] VITALS: Wt 80.0 kg
[~2018-08-07 08:32] MED LIST changes: +PANT40TA4 PO
[2018-08-07] MEDS ORDERED: POTA-57 PO (09:29)
[2018-08-07] MEDS ORDERED: SIMV10TA PO (09:29)
[2018-08-07] MEDS ORDERED: FER325 PO (09:29)
[2018-08-07] MEDS ORDERED: CALC667C PO (09:29)
--- NOTE | 2018-08-07 10:59 | ERD ---
ER Documentation Chief Complaint Chief Complaint AP / SWELLING HERE 2 WEEKS AGO HPI 67-year-old male presents the emergency department complaining of abdominal swelling Patient is a somewhat limited historian. He has an extensive medical history including dialysis dependent renal failure. He presents the emergency department complaining of increasing abdominal distention. He has a questionable discomfort with the distention, but no localizing abdominal pain. He reports no fevers, chills, vomiting. He reports no diarrhea. He reports no urinary symptoms. Patient reports no chest pain or shortness of breath associated with the distention. He states that he has been compliant with his dialysis. ROS All systems reviewed and are negative except as per history of present illness. Medications Home Meds Active Scripts Pantoprazole* (Pantoprazole*) 40 Mg Tablet.dr, 40 MG PO DAILY@06 for 30 Days Prov:YUMIKO PAINTING 07/22/18 Insulin Glargine* (Lantus*) 100 Unit/Ml Soln, 9 UNIT SC HS for 30 Days, #1 BOTTLE Prov:YUMIKO PAINTING 07/22/18 Reported Medications Simvastatin* (Zocor*) 10 Mg Tablet, 10 MG PO QHS, #30 TAB 08/07/18 Potassium Chloride* (Klor-Con*) 20 Meq Tabsr, 20 MEQ PO DAILY, TAB.SA 08/07/18 Calcium Acetate* (Calcium Acetate*) 667 Mg Capsule, 667 MG PO WITH MEALS, #30 CAP 08/07/18 Ferrous Sulfate* (Ferrous Sulfate*) 325 Mg Tabec, 325 MG PO DAILY, TAB 08/07/18 Amlodipine Besylate* (Amlodipine Besylate*) 10 Mg Tablet, 10 MG PO DAILY 09/13/12 Discontinued Reported Medications Lisinopril* (Lisinopril*) 5 Mg Tablet, 5 MG PO DAILY, #30 TAB 08/17/17 Pioglitazone Hcl* (Pioglitazone Hcl*) 15 Mg Tablet, 15 MG PO DAILY, TAB 03/05/14 Furosemide* (Furosemide*) 20 Mg Tablet, 20 MG PO DAILY, TAB 03/05/14 Hydroxyzine Hcl* (Hydroxyzine Hcl*) 50 Mg Tablet, 50 MG PO Q6H PRN for ITCHING, TAB 01/01/14 Clonidine Hcl* (Clonidine Hcl*) 0.1 Mg Tab, 0.1 MG PO Q8 09/13/12 Discontinued Scripts Aspirin (Aspirin) 81 Mg Chew, 81 MG PO DAILY, #30 TAB Prov:HENRRY DUONG MD 01/05/14 Allergies Allergies: Coded Allergies: No Known Drug Allergy (Verified Allergy, Unknown, 08/07/18) PMhx/Soc History of Surgery: Yes (L elbow fx reduction w/pin per spouse) Anesthesia Reaction: No Hx Neurological Disorder: No Hx Respiratory Disorders: Yes (SOB secondary to fluid overload) Hx Cardiac Disorders: Yes (HTN) Hx Psychiatric Problems: No Hx Miscellaneous Medical Probl: Yes (ESRD, Dialysis pt) Hx Alcohol Use: Yes (occasional) Hx Substance Use: No Hx Tobacco Use: No Smoking Status: Never smoker Physical Exam Vitals Vital Signs Date Temp Pulse Resp B/P (MAP) Pulse Ox O2 O2 Flow FiO2 Time Delivery Rate 08/07/18 97.8 71 18 169/77 99 08:36 (107) Physical Exam GENERAL: Chronically ill but in no acute distress HEENT: Pupils equal, round, and reactive to light. EOMI. There is no scleral icterus. NECK: C-spine is soft and supple, there is no meningismus. There is no cervical lymphadenopathy. LUNGS: Clear to auscultation bilaterally. There are no rales, wheezes or rhonchi. HEART: Regular rate and rhythm, no murmurs, clicks, rubs or gallops. ABDOMEN: Soft, distended with a fluid wave. Nontender. No rebound or guarding. EXTREMITIES: There is no peripheral cyanosis or edema. No focal swelling or erythema. NEURO: The patient moves all four extremities with 5/5 strength. Cranial nerves II - XII are intact. Normal gait. Alert and oriented SKIN: There is no apparent rash or petechiae. HEME/LYMPHATIC: There is no evidence of excessive bruising or lymphedema. PSYCHIATRIC: The patient does not appear anxious or depressed. Result Diagram: 08/07/18 0935 08/07/18 0935 Results 24 hrs Laboratory Tests Test 08/07/18 09:35 White Blood Count 4.8 10^3/ul Red Blood Count 3.64 10^6/ul Hemoglobin 9.6 g/dl Hematocrit 31.6 % Mean Corpuscular Volume 86.8 fl Mean Corpuscular Hemoglobin 26.4 pg Mean Corpuscular Hemoglobin Concent 30.4 g/dl Red Cell Distribution Width 14.6 % Platelet Count 195 10^3/UL Mean Platelet Volume 9.8 fl Immature Granulocytes % 0.800 % Neutrophils % 73.0 % Lymphocytes % 13.3 % Monocytes % 10.0 % Eosinophils % 2.5 % Basophils % 0.4 % Nucleated Red Blood Cells % 0.0 /100WBC Immature Granulocytes # 0.040 10^3/ul Neutrophils # 3.5 10^3/ul Lymphocytes # 0.6 10^3/ul Monocytes # 0.5 10^3/ul Eosinophils # 0.1 10^3/ul Basophils # 0.0 10^3/ul Nucleated Red Blood Cells # 0.0 10^3/ul Sodium Level 140 mmol/L Potassium Level 5.2 mmol/L Chloride Level 101 mmol/L Carbon Dioxide Level 28 mmol/L Anion Gap 11 Blood Urea Nitrogen 33 mg/dl Creatinine 6.14 mg/dl Est Glomerular Filtrat Rate mL/min 9 mL/min Glucose Level 77 mg/dl Calcium Level 9.5 mg/dl Total Bilirubin 0.3 mg/dl Direct Bilirubin 0.00 mg/dl Indirect Bilirubin 0.3 mg/dl Aspartate Amino Transf (AST/SGOT) 21 IU/L Alanine Aminotransferase (ALT/SGPT) 16 IU/L Alkaline Phosphatase 195 IU/L Troponin I 0.080 ng/ml Total Protein 7.0 g/dl Albumin 3.6 g/dl Globulin 3.40 g/dl Albumin/Globulin Ratio 1.05 Lipase 53 U/L Procedures/MDM Patient was taken to a room, seen and evaluated. Comfort measures were initiated. Diagnostic tests were ordered and reviewed. 3 LEAD RHYTHM STRIP: Normal sinus rhythm without ectopy EK lead EKG reviewed by myself: Normal Sinus Rhythm Normal [place] and intervals No ST elevation, depression, or T wave inversion Impression: Normal EKG RADIOLOGY: Reviewed with the radiologist REEVALUATION: 1055: Diagnostic tests were appreciated and arrangements were made for discharge. Patient remained comfortable and stable. His diagnostic tests were discussed with him. MEDICAL DECISION MAKIN-year-old male with a history of dialysis and a renal failure presents the emergency department with ascites. His abdominal distention workup demonstrates no signs of other significant concerns such as bowel obstruction. Patient has no evidence of SBP and no evidence of other fluid retention concerns including no evidence of congestive heart failure. He is compliant with his dialysis and understands that he will continue dialysis to help with the fluid. At this point he appears otherwise clinically stable and appropriate for outpatient supportive management. Departure Diagnosis: Primary Impression: Ascites Condition: Stable Patient Instructions: Ascites Additional Instructions: Consulte a marx mdico para el seguimiento segn lo discutido. Lleve dominguez copia de los resultados de marx prueba, si corresponde, a esta visita de seguimiento. Consulte a marx mdico o regrese aqu si nica sntomas no mejoran jasmin se esperaba. En cualquier momento, regrese al departamento de emergencias por cualquier cambio o empeoramiento en nica sntomas. JESSICA FARNSWORTH Aug 07, 2018 10:59
[2018-08-07 11:25] VITALS: BP 161/70; PULSE 89; RESP 20
== END 2018-08-07 11:28 | disposition home or self-care (01) ==
LOC: E/R 08:32
DX: R18.8 Other ascites (principal); I12.0 Hypertensive chronic kidney disease with stage 5 chronic kidney disease or end stage renal disease; N18.6 End stage renal disease; Z79.4 Long term (current) use of insulin; Z99.2 Dependence on renal dialysis
CPT/HCPCS: 36415; 71045; 74176; 80053; 83690; 84484; 85025; 93005

== ENCOUNTER 2018-09-30 19:31 | Inpatient (IN) | payer MEDICARE, OTHER ==
[~2018-09-30] VITALS: Ht 177.8 cm; Wt 88.8 kg
[~2018-09-30 19:31] MED LIST changes: -ASPI-831 PO; +CALC667C PO; -CLON-379 PO; +FER325 PO; -FURO20TA3 PO; -HYDR50TA15 PO; -LISI-313 PO; -PIOG15TA67 PO; +POTA-57 PO; +SIMV10TA PO
[2018-09-30 19:36] VITALS: Ht 177.8 cm; Wt 88.8 kg
[2018-09-30] MEDS ORDERED: VANCOMYCIN 1 GM (PMX) 250 ML IVPB STA (20:52)
[2018-09-30] MEDS ORDERED: PIPER-TAZO 3.375 GM IV (PMX) 100 ML IVPB STA (20:52)
[2018-09-30] MEDS ORDERED: SODIUM CHLORIDE 0.9% 1L BAG IV* STA (20:52)
[2018-09-30] MEDS ORDERED: ONDANSETRON 4 MG INJ IV STA (20:52)
[2018-09-30] MEDS ORDERED: ACETAMINOPHEN 325 MG TAB PO STA (20:52)
[2018-09-30] MEDS ORDERED: morphine 4 MG/ML VIAL IV STA (20:52)
[2018-09-30] MEDS ORDERED: NA BICARBONATE 8.4% 50 ML SYG IV STA (21:35)
[2018-09-30] MEDS ORDERED: ALBUTEROL 0.5% (NEB) 2.5 MG/0.5 ML AMP INH STA (21:35)
[2018-09-30] MEDS ORDERED: ACETAMINOPHEN 325 MG TAB PO PRN (22:30)
[2018-09-30] MEDS ORDERED: ONDANSETRON 4 MG INJ IV PRN (22:30)
--- NOTE | 2018-09-30 22:32 | ERD ---
ER Documentation Chief Complaint Chief Complaint LEFT FOOT SWELLING X'S 2 DAYS HPI Patient is a 68-year-old male with coronary disease, hypertension, and diabetes who presents with left foot swelling and redness. He has had the symptoms for the past 2 days. They are worsening. He has fevers and headache. His primary doctor is Dr. Fallon. ROS All systems reviewed and are negative except as per history of present illness. Medications Home Meds Active Scripts Pantoprazole* (Pantoprazole*) 40 Mg Tablet.dr, 40 MG PO DAILY@06 for 30 Days Prov:YUMIKO PAINTING 07/22/18 Insulin Glargine* (Lantus*) 100 Unit/Ml Soln, 9 UNIT SC HS for 30 Days, #1 BOTTLE Prov:YUMIKO PAINTING 07/22/18 Reported Medications Simvastatin* (Zocor*) 10 Mg Tablet, 10 MG PO QHS, #30 TAB 08/07/18 Potassium Chloride* (Klor-Con*) 20 Meq Tabsr, 20 MEQ PO DAILY, TAB.SA 08/07/18 Calcium Acetate* (Calcium Acetate*) 667 Mg Capsule, 667 MG PO WITH MEALS, #30 CAP 08/07/18 Ferrous Sulfate* (Ferrous Sulfate*) 325 Mg Tabec, 325 MG PO DAILY, TAB 08/07/18 Amlodipine Besylate* (Amlodipine Besylate*) 10 Mg Tablet, 10 MG PO DAILY 09/13/12 Allergies Allergies: Coded Allergies: No Known Drug Allergy (Verified Allergy, Unknown, 08/07/18) PMhx/Soc History of Surgery: Yes (L elbow fx reduction w/pin per spouse) Anesthesia Reaction: No Hx Neurological Disorder: No Hx Respiratory Disorders: Yes (SOB secondary to fluid overload) Hx Cardiac Disorders: Yes (HTN) Hx Psychiatric Problems: No Hx Miscellaneous Medical Probl: Yes (ESRD, Dialysis pt) Hx Alcohol Use: Yes (occasional) Hx Substance Use: No Hx Tobacco Use: No Smoking Status: Never smoker FmHx Family History: diabetes Physical Exam Vitals Vital Signs Date Temp Pulse Resp B/P (MAP) Pulse Ox O2 O2 Flow FiO2 Time Delivery Rate 09/30/18 78 20 95 2.0 22:03 09/30/18 Nasal 2 21:06 Cannula 09/30/18 100.6 104 18 185/81 94 19:36 (115) Physical Exam Const: No acute distress Head: Atraumatic Eyes: Normal Conjunctiva ENT: Normal External Ears, Nose and Mouth. Neck: Full range of motion. No meningismus. Resp: Clear to auscultation bilaterally Cardio: Regular rate and rhythm, no murmurs Abd: Soft, non tender, non distended. Normal bowel sounds Skin: Cellulitis of the left foot with radiation up the sol, no crepitus or abscess Back: No midline or flank tenderness Ext: No cyanosis, or edema Neur: Awake and alert Psych: Normal Mood and Affect Result Diagram: 09/30/18205809/30/182058 Results 24 hrs Laboratory Tests Test 09/30/18 20:40 09/30/18 20:58 09/30/18 20:59 09/30/18 21:00 Urine Color YELLOW Urine Clarity SLIGHTLY CLOUDY Urine pH 9.0 Urine Specific 1.012 [place] Urine Ketones NEGATIVE mg/dL Urine Nitrite NEGATIVE mg/dL Urine Bilirubin NEGATIVE mg/dL Urine NEGATIVE mg/dL Urobilinogen Urine Leukocyte NEGATIVE [place]/ul Esterase Urine Microscopic 1 /HPF RBC Urine Microscopic 2 /HPF WBC Urine Hemoglobin NEGATIVE mg/dL Urine Glucose 1+ mg/dL Urine Total 2+ mg/dl Protein Bedside Glucose 91 mg/dL White Blood Count 10.4 10^3/ul Red Blood Count 4.57 10^6/ul Hemoglobin 11.6 g/dl Hematocrit 38.0 % Mean Corpuscular 83.2 fl Volume Mean Corpuscular 25.4 pg Hemoglobin Mean Corpuscular 30.5 g/dl Hemoglobin Concen t Red Cell 14.8 % Distribution Width Platelet Count 173 10^3/UL Mean Platelet 9.8 fl Volume Immature 0.300 % Granulocytes % Neutrophils % 88.6 % Lymphocytes % 4.1 % Monocytes % 6.8 % Eosinophils % 0.1 % Basophils % 0.1 % Nucleated Red 0.0 /100WBC Blood Cells % Immature 0.030 10^3/ul Granulocytes # Neutrophils # 9.2 10^3/ul Lymphocytes # 0.4 10^3/ul Monocytes # 0.7 10^3/ul Eosinophils # 0.0 10^3/ul Basophils # 0.0 10^3/ul Nucleated Red 0.0 10^3/ul Blood Cells # Prothrombin Time 15.7 Sec Prothrombin Time 1.2 Ratio INR International 1.24 Normalized Ratio Activated 33.7 Sec Partial Thrombopl ast Time Sodium Level 139 mmol/L Potassium Level 6.2 mmol/L Chloride Level 99 mmol/L Carbon Dioxide 25 mmol/L Level Anion Gap 15 Blood Urea 61 mg/dl Nitrogen Creatinine 8.62 mg/dl Est Glomerular 6 mL/min Filtrat Rate mL/min Glucose Level 99 mg/dl Calcium Level 10.0 mg/dl Total Bilirubin 0.4 mg/dl Direct Bilirubin 0.00 mg/dl Indirect 0.4 mg/dl Bilirubin Aspartate Amino 15 IU/L Transf (AST/SGOT) Alanine 13 IU/L Aminotransferase (ALT/SGPT) Alkaline 179 IU/L Phosphatase Troponin I 0.061 ng/ml Total Protein 8.5 g/dl Albumin 4.3 g/dl Globulin 4.20 g/dl Albumin/Globulin 1.02 Ratio POC Venous 0.6 mmol/L Lactate Current Medications Medications Dose Sig/Jose Start Time Status Last (Trade) Ordered Route PRN Stop Time Admin Dose Reason Admin Sodium 2,660 ml BOLUS OVER 2 09/30/18 DC 09/30/18 Chloride HOURS STAT 20:52 21:07 (NS) IV* 09/30/18 20:53 650 mg ONCE STAT 09/30/18 DC 09/30/18 Acetaminophen PO 20:52 21:21 (Tylenol 09/30/18 20:53 Tab) Morphine 4 mg ONCE STAT 09/30/18 DC 09/30/18 Sulfate IV 20:52 21:21 (morphine) 09/30/18 20:53 Ondansetron 4 mg ONCE STAT 09/30/18 DC 09/30/18 HCl (Zofran IV 20:52 21:21 Inj) 09/30/18 20:53 Vancomycin 250 ml @ ONCE STAT 09/30/18 HCl 125 mls/hr IVPB 20:52 09/30/18 22:51 Piperacillin 100 ml @ ONCE STAT 09/30/18 DC 09/30/18 Sod/ 200 mls/hr IVPB 20:52 21:21 Tazobactam 09/30/18 21:21 Sod Albuterol 15 mg ONCE STAT 09/30/18 DC 09/30/18 (Proventil INH 21:35 22:02 0.5% (Neb)) 09/30/18 21:36 Sodium 50 ml ONCE STAT 09/30/18 DC 09/30/18 Bicarbonate IV 21:35 22:21 (Na Bicarb 09/30/18 21:36 8.4% Syg) Ondansetron 4 mg ER BRIDGE 09/30/18 HCl (Zofran PRN IV 22:30 Inj) NAUSEA/VOMITI 10/01/18 22:29 NG 650 mg ER BRIDGE 09/30/18 Acetaminophen PRN PO 22:30 (Tylenol .MILD PAIN 10/01/18 22:29 Tab) 1-3 OR TEMP Procedures/MDM EKG read by me: Rate/Rhythm: Regular rate and rhythm at a rate of 85 Intervals: Normal Impression: No evidence of ischemia or arrhythmia Chest x-ray left foot x-ray read by radiology. Sepsis Documentation: Patient's infectious symptoms have not stabilized and the patient is at risk of rapid decompensation. The patient will be admitted for careful hydration, antibiotic therapy, and infectious source control. SEVERE SEPSIS CRITERIA: Infectious source: Cellulitis End organ damage indicated by: No acute endorgan damage at this time SEPSIS MANAGEMENT Time of recognition of sepsis: 2058. Time of recognition of severe sepsis: No severe sepsis at this time. Time of recognition of septic shock: No septic shock at this time. 3 HOUR BUNDLE Blood cultures x 2 before broad-spectrum antibiotics: Yes 30 ml/kg NS bolus not given as the patient is a dialysis patient and I was concerned about fluid overload Initial lactate 0.6 Repeat lactate pending SEPTIC SHOCK ASSESSMENT: No lactic acid > 4.0 No persistent hypotension (SBP < 90 or 40 mmHg drop, MAP < 65) despite 30 mL/kg IV fluid bolus VOLUME REASSESSMENT FOR SEPTIC SHOCK: No septic shock at this time PERSISTENT HYPOTENSION TREATMENT: Comfort care no Central line not Required Vasopressor started not required I considered further perfusion assessment with CVP measurement, SCVO2, bedside ultrasound volume assessment, passive leg raise, trial of further fluid bolus. And proceeded with broad spectrum antibiotics, and admission. The patient has previously been admitted to Dr. Mujica and has Medicare insurance and will be admitted to Dr. Mujica again for continuity of care. The patient also had mi ld hyperkalemia and was given albuterol and bicarbonate. CRITICAL CARE Critical care time 35 minutes Emergent fluid management while maintaining close respiratory support. Provision of immediate and broad-spectrum antibiotic therapy. Simultaneous assessment for possible sources in order to direct targeted therapy. Consideration for invasive and chemical support to prevent cardiopulmonary col lapse. Critical care time is independent of procedures performed. Departure Diagnosis: Primary Impression: Hyperkalemia Additional Impressions: Swelling Cellulitis Site of cellulitis: extremity Site of cellulitis of extremity: lower extremity Laterality: left Qualified Codes: L03.116 - Cellulitis of left lower limb Sepsis Sepsis type: sepsis due to unspecified organism Qualified Codes: A41.9 - Sepsis, unspecified organism Condition: SNOW Randhawa MD September 30, 2018 22:32
[2018-09-30] MEDS ORDERED: VANCOMYCIN IV PER PHARMACY XX SCH (23:30)
[2018-09-30] MEDS ORDERED: ACETAMINOPHEN 500 MG TAB PO PRN (23:30)
[2018-09-30] MEDS ORDERED: HYDROCODONE/APAP (5/325) TAB PO PRN (23:30)
[2018-09-30 23:55] VITALS: PULSE 95
[2018-10-01] VITALS (28 sets, daily range): BP systolic 140–189; BP diastolic 66–86; PULSE 59–98; RESP 16–19
[2018-10-01] MEDS ORDERED: DEXTROSE 50% 50 ML SYRINGE IV PRN ×2 (04:00)
[2018-10-01] MEDS ORDERED: GLUCOSE GEL 15 GRAM TUBE PO PRN ×2 (04:00)
[2018-10-01] MEDS ORDERED: GLUCOSE GEL 15 GRAM TUBE BUCCAL PRN (04:00)
[2018-10-01] MEDS ORDERED: GLUCAGON 1 MG INJ IM PRN (04:00)
[2018-10-01] MEDS: PANTOPRAZOLE (EC) 40 MG TAB PO SCH (05:41)
[2018-10-01] MEDS: CEFEPIME 1GM/50 ML (PMX) 50 ML IVPB SCH (05:42)
[2018-10-01] MEDS ORDERED: VANCOMYCIN 750 MG (PMX) 250 ML IVPB SCH (06:00)
[2018-10-01] MEDS: INSULIN ASPART [NOVOLOG] 3 ML PEN SC SCH ×4 (07:43→20:18)
[2018-10-01] MEDS: AMLODIPINE 10 MG TAB PO SCH ×2 (08:12→15:49)
[2018-10-01] MEDS: FERROUS SULFATE (EC) 325 MG TAB PO SCH (08:19)
[2018-10-01] MEDS: CALCIUM ACETATE 667 MG CAP PO SCH ×4 (08:19→17:07)
--- NOTE | 2018-10-01 08:27 | CONS ---
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 Osteomyelitis as well - DM control - Follow up with H/H - On long acting EPO as out patient - Follow up with potassium & Phos. THANK YOU Delilah GUZMAN Consultation Date/Type/Reason Admit Date/Time September 30, 2018 at 22:07 Date of Consultation: October 01, 2018 Type of Consult Nephrology Reason for Consultation ESRD on hemodialysis Date/Time of Note DATE: 10/01/18 TIME: 08:21 Hx of Present Illness 68-year-old male with coronary disease, hypertension, and diabetes who presents with left foot swelling and redness. On Hemodialysis TTS @ [facility] [place]. Labs showed elevated serum potassium. Last Dialysis was Sunday. Eyes: no complaints ENT: no complaints Respiratory: no complaints Cardiovascular: no complaints Gastrointestinal: no complaints Genitourinary: no complaints Musculoskeletal: swelling, other (left foot pain & edema) Past Medical History Medical History: congestive heart failure, coronary artery disease, diabetes, hypertension, renal disease Home Meds Active Scripts Pantoprazole* (Pantoprazole*) 40 Mg Tablet.dr, 40 MG PO DAILY@06 for 30 Days Prov:YUMIKO PAINTING 07/22/18 Insulin Glargine* (Lantus*) 100 Unit/Ml Soln, 9 UNIT SC HS for 30 Days, #1 BOTTLE Prov:YUMIKO PAINTING 07/22/18 Reported Medications Simvastatin* (Zocor*) 10 Mg Tablet, 10 MG PO QHS, #30 TAB 08/07/18 Potassium Chloride* (Klor-Con*) 20 Meq Tabsr, 20 MEQ PO DAILY, TAB.SA 08/07/18 Calcium Acetate* (Calcium Acetate*) 667 Mg Capsule, 667 MG PO WITH MEALS, #30 CAP 08/07/18 Ferrous Sulfate* (Ferrous Sulfate*) 325 Mg Tabec, 325 MG PO DAILY, TAB 08/07/18 Amlodipine Besylate* (Amlodipine Besylate*) 10 Mg Tablet, 10 MG PO DAILY 5/3/13 Medications Current Medications Vancomycin HCl (Vanco Iv Per Pharmacy) VANCOMYCIN PER PHARMACY PER PROTOCOL XX ; Start 09/30/18 at 23:30 Cefepime HCl 50 ml @ 100 mls/hr Q24H IVPB Last administered on 10/01/18at 05:42; Admin Dose 100 MLS/HR; Start 10/01/18 at 05:00 Acetaminophen (Tylenol Tab) 500 mg Q4 PRN PO FEVER GREATER THAN 100.6; Start 09/30/18 at 23:30 Acetaminophen/ Hydrocodone Bitart ([place] (5/325)) 1 tab Q6H PRN PO MODERATE PAIN LEVEL 4-6; Start 09/30/18 at 23:30 Insulin Aspart (Novolog Insulin Pen) NOVOLOG *MILD* ALGORITHM WITH MEALS BEDTIME SC ; Start 10/01/18 at 08:00 Amlodipine Besylate (Norvasc) 10 mg DAILY PO ; Start 10/01/18 at 09:00 Calcium Acetate (Phoslo) 667 mg WITH MEALS PO Last administered on 10/01/18at 08:19; Admin Dose 667 MG; Start 10/01/18 at 08:00 Ferrous Sulfate (Ferrous Sulfate (Ec)) 325 mg DAILY PO Last administered on 10/01/18at 08:19; Admin Dose 325 MG; Start 10/01/18 at 09:00 Insulin Glargine (Lantus) 9 units HS SC ; Start 10/01/18 at 21:00 Pantoprazole (Protonix Tab) 40 mg DAILY@06 PO Last administered on 10/01/18at 05 :41; Admin Dose 40 MG; Start 10/01/18 at 06:00 Atorvastatin Calcium (Lipitor) 10 mg QHS PO ; Start 10/01/18 at 21:00 Miscellaneous Information 1 ea NOTE XX ; Start 10/01/18 at 04:00 Glucose (Glutose) 15 gm Q15M PRN PO DECREASED GLUCOSE; Start 10/01/18 at 04:00 Glucose (Glutose) 22.5 gm Q15M PRN PO DECREASED GLUCOSE; Start 10/01/18 at 04:00 Dextrose (D50w Syringe) 25 ml Q15M PRN IV DECREASED GLUCOSE; Start 10/01/18 at 04:00 Dextrose (D50w Syringe) 50 ml Q15M PRN IV DECREASED GLUCOSE; Start 10/01/18 at 04:00 Glucagon (Glucagen) 1 mg Q15M PRN IM DECREASED GLUCOSE; Start 10/01/18 at 04:00 Glucose (Glutose) 15 gm Q15M PRN BUCCAL DECREASED GLUCOSE; Start 10/01/18 at 04:00 Vancomycin/Sodium Chloride 250 ml @ 125 mls/hr ONCE@0600 IVPB Last administered on 10/01/18at 05:42; Admin Dose 125 MLS/HR; Start 10/01/18 at 06:00; Stop 10/01/18 at 11:00 Allergies: Coded Allergies: No Known Drug Allergy (Unverified Allergy, Unknown, 09/30/18) Past Surgical History Past Surgical Hx: other Family History Significant Family History: no pertinent family hx Social History Alcohol Use: none Smoking Status: Former smoker Drug Use: none Exam/Review of Systems Exam Vitals Vital Signs Date Temp Pulse Resp B/P (MAP) Pulse Ox O2 O2 Flow FiO2 Time Delivery Rate 10/01/18 98.9 72 19 159/77 92 07:13 (104) 10/01/18 2.0 01:00 10/01/18 Nasal 00:40 Cannula Intake and Output 09/30/18 09/30/18 10/01/18 1515:00 23:00 07:00 IntakeIntake Total 400 ml OutputOutput Total 0 ml BalanceBalance 400 ml Constitutional: alert, oriented, well developed Psych: no complaints Head: normocephalic Eyes: nl conjunctiva ENMT: nl external ears & nose Respiratory: crackles/rales Cardiovascular: regular rate and rhythm, systolic murmur Gastrointestinal: soft Extremities: edema, tenderness, other (Left foot. No Open wound noted) Results Result Diagram: 10/01/18 0459 10/01/18 0459 Results 24hrs Laboratory Tests Test 09/30/18 20:40 09/30/18 20:58 09/30/18 20:59 09/30/18 21:00 Urine Color YELLOW Urine Clarity SLIGHTLY CLOUDY A Urine pH 9.0 Urine Specific 1.012 [place] Urine Ketones NEGATIVE Urine Nitrite NEGATIVE Urine Bilirubin NEGATIVE Urine NEGATIVE Urobilinogen Urine Leukocyte NEGATIVE Esterase Urine Microscopic 1 RBC Urine Microscopic 2 WBC Urine Hemoglobin NEGATIVE Urine Glucose 1+ H Urine Total 2+ H Protein Bedside Glucose 91 White Blood Count 10.4 # Red Blood Count 4.57 #L Hemoglobin 11.6 #L Hematocrit 38.0 #L Mean Corpuscular 83.2 Volume Mean Corpuscular 25.4 L Hemoglobin Mean Corpuscular 30.5 L Hemoglobin Concen t Red Cell 14.8 H Distribution Width Platelet Count 173 Mean Platelet 9.8 Volume Immature 0.300 Granulocytes % Neutrophils % 88.6 H Lymphocytes % 4.1 L Monocytes % 6.8 Eosinophils % 0.1 Basophils % 0.1 Nucleated Red 0.0 Blood Cells % Immature 0.030 Granulocytes # Neutrophils # 9.2 H Lymphocytes # 0.4 L Monocytes # 0.7 Eosinophils # 0.0 Basophils # 0.0 Nucleated Red 0.0 Blood Cells # Prothrombin Time 15.7 H Prothrombin Time 1.2 Ratio INR International 1.24 Normalized Ratio Activated 33.7 Partial Thrombopl ast Time Sodium Level 139 Potassium Level 6.2 *H Chloride Level 99 Carbon Dioxide 25 Level Anion Gap 15 H Blood Urea 61 H Nitrogen Creatinine 8.62 H Est Glomerular 6 L Filtrat Rate mL/min Glucose Level 99 Calcium Level 10.0 Total Bilirubin 0.4 Direct Bilirubin 0.00 Indirect 0.4 Bilirubin Aspartate Amino 15 Transf (AST/SGOT) Alanine 13 Aminotransferase (ALT/SGPT) Alkaline 179 H Phosphatase Troponin I 0.061 Total Protein 8.5 H Albumin 4.3 Globulin 4.20 H Albumin/Globulin 1.02 Ratio POC Venous 0.6 Lactate Test 09/30/18 23:04 10/01/18 00:33 10/01/18 00:48 10/01/18 04:59 Lactic Acid Level 1.0 1.2 Bedside Glucose 104 White Blood Count 8.6 Red Blood Count 4.08 L Hemoglobin 10.4 L Hematocrit 34.9 L Mean Corpuscular 85.5 Volume Mean Corpuscular 25.5 L Hemoglobin Mean Corpuscular 29.8 L Hemoglobin Concen t Red Cell 15.0 H Distribution Width Platelet Count 142 Mean Platelet 9.9 Volume Immature 0.600 H Granulocytes % Neutrophils % 84.9 H Lymphocytes % 5.3 L Monocytes % 9.0 Eosinophils % 0.0 Basophils % 0.2 Nucleated Red 0.0 Blood Cells % Immature 0.050 H Granulocytes # Neutrophils # 7.3 Lymphocytes # 0.5 L Monocytes # 0.8 Eosinophils # 0.0 Basophils # 0.0 Nucleated Red 0.0 Blood Cells # Sodium Level 139 Potassium Level 6.4 *H Chloride Level 101 Carbon Dioxide 25 Level Anion Gap 13 Blood Urea 65 H Nitrogen Creatinine 8.67 H Est Glomerular 6 L Filtrat Rate mL/min Glucose Level 102 Hemoglobin A1c 4.7 Calcium Level 9.8 Triglycerides 89 Level Cholesterol Level 106 LDL Cholesterol, 53 Calculated HDL Cholesterol 35 Cholesterol/HDL 3.0 Ratio Test 10/01/18 07:41 Bedside Glucose 96 Medications Medication Current Medications Vancomycin HCl (Vanco Iv Per Pharmacy) VANCOMYCIN PER PHARMACY PER PROTOCOL XX ; Start 09/30/18 at 23:30 Cefepime HCl 50 ml @ 100 mls/hr Q24H IVPB Last administered on 10/01/18at 05:42; Admin Dose 100 MLS/HR; Start 10/01/18 at 05:00 Acetaminophen (Tylenol Tab) 500 mg Q4 PRN PO FEVER GREATER THAN 100.6; Start 09/30/18 at 23:30 Acetaminophen/ Hydrocodone Bitart ([place] (5/325)) 1 tab Q6H PRN PO MODERATE PAIN LEVEL 4-6; Start 09/30/18 at 23:30 Insulin Aspart (Novolog Insulin Pen) NOVOLOG *MILD* ALGORITHM WITH MEALS BEDTIME SC ; Start 10/01/18 at 08:00 Amlodipine Besylate (Norvasc) 10 mg DAILY PO ; Start 10/01/18 at 09:00 Calcium Acetate (Phoslo) 667 mg WITH MEALS PO Last administered on 10/01/18at 08:19; Admin Dose 667 MG; Start 10/01/18 at 08:00 Ferrous Sulfate (Ferrous Sulfate (Ec)) 325 mg DAILY PO Last administered on 10/01/18at 08:19; Admin Dose 325 MG; Start 10/01/18 at 09:00 Insulin Glargine (Lantus) 9 units HS SC ; Start 10/01/18 at 21:00 Pantoprazole (Protonix Tab) 40 mg DAILY@06 PO Last administered on 10/01/18at 05:41; Admin Dose 40 MG; Start 10/01/18 at 06:00 Atorvastatin Calcium (Lipitor) 10 mg QHS PO ; Start 10/01/18 at 21:00 Miscellaneous Information 1 ea NOTE XX ; Start 10/01/18 at 04:00 Glucose (Glutose) 15 gm Q15M PRN PO DECREASED GLUCOSE; Start 10/01/18 at 04:00 Glucose (Glutose) 22.5 gm Q15M PRN PO DECREASED GLUCOSE; Start 10/01/18 at 04:00 Dextrose (D50w Syringe) 25 ml Q15M PRN IV DECREASED GLUCOSE; Start 10/01/18 at 04:00 Dextrose (D50w Syringe) 50 ml Q15M PRN IV DECREASED GLUCOSE; Start 10/01/18 at 04:00 Glucagon (Glucagen) 1 mg Q15M PRN IM DECREASED GLUCOSE; Start 10/01/18 at 04:00 Glucose (Glutose) 15 gm Q15M PRN BUCCAL DECREASED GLUCOSE; Start 10/01/18 at 04:00 Vancomycin/Sodium Chloride 250 ml @ 125 mls/hr ONCE@0600 IVPB Last administered on 10/01/18at 05:42; Admin Dose 125 MLS/HR; Start 10/01/18 at 06:00; Stop 10/01/18 at 11:00 PACO LAZO MD October 01, 2018 08:27
--- NOTE | 2018-10-01 12:22 | HP ---
Date/Time of Note Date/Time of Note DATE: 10/01/18 TIME: 12:17 Assessment/Plan VTE Prophylaxis Risk score (from [facility] [place]0 risk: 2 SCD applied (from Ns): Yes Pharmacological prophylaxis: LMWH Lines/Catheters IV C[facility]ter Type (from [facility] Saline Lock Urinary Cath still in place: No Assessment/Plan Assessment/Plan - Left lower extremity cellulitis. Continue broad-spectrum antibiotics. Dr. Burt is asked to see patient in infection disease consultation. Dr. Delcid is asked to see patient in podiatry consultation. - Hyperkalemia. Dr. Dobbins is following in nephrology consultation - Hemodialysis dependent end-stage renal disease. - Diabetes. Continue Lantus and NovoLog. - Hypertension. Continue Norvasc and lisinopril. - History of coronary artery disease, status post myocardial infarction. Continue aspirin. - Preserved EF 55% per last Echo Further recommendations based on clinical course. Plan of care discussed with Dr. Mujica. Result Diagram: 10/01/18 0459 10/01/18 0459 Results 24hrs Laboratory Tests Test 09/30/18 20:40 09/30/18 20:58 09/30/18 20:59 09/30/18 21:00 Urine Color YELLOW Urine Clarity SLIGHTLY CLOUDY A Urine pH 9.0 Urine Specific 1.012 [place] Urine Ketones NEGATIVE Urine Nitrite NEGATIVE Urine Bilirubin NEGATIVE Urine NEGATIVE Urobilinogen Urine Leukocyte NEGATIVE Esterase Urine Microscopic 1 RBC Urine Microscopic 2 WBC Urine Hemoglobin NEGATIVE Urine Glucose 1+ H Urine Total 2+ H Protein Bedside Glucose 91 White Blood Count 10.4 # Red Blood Count 4.57 #L Hemoglobin 11.6 #L Hematocrit 38.0 #L Mean Corpuscular 83.2 Volume Mean Corpuscular 25.4 L Hemoglobin Mean Corpuscular 30.5 L Hemoglobin Concen t Red Cell 14.8 H Distribution Width Platelet Count 173 Mean Platelet 9.8 Volume Immature 0.300 Granulocytes % Neutrophils % 88.6 H Lymphocytes % 4.1 L Monocytes % 6.8 Eosinophils % 0.1 Basophils % 0.1 Nucleated Red 0.0 Blood Cells % Immature 0.030 Granulocytes # Neutrophils # 9.2 H Lymphocytes # 0.4 L Monocytes # 0.7 Eosinophils # 0.0 Basophils # 0.0 Nucleated Red 0.0 Blood Cells # Prothrombin Time 15.7 H Prothrombin Time 1.2 Ratio INR International 1.24 Normalized Ratio Activated 33.7 Partial Thrombopl ast Time Sodium Level 139 Potassium Level 6.2 *H Chloride Level 99 Carbon Dioxide 25 Level Anion Gap 15 H Blood Urea 61 H Nitrogen Creatinine 8.62 H Est Glomerular 6 L Filtrat Rate mL/min Glucose Level 99 Calcium Level 10.0 Total Bilirubin 0.4 Direct Bilirubin 0.00 Indirect 0.4 Bilirubin Aspartate Amino 15 Transf (AST/SGOT) Alanine 13 Aminotransferase (ALT/SGPT) Alkaline 179 H Phosphatase Troponin I 0.061 Total Protein 8.5 H Albumin 4.3 Globulin 4.20 H Albumin/Globulin 1.02 Ratio POC Venous 0.6 Lactate Test 09/30/18 23:04 10/01/18 00:33 10/01/18 00:48 10/01/18 04:57 Lactic Acid Level 1.0 1.2 Bedside Glucose 104 Hepatitis B NEGATIVE Surface Antigen Test 10/01/18 04:59 10/01/18 07:41 10/01/18 11:38 White Blood Count 8.6 Red Blood Count 4.08 L Hemoglobin 10.4 L Hematocrit 34.9 L Mean Corpuscular 85.5 Volume Mean Corpuscular 25.5 L Hemoglobin Mean Corpuscular 29.8 L Hemoglobin Concen t Red Cell 15.0 H Distribution Width Platelet Count 142 Mean Platelet 9.9 Volume Immature 0.600 H Granulocytes % Neutrophils % 84.9 H Lymphocytes % 5.3 L Monocytes % 9.0 Eosinophils % 0.0 Basophils % 0.2 Nucleated Red 0.0 Blood Cells % Immature 0.050 H Granulocytes # Neutrophils # 7.3 Lymphocytes # 0.5 L Monocytes # 0.8 Eosinophils # 0.0 Basophils # 0.0 Nucleated Red 0.0 Blood Cells # Sodium Level 139 Potassium Level 6.4 *H Chloride Level 101 Carbon Dioxide 25 Level Anion Gap 13 Blood Urea 65 H Nitrogen Creatinine 8.67 H Est Glomerular 6 L Filtrat Rate mL/min Glucose Level 102 Hemoglobin A1c 4.7 Calcium Level 9.8 Triglycerides 89 Level Cholesterol Level 106 LDL Cholesterol, 53 Calculated HDL Cholesterol 35 Cholesterol/HDL 3.0 Ratio Bedside Glucose 96 93 HPI/ROS Admit Date/Time Admit Date/Time September 30, 2018 at 22:07 Hx of Present Illness The patient is a 68-year-old gentleman known to me from previous admission. Patient has multiple comorbidities including hemodialysis dependent end-stage renal disease, diabetes, coronary artery disease, hypertension, history of ascites. Patient underwent omental mass biopsy which was benign during last admission. Patient presented to the emergency room with complaints of left foot swelling, redness and tenderness. PMH/Family/Social Past Medical History Medical History: congestive heart failure, coronary artery disease, diabetes, hypertension, renal disease Medications Current Medications Vancomycin HCl (Vanco Iv Per Pharmacy) VANCOMYCIN PER PHARMACY PER PROTOCOL XX ; Start 09/30/18 at 23:30 Cefepime HCl 50 ml @ 100 mls/hr Q24H IVPB Last administered on 10/01/18at 05:42; Admin Dose 100 MLS/HR; Start 10/01/18 at 05:00 Acetaminophen (Tylenol Tab) 500 mg Q4 PRN PO FEVER GREATER THAN 100.6; Start 09/30/18 at 23:30 Acetaminophen/ Hydrocodone Bitart ([place] (5/325)) 1 tab Q6H PRN PO MODERATE PAIN LEVEL 4-6; Start 09/30/18 at 23:30 Insulin Aspart (Novolog Insulin Pen) NOVOLOG *MILD* ALGORITHM WITH MEALS BEDT [place] SC ; Start 10/01/18 at 08:00 Amlodipine Besylate (Norvasc) 10 mg DAILY PO ; Start 10/01/18 at 09:00 Calcium Acetate (Phoslo) 667 mg WITH MEALS PO Last administered on 10/01/18at 08:19; Admin Dose 667 MG; Start 10/01/18 at 08:00 Ferrous Sulfate (Ferrous Sulfate (Ec)) 325 mg DAILY PO Last administered on 10/01/18at 08:19; Admin Dose 325 MG; Start 10/01/18 at 09:00 Insulin Glargine (Lantus) 9 units HS SC ; Start 10/01/18 at 21:00 Pantoprazole (Protonix Tab) 40 mg DAILY@06 PO Last administered on 10/01/18at 05:41; Admin Dose 40 MG; Start 10/01/18 at 06:00 Atorvastatin Calcium (Lipitor) 10 mg QHS PO ; Start 10/01/18 at 21:00 Miscellaneous Information 1 ea NOTE XX ; Start 10/01/18 at 04:00 Glucose (Glutose) 15 gm Q15M PRN PO DECREASED GLUCOSE; Start 10/01/18 at 04:00 Glucose (Glutose) 22.5 gm Q15M PRN PO DECREASED GLUCOSE; Start 10/01/18 at 04:00 Dextrose (D50w Syringe) 25 ml Q15M PRN IV DECREASED GLUCOSE; Start 10/01/18 at 04:00 Dextrose (D50w Syringe) 50 ml Q15M PRN IV DECREASED GLUCOSE; Start 10/01/18 at 04:00 Glucagon (Glucagen) 1 mg Q15M PRN IM DECREASED GLUCOSE; Start 10/01/18 at 04:00 Glucose (Glutose) 15 gm Q15M PRN BUCCAL DECREASED GLUCOSE; Start 10/01/18 at 04:00 Coded Allergies: No Known Drug Allergy (Unverified Allergy, Unknown, 09/30/18) Past Surgical History Past Surgical Hx: other (L elbow fx reduction, status post omental mass biopsy) Family History Significant Family History: diabetes Social History Alcohol Use: none Smoking Status: Former smoker Drug Use: none Exam/Review of Systems Vital Signs Vitals Vital Signs Date Temp Pulse Resp B/P (MAP) Pulse Ox O2 O2 Flow FiO2 Time Delivery Rate 10/01/18 70 11:55 10/01/18 16 170/82 98 Nasal 2.0 10:22 (111) Cannula 10/01/18 98.9 07:13 Intake and Output 09/30/18 09/30/18 10/01/18 1515:00 23:00 07:00 IntakeIntake Total 400 ml OutputOutput Total 0 ml BalanceBalance 400 ml Exam Constitutional: alert, oriented Head: normocephalic Neck: supple Respiratory: clear to auscultation Cardiovascular: regular rate and rhythm Gastrointestinal: soft, non-tender Musculoskeletal: nl extremities to inspection Extremities: other (Left lower remedy swelling, erythema and tenderness) Neurological: nl mental status YUMIKO PAINTING October 01, 2018 12:22
--- NOTE | 2018-10-01 15:49 | CONS ---
DATE OF ADMISSION: 09/30/2018 DATE OF CONSULTATION: 10/01/2018 TYPE OF CONSULTATION: Infectious disease. REQUESTING PHYSICIAN: Kathia Gooden NP Thank you for this consultation. HISTORY OF PRESENT ILLNESS: This is a well-nourished, well-developed elderly man with a past medical history significant for end-stage renal disease, hemodialysis dependent, diabetes, hypertension, coronary artery disease, status post [place]. The patient was admitted with left lower extremity cellulitis that started 3 days ago. VITAL SIGNS: He came with vital signs as follows: Temperature 100.6, pulse 104, respirations 18, blood pressure 185/81, saturation 94% on room air. LABORATORY DATA: WBC 10.4, H and H 11.6 and 38, platelets 173, neutrophils 88.6. Potassium 6.2. Alkaline phosphatase 179, normal LFT. MICROBIOLOGY: Urinalysis was negative for nitrite, leukocyte esterase. Urine culture came back negative. DIAGNOSTICS: Chest x-ray revealed increased mild pulmonary vascular congestion, new mild to moderate bilateral pleural effusions with atelectasis/consolidation. X-ray of the foot revealed no evidence of osteomyelitis or soft tissue and gas, no fracture or dislocation, soft tissue swelling along the forefoot. ALLERGIES: THE PATIENT HAS NO ALLERGIES. MEDICATIONS: 1. He was started on vancomycin. 2. He received a dose of Zosyn. 3. Cefepime. SOCIAL HISTORY: The patient came from home. Denies smoking, alcohol or illicits. HYDRAULIC PUNCH PRESS OPERATOR: Russel Dobbins MD PHYSICAL EXAMINATION: GENERAL: A well-nourished, well-developed, pleasant, elderly man who is alert, in no distress. HEENT: Head is atraumatic, normocephalic. Sclerae are anicteric. Buccal mucosa is pink. NECK: Supple. CHEST: Rise symmetrical. Breath sounds are clear. HEART: S1, S2. ABDOMEN: Soft. Bowel tones are present. EXTREMITIES: With left foot edema and erythema. DIAGNOSTIC IMPRESSION: This is a 68-year-old man admitted with low-grade fevers and left lower extremity cellulitis. The patient also came with abnormal chest x-ray, rule out infectious process. He is clinically improving. Left lower extremity looks slightly better and swelling subsides. He is on appropriate antibiotic regimen. We are going to order left lower extremity ultrasound to rule out deep venous thrombosis. Keep it elevated on 2 pillows. Swab nares for methicillin-resistant Staphylococcus aureus. Repeat chest x-ray in a.m. Further recommendations per patient's clinical course. Discussed with Dr. Brown who is covering for Dr. Shearer. Dictated By: SYEDA LEÓN BLENDING LINE ATTENDANT for AGUEDA SHEARER MD NI/NTS Conf#: [id number] DID#: [id number] CC: SAURABH WEINSTEIN MD;*EndCC* MTDD
[2018-10-01] MEDS: ATORVASTATIN 10 MG TAB PO SCH (20:18)
[2018-10-01] MEDS: INSULIN GLARGINE [LANTus] (100 UNITS/ML) SYG SC SCH (20:24)
[2018-10-02] VITALS (11 sets, daily range): BP systolic 140–167; BP diastolic 67–75; PULSE 61–91; RESP 18–20
[2018-10-02] MEDS: PANTOPRAZOLE (EC) 40 MG TAB PO SCH (05:51)
[2018-10-02] MEDS: CEFEPIME 1GM/50 ML (PMX) 50 ML IVPB SCH (05:51)
[2018-10-02] MEDS: INSULIN ASPART [NOVOLOG] 3 ML PEN SC SCH ×4 (08:00→21:00)
[2018-10-02] MEDS: FERROUS SULFATE (EC) 325 MG TAB PO SCH (08:38)
[2018-10-02] MEDS: AMLODIPINE 10 MG TAB PO SCH (08:38)
[2018-10-02] MEDS: CALCIUM ACETATE 667 MG CAP PO SCH ×3 (08:38→17:24)
--- NOTE | 2018-10-02 12:37 | CONS ---
Assessment/Plan Assessment/Plan Assessment/Plan (Daily) Left lower extremity cellulitis DM2 with peripheral neuropathy Edema ESRD on HD CAD Plan Patient was seen and examined with no obvious open lesions sites. X-rays were reviewed with no signs of osteomyelitis, no soft tissue emphysema, no fractures or dislocation appreciated. There are no obvious signs of charcot on plain X- rays. Ordered left foot/ankle MRI studies. DVT scan is negative. Patient on IV abx and appreciate ID recommendations. Continue to elevate and offload left lower extremity. Recommend compression dressings to assist with edema control. Consultation Date/Type/Reason Admit Date/Time September 30, 2018 at 22:07 Date/Time of Note DATE: 10/02/18 TIME: 12:35 Hx of Present Illness 68 y/o diabetic M patient on dialysis presents to the floor with left foot redness and swelling worsening since Sunday of last week. Patient denies stepping on any foreign objects and denies recent trauma. Patient unaware of how the symptoms began. He had noticed intermittent fevers and some chills previously but denies additional constitutional symptoms. Reports intermittent pain on the dorsum and plantar aspect of the foot which is non-radiating. States pain is sharp and aching in nature rates 4-5/10. Patient did not attempt any treatment, weight bearing worsens symptoms and elevation and offloading improves symptoms. ROS negative except for HPI Past Medical History Medical History: congestive heart failure, coronary artery disease, diabetes, hypertension, renal disease Home Meds Active Scripts Pantoprazole* (Pantoprazole*) 40 Mg Tablet.dr, 40 MG PO DAILY@06 for 30 Days Prov:YUMIKO PAINTING 07/22/18 Insulin Glargine* (Lantus*) 100 Unit/Ml Soln, 9 UNIT SC HS for 30 Days, #1 BOTTLE Prov:YUMIKO PAINTING 07/22/18 Reported Medications Simvastatin* (Zocor*) 10 Mg Tablet, 10 MG PO QHS, #30 TAB 08/07/18 Potassium Chloride* (Klor-Con*) 20 Meq Tabsr, 20 MEQ PO DAILY, TAB.SA 08/07/18 Calcium Acetate* (Calcium Acetate*) 667 Mg Capsule, 667 MG PO WITH MEALS, #30 CAP 08/07/18 Ferrous Sulfate* (Ferrous Sulfate*) 325 Mg Tabec, 325 MG PO DAILY, TAB 08/07/18 Amlodipine Besylate* (Amlodipine Besylate*) 10 Mg Tablet, 10 MG PO DAILY 09/13/12 Medications Current Medications Vancomycin HCl (Vanco Iv Per Pharmacy) VANCOMYCIN PER PHARMACY PER PROTOCOL XX ; Start 09/30/18 at 23:30 Cefepime HCl 50 ml @ 100 mls/hr Q24H IVPB Last administered on 10/02/18at 05:51; Admin Dose 100 MLS/HR; Start 10/01/18 at 05:00 Acetaminophen (Tylenol Tab) 500 mg Q4 PRN PO FEVER GREATER THAN 100.6; Start 09/30/18 at 23:30 Acetaminophen/ Hydrocodone Bitart ([place] (5/325)) 1 tab Q6H PRN PO MODERATE PAIN LEVEL 4-6; Start 09/30/18 at 23:30 Insulin Aspart (Novolog Insulin Pen) NOVOLOG *MILD* ALGORITHM WITH MEALS BEDTIME SC ; Start 10/01/18 at 08:00 Amlodipine Besylate (Norvasc) 10 mg DAILY PO Last administered on 10/02/18at 08:38; Admin Dose 10 MG; Start 10/01/18 at 09:00 Calcium Acetate (Phoslo) 667 mg WITH MEALS PO Last administered on 10/02/18at 11:41; Admin Dose 667 MG; Start 10/01/18 at 08:00 Ferrous Sulfate (Ferrous Sulfate (Ec)) 325 mg DAILY PO Last administered on 10/02/18at 08:38; Admin Dose 325 MG; Start 10/01/18 at 09:00 Insulin Glargine (Lantus) 9 units HS SC Last administered on 10/01/18at 20:24; Admin Dose 9 UNITS; Start 10/01/18 at 21:00 Pantoprazole (Protonix Tab) 40 mg DAILY@06 PO Last administered on 10/02/18at 05:51; Admin Dose 40 MG; Start 10/01/18 at 06:00 Atorvastatin Calcium (Lipitor) 10 mg QHS PO Last administered on 10/01/18at 20:18; Admin Dose 10 MG; Start 10/01/18 at 21:00 Miscellaneous Information 1 ea NOTE XX ; Start 10/01/18 at 04:00 Glucose (Glutose) 15 gm Q15M PRN PO DECREASED GLUCOSE; Start 10/01/18 at 04:00 Glucose (Glutose) 22.5 gm Q15M PRN PO DECREASED GLUCOSE; Start 10/01/18 at 04: 00 Dextrose (D50w Syringe) 25 ml Q15M PRN IV DECREASED GLUCOSE; Start 10/01/18 at 04:00 Dextrose (D50w Syringe) 50 ml Q15M PRN IV DECREASED GLUCOSE; Start 10/01/18 at 04:00 Glucagon (Glucagen) 1 mg Q15M PRN IM DECREASED GLUCOSE; Start 10/01/18 at 04:00 Glucose (Glutose) 15 gm Q15M PRN BUCCAL DECREASED GLUCOSE; Start 10/01/18 at 04:00 Hydralazine HCl (Apresoline) 25 mg TID GTB Last administered on 10/02/18at 11:42; Admin Dose 25 MG; Start 10/01/18 at 21:00 Clonidine (Catapres) 0.1 mg Q4H PRN GTB hypertension Last administered on 10/01/18at 16:20; Admin Dose 0.1 MG; Start 10/01/18 at 16:00 Allergies: Coded Allergies: No Known Drug Allergy (Unverified Allergy, Unknown, 09/30/18) Past Surgical History Past Surgical Hx: other (L elbow fx reduction, status post omental mass biopsy) Social History Alcohol Use: none Smoking Status: Former smoker Drug Use: none Exam/Review of Systems Exam Vitals Vital Signs Date Temp Pulse Resp B/P (MAP) Pulse Ox O2 O2 Flow FiO2 Time Delivery Rate 10/02/18 98.6 68 18 140/67 90 11:17 (91) 10/02/18 2.0 08:49 10/02/18 Nasal 04:35 Cannula Intake and Output 10/01/18 10/01/18 10/02/18 1515:00 23:00 07:00 IntakeIntake Total 1200 ml 250 ml OutputOutput Total 3400 ml BalanceBalance -3400 ml 1200 ml 250 ml Exam DP/PT and popliteal pulses palpable 2+ pitting edema to left lower extremity Absent protective sensations Erythema diffusely present to the dorsum of the foot and mildly to the plantar forefoot aspect No proximal streaking appreciated No open lesions appreciated Muscle strength 5/5 in all compartments fo the foot. Results Result Diagram: 10/02/18 0545 10/02/18 0545 Results 24hrs Laboratory Tests Test 10/01/18 17:07 10/01/18 20:16 10/02/18 05:45 10/02/18 07:49 Bedside Glucose 131 155 117 White Blood Count 8.4 Red Blood Count 3.95 L Hemoglobin 10.1 L Hematocrit 33.2 L Mean Corpuscular 84.1 Volume Mean Corpuscular 25.6 L Hemoglobin Mean Corpuscular 30.4 L Hemoglobin Concent Red Cell 14.9 H Distribution Width Platelet Count 164 Mean Platelet Volume 9.9 Immature 0.400 Granulocytes % Neutrophils % 83.7 H Lymphocytes % 6.5 L Monocytes % 8.4 Eosinophils % 0.6 Basophils % 0.4 Nucleated Red Blood 0.0 Cells % Immature 0.030 Granulocytes # Neutrophils # 7.0 Lymphocytes # 0.5 L Monocytes # 0.7 Eosinophils # 0.1 Basophils # 0.0 Nucleated Red Blood 0.0 Cells # Sodium Level 138 Potassium Level 5.4 H Chloride Level 101 Carbon Dioxide Level 27 Anion Gap 10 Blood Urea Nitrogen 41 #H Creatinine 6.61 #H Est Glomerular 8 L Filtrat Rate mL/min Glucose Level 88 Calcium Level 9.4 Test 10/02/18 11:43 Bedside Glucose 121 Medications Medication Current Medications Vancomycin HCl (Vanco Iv Per Pharmacy) VANCOMYCIN PER PHARMACY PER PROTOCOL XX ; Start 09/30/18 at 23:30 Cefepime HCl 50 ml @ 100 mls/hr Q24H IVPB Last administered on 10/02/18at 05:51; Admin Dose 100 MLS/HR; Start 10/01/18 at 05:00 Acetaminophen (Tylenol Tab) 500 mg Q4 PRN PO FEVER GREATER THAN 100.6; Start 09/30/18 at 23:30 Acetaminophen/ Hydrocodone Bitart ([place] (5/325)) 1 tab Q6H PRN PO MODERATE PAIN LEVEL 4-6; Start 09/30/18 at 23:30 Insulin Aspart (Novolog Insulin Pen) NOVOLOG *MILD* ALGORITHM WITH MEALS BEDTIME SC ; Start 10/01/18 at 08:00 Amlodipine Besylate (Norvasc) 10 mg DAILY PO Last administered on 10/02/18at 08 :38; Admin Dose 10 MG; Start 10/01/18 at 09:00 Calcium Acetate (Phoslo) 667 mg WITH MEALS PO Last administered on 10/02/18at 11:41; Admin Dose 667 MG; Start 10/01/18 at 08:00 Ferrous Sulfate (Ferrous Sulfate (Ec)) 325 mg DAILY PO Last administered on 10/02/18at 08:38; Admin Dose 325 MG; Start 10/01/18 at 09:00 Insulin Glargine (Lantus) 9 units HS SC Last administered on 10/01/18at 20:24; Admin Dose 9 UNITS; Start 10/01/18 at 21:00 Pantoprazole (Protonix Tab) 40 mg DAILY@06 PO Last administered on 10/02/18at 05:51; Admin Dose 40 MG; Start 10/01/18 at 06:00 Atorvastatin Calcium (Lipitor) 10 mg QHS PO Last administered on 10/01/18at 20:18; Admin Dose 10 MG; Start 10/01/18 at 21:00 Miscellaneous Information 1 ea NOTE XX ; Start 10/01/18 at 04:00 Glucose (Glutose) 15 gm Q15M PRN PO DECREASED GLUCOSE; Start 10/01/18 at 04:00 Glucose (Glutose) 22.5 gm Q15M PRN PO DECREASED GLUCOSE; Start 10/01/18 at 04:00 Dextrose (D50w Syringe) 25 ml Q15M PRN IV DECREASED GLUCOSE; Start 10/01/18 at 04:00 Dextrose (D50w Syringe) 50 ml Q15M PRN IV DECREASED GLUCOSE; Start 10/01/18 at 04:00 Glucagon (Glucagen) 1 mg Q15M PRN IM DECREASED GLUCOSE; Start 10/01/18 at 04:00 Glucose (Glutose) 15 gm Q15M PRN BUCCAL DECREASED GLUCOSE; Start 10/01/18 at 04:00 Hydralazine HCl (Apresoline) 25 mg TID GTB Last administered on 10/02/18at 11:42; Admin Dose 25 MG; Start 10/01/18 at 21:00 Clonidine (Catapres) 0.1 mg Q4H PRN GTB hypertension Last administered on 10/01/18at 16:20; Admin Dose 0.1 MG; Start 10/01/18 at 16:00 AMBER GOMEZ DPM October 02, 2018 12:37
--- NOTE | 2018-10-02 14:38 | CONS ---
Assessment/Plan Assessment/Plan Hospital Course (Demo Recall) Patient is in no distress sleeping looks comfortable no fevers overnight WBC 8.4 neutrophils 83.7 Microbiology: All cultures negative Chest x-ray this morning revealed persistent cardiomegaly with vascular congestion Indwelling: Left upper extremity AV fistula Antimicrobials: Vancomycin, cefepime PHYSICAL EXAMINATION: GENERAL: A well-nourished, well-developed, pleasant, elderly man who is alert, in no distress. HEENT: Head is atraumatic, normocephalic. Sclerae are anicteric. Buccal mucosa is pink. NECK: Supple. CHEST: Rise symmetrical. Breath sounds are clear. HEART: S1, S2. ABDOMEN: Soft. Bowel tones are present. EXTREMITIES: With left foot edema and erythema. Assessment: 1. Left diabetic foot with cellulitis 2. Diabetes 3. End-stage renal disease, hemodialysis dependent 4. Coronary artery disease Plan: Patient remains stable, continue on current antibiotics follow podiatry recommendations, await for MRI of the foot Consultation Date/Type/Reason Admit Date/Time September 30, 2018 at 22:07 Initial Consult Date 10/01/18 Type of Consult id Date/Time of Note DATE: 10/02/18 TIME: 14:37 Exam/Review of Systems Exam Vitals Vital Signs Date Temp Pulse Resp B/P (MAP) Pulse Ox O2 O2 Flow FiO2 Time Delivery Rate 10/02/18 72 12:00 10/02/18 98.6 18 140/67 90 11:17 (91) 10/02/18 2.0 08:49 10/02/18 Nasal 04:35 Cannula Intake and Output 10/01/18 10/01/18 10/02/18 1515:00 23:00 07:00 IntakeIntake Total 1200 ml 250 ml OutputOutput Total 3400 ml BalanceBalance -3400 ml 1200 ml 250 ml Results Result Diagram: 10/02/18 0545 10/02/18 0545 Results 24hrs Laboratory Tests Test 10/01/18 17:07 10/01/18 20:16 10/02/18 05:45 10/02/18 07:49 Bedside Glucose 131 155 117 White Blood Count 8.4 Red Blood Count 3.95 L Hemoglobin 10.1 L Hematocrit 33.2 L Mean Corpuscular 84.1 Volume Mean Corpuscular 25.6 L Hemoglobin Mean Corpuscular 30.4 L Hemoglobin Concent Red Cell 14.9 H Distribution Width Platelet Count 164 Mean Platelet Volume 9.9 Immature 0.400 Granulocytes % Neutrophils % 83.7 H Lymphocytes % 6.5 L Monocytes % 8.4 Eosinophils % 0.6 Basophils % 0.4 Nucleated Red Blood 0.0 Cells % Immature 0.030 Granulocytes # Neutrophils # 7.0 Lymphocytes # 0.5 L Monocytes # 0.7 Eosinophils # 0.1 Basophils # 0.0 Nucleated Red Blood 0.0 Cells # Sodium Level 138 Potassium Level 5.4 H Chloride Level 101 Carbon Dioxide Level 27 Anion Gap 10 Blood Urea Nitrogen 41 #H Creatinine 6.61 #H Est Glomerular 8 L Filtrat Rate mL/min Glucose Level 88 Calcium Level 9.4 Test 10/02/18 11:43 Bedside Glucose 121 Medications Medication Current Medications Vancomycin HCl (Vanco Iv Per Pharmacy) VANCOMYCIN PER PHARMACY PER PROTOCOL XX ; Start 09/30/18 at 23:30 Cefepime HCl 50 ml @ 100 mls/hr Q24H IVPB Last administered on 10/02/18at 05:51; Admin Dose 100 MLS/HR; Start 10/01/18 at 05:00 Acetaminophen (Tylenol Tab) 500 mg Q4 PRN PO FEVER GREATER THAN 100.6; Start 09/30/18 at 23:30 Acetaminophen/ Hydrocodone Bitart ([place] (5/325)) 1 tab Q6H PRN PO MODERATE PAIN LEVEL 4-6; Start 09/30/18 at 23:30 Insulin Aspart (Novolog Insulin Pen) NOVOLOG *MILD* ALGORITHM WITH MEALS BEDTIME SC ; Start 10/01/18 at 08:00 Amlodipine Besylate (Norvasc) 10 mg DAILY PO Last administered on 10/02/18at 08:38; Admin Dose 10 MG; Start 10/01/18 at 09:00 Calcium Acetate (Phoslo) 667 mg WITH MEALS PO Last administered on 10/02/18at 11:41; Admin Dose 667 MG; Start 10/01/18 at 08:00 Ferrous Sulfate (Ferrous Sulfate (Ec)) 325 mg DAILY PO Last administered on 10/02/18at 08:38; Admin Dose 325 MG; Start 10/01/18 at 09:00 Insulin Glargine (Lantus) 9 units HS SC Last administered on 10/01/18at 20:24; Admin Dose 9 UNITS; Start 10/01/18 at 21:00 Pantoprazole (Protonix Tab) 40 mg DAILY@06 PO Last administered on 10/02/18at 05:51; Admin Dose 40 MG; Start 10/01/18 at 06:00 Atorvastatin Calcium (Lipitor) 10 mg QHS PO Last administered on 10/01/18at 20:18; Admin Dose 10 MG; Start 10/01/18 at 21:00 Miscellaneous Information 1 ea NOTE XX ; Start 10/01/18 at 04:00 Glucose (Glutose) 15 gm Q15M PRN PO DECREASED GLUCOSE; Start 10/01/18 at 04:00 Glucose (Glutose) 22.5 gm Q15M PRN PO DECREASED GLUCOSE; Start 10/01/18 at 04: 00 Dextrose (D50w Syringe) 25 ml Q15M PRN IV DECREASED GLUCOSE; Start 10/01/18 at 04:00 Dextrose (D50w Syringe) 50 ml Q15M PRN IV DECREASED GLUCOSE; Start 10/01/18 at 04:00 Glucagon (Glucagen) 1 mg Q15M PRN IM DECREASED GLUCOSE; Start 10/01/18 at 04:00 Glucose (Glutose) 15 gm Q15M PRN BUCCAL DECREASED GLUCOSE; Start 10/01/18 at 04:00 Hydralazine HCl (Apresoline) 25 mg TID GTB Last administered on 10/02/18at 11:42; Admin Dose 25 MG; Start 10/01/18 at 21:00 Clonidine (Catapres) 0.1 mg Q4H PRN GTB hypertension Last administered on 10/01/18at 16:20; Admin Dose 0.1 MG; Start 10/01/18 at 16:00 SYEDA LEÓN NP October 02, 2018 14:38
--- NOTE | 2018-10-02 15:15 | CONS ---
DATE OF ADMISSION: 09/30/2018 DATE OF CONSULTATION: 10/02/2018 CHIEF COMPLAINT: Left foot cellulitis. HISTORY OF PRESENT ILLNESS: A 68-year-old gentleman admitted with left foot infection, hyperkalemia. The patient has multiple comorbidities including end-stage renal disease hemodialysis dependent. PAST MEDICAL HISTORY: Diabetes, hypertension, coronary artery disease, history of VT, end-stage pati l disease, hemodialysis dependent. ALLERGIES: NONE. MEDICATIONS: Include: 1. Vancomycin. 2. Cefepime. FAMILY HISTORY: Includes diabetes. SOCIAL HISTORY: Social alcohol use. Denies any tobacco. PHYSICAL EXAMINATION: VITAL SIGNS: Temperature 97.9, pulse is 80, respiratory rate 19, blood pressure is 167/75, pulse ox is 92. GENERAL: The patient is alert, oriented, in no acute distress, regular respiration. EXTREMITIES: Unilateral edema, erythema noted to the 2nd and 3rd toes. No visible signs of puncture or ulceration, venous stasis, mycotic nails with 2+ DP, PT pulse. LABORATORIES: WBC 8.4, hemoglobin 10.1, hematocrit 33.2, platelets 164. DIAGNOSTIC DATA: Foot x-rays: No evidence of osteomyelitis or soft tissue gas, soft tissue swelling noted. No signs of fracture. Chest x-ray: Cardiomegaly with vascular congestion, persistent moder ate sized bilateral pleural effusions with associated atelectasis. MICROBIOLOGY: Nares, blood and urine culture results no growth, preliminary. ASSESSMENT: 1. Left foot cellulitis. 2. Left foot pain. 3. Hyperkalemia. 4. Diabetes type 2. PLAN: The patient was seen and evaluated. I reviewed radiographs. No visible signs of puncture. N o foreign body seen on radiographs. If swelling persists, consider obtaining MRI of the left foot. Topical antiseptic precautions recommended and we will follow. Dictated By: GUSTABO HERNANDEZ DPM RB/CANDY Conf#: [id number] DID#: [id number] CC: SAURABH WEINSTEIN MD;*EndCC*
--- NOTE | 2018-10-02 18:39 | PN ---
Date/Time of Note Date/Time of Note DATE: 10/02/18 TIME: 18:34 Assessment/Plan VTE Prophylaxis Risk score (from [facility] [place]0 risk: 3 SCD applied (from [facility] [place] No SCD contraindicated: bilateral LE trauma Pharmacological prophylaxis: NA/contraindicated Pharm contraindication: thrombocytopenia Lines/Catheters IV Catheter Type (from [facility]): [place] Urinary Cath still in place: No Assessment/Plan Hospital Course Patient remains hemodynamically stable stated some decrease in left foot tenderness however continues to have erythema and swelling, pending a CT of the left foot and ankle. Blood sugar is well controlled. Assessment/Plan - Left lower extremity cellulitis. Continue broad-spectrum antibiotics. Bilateral lower extremity Dopplers negative for DVT. Dr. Burt is following in infection disease consultation. Dr. Delcid is following in podiatry consultation. - Hyperkalemia. Dr. Dobbins is following in nephrology consultation - Hemodialysis dependent end-stage renal disease. - Diabetes. Continue Lantus and NovoLog. - PPM - Hypertension. Continue Norvasc and lisinopril. - History of coronary artery disease, status post myocardial infarction. Continue aspirin. - Preserved EF 55% per last Echo Further recommendations based on clinical course. Plan of care discussed with Dr. Mujica. Result Diagram: 10/02/18 0545 10/02/18 0545 Results 24hrs Laboratory Tests Test 10/01/18 20:16 10/02/18 05:45 10/02/18 07:49 10/02/18 11:43 Bedside Glucose 155 117 121 White Blood Count 8.4 Red Blood Count 3.95 L Hemoglobin 10.1 L Hematocrit 33.2 L Mean Corpuscular 84.1 Volume Mean Corpuscular 25.6 L Hemoglobin Mean Corpuscular 30.4 L Hemoglobin Concent Red Cell 14.9 H Distribution Width Platelet Count 164 Mean Platelet Volume 9.9 Immature 0.400 Granulocytes % Neutrophils % 83.7 H Lymphocytes % 6.5 L Monocytes % 8.4 Eosinophils % 0.6 Basophils % 0.4 Nucleated Red Blood 0.0 Cells % Immature 0.030 Granulocytes # Neutrophils # 7.0 Lymphocytes # 0.5 L Monocytes # 0.7 Eosinophils # 0.1 Basophils # 0.0 Nucleated Red Blood 0.0 Cells # Sodium Level 138 Potassium Level 5.4 H Chloride Level 101 Carbon Dioxide Level 27 Anion Gap 10 Blood Urea Nitrogen 41 #H Creatinine 6.61 #H Est Glomerular 8 L Filtrat Rate mL/min Glucose Level 88 Calcium Level 9.4 Test 10/02/18 17:18 Bedside Glucose 98 Exam/Review of Systems Exam Vitals Vital Signs Date Temp Pulse Resp B/P (MAP) Pulse Ox O2 O2 Flow FiO2 Time Delivery Rate 10/02/18 61 16:00 10/02/18 98.2 19 146/68 95 15:23 (94) 10/02/18 2.0 08:49 10/02/18 Nasal 04:35 Cannula Intake and Output 10/01/18 10/01/18 10/02/18 1515:00 23:00 07:00 IntakeIntake Total 1200 ml 250 ml OutputOutput Total 3400 ml BalanceBalance -3400 ml 1200 ml 250 ml Exam Constitutional: alert, oriented Respiratory: clear to auscultation Cardiovascular: regular rate and rhythm, PPM Gastrointestinal: soft, non-tender Musculoskeletal: nl extremities to inspection Extremities: other (Left lower remedy swelling, erythema and tenderness) Neurological: nl mental status Results Results 24hrs Laboratory Tests Test 10/01/18 20:16 10/02/18 05:45 10/02/18 07:49 10/02/18 11:43 Bedside Glucose 155 117 121 White Blood Count 8.4 Red Blood Count 3.95 L Hemoglobin 10.1 L Hematocrit 33.2 L Mean Corpuscular 84.1 Volume Mean Corpuscular 25.6 L Hemoglobin Mean Corpuscular 30.4 L Hemoglobin Concent Red Cell 14.9 H Distribution Width Platelet Count 164 Mean Platelet Volume 9.9 Immature 0.400 Granulocytes % Neutrophils % 83.7 H Lymphocytes % 6.5 L Monocytes % 8.4 Eosinophils % 0.6 Basophils % 0.4 Nucleated Red Blood 0.0 Cells % Immature 0.030 Granulocytes # Neutrophils # 7.0 Lymphocytes # 0.5 L Monocytes # 0.7 Eosinophils # 0.1 Basophils # 0.0 Nucleated Red Blood 0.0 Cells # Sodium Level 138 Potassium Level 5.4 H Chloride Level 101 Carbon Dioxide Level 27 Anion Gap 10 Blood Urea Nitrogen 41 #H Creatinine 6.61 #H Est Glomerular 8 L Filtrat Rate mL/min Glucose Level 88 Calcium Level 9.4 Test 10/02/18 17:18 Bedside Glucose 98 Medications Medication Current Medications Vancomycin HCl (Vanco Iv Per Pharmacy) VANCOMYCIN PER PHARMACY PER PROTOCOL XX ; Start 09/30/18 at 23:30 Cefepime HCl 50 ml @ 100 mls/hr Q24H IVPB Last administered on 10/02/18at 05:51; Admin Dose 100 MLS/HR; Start 10/01/18 at 05:00 Acetaminophen (Tylenol Tab) 500 mg Q4 PRN PO FEVER GREATER THAN 100.6 Last administered on 10/02/18at 14:44; Admin Dose 500 MG; Start 09/30/18 at 23:30 Acetaminophen/ Hydrocodone Bitart ([place] (5/325)) 1 tab Q6H PRN PO MODERATE PAIN LEVEL 4-6; Start 09/30/18 at 23:30 Insulin Aspart (Novolog Insulin Pen) NOVOLOG *MILD* ALGORITHM WITH MEALS BEDTIME SC ; Start 10/01/18 at 08:00 Amlodipine Besylate (Norvasc) 10 mg DAILY PO Last administered on 10/02/18 08:38; Admin Dose 10 MG; Start 10/01/18 at 09:00 Calcium Acetate (Phoslo) 667 mg WITH MEALS PO Last administered on 10/02/18 17:24; Admin Dose 667 MG; Start 10/01/18 at 08:00 Ferrous Sulfate (Ferrous Sulfate (Ec)) 325 mg DAILY PO Last administered on 10/02/18 08:38; Admin Dose 325 MG; Start 10/01/18 at 09:00 Insulin Glargine (Lantus) 9 units HS SC Last administered on 10/01/18at 20:24; Admin Dose 9 UNITS; Start 10/01/18 at 21:00 Pantoprazole (Protonix Tab) 40 mg DAILY@06 PO Last administered on 10/02/18 05:51; Admin Dose 40 MG; Start 10/01/18 at 06:00 Atorvastatin Calcium (Lipitor) 10 mg QHS PO Last administered on 10/01/18 20:18; Admin Dose 10 MG; Start 10/01/18 at 21:00 Miscellaneous Information 1 ea NOTE XX ; Start 10/01/18 at 04:00 Glucose (Glutose) 15 gm Q15M PRN PO DECREASED GLUCOSE; Start 10/01/18 at 04:00 Glucose (Glutose) 22.5 gm Q15M PRN PO DECREASED GLUCOSE; Start 10/01/18 at 04:00 Dextrose (D50w Syringe) 25 ml Q15M PRN IV DECREASED GLUCOSE; Start 10/01/18 at 04:00 Dextrose (D50w Syringe) 50 ml Q15M PRN IV DECREASED GLUCOSE; Start 10/01/18 at 04:00 Glucagon (Glucagen) 1 mg Q15M PRN IM DECREASED GLUCOSE; Start 10/01/18 at 04:00 Glucose (Glutose) 15 gm Q15M PRN BUCCAL DECREASED GLUCOSE; Start 10/01/18 at 04:00 Hydralazine HCl (Apresoline) 25 mg TID GTB Last administered on 10/02/18at 11:42; Admin Dose 25 MG; Start 10/01/18 at 21:00 Clonidine (Catapres) 0.1 mg Q4H PRN GTB hypertension Last administered on 10/01/18at 16:20; Admin Dose 0.1 MG; Start 10/01/18 at 16:00 Miscellaneous Information (*Rx Drug Level Order Reminder*) RANDOM VANCO W/ AM LABS... 0500 ONCE XX ; Start 10/03/18 at 05:00; Stop 10/03/18 at 05:01 YUMIKO PAINTING October 02, 2018 18:39
[2018-10-02] MEDS: ATORVASTATIN 10 MG TAB PO SCH (21:04)
[2018-10-02] MEDS: INSULIN GLARGINE [LANTus] (100 UNITS/ML) SYG SC SCH (21:15)
[2018-10-03] VITALS (25 sets, daily range): BP systolic 141–167; BP diastolic 57–94; PULSE 57–74; RESP 16–20
[2018-10-03] MEDS: CEFEPIME 1GM/50 ML (PMX) 50 ML IVPB SCH (04:41)
[2018-10-03] MEDS: PANTOPRAZOLE (EC) 40 MG TAB PO SCH (06:32)
[2018-10-03] MEDS: INSULIN ASPART [NOVOLOG] 3 ML PEN SC SCH ×4 (07:56→21:00)
[2018-10-03] MEDS: AMLODIPINE 10 MG TAB PO SCH (09:00)
[2018-10-03] MEDS: CALCIUM ACETATE 667 MG CAP PO SCH ×3 (09:27→18:02)
[2018-10-03] MEDS: FERROUS SULFATE (EC) 325 MG TAB PO SCH (09:27)
--- NOTE | 2018-10-03 11:56 | CONS ---
Assessment/Plan Assessment/Plan Assessment/Plan (Daily) - ESRD Hemodialysis dependent @ [facility] ( Tues-Judi- Sat ) - Left foot Cellulitis / Soft tissue infection - Hyperkalemia - DM / DM Nephropathy - Hypertension - Hyperphosphatemia PLAN: - STAT Hemodialysis has been arranged to correct hyperkalemia - IV Abx for the lower extremity infection - Will review the imaging for ? Osteomyelitis as well - DM control - Follow up with H/H - On long acting EPO as out patient - Follow up with potassium & Phos - Remains on IV Antibiotics - Follow up with imaging results - Bedside Dialysis ( On HD TTS ) - Follow up with H/H Consultation Date/Type/Reason Admit Date/Time September 30, 2018 at 22:07 Initial Consult Date 10/01/18 Type of Consult Nephrology Date/Time of Note DATE: 10/03/18 TIME: 11:55 24 HR Interval Summary Constitutional: no complaints, improved Exam/Review of Systems Exam Vitals Vital Signs Date Temp Pulse Resp B/P (MAP) Pulse Ox O2 O2 Flow FiO2 Time Delivery Rate 10/03/18 98.0 70 20 167/78 93 Nasal 11:19 (107) Cannula 10/03/18 2.0 08:00 Intake and Output 10/02/18 10/02/18 10/03/18 1515:00 23:00 07:00 IntakeIntake Total 800 ml 800 ml BalanceBalance 800 ml 800 ml Constitutional: alert, oriented Psych: no complaints Head: normocephalic Eyes: nl conjunctiva ENMT: nl external ears & nose Respiratory: clear to auscultation, crackles/rales Cardiovascular: edema, systolic murmur Gastrointestinal: soft Results Result Diagram: 10/02/18 0545 10/02/18 0545 Results 24hrs Laboratory Tests Test 10/02/18 17:18 10/02/18 21:02 10/03/18 05:02 10/03/18 07:44 Bedside Glucose 98 137 190 Random Vancomycin 11.2 Level Medications Medication Current Medications Vancomycin HCl (Vanco Iv Per Pharmacy) VANCOMYCIN PER PHARMACY PER PROTOCOL XX ; Start 09/30/18 at 23:30 Cefepime HCl 50 ml @ 100 mls/hr Q24H IVPB Last administered on 10/03/18 04:41; Admin Dose 100 MLS/HR; Start 10/01/18 at 05:00 Acetaminophen (Tylenol Tab) 500 mg Q4 PRN PO FEVER GREATER THAN 100.6 Last administered on 10/02/18 14:44; Admin Dose 500 MG; Start 09/30/18 at 23:30 Acetaminophen/ Hydrocodone Bitart ([place] (5/325)) 1 tab Q6H PRN PO MODERATE PAIN LEVEL 4-6; Start 09/30/18 at 23:30 Insulin Aspart (Novolog Insulin Pen) NOVOLOG *MILD* ALGORITHM WITH MEALS BEDTIME SC Last administered on 10/03/18 07:56; Admin Dose 2 UNIT; Start 10/01/18 at 08:00 Amlodipine Besylate (Norvasc) 10 mg DAILY PO Last administered on 10/02/18at 0 8:38; Admin Dose 10 MG; Start 10/01/18 at 09:00 Calcium Acetate (Phoslo) 667 mg WITH MEALS PO Last administered on 10/03/18 09:27; Admin Dose 667 MG; Start 10/01/18 at 08:00 Ferrous Sulfate (Ferrous Sulfate (Ec)) 325 mg DAILY PO Last administered on 10/03/18 09:27; Admin Dose 325 MG; Start 10/01/18 at 09:00 Insulin Glargine (Lantus) 9 units HS SC Last administered on 10/02/18 21:15; Admin Dose 9 UNITS; Start 10/01/18 at 21:00 Pantoprazole (Protonix Tab) 40 mg DAILY@06 PO Last administered on 10/03/18 06:32; Admin Dose 40 MG; Start 10/01/18 at 06:00 Atorvastatin Calcium (Lipitor) 10 mg QHS PO Last administered on 10/02/18 21:04; Admin Dose 10 MG; Start 10/01/18 at 21:00 Miscellaneous Information 1 ea NOTE XX ; Start 10/01/18 at 04:00 Glucose (Glutose) 15 gm Q15M PRN PO DECREASED GLUCOSE; Start 10/01/18 at 04:00 Glucose (Glutose) 22.5 gm Q15M PRN PO DECREASED GLUCOSE; Start 10/01/18 at 04:00 Dextrose (D50w Syringe) 25 ml Q15M PRN IV DECREASED GLUCOSE; Start 10/01/18 at 04:00 Dextrose (D50w Syringe) 50 ml Q15M PRN IV DECREASED GLUCOSE; Start 10/01/18 at 04:00 Glucagon (Glucagen) 1 mg Q15M PRN IM DECREASED GLUCOSE; Start 10/01/18 at 04:00 Glucose (Glutose) 15 gm Q15M PRN BUCCAL DECREASED GLUCOSE; Start 10/01/18 at 04:00 Hydralazine HCl (Apresoline) 25 mg TID GTB Last administered on 10/02/18at 21:04; Admin Dose 25 MG; Start 10/01/18 at 21:00 Clonidine (Catapres) 0.1 mg Q4H PRN GTB hypertension Last administered on 10/01/18at 16:20; Admin Dose 0.1 MG; Start 10/01/18 at 16:00 PACO LAZO MD October 03, 2018 11:56
--- NOTE | 2018-10-03 14:11 | PN ---
Date/Time of Note Date/Time of Note DATE: 10/03/18 TIME: 14:09 Assessment/Plan VTE Prophylaxis Risk score (from Ns)>0 risk: 3 SCD applied (from Ns): No SCD contraindicated: other Pharmacological prophylaxis: LMWH Lines/Catheters [facility]from [facility] [place] Urinary Cath still in place: No Assessment/Plan Hospital Course Pt remains stable, slight improvement in pain and redness, continue abx, podiatry recs. Assessment/Plan - Left lower extremity cellulitis. Continue broad-spectrum antibiotics. Bilateral lower extremity Dopplers negative for DVT. Dr. Burt is following in infection disease consultation. Dr. Delcid is following in podiatry consultation. - Hyperkalemia. Dr. Dobbins is following in nephrology consultation - Hemodialysis dependent end-stage renal disease. - Diabetes. Continue Lantus and NovoLog. - PPM - Hypertension. Continue Norvasc and lisinopril. - History of coronary artery disease, status post myocardial infarction. Continue aspirin. - Preserved EF 55% per last Echo Further recommendations based on clinical course. Plan of care discussed with Dr. Mujica. Result Diagram: 10/02/18 0545 10/02/18 0545 Results 24hrs Laboratory Tests Test 10/02/18 17:18 10/02/18 21:02 10/03/18 05:02 10/03/18 07:44 Bedside Glucose 98 137 190 Random Vancomycin 11.2 Level Test 10/03/18 12:00 Bedside Glucose 166 Exam/Review of Systems Exam Vitals Vital Signs Date Temp Pulse Resp B/P (MAP) Pulse Ox O2 O2 Flow FiO2 Time Delivery Rate 10/03/18 69 12:00 10/03/18 98.0 20 167/78 93 Nasal 11:19 (107) Cannula 10/03/18 2.0 08:00 Intake and Output 10/02/18 10/02/18 10/03/18 1515:00 23:00 07:00 IntakeIntake Total 800 ml 800 ml BalanceBalance 800 ml 800 ml Exam Constitutional: alert, oriented Respiratory: clear to auscultation Cardiovascular: regular rate and rhythm, PPM Gastrointestinal: soft, non-tender Musculoskeletal: nl extremities to inspection Extremities: other (Left lower remedy swelling, erythema and tenderness) Neurological: nl mental status Results Results 24hrs Laboratory Tests Test 10/02/18 17:18 10/02/18 21:02 10/03/18 05:02 10/03/18 07:44 Bedside Glucose 98 137 190 Random Vancomycin 11.2 Level Test 10/03/18 12:00 Bedside Glucose 166 Medications Medication Current Medications Vancomycin HCl (Vanco Iv Per Pharmacy) VANCOMYCIN PER PHARMACY PER PROTOCOL XX ; Start 09/30/18 at 23:30 Cefepime HCl 50 ml @ 100 mls/hr Q24H IVPB Last administered on 10/03/18 04:41; Admin Dose 100 MLS/HR; Start 10/01/18 at 05:00 Acetaminophen (Tylenol Tab) 500 mg Q4 PRN PO FEVER GREATER THAN 100.6 Last administered on 10/02/18 14:44; Admin Dose 500 MG; Start 09/30/18 at 23:30 Acetaminophen/ Hydrocodone Bitart ([place] (5/325)) 1 tab Q6H PRN PO MODERATE PAIN LEVEL 4-6; Start 09/30/18 at 23:30 Insulin Aspart (Novolog Insulin Pen) NOVOLOG *MILD* ALGORITHM WITH MEALS BEDTIME SC Last administered on 10/03/18 12:08; Admin Dose 1 UNIT; Start 10/01/18 at 08:00 Amlodipine Besylate (Norvasc) 10 mg DAILY PO Last administered on 10/02/18 08:38; Admin Dose 10 MG; Start 10/01/18 at 09:00 Calcium Acetate (Phoslo) 667 mg WITH MEALS PO Last administered on 10/03/18 12:14; Admin Dose 667 MG; Start 10/01/18 at 08:00 Ferrous Sulfate (Ferrous Sulfate (Ec)) 325 mg DAILY PO Last administered on 10/03/18 09:27; Admin Dose 325 MG; Start 10/01/18 at 09:00 Insulin Glargine (Lantus) 9 units HS SC Last administered on 10/02/18 21:15; Admin Dose 9 UNITS; Start 10/01/18 at 21:00 Pantoprazole (Protonix Tab) 40 mg DAILY@06 PO Last administered on 10/03/18 06:32; Admin Dose 40 MG; Start 10/01/18 at 06:00 Atorvastatin Calcium (Lipitor) 10 mg QHS PO Last administered on 10/02/18 21:04; Admin Dose 10 MG; Start 10/01/18 at 21:00 Miscellaneous Information 1 ea NOTE XX ; Start 10/01/18 at 04:00 Glucose (Glutose) 15 gm Q15M PRN PO DECREASED GLUCOSE; Start 10/01/18 at 04:00 Glucose (Glutose) 22.5 gm Q15M PRN PO DECREASED GLUCOSE; Start 10/01/18 at 04:00 Dextrose (D50w Syringe) 25 ml Q15M PRN IV DECREASED GLUCOSE; Start 10/01/18 at 04:00 Dextrose (D50w Syringe) 50 ml Q15M PRN IV DECREASED GLUCOSE; Start 10/01/18 at 04:00 Glucagon (Glucagen) 1 mg Q15M PRN IM DECREASED GLUCOSE; Start 10/01/18 at 04:00 Glucose (Glutose) 15 gm Q15M PRN BUCCAL DECREASED GLUCOSE; Start 10/01/18 at 04:00 Hydralazine HCl (Apresoline) 25 mg TID GTB Last administered on 10/03/18at 12:15; Admin Dose 25 MG; Start 10/01/18 at 21:00 Clonidine (Catapres) 0.1 mg Q4H PRN GTB hypertension Last administered on 10/01/18at 16:20; Admin Dose 0.1 MG; Start 10/01/18 at 16:00 YUMIKO PAINTING October 03, 2018 14:11
--- NOTE | 2018-10-03 15:32 | CONS ---
Assessment/Plan Assessment/Plan Assessment/Plan (Daily) Left lower extremity cellulitis DM2 with peripheral neuropathy Edema ESRD on HD CAD Plan Patient not a candidate for MRI due to pacemaker. Patient obtained CT scan which did not reveal any localized abscess or fluid collection. X-rays were reviewed with no signs of osteomyelitis, no soft tissue emphysema, no fractures or dislocation appreciated. DVT scan is negative. Patient on IV abx and appreciate ID recommendations. Continue to elevate and offload left lower e xtremity. Recommend compression dressings to assist with edema control. Consultation Date/Type/Reason Admit Date/Time September 30, 2018 at 22:07 Initial Consult Date 10/01/18 Date/Time of Note DATE: 10/03/18 TIME: 15:32 24 HR Interval Summary Free Text/Dictation No acute events overnight. Exam/Review of Systems Exam Vitals Vital Signs Date Temp Pulse Resp B/P (MAP) Pulse Ox O2 O2 Flow FiO2 Time Delivery Rate 10/03/18 69 15:10 10/03/18 18 149/72 98 Nasal 2.0 14:40 (97) Cannula 10/03/18 98.0 11:19 Intake and Output 10/02/18 10/02/18 10/03/18 1515:00 23:00 07:00 IntakeIntake Total 800 ml 800 ml BalanceBalance 800 ml 800 ml Exam DP/PT and popliteal pulses palpable 2+ pitting edema to left lower extremity Absent protective sensations Erythema diffusely present to the dorsum of the foot and mildly to the plantar forefoot aspect No proximal streaking appreciated No open lesions appreciated Muscle strength 5/5 in all compartments fo the foot. Results Result Diagram: 10/02/18 0545 10/02/18 0545 Results 24hrs Laboratory Tests Test 10/02/18 17:18 10/02/18 21:02 10/03/18 05:02 10/03/18 07:44 Bedside Glucose 98 137 190 Random Vancomycin 11.2 Level Test 10/03/18 12:00 Bedside Glucose 166 Medications Medication Current Medications Vancomycin HCl (Vanco Iv Per Pharmacy) VANCOMYCIN PER PHARMACY PER PROTOCOL XX ; Start 09/30/18 at 23:30 Cefepime HCl 50 ml @ 100 mls/hr Q24H IVPB Last administered on 10/03/18at 04:41; Admin Dose 100 MLS/HR; Start 10/01/18 at 05:00 Acetaminophen (Tylenol Tab) 500 mg Q4 PRN PO FEVER GREATER THAN 100.6 Last administered on 10/02/18 14:44; Admin Dose 500 MG; Start 09/30/18 at 23:30 Acetaminophen/ Hydrocodone Bitart ([place] (5/325)) 1 tab Q6H PRN PO MODERATE PAIN LEVEL 4-6; Start 09/30/18 at 23:30 Insulin Aspart (Novolog Insulin Pen) NOVOLOG *MILD* ALGORITHM WITH MEALS BEDTIME SC Last administered on 10/03/18 12:08; Admin Dose 1 UNIT; Start 10/01/18 at 08:00 Amlodipine Besylate (Norvasc) 10 mg DAILY PO Last administered on 10/02/18 08:38; Admin Dose 10 MG; Start 10/01/18 at 09:00 Calcium Acetate (Phoslo) 667 mg WITH MEALS PO Last administered on 10/03/18 12:14; Admin Dose 667 MG; Start 10/01/18 at 08:00 Ferrous Sulfate (Ferrous Sulfate (Ec)) 325 mg DAILY PO Last administered on 10/03/18 09:27; Admin Dose 325 MG; Start 10/01/18 at 09:00 Insulin Glargine (Lantus) 9 units HS SC Last administered on 10/02/18 21:15; Admin Dose 9 UNITS; Start 10/01/18 at 21:00 Pantoprazole (Protonix Tab) 40 mg DAILY@06 PO Last administered on 10/03/18 06:32; Admin Dose 40 MG; Start 10/01/18 at 06:00 Atorvastatin Calcium (Lipitor) 10 mg QHS PO Last administered on 10/02/18at 21:04; Admin Dose 10 MG; Start 10/01/18 at 21:00 Miscellaneous Information 1 ea NOTE XX ; Start 10/01/18 at 04:00 Glucose (Glutose) 15 gm Q15M PRN PO DECREASED GLUCOSE; Start 10/01/18 at 04:00 Glucose (Glutose) 22.5 gm Q15M PRN PO DECREASED GLUCOSE; Start 10/01/18 at 04:00 Dextrose (D50w Syringe) 25 ml Q15M PRN IV DECREASED GLUCOSE; Start 10/01/18 at 04:00 Dextrose (D50w Syringe) 50 ml Q15M PRN IV DECREASED GLUCOSE; Start 10/01/18 at 04:00 Glucagon (Glucagen) 1 mg Q15M PRN IM DECREASED GLUCOSE; Start 10/01/18 at 04:00 Glucose (Glutose) 15 gm Q15M PRN BUCCAL DECREASED GLUCOSE; Start 10/01/18 at 04:00 Hydralazine HCl (Apresoline) 25 mg TID GTB Last administered on 10/03/18at 12:15; Admin Dose 25 MG; Start 10/01/18 at 21:00 Clonidine (Catapres) 0.1 mg Q4H PRN GTB hypertension Last administered on 10/01/18at 16:20; Admin Dose 0.1 MG; Start 10/01/18 at 16:00 Vancomycin HCl 250 ml @ 125 mls/hr ONCE IVPB ; Start 10/03/18 at 16:00; Stop 10/03/18 at 17:59 AMBER GOMEZ DPM October 03, 2018 15:32
--- NOTE | 2018-10-03 15:42 | CONS ---
Assessment/Plan Assessment/Plan Hospital Course (Demo Recall) Alert feels better no fevers overnight Microbiology: All cultures negative Chest x-ray this morning revealed persistent cardiomegaly with vascular congestion Indwelling: Left upper extremity AV fistula Antimicrobials: Vancomycin, cefepime PHYSICAL EXAMINATION: GENERAL: A well-nourished, well-developed, pleasant, elderly man who is alert, in no distress. HEENT: Head is atraumatic, normocephalic. Sclerae are anicteric. Buccal mucosa is pink. NECK: Supple. CHEST: Rise symmetrical. Breath sounds are clear. HEART: S1, S2. ABDOMEN: Soft. Bowel tones are present. EXTREMITIES: Left lower extremity Elvis wrapped Assessment: 1. Left diabetic foot with cellulitis 2. Diabetes 3. End-stage renal disease, hemodialysis dependent 4. Coronary artery disease Plan: Patient remains stable, podiatry recommendations noted, anticipate discharge on IV vancomycin given at hemodialysis center for 7-10 more days Consultation Date/Type/Reason Admit Date/Time September 30, 2018 at 22:07 Initial Consult Date 10/01/18 Type of Consult id Date/Time of Note DATE: 10/03/18 TIME: 15:41 Exam/Review of Systems Exam Vitals Vital Signs Date Temp Pulse Resp B/P (MAP) Pulse Ox O2 O2 Flow FiO2 Time Delivery Rate 10/03/18 69 15:10 10/03/18 18 149/72 98 Nasal 2.0 14:40 (97) Cannula 10/03/18 98.0 11:19 Intake and Output 10/02/18 10/02/18 10/03/18 1414:59 22:59 06:59 IntakeIntake Total 800 ml 800 ml BalanceBalance 800 ml 800 ml Results Result Diagram: 10/02/18 0545 10/02/18 0545 Results 24hrs Laboratory Tests Test 10/02/18 17:18 10/02/18 21:02 10/03/18 05:02 10/03/18 07:44 Bedside Glucose 98 137 190 Random Vancomycin 11.2 Level Test 10/03/18 12:00 Bedside Glucose 166 Medications Medication Current Medications Vancomycin HCl (Vanco Iv Per Pharmacy) VANCOMYCIN PER PHARMACY PER PROTOCOL XX ; Start 09/30/18 at 23:30 Cefepime HCl 50 ml @ 100 mls/hr Q24H IVPB Last administered on 10/03/18at 04:41; Admin Dose 100 MLS/HR; Start 10/01/18 at 05:00 Acetaminophen (Tylenol Tab) 500 mg Q4 PRN PO FEVER GREATER THAN 100.6 Last administered on 10/02/18 14:44; Admin Dose 500 MG; Start 09/30/18 at 23:30 Acetaminophen/ Hydrocodone Bitart ([place] (5/325)) 1 tab Q6H PRN PO MODERATE PAIN LEVEL 4-6; Start 09/30/18 at 23:30 Insulin Aspart (Novolog Insulin Pen) NOVOLOG *MILD* ALGORITHM WITH MEALS BEDTIME SC Last administered on 10/03/18 12:08; Admin Dose 1 UNIT; Start 10/01/18 at 08:00 Amlodipine Besylate (Norvasc) 10 mg DAILY PO Last administered on 10/02/18 08:38; Admin Dose 10 MG; Start 10/01/18 at 09:00 Calcium Acetate (Phoslo) 667 mg WITH MEALS PO Last administered on 10/03/18 12:14; Admin Dose 667 MG; Start 10/01/18 at 08:00 Ferrous Sulfate (Ferrous Sulfate (Ec)) 325 mg DAILY PO Last administered on 10/03/18 09:27; Admin Dose 325 MG; Start 10/01/18 at 09:00 Insulin Glargine (Lantus) 9 units HS SC Last administered on 10/02/18 21:15; Admin Dose 9 UNITS; Start 10/01/18 at 21:00 Pantoprazole (Protonix Tab) 40 mg DAILY@06 PO Last administered on 10/03/18 06:32; Admin Dose 40 MG; Start 10/01/18 at 06:00 Atorvastatin Calcium (Lipitor) 10 mg QHS PO Last administered on 10/02/18 21:04; Admin Dose 10 MG; Start 10/01/18 at 21:00 Miscellaneous Information 1 ea NOTE XX ; Start 10/01/18 at 04:00 Glucose (Glutose) 15 gm Q15M PRN PO DECREASED GLUCOSE; Start 10/01/18 at 04:00 Glucose (Glutose) 22.5 gm Q15M PRN PO DECREASED GLUCOSE; Start 10/01/18 at 04:00 Dextrose (D50w Syringe) 25 ml Q15M PRN IV DECREASED GLUCOSE; Start 10/01/18 at 04:00 Dextrose (D50w Syringe) 50 ml Q15M PRN IV DECREASED GLUCOSE; Start 10/01/18 at 04:00 Glucagon (Glucagen) 1 mg Q15M PRN IM DECREASED GLUCOSE; Start 10/01/18 at 04:00 Glucose (Glutose) 15 gm Q15M PRN BUCCAL DECREASED GLUCOSE; Start 10/01/18 at 04:00 Hydralazine HCl (Apresoline) 25 mg TID GTB Last administered on 10/03/18at 12:15; Admin Dose 25 MG; Start 10/01/18 at 21:00 Clonidine (Catapres) 0.1 mg Q4H PRN GTB hypertension Last administered on 10/01/18at 16:20; Admin Dose 0.1 MG; Start 10/01/18 at 16:00 Vancomycin HCl 250 ml @ 125 mls/hr ONCE IVPB ; Start 10/03/18 at 16:00; Stop 10/03/18 at 17:59 SYEDA LEÓN NP October 03, 2018 15:42
[2018-10-03] MEDS ORDERED: VANCOMYCIN 1 GM 250 ML IVPB SCH (16:00)
[2018-10-03] MEDS: ATORVASTATIN 10 MG TAB PO SCH (21:00)
[2018-10-03] MEDS: INSULIN GLARGINE [LANTus] (100 UNITS/ML) SYG SC SCH (21:03)
[2018-10-04] VITALS (12 sets, daily range): BP systolic 158–177; BP diastolic 66–79; PULSE 68–82; RESP 18–19
[2018-10-04] MEDS: CEFEPIME 1GM/50 ML (PMX) 50 ML IVPB SCH (05:02)
[2018-10-04] MEDS: PANTOPRAZOLE (EC) 40 MG TAB PO SCH (05:02)
[2018-10-04] MEDS: INSULIN ASPART [NOVOLOG] 3 ML PEN SC SCH ×4 (07:27→22:00)
[2018-10-04] MEDS: CALCIUM ACETATE 667 MG CAP PO SCH ×3 (07:27→17:16)
[2018-10-04] MEDS: FERROUS SULFATE (EC) 325 MG TAB PO SCH (08:22)
[2018-10-04] MEDS: AMLODIPINE 10 MG TAB PO SCH (08:22)
--- NOTE | 2018-10-04 15:40 | PN ---
DATE: 10/04/2018 SUBJECTIVE: Follow up on left leg cellulitis, coronary artery disease, diabetes, hypertension, pacem blossom placement. The patient continues to have left leg swelling and erythema. There was small amoun t of drainage between the between 2nd and 3rd toes, slightly serosanguineous. The patient continues to have intermittent fever, T-max from this morning was 99.5. No reported vomiting, no reported head ache, dizziness, syncope. PHYSICAL EXAMINATION: GENERAL: The patient to be awake, alert. VITAL SIGNS: T-max 99.5, pulse 73, respiration 18, blood pressure 159/74, O2 saturation 96% on 2 lit ers cannula. HEENT: No eye discharge or redness. Conjunctiva was normal. Oropharynx clear. NECK: Supple. No thyromegaly. CHEST: Fairly clear. No use of accessory muscles. CARDIOVASCULAR: S1, S2 normal, no murmur. ABDOMEN: Soft, nontender. Bowel sounds plus. EXTREMITIES: Left leg is swollen, erythematous and has slight serosanguineous discharge between the 2nd and 3rd toe. LABORATORY: Blood culture negative. Urine culture negative. IMAGING: The patient underwent CT of the left foot yesterday. IMPRESSION: There is prominent soft tissue swelling without loculated abscess detected on noncontras t exam. Finding consistent with prior history of colitis, most evidence of osteomyelitis. Recent la bs, sodium 138, potassium 5.4, BUN 41, creatinine 6.6, glucose this morning has been between 108 and 116. CBC: WBC 8.4, hemoglobin 10.1, platelet count 154. 1. Left diabetic foot with cellulitis. Continue IV vancomycin. The patient still is significantly symptomatic and does still have fever. Will continue to monitor in the hospital. 2. Diabetes mellitus. Blood sugar reviewed. It is within acceptable range. Continue Lantus and sl iding scale insulin. 3. Hypertension. Blood pressure is not very well controlled. Will increase the hydralazine to 50 t .i.d. 4. End-stage renal disease. Continue hemodialysis. 5. Dyslipidemia. Continue Lipitor. 6. Coronary artery disease. LDL is 53 and recent AST, ALT were within normal limits. 7. Coronary artery disease, status post myocardial infarction. We will add aspirin to his regimen. The patient has a preserved EF. Dictated By: SAURABH VENCES/NTS Conf#: [id number] [facility]#: [id number]
--- NOTE | 2018-10-04 15:52 | CONS ---
Assessment/Plan Assessment/Plan Hospital Course (Demo Recall) Alert feels better no fevers overnight Microbiology: All cultures negative Chest x-ray this morning revealed persistent cardiomegaly with vascular congestion Indwelling: Left upper extremity AV fistula Antimicrobials: Vancomycin, cefepime PHYSICAL EXAMINATION: GENERAL: A well-nourished, well-developed, pleasant, elderly man who is alert, in no distress. HEENT: Head is atraumatic, normocephalic. Sclerae are anicteric. Buccal mucosa is pink. NECK: Supple. CHEST: Rise symmetrical. Breath sounds are clear. HEART: S1, S2. ABDOMEN: Soft. Bowel tones are present. EXTREMITIES: Left lower extremity decreased swelling Assessment: 1. Left diabetic foot with cellulitis 2. Diabetes 3. End-stage renal disease, hemodialysis dependent 4. Coronary artery disease Plan: Patient remains stable, ok dc on IV Vanco for 7-10 more days Consultation Date/Type/Reason Admit Date/Time September 30, 2018 at 22:07 Initial Consult Date 10/01/18 Type of Consult id Date/Time of Note DATE: 10/04/18 TIME: 15:50 Exam/Review of Systems Exam Vitals Vital Signs Date Temp Pulse Resp B/P (MAP) Pulse Ox O2 O2 Flow FiO2 Time Delivery Rate 10/04/18 98.2 75 18 169/78 92 Room Air 15:19 (108) 10/04/18 2.0 07:42 Intake and Output 10/03/18 10/03/18 10/04/18 1515:00 23:00 07:00 IntakeIntake Total 900 ml 300 ml OutputOutput Total 3500 ml BalanceBalance -2600 ml 300 ml Results Result Diagram: 10/02/18 0545 10/02/18 0545 Results 24hrs Laboratory Tests Test 10/03/18 17:14 10/03/18 20:54 10/04/18 07:26 10/04/18 11:37 Bedside Glucose 109 170 116 108 Medications Medication Current Medications Vancomycin HCl (Vanco Iv Per Pharmacy) VANCOMYCIN PER PHARMACY PER PROTOCOL XX ; Start 09/30/18 at 23:30 Cefepime HCl 50 ml @ 100 mls/hr Q24H IVPB Last administered on 10/04/18at 05:02; Admin Dose 100 MLS/HR; Start 10/01/18 at 05:00 Acetaminophen (Tylenol Tab) 500 mg Q4 PRN PO FEVER GREATER THAN 100.6 Last administered on 10/02/18 14:44; Admin Dose 500 MG; Start 09/30/18 at 23:30 Acetaminophen/ Hydrocodone Bitart ([place] (5/325)) 1 tab Q6H PRN PO MODERATE PAIN LEVEL 4-6; Start 09/30/18 at 23:30 Insulin Aspart (Novolog Insulin Pen) NOVOLOG *MILD* ALGORITHM WITH MEALS BEDTIME SC Last administered on 10/03/18 12:08; Admin Dose 1 UNIT; Start 10/01/18 at 08:00 Amlodipine Besylate (Norvasc) 10 mg DAILY PO Last administered on 10/04/18 08:22; Admin Dose 10 MG; Start 10/01/18 at 09:00 Calcium Acetate (Phoslo) 667 mg WITH MEALS PO Last administered on 10/04/18 11:38; Admin Dose 667 MG; Start 10/01/18 at 08:00 Ferrous Sulfate (Ferrous Sulfate (Ec)) 325 mg DAILY PO Last administered on 10/04/18 08:22; Admin Dose 325 MG; Start 10/01/18 at 09:00 Insulin Glargine (Lantus) 9 units HS SC Last administered on 10/03/18 21:03; Admin Dose 9 UNITS; Start 10/01/18 at 21:00 Pantoprazole (Protonix Tab) 40 mg DAILY@06 PO Last administered on 10/04/18 05:02; Admin Dose 40 MG; Start 10/01/18 at 06:00 Atorvastatin Calcium (Lipitor) 10 mg QHS PO Last administered on 10/03/18 21:00; Admin Dose 10 MG; Start 10/01/18 at 21:00 Miscellaneous Information 1 ea NOTE XX ; Start 10/01/18 at 04:00 Glucose (Glutose) 15 gm Q15M PRN PO DECREASED GLUCOSE; Start 10/01/18 at 04:00 Glucose (Glutose) 22.5 gm Q15M PRN PO DECREASED GLUCOSE; Start 10/01/18 at 04:00 Dextrose (D50w Syringe) 25 ml Q15M PRN IV DECREASED GLUCOSE; Start 10/01/18 at 04:00 Dextrose (D50w Syringe) 50 ml Q15M PRN IV DECREASED GLUCOSE; Start 10/01/18 at 04:00 Glucagon (Glucagen) 1 mg Q15M PRN IM DECREASED GLUCOSE; Start 10/01/18 at 04:00 Glucose (Glutose) 15 gm Q15M PRN BUCCAL DECREASED GLUCOSE; Start 10/01/18 at 04:00 Clonidine (Catapres) 0.1 mg Q4H PRN GTB hypertension Last administered on 10/01/18at 16:20; Admin Dose 0.1 MG; Start 10/01/18 at 16:00 Hydralazine HCl (Apresoline) 50 mg TID GTB ; Start 10/04/18 at 21:00 Aspirin (Halfprin) 81 mg DAILY PO ; Start 10/05/18 at 09:00 SYEDA LEÓN NP October 04, 2018 15:52
--- NOTE | 2018-10-04 19:50 | CONS ---
Assessment/Plan Assessment/Plan Assessment/Plan (Daily) - ESRD Hemodialysis dependent @ [facility] ( Tues-Judi- Sat ) - Left foot Cellulitis / Soft tissue infection - Hyperkalemia - DM / DM Nephropathy - Hypertension - Hyperphosphatemia PLAN: - STAT Hemodialysis has been arranged to correct hyperkalemia - IV Abx for the lower extremity infection - Will review the imaging for ? Osteomyelitis as well - DM control - Follow up with H/H - On long acting EPO as out patient - Follow up with potassium & Phos - Remains on IV Antibiotics - Follow up with imaging results - Bedside Dialysis ( On HD TTS ) - Follow up with H/H - Plan for dialysis 10/05/2018 - No plan for any surgical procedure - No Osteo - OK to D/C from [facility] - Will continue with VANCO at the dialysis facility Consultation Date/Type/Reason Admit Date/Time September 30, 2018 at 22:07 Initial Consult Date 10/01/18 Type of Consult Nephrology Date/Time of Note DATE: 10/04/18 TIME: 19:48 24 HR Interval Summary Constitutional: no complaints, improved Exam/Review of Systems Exam Vitals Vital Signs Date Temp Pulse Resp B/P (MAP) Pulse Ox O2 O2 Flow FiO2 Time Delivery Rate 10/04/18 177/66 18:09 (103) 10/04/18 98.2 77 18 93 Room Air 18:08 10/04/18 2.0 07:42 Intake and Output 10/03/18 10/03/18 10/04/18 1515:00 23:00 07:00 IntakeIntake Total 900 ml 300 ml OutputOutput Total 3500 ml BalanceBalance -2600 ml 300 ml Constitutional: alert, oriented, well developed Psych: no complaints Head: normocephalic Respiratory: crackles/rales Cardiovascular: regular rate and rhythm, systolic murmur Gastrointestinal: soft Results Result Diagram: 10/02/18 0545 10/02/18 0545 Results 24hrs Laboratory Tests Test 10/03/18 20:54 10/04/18 07:26 10/04/18 11:37 10/04/18 17:16 Bedside Glucose 170 116 108 143 Medications Medication Current Medications Vancomycin HCl (Vanco Iv Per Pharmacy) VANCOMYCIN PER PHARMACY PER PROTOCOL XX ; Start 09/30/18 at 23:30 Cefepime HCl 50 ml @ 100 mls/hr Q24H IVPB Last administered on 10/04/18at 0 5:02; Admin Dose 100 MLS/HR; Start 10/01/18 at 05:00 Acetaminophen (Tylenol Tab) 500 mg Q4 PRN PO FEVER GREATER THAN 100.6 Last administered on 10/02/18at 14:44; Admin Dose 500 MG; Start 09/30/18 at 23:30 Acetaminophen/ Hydrocodone Bitart ([place] (5/325)) 1 tab Q6H PRN PO MODERATE PAIN LEVEL 4-6; Start 09/30/18 at 23:30 Insulin Aspart (Novolog Insulin Pen) NOVOLOG *MILD* ALGORITHM WITH MEALS BEDT OLYA SC Last administered on 10/04/18at 17:25; Admin Dose 1 UNIT; Start 10/01/18 at 08:00 Amlodipine Besylate (Norvasc) 10 mg DAILY PO Last administered on 10/04/18 08:22; Admin Dose 10 MG; Start 10/01/18 at 09:00 Calcium Acetate (Phoslo) 667 mg WITH MEALS PO Last administered on 10/04/18 17:16; Admin Dose 667 MG; Start 10/01/18 at 08:00 Ferrous Sulfate (Ferrous Sulfate (Ec)) 325 mg DAILY PO Last administered on 10/04/18 08:22; Admin Dose 325 MG; Start 10/01/18 at 09:00 Insulin Glargine (Lantus) 9 units HS SC Last administered on 10/03/18at 21:03; Admin Dose 9 UNITS; Start 10/01/18 at 21:00 Pantoprazole (Protonix Tab) 40 mg DAILY@06 PO Last administered on 10/04/18at 05:02; Admin Dose 40 MG; Start 10/01/18 at 06:00 Atorvastatin Calcium (Lipitor) 10 mg QHS PO Last administered on 10/03/18at 21:00; Admin Dose 10 MG; Start 10/01/18 at 21:00 Miscellaneous Information 1 ea NOTE XX ; Start 10/01/18 at 04:00 Glucose (Glutose) 15 gm Q15M PRN PO DECREASED GLUCOSE; Start 10/01/18 at 04:00 Glucose (Glutose) 22.5 gm Q15M PRN PO DECREASED GLUCOSE; Start 10/01/18 at 04:00 Dextrose (D50w Syringe) 25 ml Q15M PRN IV DECREASED GLUCOSE; Start 10/01/18 at 04:00 Dextrose (D50w Syringe) 50 ml Q15M PRN IV DECREASED GLUCOSE; Start 10/01/18 at 04:00 Glucagon (Glucagen) 1 mg Q15M PRN IM DECREASED GLUCOSE; Start 10/01/18 at 04:00 Glucose (Glutose) 15 gm Q15M PRN BUCCAL DECREASED GLUCOSE; Start 10/01/18 at 04:00 Clonidine (Catapres) 0.1 mg Q4H PRN GTB hypertension Last administered on at 18:31; Admin Dose 0.1 MG; Start 10/01/18 at 16:00 Hydralazine HCl (Apresoline) 50 mg TID GTB ; Start 10/04/18 at 21:00 Aspirin (Halfprin) 81 mg DAILY PO ; Start 10/05/18 at 09:00 Miscellaneous Information (*Rx Drug Level Order Reminder*) RANDOM VANCO LEVEL... 0500 ONCE XX ; Start 10/05/18 at 05:00; Stop 10/05/18 at 05:01 PACO LAZO MD October 04, 2018 19:50
[2018-10-04] MEDS: ATORVASTATIN 10 MG TAB PO SCH (21:59)
[2018-10-04] MEDS: INSULIN GLARGINE [LANTus] (100 UNITS/ML) SYG SC SCH (22:01)
[2018-10-05 02:12] VITALS: BP 156/91; PULSE 74; RESP 18
[2018-10-05] MEDS: CEFEPIME 1GM/50 ML (PMX) 50 ML IVPB SCH (05:48)
[2018-10-05] MEDS: PANTOPRAZOLE (EC) 40 MG TAB PO SCH (05:48)
[2018-10-05] MEDS: INSULIN ASPART [NOVOLOG] 3 ML PEN SC SCH ×4 (08:00→20:45)
[2018-10-05] MEDS: FERROUS SULFATE (EC) 325 MG TAB PO SCH (08:07)
[2018-10-05] MEDS: AMLODIPINE 10 MG TAB PO SCH (08:07)
[2018-10-05] MEDS: ASPIRIN (EC) 81 MG TAB PO SCH (08:08)
[2018-10-05] MEDS: CALCIUM ACETATE 667 MG CAP PO SCH ×3 (08:08→18:22)
[2018-10-05 08:50] VITALS: BP 169/74; PULSE 68; RESP 16
[2018-10-05 13:37] VITALS: BP 133/74; PULSE 90; RESP 16
[2018-10-05 13:42] VITALS: BP 182/78; PULSE 66; RESP 16
--- NOTE | 2018-10-05 18:59 | CONS ---
Assessment/Plan Assessment/Plan Hospital Course (Demo Recall) ID PROGRESS NOTE CURRENT ABX: DAY #=>Vanco IV + Cefepime 10/05/18 0705 10/02/18 0545 24H INTERVAL SUMMARY * No fever, VSS, NAD, resting -- Left DM foot infection w/LLEXT cellulitis IMAGING * 10/03/18 CT LLEXT: IMPRESSION: Prominent soft tissue swelling without loculated abscess detected on noncontrast exam. Findings consistent with provided history cellulitis. No CT evidence of osteomyelitis, however consider MRI if there is high clinical concern. MICRO/OTHER * (-)MRSA NARES * 09/30/18 BCX (-); Urine Cx (-) PHYSICAL EXAMINATION: GENERAL: VSS, NAD, HEENT: AT, NC, NECK: WNL CHEST: Equal chest rise bilaterally without dyspnea on observation ABD: Soft, ND EXTREMITIES: Warm, dry -- llext dsg c/d/i -- SEE PHOTOS SKIN: No rash, no diaphoresis ID ASSESSMENT 68 yo M admit with: 1. Left diabetic foot with cellulitis 2. Diabetes w/DM polyneuropathies; renal, peripheral 3. End-stage renal disease, hemodialysis dependent 4. Coronary artery disease (-)MRSA Nares ABX ALLERGIES: NKDA INVASIVES: PIV CURRENT ABX: DAY # =>Vanco IV + Cefepime ID RECOMMENDATIONS/PLAN: 1. When cleared for DC home -- may DC on the following ABX * Vanco IV Q96H dose per pharmacy to be given @ HD center by HD RN x 10 days * Levaquin 250mg po QOD x 10 days 2. DC Cefepime upon DC from inpatient status / Consultation Date/Type/Reason Admit Date/Time September 30, 2018 at 22:07 Initial Consult Date 10/01/18 Date/Time of Note DATE: 10/05/18 TIME: 18:50 Exam/Review of Systems Exam Vitals Vital Signs Date Temp Pulse Resp B/P (MAP) Pulse Ox O2 O2 Flow FiO2 Time Delivery Rate 10/05/18 98.1 66 16 182/78 97 13:42 (112) 10/04/18 Room Air 18:08 10/04/18 2.0 07:42 Intake and Output 10/04/18 10/04/18 10/05/18 1515:00 23:00 07:00 IntakeIntake Total 120 ml 170 ml BalanceBalance 120 ml 170 ml Results Result Diagram: 10/05/18 0705 10/02/18 0545 Results 24hrs Laboratory Tests Test 10/04/18 21:59 10/05/18 07:05 10/05/18 07:58 10/05/18 08:12 Bedside Glucose 144 52 L 60 L White Blood Count 7.7 Red Blood Count 3.95 L Hemoglobin 9.9 L Hematocrit 33.6 L Mean Corpuscular 85.1 Volume Mean Corpuscular 25.1 L Hemoglobin Mean Corpuscular 29.5 L Hemoglobin Concent Red Cell 14.6 H Distribution Width Platelet Count 176 Mean Platelet Volume 9.7 Immature 0.400 Granulocytes % Neutrophils % 80.4 H Lymphocytes % 9.1 L Monocytes % 8.5 Eosinophils % 1.2 Basophils % 0.4 Nucleated Red Blood 0.0 Cells % Immature 0.030 Granulocytes # Neutrophils # 6.2 Lymphocytes # 0.7 L Monocytes # 0.7 Eosinophils # 0.1 Basophils # 0.0 Nucleated Red Blood 0.0 Cells # Random Vancomycin 15.9 Level Test 10/05/18 08:57 10/05/18 09:59 10/05/18 12:09 10/05/18 17:24 Bedside Glucose 119 112 92 143 Medications Medication Current Medications Vancomycin HCl (Vanco Iv Per Pharmacy) VANCOMYCIN PER PHARMACY PER PROTOCOL XX ; Start 09/30/18 at 23:30 Cefepime HCl 50 ml @ 100 mls/hr Q24H IVPB Last administered on 10/05/18at 05: 48; Admin Dose 100 MLS/HR; Start 10/01/18 at 05:00 Acetaminophen (Tylenol Tab) 500 mg Q4 PRN PO FEVER GREATER THAN 100.6 Last administered on 10/02/18at 14:44; Admin Dose 500 MG; Start 09/30/18 at 23:30 Acetaminophen/ Hydrocodone Bitart ([place] (5/325)) 1 tab Q6H PRN PO MODERATE PAIN LEVEL 4-6; Start 09/30/18 at 23:30 Insulin Aspart (Novolog Insulin Pen) NOVOLOG *MILD* ALGORITHM WITH MEALS BEDTIM E SC Last administered on 10/04/18at 17:25; Admin Dose 1 UNIT; Start 10/01/18 at 08:00 Amlodipine Besylate (Norvasc) 10 mg DAILY PO Last administered on 10/05/18 08:07; Admin Dose 10 MG; Start 10/01/18 at 09:00 Calcium Acetate (Phoslo) 667 mg WITH MEALS PO Last administered on 10/05/18 18:22; Admin Dose 667 MG; Start 10/01/18 at 08:00 Ferrous Sulfate (Ferrous Sulfate (Ec)) 325 mg DAILY PO Last administered on 10/05/18 08:07; Admin Dose 325 MG; Start 10/01/18 at 09:00 Pantoprazole (Protonix Tab) 40 mg DAILY@06 PO Last administered on 10/05/18 05:48; Admin Dose 40 MG; Start 10/01/18 at 06:00 Atorvastatin Calcium (Lipitor) 10 mg QHS PO Last administered on 10/04/18 21:59; Admin Dose 10 MG; Start 10/01/18 at 21:00 Miscellaneous Information 1 ea NOTE XX ; Start 10/01/18 at 04:00 Glucose (Glutose) 15 gm Q15M PRN PO DECREASED GLUCOSE; Start 10/01/18 at 04:00 Glucose (Glutose) 22.5 gm Q15M PRN PO DECREASED GLUCOSE Last administered on 10/05/18 08:16; Admin Dose 22.5 GM; Start 10/01/18 at 04:00 Dextrose (D50w Syringe) 25 ml Q15M PRN IV DECREASED GLUCOSE; Start 10/01/18 at 04:00 Dextrose (D50w Syringe) 50 ml Q15M PRN IV DECREASED GLUCOSE; Start 10/01/18 at 04:00 Glucagon (Glucagen) 1 mg Q15M PRN IM DECREASED GLUCOSE; Start 10/01/18 at 04:00 Glucose (Glutose) 15 gm Q15M PRN BUCCAL DECREASED GLUCOSE; Start 10/01/18 at 04:00 Clonidine (Catapres) 0.1 mg Q4H PRN GTB hypertension Last administered on 10/05/18 14:16; Admin Dose 0.1 MG; Start 10/01/18 at 16:00 Hydralazine HCl (Apresoline) 50 mg TID GTB Last administered on 10/05/18 12:12; Admin Dose 50 MG; Start 10/04/18 at 21:00 Aspirin (Halfprin) 81 mg DAILY PO Last administered on 5/25/19at 08:08; Admin Dose 81 MG; Start 10/05/18 at 09:00 Vancomycin HCl 250 ml @ 125 mls/hr Q96H IVPB ; Start 10/05/18 at 20:00 Insulin Glargine (Lantus) 6 units HS SC ; Start 10/05/18 at 21:00 CORNELIUS NUNES NP October 05, 2018 18:59
[2018-10-05 20:00] VITALS: BP 149/72; PULSE 62; RESP 18
[2018-10-05] MEDS: VANCOMYCIN 1 GM 250 ML IVPB SCH (20:44)
[2018-10-05] MEDS: ATORVASTATIN 10 MG TAB PO SCH (20:44)
[2018-10-05] MEDS: INSULIN GLARGINE [LANTus] (100 UNITS/ML) SYG SC SCH (20:49)
--- NOTE | 2018-10-05 21:22 | PN ---
Date/Time of Note Date/Time of Note DATE: 10/05/18 TIME: 21:21 Assessment/Plan VTE Prophylaxis Risk score (from Ns)>0 risk: 4 SCD applied (from [facility]): Yes SCD contraindicated: other Pharmacological prophylaxis: other Pharm contraindication: other Lines/Catheters [facility]from [facility] Saline Lock Urinary Cath still in place: No Assessment/Plan Assessment/Plan Hyperkalemia- HD today - per nephro 1. Left diabetic foot with cellulitis. - per ID - Continue IV vancomycin. 2. Diabetes mellitus. Blood sugar reviewed. It is within acceptable range. Continue Lantus and sliding scale insulin. 3. Hypertension. Blood pressure is not very well controlled. Will increase the hydralazine to 50 t.i.d. 4. End-stage renal disease. Continue hemodialysis. 5. Dyslipidemia. Continue Lipitor. 6. Coronary artery disease. LDL is 53 and recent AST, ALT were within normal limits. 7. Coronary artery disease, status post myocardial infarction. We will add aspirin to his regimen. The patient has a preserved EF. Patient seen in collaboration with Dr Mujica. dw staff nad resting; denies any chest pain/shortness of breath VSS awaiting HD today no events reported overnight dw staff Result Diagram: 10/05/18 0705 10/02/18 0545 Results 24hrs Laboratory Tests Test 10/04/18 21:59 10/05/18 07:05 10/05/18 07:58 10/05/18 08:12 Bedside Glucose 144 52 L 60 L White Blood Count 7.7 Red Blood Count 3.95 L Hemoglobin 9.9 L Hematocrit 33.6 L Mean Corpuscular 85.1 Volume Mean Corpuscular 25.1 L Hemoglobin Mean Corpuscular 29.5 L Hemoglobin Concent Red Cell 14.6 H Distribution Width Platelet Count 176 Mean Platelet Volume 9.7 Immature 0.400 Granulocytes % Neutrophils % 80.4 H Lymphocytes % 9.1 L Monocytes % 8.5 Eosinophils % 1.2 Basophils % 0.4 Nucleated Red Blood 0.0 Cells % Immature 0.030 Granulocytes # Neutrophils # 6.2 Lymphocytes # 0.7 L Monocytes # 0.7 Eosinophils # 0.1 Basophils # 0.0 Nucleated Red Blood 0.0 Cells # Random Vancomycin 15.9 Level Test 10/05/18 08:57 10/05/18 09:59 10/05/18 12:09 10/05/18 17:24 Bedside Glucose 119 112 92 143 Test 10/05/18 20:44 Bedside Glucose 144 Subjective 24 Hr Interval Summary Free Text/Dictation nad resting; denies any chest pain/shortness of breath VSS awaiting HD today no events reported overnight dw staff Eyes: no complaints ENT: no complaints Respiratory: no complaints Cardiovascular: no complaints Gastrointestinal: no complaints Genitourinary: no complaints Musculoskeletal: bone/joint pain, restricted range of motion Skin: other Neurologic: no complaints Endocrine: no complaints Lymphatic: no complaints Psychological: nl mood/affect Immunologic: no complaints Exam/Review of Systems Exam Vitals Vital Signs Date Temp Pulse Resp B/P (MAP) Pulse Ox O2 O2 Flow FiO2 Time Delivery Rate 10/05/18 97.5 62 18 149/72 98 20:00 (97) 10/04/18 Room Air 18:08 10/04/18 2.0 07:42 Intake and Output 10/04/18 10/04/18 10/05/18 1515:00 23:00 07:00 IntakeIntake Total 120 ml 170 ml BalanceBalance 120 ml 170 ml Constitutional: alert, well developed Psych: nl mood/affect Head: normocephalic Eyes: EOMI, nl lids, nl sclera ENMT: nl external ears & nose Neck: non-tender Respiratory: clear to auscultation Cardiovascular: nl pulses, other (s1s2) Gastrointestinal: soft, non-tender Musculoskeletal: joint tenderness, range of motion Extremities: edema, other (left foot ulcer) Lymph: nontender Results Results 24hrs Laboratory Tests Test 10/04/18 21:59 10/05/18 07:05 10/05/18 07:58 10/05/18 08:12 Bedside Glucose 144 52 L 60 L White Blood Count 7.7 Red Blood Count 3.95 L Hemoglobin 9.9 L Hematocrit 33.6 L Mean Corpuscular 85.1 Volume Mean Corpuscular 25.1 L Hemoglobin Mean Corpuscular 29.5 L Hemoglobin Concent Red Cell 14.6 H Distribution Width Platelet Count 176 Mean Platelet Volume 9.7 Immature 0.400 Granulocytes % Neutrophils % 80.4 H Lymphocytes % 9.1 L Monocytes % 8.5 Eosinophils % 1.2 Basophils % 0.4 Nucleated Red Blood 0.0 Cells % Immature 0.030 Granulocytes # Neutrophils # 6.2 Lymphocytes # 0.7 L Monocytes # 0.7 Eosinophils # 0.1 Basophils # 0.0 Nucleated Red Blood 0.0 Cells # Random Vancomycin 15.9 Level Test 10/05/18 08:57 10/05/18 09:59 10/05/18 12:09 10/05/18 17:24 Bedside Glucose 119 112 92 143 Test 10/05/18 20:44 Bedside Glucose 144 Medications Medication Current Medications Vancomycin HCl (Vanco Iv Per Pharmacy) VANCOMYCIN PER PHARMACY PER PROTOCOL XX ; Start 09/30/18 at 23:30 Cefepime HCl 50 ml @ 100 mls/hr Q24H IVPB Last administered on 10/05/18 05:48; Admin Dose 100 MLS/HR; Start 10/01/18 at 05:00 Acetaminophen (Tylenol Tab) 500 mg Q4 PRN PO FEVER GREATER THAN 100.6 Last administered on 10/02/18 14:44; Admin Dose 500 MG; Start 09/30/18 at 23:30 Acetaminophen/ Hydrocodone Bitart ([place] (5/325)) 1 tab Q6H PRN PO MODERATE PAIN LEVEL 4-6; Start 09/30/18 at 23:30 Insulin Aspart (Novolog Insulin Pen) NOVOLOG *MILD* ALGORITHM WITH MEALS BEDTIME SC Last administered on 10/04/18 17:25; Admin Dose 1 UNIT; Start 10/01/18 at 08:00 Amlodipine Besylate (Norvasc) 10 mg DAILY PO Last administered on 10/05/18 08:07; Admin Dose 10 MG; Start 10/01/18 at 09:00 Calcium Acetate (Phoslo) 667 mg WITH MEALS PO Last administered on 10/05/18 18:22; Admin Dose 667 MG; Start 10/01/18 at 08:00 Ferrous Sulfate (Ferrous Sulfate (Ec)) 325 mg DAILY PO Last administered on 10/05/18 08:07; Admin Dose 325 MG; Start 10/01/18 at 09:00 Pantoprazole (Protonix Tab) 40 mg DAILY@06 PO Last administered on 10/05/18 05:48; Admin Dose 40 MG; Start 10/01/18 at 06:00 Atorvastatin Calcium (Lipitor) 10 mg QHS PO Last administered on 10/05/18 20:44; Admin Dose 10 MG; Start 10/01/18 at 21:00 Miscellaneous Information 1 ea NOTE XX ; Start 10/01/18 at 04:00 Glucose (Glutose) 15 gm Q15M PRN PO DECREASED GLUCOSE; Start 10/01/18 at 04:00 Glucose (Glutose) 22.5 gm Q15M PRN PO DECREASED GLUCOSE Last administered on 10/05/18 08:16; Admin Dose 22.5 GM; Start 10/01/18 at 04:00 Dextrose (D50w Syringe) 25 ml Q15M PRN IV DECREASED GLUCOSE; Start 10/01/18 at 04:00 Dextrose (D50w Syringe) 50 ml Q15M PRN IV DECREASED GLUCOSE; Start 10/01/18 at 04:00 Glucagon (Glucagen) 1 mg Q15M PRN IM DECREASED GLUCOSE; Start 10/01/18 at 04:00 Glucose (Glutose) 15 gm Q15M PRN BUCCAL DECREASED GLUCOSE; Start 10/01/18 at 04:00 Clonidine (Catapres) 0.1 mg Q4H PRN GTB hypertension Last administered on 10/05/18 14:16; Admin Dose 0.1 MG; Start 10/01/18 at 16:00 Hydralazine HCl (Apresoline) 50 mg TID GTB Last administered on 10/05/18 21:19; Admin Dose 50 MG; Start 10/04/18 at 21:00 Aspirin (Halfprin) 81 mg DAILY PO Last administered on 10/05/18 08:08; Admin Dose 81 MG; Start 10/05/18 at 09:00 Vancomycin HCl 250 ml @ 125 mls/hr Q96H IVPB Last administered on 10/05/18 20:44; Admin Dose 125 MLS/HR; Start 10/05/18 at 20:00 Insulin Glargine (Lantus) 6 units HS SC Last administered on 10/05/18 20:49; Admin Dose 6 UNITS; Start 10/05/18 at 21:00 FANI AYALA October 05, 2018 21:22
[2018-10-06] VITALS (17 sets, daily range): BP systolic 121–169; BP diastolic 52–72; PULSE 54–68; RESP 18–19
[2018-10-06] MEDS: CEFEPIME 1GM/50 ML (PMX) 50 ML IVPB SCH (05:57)
[2018-10-06] MEDS: PANTOPRAZOLE (EC) 40 MG TAB PO SCH (05:57)
[2018-10-06] MEDS: INSULIN ASPART [NOVOLOG] 3 ML PEN SC SCH ×4 (08:00→20:19)
[2018-10-06] MEDS: CALCIUM ACETATE 667 MG CAP PO SCH ×3 (08:11→17:43)
--- NOTE | 2018-10-06 08:11 | PN ---
Date/Time of Note Date/Time of Note DATE: 10/06/18 TIME: 08:10 Assessment/Plan VTE Prophylaxis Risk score (from Ns)>0 risk: 4 SCD applied (from [facility] [place]): Yes SCD contraindicated: other Pharmacological prophylaxis: other Pharm contraindication: other Lines/Catheters [facility] C[facility] Type [facility]from [facility] Saline Lock Urinary Cath still in place: No Assessment/Plan Assessment/Plan Hyperkalemia- resolved - HD yesterday Hyperkalemia- HD today - per nephro 1. Left diabetic foot with cellulitis. - per ID - Continue IV vancomycin. 2. Diabetes mellitus. Blood sugar reviewed. It is within acceptable range. Continue Lantus and sliding scale insulin. 3. Hypertension. Blood pressure is not very well controlled. Will increase the hydralazine to 50 t.i.d. 4. End-stage renal disease. Continue hemodialysis. 5. Dyslipidemia. Continue Lipitor. 6. Coronary artery disease. LDL is 53 and recent AST, ALT were within normal limits. 7. Coronary artery disease, status post myocardial infarction. We will add aspirin to his regimen. The patient has a preserved EF. Patient seen in collaboration with Dr Mujica. staff Result Diagram: 10/06/18 0440 10/06/18 0440 Results 24hrs Laboratory Tests Test 10/05/18 08:12 10/05/18 08:57 10/05/18 09:59 10/05/18 12:09 Bedside Glucose 60 L 119 112 92 Test 10/05/18 17:24 10/05/18 20:44 10/06/18 04:40 Bedside Glucose 143 144 White Blood Count 5.1 # Red Blood Count 3.93 L Hemoglobin 10.1 L Hematocrit 32.9 L Mean Corpuscular 83.7 Volume Mean Corpuscular 25.7 L Hemoglobin Mean Corpuscular 30.7 L Hemoglobin Concent Red Cell 14.6 H Distribution Width Platelet Count 166 Mean Platelet Volume 9.4 Immature 0.600 H Granulocytes % Neutrophils % 79.1 H Lymphocytes % 8.0 L Monocytes % 9.0 Eosinophils % 2.9 Basophils % 0.4 Nucleated Red Blood 0.0 Cells % Immature 0.030 Granulocytes # Neutrophils # 4.1 Lymphocytes # 0.4 L Monocytes # 0.5 Eosinophils # 0.2 Basophils # 0.0 Nucleated Red Blood 0.0 Cells # Sodium Level 141 Potassium Level 4.2 Chloride Level 102 Carbon Dioxide Level 29 Anion Gap 10 Blood Urea Nitrogen 31 H Creatinine 4.05 H Est Glomerular 15 L Filtrat Rate mL/min Glucose Level 90 Calcium Level 9.5 Subjective 24 Hr Interval Summary Free Text/Dictation nad resting; denies any chest pain/shortness of breath VSS SP HD yesterday hyperkalemia- resolved awaiting HD today no events reported overnight dw staff Eyes: no complaints ENT: no complaints Respiratory: no complaints Cardiovascular: no complaints Gastrointestinal: no complaints Genitourinary: no complaints Musculoskeletal: bone/joint pain, restricted range of motion Neurologic: no complaints Endocrine: no complaints Lymphatic: no complaints Psychological: nl mood/affect Exam/Review of Systems Exam Vitals Vital Signs Date Temp Pulse Resp B/P (MAP) Pulse Ox O2 O2 Flow FiO2 Time Delivery Rate 10/06/18 98.5 64 18 169/72 91 07:55 (104) 10/06/18 Nasal 2.0 00:50 Cannula Intake and Output 10/05/18 10/05/18 10/06/18 1515:00 23:00 07:00 IntakeIntake Total 1000 ml 620 ml 300 ml OutputOutput Total 6400 ml BalanceBalance 1000 ml 620 ml -6100 ml Constitutional: alert, well developed Psych: nl mood/affect Head: atraumatic ENMT: nl external ears & nose Neck: non-tender Respiratory: clear to auscultation Cardiovascular: nl pulses, other (s1s2) Gastrointestinal: soft, non-tender Musculoskeletal: joint tenderness, range of motion Neurological: nl speech, other (alert/reponsive) Lymph: nontender Results Results 24hrs Laboratory Tests Test 10/05/18 08:12 10/05/18 08:57 10/05/18 09:59 10/05/18 12:09 Bedside Glucose 60 L 119 112 92 Test 10/05/18 17:24 10/05/18 20:44 10/06/18 04:40 Bedside Glucose 143 144 White Blood Count 5.1 # Red Blood Count 3.93 L Hemoglobin 10.1 L Hematocrit 32.9 L Mean Corpuscular 83.7 Volume Mean Corpuscular 25.7 L Hemoglobin Mean Corpuscular 30.7 L Hemoglobin Concent Red Cell 14.6 H Distribution Width Platelet Count 166 Mean Platelet Volume 9.4 Immature 0.600 H Granulocytes % Neutrophils % 79.1 H Lymphocytes % 8.0 L Monocytes % 9.0 Eosinophils % 2.9 Basophils % 0.4 Nucleated Red Blood 0.0 Cells % Immature 0.030 Granulocytes # Neutrophils # 4.1 Lymphocytes # 0.4 L Monocytes # 0.5 Eosinophils # 0.2 Basophils # 0.0 Nucleated Red Blood 0.0 Cells # Sodium Level 141 Potassium Level 4.2 Chloride Level 102 Carbon Dioxide Level 29 Anion Gap 10 Blood Urea Nitrogen 31 H Creatinine 4.05 H Est Glomerular 15 L Filtrat Rate mL/min Glucose Level 90 Calcium Level 9.5 Medications Medication Current Medications Vancomycin HCl (Vanco Iv Per Pharmacy) VANCOMYCIN PER PHARMACY PER PROTOCOL XX ; Start 09/30/18 at 23:30 Cefepime HCl 50 ml @ 100 mls/hr Q24H IVPB Last administered on 10/06/18 05:57; Admin Dose 100 MLS/HR; Start 10/01/18 at 05:00 Acetaminophen (Tylenol Tab) 500 mg Q4 PRN PO FEVER GREATER THAN 100.6 Last administered on 10/02/18 14:44; Admin Dose 500 MG; Start 09/30/18 at 23:30 Acetaminophen/ Hydrocodone Bitart ([place] (5/325)) 1 tab Q6H PRN PO MODERATE PAIN LEVEL 4-6; Start 09/30/18 at 23:30 Insulin Aspart (Novolog Insulin Pen) NOVOLOG *MILD* ALGORITHM WITH MEALS BEDTIME SC Last administered on 10/04/18 17:25; Admin Dose 1 UNIT; Start 10/01/18 at 08:00 Amlodipine Besylate (Norvasc) 10 mg DAILY PO Last administered on 10/05/18 08:07; Admin Dose 10 MG; Start 10/01/18 at 09:00 Calcium Acetate (Phoslo) 667 mg WITH MEALS PO Last administered on 10/05/18 18:22; Admin Dose 667 MG; Start 10/01/18 at 08:00 Ferrous Sulfate (Ferrous Sulfate (Ec)) 325 mg DAILY PO Last administered on 10/05/18 08:07; Admin Dose 325 MG; Start 10/01/18 at 09:00 Pantoprazole (Protonix Tab) 40 mg DAILY@06 PO Last administered on 10/06/18 05:57; Admin Dose 40 MG; Start 10/01/18 at 06:00 Atorvastatin Calcium (Lipitor) 10 mg QHS PO Last administered on 10/05/18 20:44; Admin Dose 10 MG; Start 10/01/18 at 21:00 Miscellaneous Information 1 ea NOTE XX ; Start 10/01/18 at 04:00 Glucose (Glutose) 15 gm Q15M PRN PO DECREASED GLUCOSE; Start 10/01/18 at 04:00 Glucose (Glutose) 22.5 gm Q15M PRN PO DECREASED GLUCOSE Last administered on 10/05/18 08:16; Admin Dose 22.5 GM; Start 10/01/18 at 04:00 Dextrose (D50w Syringe) 25 ml Q15M PRN IV DECREASED GLUCOSE; Start 10/01/18 at 04:00 Dextrose (D50w Syringe) 50 ml Q15M PRN IV DECREASED GLUCOSE; Start 10/01/18 at 04:00 Glucagon (Glucagen) 1 mg Q15M PRN IM DECREASED GLUCOSE; Start 10/01/18 at 04:00 Glucose (Glutose) 15 gm Q15M PRN BUCCAL DECREASED GLUCOSE; Start 10/01/18 at 04:00 Clonidine (Catapres) 0.1 mg Q4H PRN GTB hypertension Last administered on 10/05/18 14:16; Admin Dose 0.1 MG; Start 10/01/18 at 16:00 Hydralazine HCl (Apresoline) 50 mg TID GTB Last administered on 10/05/18 21:19; Admin Dose 50 MG; Start 10/04/18 at 21:00 Aspirin (Halfprin) 81 mg DAILY PO Last administered on 10/05/18 08:08; Admin Dose 81 MG; Start 10/05/18 at 09:00 Vancomycin HCl 250 ml @ 125 mls/hr Q96H IVPB Last administered on 10/05/18 20:44; Admin Dose 125 MLS/HR; Start 10/05/18 at 20:00 Insulin Glargine (Lantus) 6 units HS SC Last administered on 10/05/18 20:49; Admin Dose 6 UNITS; Start 10/05/18 at 21:00 FANI AYALA October 06, 2018 08:11
[2018-10-06] MEDS: FERROUS SULFATE (EC) 325 MG TAB PO SCH (08:12)
[2018-10-06] MEDS: ASPIRIN (EC) 81 MG TAB PO SCH (08:12)
[2018-10-06] MEDS: AMLODIPINE 10 MG TAB PO SCH (08:13)
--- NOTE | 2018-10-06 17:20 | CONS ---
Assessment/Plan Assessment/Plan Hospital Course (Demo Recall) ID PROGRESS NOTE CURRENT ABX: DAY #=>Vanco IV + Cefepime 24H INTERVAL SUMMARY * DC Planning is process -- patient is dressed with flip flop sandals on -- ambulatory with cane assist and eager for DC * Feels better -- No fever, VSS, NAD, resting -- Left DM foot infection w/LLEXT cellulitis much improved w/ABX IMAGING * 10/03/18 CT LLEXT: IMPRESSION: Prominent soft tissue swelling without loc ulated abscess detected on noncontrast exam. Findings consistent with provided history cellulitis. No CT evidence of osteomyelitis, however consider MRI if there is high clinical concern. MICRO/OTHER * (-)MRSA NARES * 09/30/18 BCX (-); Urine Cx (-) PHYSICAL EXAMINATION: GENERAL: VSS, NAD, HEENT: AT, NC, NECK: WNL CHEST: Equal chest rise bilaterally without dyspnea on observation ABD: Soft, ND EXTREMITIES: Warm, dry -- llext dsg c/d/i -- SEE PHOTOS SKIN: No rash, no diaphoresis ID ASSESSMENT 68 yo M admit with: 1. Left diabetic foot with cellulitis 2. Diabetes w/DM polyneuropathies; renal, peripheral 3. End-stage renal disease, hemodialysis dependent 4. Coronary artery disease (-)MRSA Nares ABX ALLERGIES: NKDA INVASIVES: PIV CURRENT ABX: DAY # =>Vanco IV + Cefepime ID RECOMMENDATIONS/PLAN: 1. When cleared for DC home -- may DC on the following ABX * Vanco IV Q96H dose per pharmacy to be given @ HD center by HD RN x 10 days * Levaquin 250mg po QOD x 10 days 2. DC Cefepime upon DC from inpatient status / Consultation Date/Type/Reason Admit Date/Time September 30, 2018 at 22:07 Initial Consult Date 10/01/18 Date/Time of Note DATE: 10/06/18 TIME: 17:18 Exam/Review of Systems Exam Vitals Vital Signs Date Temp Pulse Resp B/P (MAP) Pulse Ox O2 O2 Flow FiO2 Time Delivery Rate 10/06/18 97.8 68 18 155/70 95 14:46 (98) 10/06/18 Nasal 2.0 00:50 Cannula Intake and Output 510/05/18 10/06/18 1515:00 23:00 07:00 IntakeIntake Total 1000 ml 620 ml 300 ml OutputOutput Total 6400 ml BalanceBalance 1000 ml 620 ml -6100 ml Results Result Diagram: 10/06/18 0440 10/06/18 0440 Results 24hrs Laboratory Tests Test 10/05/18 17:24 10/05/18 20:44 10/06/18 04:40 10/06/18 08:11 Bedside Glucose 143 144 132 White Blood Count 5.1 # Red Blood Count 3.93 L Hemoglobin 10.1 L Hematocrit 32.9 L Mean Corpuscular 83.7 Volume Mean Corpuscular 25.7 L Hemoglobin Mean Corpuscular 30.7 L Hemoglobin Concent Red Cell 14.6 H Distribution Width Platelet Count 166 Mean Platelet Volume 9.4 Immature 0.600 H Granulocytes % Neutrophils % 79.1 H Lymphocytes % 8.0 L Monocytes % 9.0 Eosinophils % 2.9 Basophils % 0.4 Nucleated Red Blood 0.0 Cells % Immature 0.030 Granulocytes # Neutrophils # 4.1 Lymphocytes # 0.4 L Monocytes # 0.5 Eosinophils # 0.2 Basophils # 0.0 Nucleated Red Blood 0.0 Cells # Sodium Level 141 Potassium Level 4.2 Chloride Level 102 Carbon Dioxide Level 29 Anion Gap 10 Blood Urea Nitrogen 31 H Creatinine 4.05 H Est Glomerular 15 L Filtrat Rate mL/min Glucose Level 90 Calcium Level 9.5 Test 10/06/18 12:42 Bedside Glucose 181 Medications Medication Current Medications Vancomycin HCl (Vanco Iv Per Pharmacy) VANCOMYCIN PER PHARMACY PER PROTOCOL XX ; Start 09/30/18 at 23:30 Cefepime HCl 50 ml @ 100 mls/hr Q24H IVPB Last administered on 10/06/18at 05:57; Admin Dose 100 MLS/HR; Start 10/01/18 at 05:00 Acetaminophen (Tylenol Tab) 500 mg Q4 PRN PO FEVER GREATER THAN 100.6 Last administered on 10/02/18at 14:44; Admin Dose 500 MG; Start 09/30/18 at 23:30 Acetaminophen/ Hydrocodone Bitart ([place] (5/325)) 1 tab Q6H PRN PO MODERATE PAIN LEVEL 4-6; Start 09/30/18 at 23:30 Insulin Aspart (Novolog Insulin Pen) NOVOLOG *MILD* ALGORITHM WITH MEALS BEDTIME SC Last administered on 10/06/18 12:45; Admin Dose 2 UNIT; Start 10/01/18 at 08:00 Amlodipine Besylate (Norvasc) 10 mg DAILY PO Last administered on 10/06/18 08:13; Admin Dose 10 MG; Start 10/01/18 at 09:00 Calcium Acetate (Phoslo) 667 mg WITH MEALS PO Last administered on 10/06/18 12:43; Admin Dose 667 MG; Start 10/01/18 at 08:00 Ferrous Sulfate (Ferrous Sulfate (Ec)) 325 mg DAILY PO Last administered on 10/06/18 08:12; Admin Dose 325 MG; Start 10/01/18 at 09:00 Pantoprazole (Protonix Tab) 40 mg DAILY@06 PO Last administered on 10/06/18 05:57; Admin Dose 40 MG; Start 10/01/18 at 06:00 Atorvastatin Calcium (Lipitor) 10 mg QHS PO Last administered on 10/05/18at 20:44; Admin Dose 10 MG; Start 10/01/18 at 21:00 Miscellaneous Information 1 ea NOTE XX ; Start 10/01/18 at 04:00 Glucose (Glutose) 15 gm Q15M PRN PO DECREASED GLUCOSE; Start 10/01/18 at 04:00 Glucose (Glutose) 22.5 gm Q15M PRN PO DECREASED GLUCOSE Last administered on 10/05/18at 08:16; Admin Dose 22.5 GM; Start 10/01/18 at 04:00 Dextrose (D50w Syringe) 25 ml Q15M PRN IV DECREASED GLUCOSE; Start 10/01/18 at 04:00 Dextrose (D50w Syringe) 50 ml Q15M PRN IV DECREASED GLUCOSE; Start 10/01/18 at 04:00 Glucagon (Glucagen) 1 mg Q15M PRN IM DECREASED GLUCOSE; Start 10/01/18 at 04:00 Glucose (Glutose) 15 gm Q15M PRN BUCCAL DECREASED GLUCOSE; Start 10/01/18 at 04:00 Clonidine (Catapres) 0.1 mg Q4H PRN GTB hypertension Last administered on 10/05/18at 14:16; Admin Dose 0.1 MG; Start 10/01/18 at 16:00 Hydralazine HCl (Apresoline) 50 mg TID GTB Last administered on 10/06/18 12:43; Admin Dose 50 MG; Start 10/04/18 at 21:00 Aspirin (Halfprin) 81 mg DAILY PO Last administered on 10/06/18at 08:12; Admin Dose 81 MG; Start 10/05/18 at 09:00 Vancomycin HCl 250 ml @ 125 mls/hr Q96H IVPB Last administered on 10/05/18 20:44; Admin Dose 125 MLS/HR; Start 10/05/18 at 20:00 Insulin Glargine (Lantus) 6 units HS SC Last administered on 10/05/18 20:49; Admin Dose 6 UNITS; Start 10/05/18 at 21:00 CORNELIUS NUNES NP October 06, 2018 17:20
[2018-10-06] MEDS: ATORVASTATIN 10 MG TAB PO SCH (20:12)
[2018-10-06] MEDS: INSULIN GLARGINE [LANTus] (100 UNITS/ML) SYG SC SCH (20:18)
[2018-10-07 01:21] VITALS: BP 143/67; PULSE 70; RESP 18
[2018-10-07] MEDS: CEFEPIME 1GM/50 ML (PMX) 50 ML IVPB SCH (04:36)
[2018-10-07] MEDS: PANTOPRAZOLE (EC) 40 MG TAB PO SCH (05:14)
[2018-10-07 07:40] VITALS: BP 161/72; PULSE 68; RESP 16
[2018-10-07] MEDS: INSULIN ASPART [NOVOLOG] 3 ML PEN SC SCH ×4 (08:00→20:22)
[2018-10-07] MEDS: CALCIUM ACETATE 667 MG CAP PO SCH ×3 (08:21→17:52)
[2018-10-07] MEDS: FERROUS SULFATE (EC) 325 MG TAB PO SCH (09:52)
[2018-10-07] MEDS: ASPIRIN (EC) 81 MG TAB PO SCH (09:52)
[2018-10-07] MEDS: AMLODIPINE 10 MG TAB PO SCH (09:57)
[2018-10-07 15:13] VITALS: BP 165/73; PULSE 65; RESP 16
--- NOTE | 2018-10-07 15:32 | CONS ---
Assessment/Plan Assessment/Plan Hospital Course (Demo Recall) ID PROGRESS NOTE CURRENT ABX: DAY #=>Vanco IV + Cefepime 24H INTERVAL SUMMARY * DC Planning is process -- A/A/ responsive, denies pain -- ambulatory with cane assist * No fever, VSS, NAD, resting -- Left DM foot infection w/LLEXT cellulitis much improved w/ABX IMAGING * 10/03/18 CT LLEXT: IMPRESSION: Prominent soft tissue swelling without loculated abscess detected on noncontrast exam. Findings consistent with provided history cellulitis. No CT evidence of osteomyelitis, however consider MRI if there is high clinical concern. MICRO/OTHER * (-)MRSA NARES * 09/30/18 BCX (-); Urine Cx (-) PHYSICAL EXAMINATION: GENERAL: VSS, NAD, HEENT: AT, NC, NECK: WNL CHEST: Equal chest rise bilaterally without dyspnea on observation ABD: Soft, ND EXTREMITIES: Warm, dry -- llext dsg c/d/i -- SEE PHOTOS SKIN: No rash, no diaphoresis ID ASSESSMENT 68 yo M admit with: 1. Left diabetic foot with cellulitis 2. Diabetes w/DM polyneuropathies; renal, peripheral 3. End-stage renal disease, hemodialysis dependent 4. Coronary artery disease (-)MRSA Nares ABX ALLERGIES: NKDA INVASIVES: PIV CURRENT ABX: DAY # =>Vanco IV + Cefepime ID RECOMMENDATIONS/PLAN: 1. When cleared for DC home -- may DC on the following ABX * Vanco IV Q96H dose per pharmacy to be given @ HD center by HD RN x 10 days * Levaquin 250mg po QOD x 10 days 2. DC Cefepime upon DC from inpatient status / Consultation Date/Type/Reason Admit Date/Time September 30, 2018 at 22:07 Initial Consult Date 10/01/18 Date/Time of Note DATE: 10/07/18 TIME: 15:31 Exam/Review of Systems Exam Vitals Vital Signs Date Temp Pulse Resp B/P (MAP) Pulse Ox O2 O2 Flow FiO2 Time Delivery Rate 10/07/18 98.0 65 16 165/73 98 15:13 (103) 10/06/18 Nasal 2.0 00:50 Cannula Intake and Output 10/06/18 10/06/18 10/07/18 1515:00 23:00 07:00 IntakeIntake Total 880 ml 960 ml 290 ml OutputOutput Total 200 ml BalanceBalance 880 ml 960 ml 90 ml Results Result Diagram: 10/07/18 0444 10/07/18 0444 Results 24hrs Laboratory Tests Test 10/06/18 17:43 10/06/18 20:15 10/07/18 04:44 10/07/18 08:18 Bedside Glucose 127 137 111 White Blood Count 6.5 # Red Blood Count 3.83 L Hemoglobin 9.6 L Hematocrit 32.7 L Mean Corpuscular 85.4 Volume Mean Corpuscular 25.1 L Hemoglobin Mean Corpuscular 29.4 L Hemoglobin Concent Red Cell 14.8 H Distribution Width Platelet Count 159 Mean Platelet Volume 9.3 Immature 0.500 H Granulocytes % Neutrophils % 79.4 H Lymphocytes % 9.4 L Monocytes % 7.9 Eosinophils % 2.5 Basophils % 0.3 Nucleated Red Blood 0.0 Cells % Immature 0.030 Granulocytes # Neutrophils # 5.2 Lymphocytes # 0.6 L Monocytes # 0.5 Eosinophils # 0.2 Basophils # 0.0 Nucleated Red Blood 0.0 Cells # Sodium Level 140 Potassium Level 4.8 Chloride Level 102 Carbon Dioxide Level 28 Anion Gap 10 Blood Urea Nitrogen 44 #H Creatinine 5.67 H Est Glomerular 10 L Filtrat Rate mL/min Glucose Level 91 Calcium Level 9.5 Test 10/07/18 13:30 Bedside Glucose 130 Medications Medication Current Medications Vancomycin HCl (Vanco Iv Per Pharmacy) VANCOMYCIN PER PHARMACY PER PROTOCOL XX ; Start 09/30/18 at 23:30 Cefepime HCl 50 ml @ 100 mls/hr Q24H IVPB Last administered on 10/07/18at 04:36; Admin Dose 100 MLS/HR; Start 10/01/18 at 05:00 Acetaminophen (Tylenol Tab) 500 mg Q4 PRN PO FEVER GREATER THAN 100.6 Last administered on 10/02/18at 14:44; Admin Dose 500 MG; Start 09/30/18 at 23:30 Acetaminophen/ Hydrocodone Bitart ([place] (5/325)) 1 tab Q6H PRN PO MODERATE PAIN LEVEL 4-6; Start 09/30/18 at 23:30 Insulin Aspart (Novolog Insulin Pen) NOVOLOG *MILD* ALGORITHM WITH MEALS BEDTIME SC Last administered on 10/06/18 12:45; Admin Dose 2 UNIT; Start 10/01/18 at 08:00 Amlodipine Besylate (Norvasc) 10 mg DAILY PO Last administered on 10/07/18 09:57; Admin Dose 10 MG; Start 10/01/18 at 09:00 Calcium Acetate (Phoslo) 667 mg WITH MEALS PO Last administered on 10/07/18at 1 3:31; Admin Dose 667 MG; Start 10/01/18 at 08:00 Ferrous Sulfate (Ferrous Sulfate (Ec)) 325 mg DAILY PO Last administered on 10/07/18 09:52; Admin Dose 325 MG; Start 10/01/18 at 09:00 Pantoprazole (Protonix Tab) 40 mg DAILY@06 PO Last administered on 10/07/18 05:14; Admin Dose 40 MG; Start 10/01/18 at 06:00 Atorvastatin Calcium (Lipitor) 10 mg QHS PO Last administered on 10/06/18 20:12; Admin Dose 10 MG; Start 10/01/18 at 21:00 Miscellaneous Information 1 ea NOTE XX ; Start 10/01/18 at 04:00 Glucose (Glutose) 15 gm Q15M PRN PO DECREASED GLUCOSE; Start 10/01/18 at 04:00 Glucose (Glutose) 22.5 gm Q15M PRN PO DECREASED GLUCOSE Last administered on 10/05/18 08:16; Admin Dose 22.5 GM; Start 10/01/18 at 04:00 Dextrose (D50w Syringe) 25 ml Q15M PRN IV DECREASED GLUCOSE; Start 10/01/18 at 04:00 Dextrose (D50w Syringe) 50 ml Q15M PRN IV DECREASED GLUCOSE; Start 10/01/18 at 04:00 Glucagon (Glucagen) 1 mg Q15M PRN IM DECREASED GLUCOSE; Start 10/01/18 at 04:00 Glucose (Glutose) 15 gm Q15M PRN BUCCAL DECREASED GLUCOSE; Start 10/01/18 at 04:00 Clonidine (Catapres) 0.1 mg Q4H PRN GTB hypertension Last administered on 10/05/18 14:16; Admin Dose 0.1 MG; Start 10/01/18 at 16:00 Hydralazine HCl (Apresoline) 50 mg TID GTB Last administered on 10/07/18 13:32; Admin Dose 50 MG; Start 10/04/18 at 21:00 Aspirin (Halfprin) 81 mg DAILY PO Last administered on 10/07/18 09:52; Admin Dose 81 MG; Start 10/05/18 at 09:00 Vancomycin HCl 250 ml @ 125 mls/hr Q96H IVPB Last administered on 10/05/18 20:44; Admin Dose 125 MLS/HR; Start 10/05/18 at 20:00 Insulin Glargine (Lantus) 6 units HS SC Last administered on 10/06/18 20:18; Admin Dose 6 UNITS; Start 10/05/18 at 21:00 CORNELIUS NUNES NP October 07, 2018 15:32
--- NOTE | 2018-10-07 18:52 | PN ---
Date/Time of Note Date/Time of Note DATE: 10/07/18 TIME: 18:50 Assessment/Plan VTE Prophylaxis [place] [facility] [place] risk: 3 SCD applied [place]from [facility] [place] No SCD contraindicated: other Pharmacological prophylaxis: LMWH Lines/Catheters IV Catheter Type (from [facility] [place] Urinary Cath still in place: No Assessment/Plan Hospital Course Pt complains of puss coming from left 2nd toe wound. RN to notify podiatry. Pt continues on abx. Assessment/Plan - Left lower extremity cellulitis with abscess. Continue broad-spectrum antibiotics. Bilateral lower extremity Dopplers negative for DVT. Dr. Burt is following in infection disease consultation. Dr. Delcid is following in podiatry consultation. - Hyperkalemia. Dr. Dobbins is following in nephrology consultation - Hemodialysis dependent end-stage renal disease. - Diabetes. Continue Lantus and NovoLog. - PPM - Hypertension. Continue Norvasc and lisinopril. - History of coronary artery disease, status post myocardial infarction. Continue aspirin. - Preserved EF 55% per last Echo Further recommendations based on clinical course. Plan of care discussed with Dr. Mujica. Result Diagram: 10/07/18 0444 10/07/18 0444 Results 24hrs Laboratory Tests Test 10/06/18 20:15 10/07/18 04:44 10/07/18 08:18 10/07/18 13:30 Bedside Glucose 137 111 130 White Blood Count 6.5 # Red Blood Count 3.83 L Hemoglobin 9.6 L Hematocrit 32.7 L Mean Corpuscular 85.4 Volume Mean Corpuscular 25.1 L Hemoglobin Mean Corpuscular 29.4 L Hemoglobin Concent Red Cell 14.8 H Distribution Width Platelet Count 159 Mean Platelet Volume 9.3 Immature 0.500 H Granulocytes % Neutrophils % 79.4 H Lymphocytes % 9.4 L Monocytes % 7.9 Eosinophils % 2.5 Basophils % 0.3 Nucleated Red Blood 0.0 Cells % Immature 0.030 Granulocytes # Neutrophils # 5.2 Lymphocytes # 0.6 L Monocytes # 0.5 Eosinophils # 0.2 Basophils # 0.0 Nucleated Red Blood 0.0 Cells # Sodium Level 140 Potassium Level 4.8 Chloride Level 102 Carbon Dioxide Level 28 Anion Gap 10 Blood Urea Nitrogen 44 #H Creatinine 5.67 H Est Glomerular 10 L Filtrat Rate mL/min Glucose Level 91 Calcium Level 9.5 Test 10/07/18 17:50 Bedside Glucose 128 Exam/Review of Systems Exam Vitals Vital Signs Date Temp Pulse Resp B/P (MAP) Pulse Ox O2 O2 Flow FiO2 Time Delivery Rate 10/07/18 98.0 65 16 165/73 98 15:13 (103) 10/06/18 Nasal 2.0 00:50 Cannula Intake and Output 10/06/18 10/06/18 10/07/18 1515:00 23:00 07:00 IntakeIntake Total 880 ml 960 ml 290 ml OutputOutput Total 200 ml BalanceBalance 880 ml 960 ml 90 ml Exam Constitutional: alert, oriented Respiratory: clear to auscultation Cardiovascular: regular rate and rhythm, PPM Gastrointestinal: soft, non-tender Musculoskeletal: nl extremities to inspection Extremities: other (Left lower remedy swelling, erythema and tenderness) Neurological: nl mental status Results Results 24hrs Laboratory Tests Test 10/06/18 20:15 10/07/18 04:44 10/07/18 08:18 10/07/18 13:30 Bedside Glucose 137 111 130 White Blood Count 6.5 # Red Blood Count 3.83 L Hemoglobin 9.6 L Hematocrit 32.7 L Mean Corpuscular 85.4 Volume Mean Corpuscular 25.1 L Hemoglobin Mean Corpuscular 29.4 L Hemoglobin Concent Red Cell 14.8 H Distribution Width Platelet Count 159 Mean Platelet Volume 9.3 Immature 0.500 H Granulocytes % Neutrophils % 79.4 H Lymphocytes % 9.4 L Monocytes % 7.9 Eosinophils % 2.5 Basophils % 0.3 Nucleated Red Blood 0.0 Cells % Immature 0.030 Granulocytes # Neutrophils # 5.2 Lymphocytes # 0.6 L Monocytes # 0.5 Eosinophils # 0.2 Basophils # 0.0 Nucleated Red Blood 0.0 Cells # Sodium Level 140 Potassium Level 4.8 Chloride Level 102 Carbon Dioxide Level 28 Anion Gap 10 Blood Urea Nitrogen 44 #H Creatinine 5.67 H Est Glomerular 10 L Filtrat Rate mL/min Glucose Level 91 Calcium Level 9.5 Test 10/07/18 17:50 Bedside Glucose 128 Medications Medication Current Medications Vancomycin HCl (Vanco Iv Per Pharmacy) VANCOMYCIN PER PHARMACY PER PROTOCOL XX ; Start 09/30/18 at 23:30 Cefepime HCl 50 ml @ 100 mls/hr Q24H IVPB Last administered on 10/07/18 04:36; Admin Dose 100 MLS/HR; Start 10/01/18 at 05:00 Acetaminophen (Tylenol Tab) 500 mg Q4 PRN PO FEVER GREATER THAN 100.6 Last administered on 10/02/18 14:44; Admin Dose 500 MG; Start 09/30/18 at 23:30 Acetaminophen/ Hydrocodone Bitart ([place] (5/325)) 1 tab Q6H PRN PO MODERATE PAIN LEVEL 4-6; Start 09/30/18 at 23:30 Insulin Aspart (Novolog Insulin Pen) NOVOLOG *MILD* ALGORITHM WITH MEALS BEDTIME SC Last administered on 10/06/18 12:45; Admin Dose 2 UNIT; Start 10/01/18 at 08:00 Amlodipine Besylate (Norvasc) 10 mg DAILY PO Last administered on 10/07/18 09:57; Admin Dose 10 MG; Start 10/01/18 at 09:00 Calcium Acetate (Phoslo) 667 mg WITH MEALS PO Last administered on 10/07/18 17:52; Admin Dose 667 MG; Start 10/01/18 at 08:00 Ferrous Sulfate (Ferrous Sulfate (Ec)) 325 mg DAILY PO Last administered on 10/07/18 09:52; Admin Dose 325 MG; Start 10/01/18 at 09:00 Pantoprazole (Protonix Tab) 40 mg DAILY@06 PO Last administered on 10/07/18 05:14; Admin Dose 40 MG; Start 10/01/18 at 06:00 Atorvastatin Calcium (Lipitor) 10 mg QHS PO Last administered on 10/06/18 20:12; Admin Dose 10 MG; Start 10/01/18 at 21:00 Miscellaneous Information 1 ea NOTE XX ; Start 10/01/18 at 04:00 Glucose (Glutose) 15 gm Q15M PRN PO DECREASED GLUCOSE; Start 10/01/18 at 04:00 Glucose (Glutose) 22.5 gm Q15M PRN PO DECREASED GLUCOSE Last administered on 10/05/18 08:16; Admin Dose 22.5 GM; Start 10/01/18 at 04:00 Dextrose (D50w Syringe) 25 ml Q15M PRN IV DECREASED GLUCOSE; Start 10/01/18 at 04:00 Dextrose (D50w Syringe) 50 ml Q15M PRN IV DECREASED GLUCOSE; Start 10/01/18 at 04:00 Glucagon (Glucagen) 1 mg Q15M PRN IM DECREASED GLUCOSE; Start 10/01/18 at 04:00 Glucose (Glutose) 15 gm Q15M PRN BUCCAL DECREASED GLUCOSE; Start 10/01/18 at 04:00 Clonidine (Catapres) 0.1 mg Q4H PRN GTB hypertension Last administered on 10/05/18 14:16; Admin Dose 0.1 MG; Start 10/01/18 at 16:00 Hydralazine HCl (Apresoline) 50 mg TID GTB Last administered on 10/07/18 13:32; Admin Dose 50 MG; Start 10/04/18 at 21:00 Aspirin (Halfprin) 81 mg DAILY PO Last administered on 10/07/18 09:52; Admin Dose 81 MG; Start 10/05/18 at 09:00 Vancomycin HCl 250 ml @ 125 mls/hr Q96H IVPB Last administered on 10/05/18 20:44; Admin Dose 125 MLS/HR; Start 10/05/18 at 20:00 Insulin Glargine (Lantus) 6 units HS SC Last administered on 10/06/18 20:18; Admin Dose 6 UNITS; Start 10/05/18 at 21:00 YUMIKO PAINTING October 07, 2018 18:52
--- NOTE | 2018-10-07 19:16 | CONS ---
Assessment/Plan Assessment/Plan Assessment/Plan (Daily) Left 2nd digit diabetic ulcer Left lower extremity cellulitis DM2 with peripheral neuropathy Edema ESRD on HD CAD Plan Consent was obtained and performed excisional debridement of skin/subQ of left 2nd digit ulceration site with scissors/pickups. 2mL of purulent drainage was expelled from the lateral aspect of the 2nd digit. Skin slough and biofilm tissue was removed from the wound bed along with fibrotic tissue. Less than 20cm2 of area was debrided. Wound cultures were obtained. Copious betadine saline irrigation to the wound site. The generalized cellulitis to the left lower extremity has improved and now the source of the infection is more apparent. Patient not a candidate for MRI due to pacemaker. Patient obtained CT scan which did not reveal any localized abscess or fluid collection. X-rays were reviewed with no signs of osteomyelitis, no soft tissue emphysema, no fractures or dislocation appreciated. DVT scan is negative. Patient on IV abx and appreciate ID recommendations. Continue to elevate and offload left lower extremity. Repeat X-rays ordered. Recommend compression dressings to assist with edema control. Dressing instructions provided to the nursing staff. Consultation Date/Type/Reason Admit Date/Time September 30, 2018 at 22:07 Initial Consult Date 10/01/18 Date/Time of Note DATE: 10/07/18 TIME: 19:12 24 HR Interval Summary Free Text/Dictation No acute events overnight Exam/Review of Systems Exam Vitals Vital Signs Date Temp Pulse Resp B/P (MAP) Pulse Ox O2 O2 Flow FiO2 Time Delivery Rate 10/07/18 98.0 65 16 165/73 98 15:13 (103) 10/06/18 Nasal 2.0 00:50 Cannula Intake and Output 10/06/18 10/06/18 10/07/18 1515:00 23:00 07:00 IntakeIntake Total 880 ml 960 ml 290 ml OutputOutput Total 200 ml BalanceBalance 880 ml 960 ml 90 ml Exam DP/PT and popliteal pulses palpable Localized erythema to the left 2nd digit Lateral aspect of 2nd digit ulceration 0.2 x 0.2 x 0.4cm with purulent drainage, probes to bone. Partial thickness ulceration to the medial and distal aspect of the left 2nd digit granular wound bed 1.5 x 1 x 0.1cm, does not probe to bone, no purulent drainage Absent protective sensations. No proximal streaking appreciated Muscle strength 5/5 in all compartments fo the foot. Results Result Diagram: 10/07/18 0444 10/07/18 0444 Results 24hrs Laboratory Tests Test 10/06/18 20:15 10/07/18 04:44 10/07/18 08:18 10/07/18 13:30 Bedside Glucose 137 111 130 White Blood Count 6.5 # Red Blood Count 3.83 L Hemoglobin 9.6 L Hematocrit 32.7 L Mean Corpuscular 85.4 Volume Mean Corpuscular 25.1 L Hemoglobin Mean Corpuscular 29.4 L Hemoglobin Concent Red Cell 14.8 H Distribution Width Platelet Count 159 Mean Platelet Volume 9.3 Immature 0.500 H Granulocytes % Neutrophils % 79.4 H Lymphocytes % 9.4 L Monocytes % 7.9 Eosinophils % 2.5 Basophils % 0.3 Nucleated Red Blood 0.0 Cells % Immature 0.030 Granulocytes # Neutrophils # 5.2 Lymphocytes # 0.6 L Monocytes # 0.5 Eosinophils # 0.2 Basophils # 0.0 Nucleated Red Blood 0.0 Cells # Sodium Level 140 Potassium Level 4.8 Chloride Level 102 Carbon Dioxide Level 28 Anion Gap 10 Blood Urea Nitrogen 44 #H Creatinine 5.67 H Est Glomerular 10 L Filtrat Rate mL/min Glucose Level 91 Calcium Level 9.5 Test 10/07/18 17:50 Bedside Glucose 128 Medications Medication Current Medications Vancomycin HCl (Vanco Iv Per Pharmacy) VANCOMYCIN PER PHARMACY PER PROTOCOL XX ; Start 09/30/18 at 23:30 Cefepime HCl 50 ml @ 100 mls/hr Q24H IVPB Last administered on 10/07/18at 04:36; Admin Dose 100 MLS/HR; Start 10/01/18 at 05:00 Acetaminophen (Tylenol Tab) 500 mg Q4 PRN PO FEVER GREATER THAN 100.6 Last administered on 10/02/18at 14:44; Admin Dose 500 MG; Start 09/30/18 at 23:30 Acetaminophen/ Hydrocodone Bitart ([place] (5/325)) 1 tab Q6H PRN PO MODERATE PAIN LEVEL 4-6; Start 09/30/18 at 23:30 Insulin Aspart (Novolog Insulin Pen) NOVOLOG *MILD* ALGORITHM WITH MEALS BED TIME SC Last administered on 10/06/18at 12:45; Admin Dose 2 UNIT; Start 10/01/18 at 08:00 Amlodipine Besylate (Norvasc) 10 mg DAILY PO Last administered on 10/07/18 09:57; Admin Dose 10 MG; Start 10/01/18 at 09:00 Calcium Acetate (Phoslo) 667 mg WITH MEALS PO Last administered on 10/07/18 17:52; Admin Dose 667 MG; Start 10/01/18 at 08:00 Ferrous Sulfate (Ferrous Sulfate (Ec)) 325 mg DAILY PO Last administered on 10/07/18 09:52; Admin Dose 325 MG; Start 10/01/18 at 09:00 Pantoprazole (Protonix Tab) 40 mg DAILY@06 PO Last administered on 10/07/18 05:14; Admin Dose 40 MG; Start 10/01/18 at 06:00 Atorvastatin Calcium (Lipitor) 10 mg QHS PO Last administered on 10/06/18 20:12; Admin Dose 10 MG; Start 10/01/18 at 21:00 Miscellaneous Information 1 ea NOTE XX ; Start 10/01/18 at 04:00 Glucose (Glutose) 15 gm Q15M PRN PO DECREASED GLUCOSE; Start 10/01/18 at 04:00 Glucose (Glutose) 22.5 gm Q15M PRN PO DECREASED GLUCOSE Last administered on 10/05/18 08:16; Admin Dose 22.5 GM; Start 10/01/18 at 04:00 Dextrose (D50w Syringe) 25 ml Q15M PRN IV DECREASED GLUCOSE; Start 10/01/18 at 04:00 Dextrose (D50w Syringe) 50 ml Q15M PRN IV DECREASED GLUCOSE; Start 10/01/18 at 04:00 Glucagon (Glucagen) 1 mg Q15M PRN IM DECREASED GLUCOSE; Start 10/01/18 at 04:00 Glucose (Glutose) 15 gm Q15M PRN BUCCAL DECREASED GLUCOSE; Start 10/01/18 at 04:00 Clonidine (Catapres) 0.1 mg Q4H PRN GTB hypertension Last administered on 10/05/18 14:16; Admin Dose 0.1 MG; Start 10/01/18 at 16:00 Hydralazine HCl (Apresoline) 50 mg TID GTB Last administered on 10/07/18 13:32; Admin Dose 50 MG; Start 10/04/18 at 21:00 Aspirin (Halfprin) 81 mg DAILY PO Last administered on 10/07/18 09:52; Admin Dose 81 MG; Start 10/05/18 at 09:00 Vancomycin HCl 250 ml @ 125 mls/hr Q96H IVPB Last administered on 10/05/18at 20:44; Admin Dose 125 MLS/HR; Start 10/05/18 at 20:00 Insulin Glargine (Lantus) 6 units HS SC Last administered on 10/06/18at 20:18; Admin Dose 6 UNITS; Start 10/05/18 at 21:00 AMBER GOMEZ DPM October 07, 2018 19:16
[2018-10-07 19:51] VITALS: BP 179/79; PULSE 68; RESP 16
[2018-10-07] MEDS: ATORVASTATIN 10 MG TAB PO SCH (20:04)
[2018-10-07] MEDS: INSULIN GLARGINE [LANTus] (100 UNITS/ML) SYG SC SCH (20:23)
[2018-10-07 22:07] VITALS: BP 155/72; PULSE 66; RESP 16
[2018-10-08] VITALS (12 sets, daily range): BP systolic 126–170; BP diastolic 57–74; PULSE 63–71; RESP 16–20
[2018-10-08] MEDS: CEFEPIME 1GM/50 ML (PMX) 50 ML IVPB SCH (05:07)
[2018-10-08] MEDS: PANTOPRAZOLE (EC) 40 MG TAB PO SCH (05:10)
--- NOTE | 2018-10-08 07:45 | CONS ---
Assessment/Plan Assessment/Plan Assessment/Plan (Daily) - ESRD Hemodialysis dependent @ [facility] ( Tues-Judi- Sat ) - Left foot Cellulitis / Soft tissue infection - Hyperkalemia - DM / DM Nephropathy - Hypertension - Hyperphosphatemia PLAN: - STAT Hemodialysis has been arranged to correct hyperkalemia - IV Abx for the lower extremity infection - Will review the imaging for ? Osteomyelitis as well - DM control - Follow up with H/H - On long acting EPO as out patient - Follow up with potassium & Phos - Remains on IV Antibiotics - Follow up with imaging results - Bedside Dialysis ( On HD TTS ) - Follow up with H/H - Plan for dialysis 10/05/2018 - No plan for any surgical procedure - No Osteo - Post excision & debridement - Tolerated well - Bedside Dialysis today ( 10/08/2018 ) - Monitor electrolytes - H/H stable Consultation Date/Type/Reason Admit Date/Time September 30, 2018 at 22:07 Initial Consult Date 10/01/18 Type of Consult Nephrology Date/Time of Note DATE: 10/08/18 TIME: 07:43 24 HR Interval Summary Constitutional: no complaints, improved Exam/Review of Systems Exam Vitals Vital Signs Date Temp Pulse Resp B/P (MAP) Pulse Ox O2 O2 Flow FiO2 Time Delivery Rate 10/08/18 98.6 71 16 154/74 93 02:34 (100) 10/07/18 2.0 20:54 10/06/18 Nasal 00:50 Cannula Intake and Output 10/07/18 10/07/18 10/08/18 1515:00 23:00 07:00 IntakeIntake Total 1000 ml 480 ml 50 ml BalanceBalance 1000 ml 480 ml 50 ml Constitutional: alert, oriented, well developed Psych: no complaints Head: normocephalic Eyes: nl conjunctiva Respiratory: crackles/rales Cardiovascular: regular rate and rhythm, systolic murmur Gastrointestinal: soft Results Result Diagram: 10/07/18 0444 10/07/18 0444 Results 24hrs Laboratory Tests Test 10/07/18 08:18 10/07/18 13:30 10/07/18 17:50 10/07/18 19:02 Bedside Glucose 111 130 128 Erythrocyte 35 H Sedimentation Rate Test 10/07/18 19:03 10/07/18 20:19 10/08/18 01:56 C-Reactive Protein 5.1 H Procalcitonin 1.75 H Bedside Glucose 190 74 Medications Medication Current Medications Vancomycin HCl (Vanco Iv Per Pharmacy) VANCOMYCIN PER PHARMACY PER PROTOCOL XX ; Start 09/30/18 at 23:30 Cefepime HCl 50 ml @ 100 mls/hr Q24H IVPB Last administered on 10/08/18at 05:07; Admin Dose 100 MLS/HR; Start 10/01/18 at 05:00 Acetaminophen (Tylenol Tab) 500 mg Q4 PRN PO FEVER GREATER THAN 100.6 Last administered on 10/02/18at 14:44; Admin Dose 500 MG; Start 09/30/18 at 23:30 Acetaminophen/ Hydrocodone Bitart ([place] (5/325)) 1 tab Q6H PRN PO MODERATE PAIN LEVEL 4-6; Start 09/30/18 at 23:30 Insulin Aspart (Novolog Insulin Pen) NOVOLOG *MILD* ALGORITHM WITH MEALS BEDTIME SC Last administered on 10/07/18at 20:22; Admin Dose 1 UNIT; Start 09/12 06/01 at 08:00 Amlodipine Besylate (Norvasc) 10 mg DAILY PO Last administered on 10/07/18at 09:57; Admin Dose 10 MG; Start 10/01/18 at 09:00 Calcium Acetate (Phoslo) 667 mg WITH MEALS PO Last administered on 10/07/18 17:52; Admin Dose 667 MG; Start 10/01/18 at 08:00 Ferrous Sulfate (Ferrous Sulfate (Ec)) 325 mg DAILY PO Last administered on 10/07/18 09:52; Admin Dose 325 MG; Start 10/01/18 at 09:00 Pantoprazole (Protonix Tab) 40 mg DAILY@06 PO Last administered on 10/08/18 05:10; Admin Dose 40 MG; Start 10/01/18 at 06:00 Atorvastatin Calcium (Lipitor) 10 mg QHS PO Last administered on 10/07/18 20:04; Admin Dose 10 MG; Start 10/01/18 at 21:00 Miscellaneous Information 1 ea NOTE XX ; Start 10/01/18 at 04:00 Glucose (Glutose) 15 gm Q15M PRN PO DECREASED GLUCOSE; Start 10/01/18 at 04:00 Glucose (Glutose) 22.5 gm Q15M PRN PO DECREASED GLUCOSE Last administered on 10/05/18 08:16; Admin Dose 22.5 GM; Start 10/01/18 at 04:00 Dextrose (D50w Syringe) 25 ml Q15M PRN IV DECREASED GLUCOSE; Start 10/01/18 at 04:00 Dextrose (D50w Syringe) 50 ml Q15M PRN IV DECREASED GLUCOSE; Start 10/01/18 at 04:00 Glucagon (Glucagen) 1 mg Q15M PRN IM DECREASED GLUCOSE; Start 10/01/18 at 04:00 Glucose (Glutose) 15 gm Q15M PRN BUCCAL DECREASED GLUCOSE; Start 10/01/18 at 04:00 Clonidine (Catapres) 0.1 mg Q4H PRN GTB hypertension Last administered on 10/05/18 14:16; Admin Dose 0.1 MG; Start 10/01/18 at 16:00 Hydralazine HCl (Apresoline) 50 mg TID GTB Last administered on 10/07/18 20:03; Admin Dose 50 MG; Start 10/04/18 at 21:00 Aspirin (Halfprin) 81 mg DAILY PO Last administered on 10/07/18 09:52; Admin Dose 81 MG; Start 10/05/18 at 09:00 Vancomycin HCl 250 ml @ 125 mls/hr Q96H IVPB Last administered on 10/05/18at 20:44; Admin Dose 125 MLS/HR; Start 10/05/18 at 20:00 Insulin Glargine (Lantus) 6 units HS SC Last administered on 10/07/18at 20:23; Admin Dose 6 UNITS; Start 10/05/18 at 21:00 Sodium Hypochlorite (Dakins Diluted ()) 1 applic DAILY TP ; Start 10/08/18 at 09:00 PACO LAZO MD October 08, 2018 07:45
[2018-10-08] MEDS: INSULIN ASPART [NOVOLOG] 3 ML PEN SC SCH ×4 (08:00→20:27)
--- NOTE | 2018-10-08 08:30 | CONS ---
Consultation Date/Type/Reason Admit Date/Time September 30, 2018 at 22:07 Type of Consult Nephrology Date/Time of Note DATE: 10/07/18 TIME: 08:29 Additional Comments I HAVE REQUESTED FOR DIALYSIS FOR TOMORROW Exam/Review of Systems Vital Signs Vitals Vital Signs Date Temp Pulse Resp B/P (MAP) Pulse Ox O2 O2 Flow FiO2 Time Delivery Rate 10/08/18 98.7 71 20 162/74 98 07:53 (103) 10/07/18 2.0 20:54 10/06/18 Nasal 00:50 Cannula Intake and Output 10/07/18 10/07/18 10/08/18 1515:00 23:00 07:00 IntakeIntake Total 1000 ml 480 ml 50 ml BalanceBalance 1000 ml 480 ml 50 ml Labs Result Diagram: 10/07/18 0444 10/07/18 0444 Results 24hrs Laboratory Tests Test 10/07/18 13:30 10/07/18 17:50 10/07/18 19:02 10/07/18 19:03 Bedside Glucose 130 128 Erythrocyte 35 H Sedimentation Rate C-Reactive Protein 5.1 H Procalcitonin 1.75 H Test 10/07/18 20:19 10/08/18 01:56 10/08/18 08:15 Bedside Glucose 190 74 93 Medications Medications Current Medications Vancomycin HCl (Vanco Iv Per Pharmacy) VANCOMYCIN PER PHARMACY PER PROTOCOL XX ; Start 09/30/18 at 23:30 Cefepime HCl 50 ml @ 100 mls/hr Q24H IVPB Last administered on 10/08/18at 05:07; Admin Dose 100 MLS/HR; Start 10/01/18 at 05:00 Acetaminophen (Tylenol Tab) 500 mg Q4 PRN PO FEVER GREATER THAN 100.6 Last administered on 10/02/18at 14:44; Admin Dose 500 MG; Start 09/30/18 at 23:30 Acetaminophen/ Hydrocodone Bitart ([place] (5/325)) 1 tab Q6H PRN PO MODERATE PAIN LEVEL 4-6; Start 09/30/18 at 23:30 Insulin Aspart (Novolog Insulin Pen) NOVOLOG *MILD* ALGORITHM WITH MEALS BEDTIME SC Last administered on 10/07/18at 20:22; Admin Dose 1 UNIT; Start 10/01/18 at 08:00 Amlodipine Besylate (Norvasc) 10 mg DAILY PO Last administered on 10/07/18 09:57; Admin Dose 10 MG; Start 10/01/18 at 09:00 Calcium Acetate (Phoslo) 667 mg WITH MEALS PO Last administered on 10/07/18 17:52; Admin Dose 667 MG; Start 10/01/18 at 08:00 Ferrous Sulfate (Ferrous Sulfate (Ec)) 325 mg DAILY PO Last administered on 10/07/18 09:52; Admin Dose 325 MG; Start 10/01/18 at 09:00 Pantoprazole (Protonix Tab) 40 mg DAILY@06 PO Last administered on 10/08/18 05:10; Admin Dose 40 MG; Start 10/01/18 at 06:00 Atorvastatin Calcium (Lipitor) 10 mg QHS PO Last administered on 10/07/18 20:04; Admin Dose 10 MG; Start 10/01/18 at 21:00 Miscellaneous Information 1 ea NOTE XX ; Start 10/01/18 at 04:00 Glucose (Glutose) 15 gm Q15M PRN PO DECREASED GLUCOSE; Start 10/01/18 at 04:00 Glucose (Glutose) 22.5 gm Q15M PRN PO DECREASED GLUCOSE Last administered on 10/05/18 08:16; Admin Dose 22.5 GM; Start 10/01/18 at 04:00 Dextrose (D50w Syringe) 25 ml Q15M PRN IV DECREASED GLUCOSE; Start 10/01/18 at 04:00 Dextrose (D50w Syringe) 50 ml Q15M PRN IV DECREASED GLUCOSE; Start 10/01/18 at 04:00 Glucagon (Glucagen) 1 mg Q15M PRN IM DECREASED GLUCOSE; Start 10/01/18 at 04:00 Glucose (Glutose) 15 gm Q15M PRN BUCCAL DECREASED GLUCOSE; Start 10/01/18 at 04:00 Clonidine (Catapres) 0.1 mg Q4H PRN GTB hypertension Last administered on 10/05/18 14:16; Admin Dose 0.1 MG; Start 10/01/18 at 16:00 Hydralazine HCl (Apresoline) 50 mg TID GTB Last administered on 10/07/18 20:03; Admin Dose 50 MG; Start 10/04/18 at 21:00 Aspirin (Halfprin) 81 mg DAILY PO Last administered on 10/07/18 09:52; Admin Dose 81 MG; Start 10/05/18 at 09:00 Vancomycin HCl 250 ml @ 125 mls/hr Q96H IVPB Last administered on 10/05/18at 20:44; Admin Dose 125 MLS/HR; Start 10/05/18 at 20:00 Insulin Glargine (Lantus) 6 units HS SC Last administered on 10/07/18at 20:23; Admin Dose 6 UNITS; Start 10/05/18 at 21:00 Sodium Hypochlorite (Dakins Diluted ()) 1 applic DAILY TP ; Start 10/08/18 at 09:00 PERRY MARSH MD October 08, 2018 08:30
[2018-10-08] MEDS: ASPIRIN (EC) 81 MG TAB PO SCH (08:47)
[2018-10-08] MEDS: CALCIUM ACETATE 667 MG CAP PO SCH ×3 (08:47→17:38)
[2018-10-08] MEDS: FERROUS SULFATE (EC) 325 MG TAB PO SCH (08:47)
[2018-10-08] MEDS: AMLODIPINE 10 MG TAB PO SCH (08:48)
[2018-10-08] MEDS: DAKINS 0.0125%(1/40) 473 ML SOLUTION TP SCH (12:55)
--- NOTE | 2018-10-08 13:29 | CONS ---
Assessment/Plan Assessment/Plan Hospital Course (Demo Recall) Alert feels ok no fevers overnight. Per report had pus between R toes Microbiology: All cultures negative Chest x-ray this morning revealed persistent cardiomegaly with vascular congestion Indwelling: Left upper extremity AV fistula Antimicrobials: Vancomycin, cefepime PHYSICAL EXAMINATION: GENERAL: A well-nourished, well-developed, pleasant, elderly man who is alert, in no distress. HEENT: Head is atraumatic, normocephalic. Sclerae are anicteric. Buccal mucosa is pink. NECK: Supple. CHEST: Rise symmetrical. Breath sounds are clear. HEART: S1, S2. ABDOMEN: Soft. Bowel tones are present. EXTREMITIES: Left lower extremity decreased swelling Assessment: 1. Left diabetic foot with cellulitis 2. Diabetes 3. End-stage renal disease, hemodialysis dependent 4. Coronary artery disease Plan: Patient remains stable, continue abx, f/u drainage cx, podiatry rec-s Consultation Date/Type/Reason Admit Date/Time September 30, 2018 at 22:07 Initial Consult Date 10/01/18 Type of Consult id Date/Time of Note DATE: 10/08/18 TIME: 13:29 Exam/Review of Systems Exam Vitals Vital Signs Date Temp Pulse Resp B/P (MAP) Pulse Ox O2 O2 Flow FiO2 Time Delivery Rate 10/08/18 98.7 71 20 162/74 98 07:53 (103) 10/07/18 2.0 20:54 10/06/18 Nasal 00:50 Cannula Intake and Output 10/07/18 10/07/18 10/08/18 1515:00 23:00 07:00 IntakeIntake Total 1000 ml 480 ml 50 ml BalanceBalance 1000 ml 480 ml 50 ml Results Result Diagram: 10/07/18 0444 10/07/18 0444 Results 24hrs Laboratory Tests Test 10/07/18 13:30 10/07/18 17:50 10/07/18 19:02 10/07/18 19:03 Bedside Glucose 130 128 Erythrocyte 35 H Sedimentation Rate C-Reactive Protein 5.1 H Procalcitonin 1.75 H Test 10/07/18 20:19 10/08/18 01:56 10/08/18 08:15 10/08/18 12:46 Bedside Glucose 190 74 93 130 Medications Medication Current Medications Vancomycin HCl (Vanco Iv Per Pharmacy) VANCOMYCIN PER PHARMACY PER PROTOCOL XX ; Start 09/30/18 at 23:30 Cefepime HCl 50 ml @ 100 mls/hr Q24H IVPB Last administered on 10/08/18at 05:07; Admin Dose 100 MLS/HR; Start 10/01/18 at 05:00 Acetaminophen (Tylenol Tab) 500 mg Q4 PRN PO FEVER GREATER THAN 100.6 Last administered on 10/02/18at 14:44; Admin Dose 500 MG; Start 09/30/18 at 23:30 Acetaminophen/ Hydrocodone Bitart ([place] (5/325)) 1 tab Q6H PRN PO MODERATE PAIN LEVEL 4-6; Start 09/30/18 at 23:30 Insulin Aspart (Novolog Insulin Pen) NOVOLOG *MILD* ALGORITHM WITH MEALS BEDTIME SC Last administered on 10/07/18at 20:22; Admin Dose 1 UNIT; Start 10/01/18 at 08:00 Amlodipine Besylate (Norvasc) 10 mg DAILY PO Last administered on 10/07/18 09:57; Admin Dose 10 MG; Start 10/01/18 at 09:00 Calcium Acetate (Phoslo) 667 mg WITH MEALS PO Last administered on 10/08/18 12:54; Admin Dose 667 MG; Start 10/01/18 at 08:00 Ferrous Sulfate (Ferrous Sulfate (Ec)) 325 mg DAILY PO Last administered on 10/08/18 08:47; Admin Dose 325 MG; Start 10/01/18 at 09:00 Pantoprazole (Protonix Tab) 40 mg DAILY@06 PO Last administered on 10/08/18 05:10; Admin Dose 40 MG; Start 10/01/18 at 06:00 Atorvastatin Calcium (Lipitor) 10 mg QHS PO Last administered on 10/07/18 20:04; Admin Dose 10 MG; Start 10/01/18 at 21:00 Miscellaneous Information 1 ea NOTE XX ; Start 10/01/18 at 04:00 Glucose (Glutose) 15 gm Q15M PRN PO DECREASED GLUCOSE; Start 10/01/18 at 04:00 Glucose (Glutose) 22.5 gm Q15M PRN PO DECREASED GLUCOSE Last administered on 08:16; Admin Dose 22.5 GM; Start 10/01/18 at 04:00 Dextrose (D50w Syringe) 25 ml Q15M PRN IV DECREASED GLUCOSE; Start 10/01/18 at 04:00 Dextrose (D50w Syringe) 50 ml Q15M PRN IV DECREASED GLUCOSE; Start 10/01/18 at 04:00 Glucagon (Glucagen) 1 mg Q15M PRN IM DECREASED GLUCOSE; Start 10/01/18 at 04:00 Glucose (Glutose) 15 gm Q15M PRN BUCCAL DECREASED GLUCOSE; Start 10/01/18 at 04:00 Clonidine (Catapres) 0.1 mg Q4H PRN GTB hypertension Last administered on 10/05/18 14:16; Admin Dose 0.1 MG; Start 10/01/18 at 16:00 Hydralazine HCl (Apresoline) 50 mg TID GTB Last administered on 10/08/18 12:54; Admin Dose 50 MG; Start 10/04/18 at 21:00 Aspirin (Halfprin) 81 mg DAILY PO Last administered on 10/08/18 08:47; Admin Dose 81 MG; Start 10/05/18 at 09:00 Vancomycin HCl 250 ml @ 125 mls/hr Q96H IVPB Last administered on 10/05/18 20:44; Admin Dose 125 MLS/HR; Start 10/05/18 at 20:00 Insulin Glargine (Lantus) 6 units HS SC Last administered on 10/07/18 20:23; Admin Dose 6 UNITS; Start 10/05/18 at 21:00 Sodium Hypochlorite (Dakins Diluted (40)) 1 applic DAILY TP Last administered on 10/08/18 12:55; Admin Dose 1 APPLIC; Start 10/08/18 at 09:00 SYEDA LEÓN NP October 08, 2018 13:29
--- NOTE | 2018-10-08 15:07 | PN ---
Date/Time of Note Date/Time of Note DATE: 10/08/18 TIME: 15:03 Assessment/Plan VTE Prophylaxis Risk score (from Ns)>0 risk: 2 SCD applied (from Ns): No SCD contraindicated: other Pharmacological prophylaxis: other Lines/Catheters [facility]from [facility] [place] Urinary Cath still in place: No Assessment/Plan Hospital Course Pt with some small abscess opening up with pus coming out from in between the left second and third toes last night, status post debridement last night by installation tech, will follow up on culture. continue current wound care per podiatry recs. Pending hemodialysis today. Elevated blood pressure Norvasc was held for hemodialysis, in am, hemodialysis is still pending for today, discussed with RN, continue current BP medication, monitor. Assessment/Plan - Left lower extremity cellulitis with abscess. Continue broad-spectrum antibiotics. Bilateral lower extremity Dopplers negative for DVT. Dr. Burt is following in infection disease consultation. Dr. Delcid is following in podiatry consultation. - Hyperkalemia. Dr. Dobbins is following in nephrology consultation - Hemodialysis dependent end-stage renal disease. - Diabetes. Continue Lantus and NovoLog. - PPM - Hypertension. Continue Norvasc and lisinopril. - History of coronary artery disease, status post myocardial infarction. Jose Juan nue aspirin. - Preserved EF 55% per last Echo Further recommendations based on clinical course. Plan of care discussed with Dr. Mujica. Result Diagram: 10/07/18 0444 10/07/18 0444 Results 24hrs Laboratory Tests Test 10/07/18 17:50 10/07/18 19:02 10/07/18 19:03 10/07/18 20:19 Bedside Glucose 128 190 Erythrocyte 35 H Sedimentation Rate C-Reactive Protein 5.1 H Procalcitonin 1.75 H Test 10/08/18 01:56 10/08/18 08:15 10/08/18 12:43 10/08/18 12:46 Bedside Glucose 74 93 130 Erythrocyte 33 H Sedimentation Rate C-Reactive Protein 4.3 H Exam/Review of Systems Exam Vitals Vital Signs Date Temp Pulse Resp B/P (MAP) Pulse Ox O2 O2 Flow FiO2 Time Delivery Rate 10/08/18 98.5 68 20 170/74 95 13:49 (106) 10/07/18 2.0 20:54 10/06/18 Nasal 00:50 Cannula Intake and Output 10/07/18 10/07/18 10/08/18 1515:00 23:00 07:00 IntakeIntake Total 1000 ml 480 ml 50 ml BalanceBalance 1000 ml 480 ml 50 ml Exam Constitutional: alert, oriented Respiratory: clear to auscultation Cardiovascular: regular rate and rhythm, PPM Gastrointestinal: soft, non-tender Musculoskeletal: nl extremities to inspection Extremities: other (Left lower remedy swelling, erythema and tenderness) Neurological: nl mental status Results Results 24hrs Laboratory Tests Test 10/07/18 17:50 10/07/18 19:02 10/07/18 19:03 10/07/18 20:19 Bedside Glucose 128 190 Erythrocyte 35 H Sedimentation Rate C-Reactive Protein 5.1 H Procalcitonin 1.75 H Test 10/08/18 01:56 10/08/18 08:15 10/08/18 12:43 10/08/18 12:46 Bedside Glucose 74 93 130 Erythrocyte 33 H Sedimentation Rate C-Reactive Protein 4.3 H Medications Medication Current Medications Vancomycin HCl (Vanco Iv Per Pharmacy) VANCOMYCIN PER PHARMACY PER PROTOCOL XX ; Start 09/30/18 at 23:30 Acetaminophen (Tylenol Tab) 500 mg Q4 PRN PO FEVER GREATER THAN 100.6 Last administered on 10/02/18at 14:44; Admin Dose 500 MG; Start 09/30/18 at 23:30 Acetaminophen/ Hydrocodone Bitart ([place] (5/325)) 1 tab Q6H PRN PO MODERATE PAIN LEVEL 4-6; Start 09/30/18 at 23:30 Insulin Aspart (Novolog Insulin Pen) NOVOLOG *MILD* ALGORITHM WITH MEALS BEDTIME SC Last administered on 10/07/18at 20:22; Admin Dose 1 UNIT; Start 10/01/18 at 08:00 Amlodipine Besylate (Norvasc) 10 mg DAILY PO Last administered on 10/07/18 09:57; Admin Dose 10 MG; Start 10/01/18 at 09:00 Calcium Acetate (Phoslo) 667 mg WITH MEALS PO Last administered on 10/08/18 12:54; Admin Dose 667 MG; Start 10/01/18 at 08:00 Ferrous Sulfate (Ferrous Sulfate (Ec)) 325 mg DAILY PO Last administered on 09/12 08:47; Admin Dose 325 MG; Start 10/01/18 at 09:00 Pantoprazole (Protonix Tab) 40 mg DAILY@06 PO Last administered on 10/08/18 05:10; Admin Dose 40 MG; Start 10/01/18 at 06:00 Atorvastatin Calcium (Lipitor) 10 mg QHS PO Last administered on 10/07/18 20:04; Admin Dose 10 MG; Start 10/01/18 at 21:00 Miscellaneous Information 1 ea NOTE XX ; Start 10/01/18 at 04:00 Glucose (Glutose) 15 gm Q15M PRN PO DECREASED GLUCOSE; Start 10/01/18 at 04:00 Glucose (Glutose) 22.5 gm Q15M PRN PO DECREASED GLUCOSE Last administered on 10/05/18 08:16; Admin Dose 22.5 GM; Start 10/01/18 at 04:00 Dextrose (D50w Syringe) 25 ml Q15M PRN IV DECREASED GLUCOSE; Start 10/01/18 at 04:00 Dextrose (D50w Syringe) 50 ml Q15M PRN IV DECREASED GLUCOSE; Start 10/01/18 at 04:00 Glucagon (Glucagen) 1 mg Q15M PRN IM DECREASED GLUCOSE; Start 10/01/18 at 04:00 Glucose (Glutose) 15 gm Q15M PRN BUCCAL DECREASED GLUCOSE; Start 10/01/18 at 04:00 Clonidine (Catapres) 0.1 mg Q4H PRN GTB hypertension Last administered on 10/05/18 14:16; Admin Dose 0.1 MG; Start 10/01/18 at 16:00 Hydralazine HCl (Apresoline) 50 mg TID GTB Last administered on 10/08/18 12:54; Admin Dose 50 MG; Start 10/04/18 at 21:00 Aspirin (Halfprin) 81 mg DAILY PO Last administered on 10/08/18 08:47; Admin Dose 81 MG; Start 10/05/18 at 09:00 Vancomycin HCl 250 ml @ 125 mls/hr Q96H IVPB Last administered on 10/05/18 20:44; Admin Dose 125 MLS/HR; Start 10/05/18 at 20:00 Insulin Glargine (Lantus) 6 units HS SC Last administered on 5/27/19at 20:23; Admin Dose 6 UNITS; Start 10/05/18 at 21:00 Sodium Hypochlorite (Dakins Diluted (40)) 1 applic DAILY TP Last administered on 10/08/18at 12:55; Admin Dose 1 APPLIC; Start 10/08/18 at 09:00 YUMIKO PAINTING October 08, 2018 15:07
[2018-10-08] MEDS: INSULIN GLARGINE [LANTus] (100 UNITS/ML) SYG SC SCH (20:26)
[2018-10-08] MEDS: ATORVASTATIN 10 MG TAB PO SCH (21:00)
[2018-10-09] VITALS (9 sets, daily range): BP systolic 118–163; BP diastolic 52–71; PULSE 55–71; RESP 18
[2018-10-09] MEDS: PANTOPRAZOLE (EC) 40 MG TAB PO SCH (05:46)
[2018-10-09] MEDS: INSULIN ASPART [NOVOLOG] 3 ML PEN SC SCH ×4 (08:00→21:00)
[2018-10-09] MEDS: AMLODIPINE 10 MG TAB PO SCH (08:41)
[2018-10-09] MEDS: CALCIUM ACETATE 667 MG CAP PO SCH ×3 (08:41→17:19)
[2018-10-09] MEDS: FERROUS SULFATE (EC) 325 MG TAB PO SCH (08:41)
[2018-10-09] MEDS: ASPIRIN (EC) 81 MG TAB PO SCH (08:42)
[2018-10-09] MEDS: DAKINS 0.0125%(1/40) 473 ML SOLUTION TP SCH (08:42)
--- NOTE | 2018-10-09 12:07 | CONS ---
Assessment/Plan Assessment/Plan Assessment/Plan (Daily) Left 2nd digit diabetic ulcer Left lower extremity cellulitis DM2 with peripheral neuropathy Edema ESRD on HD CAD Plan Wound cultures pending. Copious betadine saline irrigation to the wound site. Patient not a candidate for MRI due to pacemaker. Repeat X-rays were reviewed with no signs of osteomyelitis, no soft tissue emphysema, no fractures or dislocation appreciated. DVT scan is negative. Patient on IV abx and appreciate ID recommendations. Continue to elevate and offload left lower extremity. Recommend compression dressings to assist with edema control. Dressing instructions provided to the nursing staff. Recommend packing to the 2nd digit wound site. Consultation Date/Type/Reason Admit Date/Time September 30, 2018 at 22:07 Initial Consult Date 10/01/18 Date/Time of Note DATE: 10/09/18 TIME: 12:07 24 HR Interval Summary Free Text/Dictation No acute events overnight. Exam/Review of Systems Exam Vitals Vital Signs Date Temp Pulse Resp B/P (MAP) Pulse Ox O2 O2 Flow FiO2 Time Delivery Rate 10/09/18 98.0 69 18 156/68 93 Room Air 07:32 (97) 10/08/18 2.0 19:49 Intake and Output 10/08/18 10/08/18 10/09/18 1515:00 23:00 07:00 IntakeIntake Total 360 ml 240 ml OutputOutput Total 3400 ml BalanceBalance 360 ml 240 ml -3400 ml Exam DP/PT and popliteal pulses palpable Localized erythema to the left 2nd digit Lateral aspect of 2nd digit ulceration 0.2 x 0.2 x 0.4cm with purulent drainage, probes to bone. Partial thickness ulceration to the medial and distal aspect of the left 2nd digit granular wound bed 1.5 x 1 x 0.1cm, does not probe to bone, no purulent drainage Absent protective sensations. No proximal streaking appreciated Muscle strength 5/5 in all compartments fo the foot. Results Result Diagram: 10/07/18 0444 10/07/18 0444 Results 24hrs Laboratory Tests Test 10/08/18 12:43 10/08/18 12:46 10/08/18 17:37 10/08/18 20:24 Erythrocyte 33 H Sedimentation Rate C-Reactive Protein 4.3 H Bedside Glucose 130 173 135 Test 10/09/18 00:41 10/09/18 08:36 Bedside Glucose 100 110 Medications Medication Current Medications Vancomycin HCl (Vanco Iv Per Pharmacy) VANCOMYCIN PER PHARMACY PER PROTOCOL XX ; Start 09/30/18 at 23:30 Acetaminophen (Tylenol Tab) 500 mg Q4 PRN PO FEVER GREATER THAN 100.6 Last administered on 10/02/18at 14:44; Admin Dose 500 MG; Start 09/30/18 at 23:30 Acetaminophen/ Hydrocodone Bitart ([place] (5/325)) 1 tab Q6H PRN PO MODERATE PAIN LEVEL 4-6; Start 09/30/18 at 23:30 Insulin Aspart (Novolog Insulin Pen) NOVOLOG *MILD* ALGORITHM WITH MEALS BEDTIME SC Last administered on 10/08/18 17:48; Admin Dose 1 UNIT; Start 10/01/18 at 08:00 Amlodipine Besylate (Norvasc) 10 mg DAILY PO Last administered on 10/09/18 08:41; Admin Dose 10 MG; Start 10/01/18 at 09:00 Calcium Acetate (Phoslo) 667 mg WITH MEALS PO Last administered on 10/09/18 08:41; Admin Dose 667 MG; Start 10/01/18 at 08:00 Ferrous Sulfate (Ferrous Sulfate (Ec)) 325 mg DAILY PO Last administered on 10/09/18 08:41; Admin Dose 325 MG; Start 10/01/18 at 09:00 Pantoprazole (Protonix Tab) 40 mg DAILY@06 PO Last administered on 10/09/18 05:46; Admin Dose 40 MG; Start 10/01/18 at 06:00 Atorvastatin Calcium (Lipitor) 10 mg QHS PO Last administered on 10/07/18at 20:04; Admin Dose 10 MG; Start 10/01/18 at 21:00 Miscellaneous Information 1 ea NOTE XX ; Start 10/01/18 at 04:00 Glucose (Glutose) 15 gm Q15M PRN PO DECREASED GLUCOSE; Start 10/01/18 at 04:00 Glucose (Glutose) 22.5 gm Q15M PRN PO DECREASED GLUCOSE Last administered on 10/05/18 08:16; Admin Dose 22.5 GM; Start 10/01/18 at 04:00 Dextrose (D50w Syringe) 25 ml Q15M PRN IV DECREASED GLUCOSE; Start 10/01/18 at 04:00 Dextrose (D50w Syringe) 50 ml Q15M PRN IV DECREASED GLUCOSE; Start 10/01/18 at 04:00 Glucagon (Glucagen) 1 mg Q15M PRN IM DECREASED GLUCOSE; Start 10/01/18 at 04:00 Glucose (Glutose) 15 gm Q15M PRN BUCCAL DECREASED GLUCOSE; Start 10/01/18 at 04:00 Clonidine (Catapres) 0.1 mg Q4H PRN GTB hypertension Last administered on 10/05/18 14:16; Admin Dose 0.1 MG; Start 10/01/18 at 16:00 Hydralazine HCl (Apresoline) 50 mg TID GTB Last administered on 10/09/18 08:41; Admin Dose 50 MG; Start 10/04/18 at 21:00 Aspirin (Halfprin) 81 mg DAILY PO Last administered on 10/09/18 08:42; Admin Dose 81 MG; Start 10/05/18 at 09:00 Vancomycin HCl 250 ml @ 125 mls/hr Q96H IVPB Last administered on 10/05/18 20:44; Admin Dose 125 MLS/HR; Start 10/05/18 at 20:00 Insulin Glargine (Lantus) 6 units HS SC Last administered on 10/08/18 20:26; Admin Dose 6 UNITS; Start 10/05/18 at 21:00 Sodium Hypochlorite (Dakins Diluted ()) 1 applic DAILY TP Last administered on 10/09/18 08:42; Admin Dose 1 APPLIC; Start 10/08/18 at 09:00 AMBER GOMEZ DPM October 09, 2018 12:07
--- NOTE | 2018-10-09 12:29 | CONS ---
Assessment/Plan Assessment/Plan Hospital Course (Demo Recall) Alert feels ok no fevers overnight. Microbiology: Wound culture pending Indwelling: Left upper extremity AV fistula Antimicrobials: Vancomycin PHYSICAL EXAMINATION: GENERAL: A well-nourished, well-developed, pleasant, elderly man who is alert, in no distress. HEENT: Head is atraumatic, normocephalic. Sclerae are anicteric. Buccal mucosa is pink. NECK: Supple. CHEST: Rise symmetrical. Breath sounds are clear. HEART: S1, S2. ABDOMEN: Soft. Bowel tones are present. EXTREMITIES: Left lower extremity decreased swelling Assessment: 1. Left diabetic foot with cellulitis/2nd digit diabetic ulcer 2. Diabetes 3. End-stage renal disease, hemodialysis dependent 4. Coronary artery disease Plan: Patient remains stable, continue abx, f/u drainage cx, podiatry rec-s noted Consultation Date/Type/Reason Admit Date/Time September 30, 2018 at 22:07 Initial Consult Date 10/01/18 Type of Consult id Date/Time of Note DATE: 10/09/18 TIME: 12:28 Exam/Review of Systems Exam Vitals Vital Signs Date Temp Pulse Resp B/P (MAP) Pulse Ox O2 O2 Flow FiO2 Time Delivery Rate 10/09/18 2.0 08:30 10/09/18 98.0 69 18 156/68 93 Room Air 07:32 (97) Intake and Output 10/08/18 10/08/18 10/09/18 1515:00 23:00 07:00 IntakeIntake Total 360 ml 240 ml OutputOutput Total 3400 ml BalanceBalance 360 ml 240 ml -3400 ml Results Result Diagram: 10/07/18 0444 10/07/18 0444 Results 24hrs Laboratory Tests Test 10/08/18 12:43 10/08/18 12:46 10/08/18 17:37 10/08/18 20:24 Erythrocyte 33 H Sedimentation Rate C-Reactive Protein 4.3 H Bedside Glucose 130 173 135 Test 10/09/18 00:41 10/09/18 08:36 Bedside Glucose 100 110 Medications Medication Current Medications Vancomycin HCl (Vanco Iv Per Pharmacy) VANCOMYCIN PER PHARMACY PER PROTOCOL XX ; Start 09/30/18 at 23:30 Acetaminophen (Tylenol Tab) 500 mg Q4 PRN PO FEVER GREATER THAN 100.6 Last administered on 10/02/18at 14:44; Admin Dose 500 MG; Start 09/30/18 at 23:30 Acetaminophen/ Hydrocodone Bitart ([place] (5/325)) 1 tab Q6H PRN PO MODERATE PAIN LEVEL 4-6; Start 09/30/18 at 23:30 Insulin Aspart (Novolog Insulin Pen) NOVOLOG *MILD* ALGORITHM WITH MEALS BEDTIME SC Last administered on 10/08/18 17:48; Admin Dose 1 UNIT; Start 10/01/18 at 08:00 Amlodipine Besylate (Norvasc) 10 mg DAILY PO Last administered on 10/09/18 08:41; Admin Dose 10 MG; Start 10/01/18 at 09:00 Calcium Acetate (Phoslo) 667 mg WITH MEALS PO Last administered on 10/09/18 08:41; Admin Dose 667 MG; Start 10/01/18 at 08:00 Ferrous Sulfate (Ferrous Sulfate (Ec)) 325 mg DAILY PO Last administered on 08:41; Admin Dose 325 MG; Start 10/01/18 at 09:00 Pantoprazole (Protonix Tab) 40 mg DAILY@06 PO Last administered on 10/09/18 05:46; Admin Dose 40 MG; Start 10/01/18 at 06:00 Atorvastatin Calcium (Lipitor) 10 mg QHS PO Last administered on 10/07/18at 20:04; Admin Dose 10 MG; Start 10/01/18 at 21:00 Miscellaneous Information 1 ea NOTE XX ; Start 10/01/18 at 04:00 Glucose (Glutose) 15 gm Q15M PRN PO DECREASED GLUCOSE; Start 10/01/18 at 04:00 Glucose (Glutose) 22.5 gm Q15M PRN PO DECREASED GLUCOSE Last administered on 10/05/18 08:16; Admin Dose 22.5 GM; Start 10/01/18 at 04:00 Dextrose (D50w Syringe) 25 ml Q15M PRN IV DECREASED GLUCOSE; Start 10/01/18 at 04:00 Dextrose (D50w Syringe) 50 ml Q15M PRN IV DECREASED GLUCOSE; Start 10/01/18 at 04:00 Glucagon (Glucagen) 1 mg Q15M PRN IM DECREASED GLUCOSE; Start 10/01/18 at 04:00 Glucose (Glutose) 15 gm Q15M PRN BUCCAL DECREASED GLUCOSE; Start 10/01/18 at 04:00 Clonidine (Catapres) 0.1 mg Q4H PRN GTB hypertension Last administered on 10/05/18 14:16; Admin Dose 0.1 MG; Start 10/01/18 at 16:00 Hydralazine HCl (Apresoline) 50 mg TID GTB Last administered on 10/09/18 08:41; Admin Dose 50 MG; Start 10/04/18 at 21:00 Aspirin (Halfprin) 81 mg DAILY PO Last administered on 10/09/18 08:42; Admin Dose 81 MG; Start 10/05/18 at 09:00 Vancomycin HCl 250 ml @ 125 mls/hr Q96H IVPB Last administered on 10/05/18 20:44; Admin Dose 125 MLS/HR; Start 10/05/18 at 20:00 Insulin Glargine (Lantus) 6 units HS SC Last administered on 10/08/18 20:26; Admin Dose 6 UNITS; Start 10/05/18 at 21:00 Sodium Hypochlorite (Dakins Diluted (/40)) 1 applic DAILY TP Last administered on 10/09/18 08:42; Admin Dose 1 APPLIC; Start 10/08/18 at 09:00 SYEDA LEÓN NP October 09, 2018 12:29
--- NOTE | 2018-10-09 16:03 | PN ---
Date/Time of Note Date/Time of Note DATE: 10/09/18 TIME: 16:02 Assessment/Plan VTE Prophylaxis Risk score (from Ns)>0 risk: 3 SCD applied (from [facility]): No SCD contraindicated: other Pharmacological prophylaxis: heparin Lines/Catheters IV Catheter Type (from [facility]): [place] Urinary Cath still in place: No Assessment/Plan Hospital Course Pt with some small abscess opening up with pus coming out from in between the left second and third toes last night, status post debridement last night by respiratory care assistant, will follow up on culture. continue current wound care per podiatry recs. continue current BP medication, monitor. Assessment/Plan - Left lower extremity cellulitis with abscess. Continue broad-spectrum antibiotics. Bilateral lower extremity Dopplers negative for DVT. Dr. Burt is following in infection disease consultation. Dr. Delcid is following in podiatry consultation. - Hyperkalemia. Dr. Dobbins is following in nephrology consultation - Hemodialysis dependent end-stage renal disease. - Diabetes. Continue Lantus and NovoLog. - PPM - Hypertension. Continue Norvasc and lisinopril. - History of coronary artery disease, status post myocardial infarction. Continue aspirin. - Preserved EF 55% per last Echo Further recommendations based on clinical course. Plan of care discussed with Dr. Mujica. Result Diagram: 10/07/18 0444 10/07/184 Results 24hrs Laboratory Tests Test 10/08/18 17:37 10/08/18 20:24 10/09/18 00:41 10/09/18 08:36 Bedside Glucose 173 135 100 110 Test 10/09/18 13:00 Bedside Glucose 127 Exam/Review of Systems Exam Vitals Vital Signs Date Temp Pulse Resp B/P (MAP) Pulse Ox O2 O2 Flow FiO2 Time Delivery Rate 10/09/18 98.5 68 18 159/71 93 Room Air 13:10 (100) 10/09/18 2.0 08:30 Intake and Output 10/08/18 10/08/18 10/09/18 1515:00 23:00 07:00 IntakeIntake Total 360 ml 240 ml OutputOutput Total 3400 ml BalanceBalance 360 ml 240 ml -3400 ml Exam Constitutional: alert, oriented Respiratory: clear to auscultation Cardiovascular: regular rate and rhythm, PPM Gastrointestinal: soft, non-tender Musculoskeletal: nl extremities to inspection Extremities: other (Left lower remedy swelling, erythema and tenderness) Neurological: nl mental status Results Results 24hrs Laboratory Tests Test 10/08/18 17:37 10/08/18 20:24 10/09/18 00:41 10/09/18 08:36 Bedside Glucose 173 135 100 110 Test 10/09/18 13:00 Bedside Glucose 127 Medications Medication Current Medications Vancomycin HCl (Vanco Iv Per Pharmacy) VANCOMYCIN PER PHARMACY PER PROTOCOL XX ; Start 09/30/18 at 23:30 Acetaminophen (Tylenol Tab) 500 mg Q4 PRN PO FEVER GREATER THAN 100.6 Last administered on 10/02/18at 14:44; Admin Dose 500 MG; Start 09/30/18 at 23:30 Acetaminophen/ Hydrocodone Bitart ([place] (5/325)) 1 tab Q6H PRN PO MODERATE PAIN LEVEL 4-6; Start 09/30/18 at 23:30 Insulin Aspart (Novolog Insulin Pen) NOVOLOG *MILD* ALGORITHM WITH MEALS BEDTI ME SC Last administered on 10/08/18at 17:48; Admin Dose 1 UNIT; Start 10/01/18 at 08:00 Amlodipine Besylate (Norvasc) 10 mg DAILY PO Last administered on 10/09/18 08:41; Admin Dose 10 MG; Start 10/01/18 at 09:00 Calcium Acetate (Phoslo) 667 mg WITH MEALS PO Last administered on 10/09/18 13:36; Admin Dose 667 MG; Start 10/01/18 at 08:00 Ferrous Sulfate (Ferrous Sulfate (Ec)) 325 mg DAILY PO Last administered on 10/09/18 08:41; Admin Dose 325 MG; Start 10/01/18 at 09:00 Pantoprazole (Protonix Tab) 40 mg DAILY@06 PO Last administered on 10/09/18 05:46; Admin Dose 40 MG; Start 10/01/18 at 06:00 Atorvastatin Calcium (Lipitor) 10 mg QHS PO Last administered on 10/07/18 20:04; Admin Dose 10 MG; Start 10/01/18 at 21:00 Miscellaneous Information 1 ea NOTE XX ; Start 10/01/18 at 04:00 Glucose (Glutose) 15 gm Q15M PRN PO DECREASED GLUCOSE; Start 10/01/18 at 04:00 Glucose (Glutose) 22.5 gm Q15M PRN PO DECREASED GLUCOSE Last administered on 10/05/18 08:16; Admin Dose 22.5 GM; Start 10/01/18 at 04:00 Dextrose (D50w Syringe) 25 ml Q15M PRN IV DECREASED GLUCOSE; Start 10/01/18 at 04:00 Dextrose (D50w Syringe) 50 ml Q15M PRN IV DECREASED GLUCOSE; Start 10/01/18 at 04:00 Glucagon (Glucagen) 1 mg Q15M PRN IM DECREASED GLUCOSE; Start 10/01/18 at 04:00 Glucose (Glutose) 15 gm Q15M PRN BUCCAL DECREASED GLUCOSE; Start 10/01/18 at 04:00 Clonidine (Catapres) 0.1 mg Q4H PRN GTB hypertension Last administered on 10/05/18 14:16; Admin Dose 0.1 MG; Start 10/01/18 at 16:00 Hydralazine HCl (Apresoline) 50 mg TID GTB Last administered on 10/09/18 13:36; Admin Dose 50 MG; Start 10/04/18 at 21:00 Aspirin (Halfprin) 81 mg DAILY PO Last administered on 10/09/18 08:42; Admin Dose 81 MG; Start 10/05/18 at 09:00 Vancomycin HCl 250 ml @ 125 mls/hr Q96H IVPB Last administered on 10/05/18 20:44; Admin Dose 125 MLS/HR; Start 10/05/18 at 20:00 Insulin Glargine (Lantus) 6 units HS SC Last administered on 10/08/18 20:26; Admin Dose 6 UNITS; Start 10/05/18 at 21:00 Sodium Hypochlorite (Dakins Diluted (/40)) 1 applic DAILY TP Last administered on 10/09/18 08:42; Admin Dose 1 APPLIC; Start 10/08/18 at 09:00 YUMIKO PAINTING October 09, 2018 16:03
[2018-10-09] MEDS: VANCOMYCIN 1 GM 250 ML IVPB SCH (20:18)
[2018-10-09] MEDS: ATORVASTATIN 10 MG TAB PO SCH (20:29)
[2018-10-09] MEDS: INSULIN GLARGINE [LANTus] (100 UNITS/ML) SYG SC SCH (21:00)
[2018-10-10] VITALS (16 sets, daily range): BP systolic 142–175; BP diastolic 60–74; PULSE 59–75; RESP 16–18
[2018-10-10] MEDS: PANTOPRAZOLE (EC) 40 MG TAB PO SCH (05:41)
[2018-10-10] MEDS: INSULIN ASPART [NOVOLOG] 3 ML PEN SC SCH ×4 (08:00→20:54)
[2018-10-10] MEDS: ASPIRIN (EC) 81 MG TAB PO SCH (08:27)
[2018-10-10] MEDS: FERROUS SULFATE (EC) 325 MG TAB PO SCH (08:27)
[2018-10-10] MEDS: CALCIUM ACETATE 667 MG CAP PO SCH ×3 (08:27→18:02)
[2018-10-10] MEDS: AMLODIPINE 10 MG TAB PO SCH (09:00)
[2018-10-10] MEDS: DAKINS 0.0125%(1/40) 473 ML SOLUTION TP SCH ×2 (09:00→14:42)
--- NOTE | 2018-10-10 10:48 | CONS ---
Assessment/Plan Assessment/Plan Assessment/Plan (Daily) - ESRD Hemodialysis dependent @ [facility] ( Tues-Judi- Sat ) - Left foot Cellulitis / Soft tissue infection - Hyperkalemia - DM / DM Nephropathy - Hypertension - Hyperphosphatemia PLAN: - STAT Hemodialysis has been arranged to correct hyperkalemia - IV Abx for the lower extremity infection - Will review the imaging for ? Osteomyelitis as well - DM control - Follow up with H/H - On long acting EPO as out patient - Follow up with potassium & Phos - Remains on IV Antibiotics - Follow up with imaging results - Bedside Dialysis ( On HD TTS ) - Follow up with H/H - Plan for dialysis 10/05/2018 - No plan for any surgical procedure - No Osteo - Post excision & debridement - Tolerated well - Bedside Dialysis today ( 10/08/2018 ) - Monitor electrolytes - H/H stable - Bedside Dialysis - Abx per ID - Aim for UF ~ 2 liters Consultation Date/Type/Reason Admit Date/Time September 30, 2018 at 22:07 Initial Consult Date 10/01/18 Type of Consult Nephrology Date/Time of Note DATE: 10/10/18 TIME: 10:47 24 HR Interval Summary Constitutional: no complaints, improved Exam/Review of Systems Exam Vitals Vital Signs Date Temp Pulse Resp B/P (MAP) Pulse Ox O2 O2 Flow FiO2 Time Delivery Rate 10/10/18 98.0 59 18 161/71 97 Room Air 08:26 (101) 10/09/18 2.0 08:30 Intake and Output 10/09/18 10/09/18 10/10/18 1515:00 23:00 07:00 IntakeIntake Total 360 ml 730 ml BalanceBalance 360 ml 730 ml Constitutional: alert, oriented Psych: no complaints Respiratory: crackles/rales Cardiovascular: regular rate and rhythm, edema, systolic murmur Gastrointestinal: soft Results Result Diagram: 10/07/18 0444 10/07/18 0444 Results 24hrs Laboratory Tests Test 10/09/18 13:00 10/09/18 17:14 10/09/18 21:10 10/10/18 08:28 Bedside Glucose 127 123 128 106 Medications Medication Current Medications Vancomycin HCl (Vanco Iv Per Pharmacy) VANCOMYCIN PER PHARMACY PER PROTOCOL XX ; Start 09/30/18 at 23:30 Acetaminophen (Tylenol Tab) 500 mg Q4 PRN PO FEVER GREATER THAN 100.6 Last administered on 10/02/18at 14:44; Admin Dose 500 MG; Start 09/30/18 at 23:30 Acetaminophen/ Hydrocodone Bitart ([place] (5/325)) 1 tab Q6H PRN PO MODERATE PAIN LEVEL 4-6; Start 09/30/18 at 23:30 Insulin Aspart (Novolog Insulin Pen) NOVOLOG *MILD* ALGORITHM WITH MEALS BEDTIME SC Last administered on 10/08/18at 17:48; Admin Dose 1 UNIT; Start 10/01/18 at 08:00 Amlodipine Besylate (Norvasc) 10 mg DAILY PO Last administered on 10/09/18at 08:41; Admin Dose 10 MG; Start 10/01/18 at 09:00 Calcium Acetate (Phoslo) 667 mg WITH MEALS PO Last administered on 10/10/18at 08:27; Admin Dose 667 MG; Start 10/01/18 at 08:00 Ferrous Sulfate (Ferrous Sulfate (Ec)) 325 mg DAILY PO Last administered on 10/10/18 08:27; Admin Dose 325 MG; Start 10/01/18 at 09:00 Pantoprazole (Protonix Tab) 40 mg DAILY@06 PO Last administered on 10/10/18 05:41; Admin Dose 40 MG; Start 10/01/18 at 06:00 Atorvastatin Calcium (Lipitor) 10 mg QHS PO Last administered on 10/09/18 20:29; Admin Dose 10 MG; Start 10/01/18 at 21:00 Miscellaneous Information 1 ea NOTE XX ; Start 10/01/18 at 04:00 Glucose (Glutose) 15 gm Q15M PRN PO DECREASED GLUCOSE; Start 10/01/18 at 04:00 Glucose (Glutose) 22.5 gm Q15M PRN PO DECREASED GLUCOSE Last administered on 10/05/18 08:16; Admin Dose 22.5 GM; Start 10/01/18 at 04:00 Dextrose (D50w Syringe) 25 ml Q15M PRN IV DECREASED GLUCOSE; Start 10/01/18 at 04:00 Dextrose (D50w Syringe) 50 ml Q15M PRN IV DECREASED GLUCOSE; Start 10/01/18 at 04:00 Glucagon (Glucagen) 1 mg Q15M PRN IM DECREASED GLUCOSE; Start 10/01/18 at 04:00 Glucose (Glutose) 15 gm Q15M PRN BUCCAL DECREASED GLUCOSE; Start 10/01/18 at 04:00 Clonidine (Catapres) 0.1 mg Q4H PRN GTB hypertension Last administered on 10/05/18 14:16; Admin Dose 0.1 MG; Start 10/01/18 at 16:00 Hydralazine HCl (Apresoline) 50 mg TID GTB Last administered on 10/09/18 20:29; Admin Dose 50 MG; Start 10/04/18 at 21:00 Aspirin (Halfprin) 81 mg DAILY PO Last administered on 10/10/18 08:27; Admin Dose 81 MG; Start 10/05/18 at 09:00 Vancomycin HCl 250 ml @ 125 mls/hr Q96H IVPB Last administered on 10/09/18 20:18; Admin Dose 125 MLS/HR; Start 10/05/18 at 20:00 Insulin Glargine (Lantus) 6 units HS SC Last administered on 10/08/18at 20:26; Admin Dose 6 UNITS; Start 10/05/18 at 21:00 Sodium Hypochlorite (Dakins Diluted ()) 1 applic DAILY TP Last administered on 10/09/18at 08:42; Admin Dose 1 APPLIC; Start 10/08/18 at 09:00 PACO LAZO MD October 10, 2018 10:48
--- NOTE | 2018-10-10 13:25 | CONS ---
Assessment/Plan Assessment/Plan Hospital Course (Demo Recall) Alert feels good Microbiology: Wound culture + MSSA Indwelling: Left upper extremity AV fistula Antimicrobials: Vancomycin PHYSICAL EXAMINATION: GENERAL: A well-nourished, well-developed, pleasant, elderly man who is alert, in no distress. HEENT: Head is atraumatic, normocephalic. Sclerae are anicteric. Buccal mucosa is pink. NECK: Supple. CHEST: Rise symmetrical. Breath sounds are clear. HEART: S1, S2. ABDOMEN: Soft. Bowel tones are present. EXTREMITIES: Left lower extremity decreased swelling Assessment: 1. Left diabetic foot with cellulitis/2nd digit diabetic ulcer 2. Diabetes 3. End-stage renal disease, hemodialysis dependent 4. Coronary artery disease Plan: Patient remains stable, continue [place] dc on oral Keflex Consultation Date/Type/Reason Admit Date/Time September 30, 2018 at 22:07 Initial Consult Date 10/01/18 Type of Consult id Date/Time of Note DATE: 10/10/18 TIME: 13:24 Exam/Review of Systems Exam Vitals Vital Signs Date Temp Pulse Resp B/P (MAP) Pulse Ox O2 O2 Flow FiO2 Time Delivery Rate 10/10/18 98.0 59 18 161/71 97 Room Air 08:26 (101) 10/09/18 2.0 08:30 Intake and Output 10/09/18 10/09/18 10/10/18 1515:00 23:00 07:00 IntakeIntake Total 360 ml 730 ml BalanceBalance 360 ml 730 ml Results Result Diagram: 10/07/18 0444 10/07/18 0444 Results 24hrs Laboratory Tests Test 10/09/18 17:14 10/09/18 21:10 10/10/18 08:28 10/10/18 11:52 Bedside Glucose 123 128 106 202 Medications Medication Current Medications Vancomycin HCl (Vanco Iv Per Pharmacy) VANCOMYCIN PER PHARMACY PER PROTOCOL XX ; Start 09/30/18 at 23:30 Acetaminophen (Tylenol Tab) 500 mg Q4 PRN PO FEVER GREATER THAN 100.6 Last a dministered on 10/02/18at 14:44; Admin Dose 500 MG; Start 09/30/18 at 23:30 Acetaminophen/ Hydrocodone Bitart ([place] (5/325)) 1 tab Q6H PRN PO MODERATE PAIN LEVEL 4-6; Start 09/30/18 at 23:30 Insulin Aspart (Novolog Insulin Pen) NOVOLOG *MILD* ALGORITHM WITH MEALS BEDTIME SC Last administered on 10/10/18 11:54; Admin Dose 2 UNIT; Start 10/01/18 at 08:00 Amlodipine Besylate (Norvasc) 10 mg DAILY PO Last administered on 10/09/18 08:41; Admin Dose 10 MG; Start 10/01/18 at 09:00 Calcium Acetate (Phoslo) 667 mg WITH MEALS PO Last administered on 10/10/18 11:53; Admin Dose 667 MG; Start 10/01/18 at 08:00 Ferrous Sulfate (Ferrous Sulfate (Ec)) 325 mg DAILY PO Last administered on 10/10/18 08:27; Admin Dose 325 MG; Start 10/01/18 at 09:00 Pantoprazole (Protonix Tab) 40 mg DAILY@06 PO Last administered on 10/10/18 05:41; Admin Dose 40 MG; Start 10/01/18 at 06:00 Atorvastatin Calcium (Lipitor) 10 mg QHS PO Last administered on 10/09/18 20:29; Admin Dose 10 MG; Start 10/01/18 at 21:00 Miscellaneous Information 1 ea NOTE XX ; Start 10/01/18 at 04:00 Glucose (Glutose) 15 gm Q15M PRN PO DECREASED GLUCOSE; Start 10/01/18 at 04:00 Glucose (Glutose) 22.5 gm Q15M PRN PO DECREASED GLUCOSE Last administered on 10/05/18 08:16; Admin Dose 22.5 GM; Start 10/01/18 at 04:00 Dextrose (D50w Syringe) 25 ml Q15M PRN IV DECREASED GLUCOSE; Start 10/01/18 at 04:00 Dextrose (D50w Syringe) 50 ml Q15M PRN IV DECREASED GLUCOSE; Start 10/01/18 at 04:00 Glucagon (Glucagen) 1 mg Q15M PRN IM DECREASED GLUCOSE; Start 10/01/18 at 04:00 Glucose (Glutose) 15 gm Q15M PRN BUCCAL DECREASED GLUCOSE; Start 10/01/18 at 04:00 Clonidine (Catapres) 0.1 mg Q4H PRN GTB hypertension Last administered on 14:16; Admin Dose 0.1 MG; Start 10/01/18 at 16:00 Hydralazine HCl (Apresoline) 50 mg TID GTB Last administered on 10/09/18 20:29; Admin Dose 50 MG; Start 10/04/18 at 21:00 Aspirin (Halfprin) 81 mg DAILY PO Last administered on 10/10/18 08:27; Admin Dose 81 MG; Start 10/05/18 at 09:00 Vancomycin HCl 250 ml @ 125 mls/hr Q96H IVPB Last administered on 10/09/18 20:18; Admin Dose 125 MLS/HR; Start 10/05/18 at 20:00 Insulin Glargine (Lantus) 6 units HS SC Last administered on 10/08/18 20:26; Admin Dose 6 UNITS; Start 10/05/18 at 21:00 Sodium Hypochlorite (Dakins Diluted (40)) 1 applic DAILY TP Last administered on 10/09/18 08:42; Admin Dose 1 APPLIC; Start 10/08/18 at 09:00 SYEDA LEÓN NP October 10, 2018 13:25
[2018-10-10] MEDS ORDERED: ASPI-1044 PO (17:40)
[2018-10-10] MEDS ORDERED: HYDR-3672 GTB (17:40)
[2018-10-10] MEDS ORDERED: CEPH-442 PO (17:40)
--- NOTE | 2018-10-10 18:16 | DS ---
Date/Time of Note Date/Time of Note DATE: 10/10/18 TIME: 18:11 Discharge Summary Admission/Discharge Info Admit Date/Time September 30, 2018 at 22:07 Discharge Date/Time Patient Condition: Stable Hx of Present Illness The patient is a 68-year-old gentleman known to me from previous admission. Patient has multiple comorbidities including hemodialysis dependent end-stage renal disease, diabetes, coronary artery disease, hypertension, history of ascites. Patient underwent omental mass biopsy which was benign during last admission. Patient presented to the emergency room with complaints of left foot swelling, redness and tenderness. Hospital Course - Left lower extremity cellulitis with abscess which opened up, culture growing DYAN. Status post vancomycin patient will be discharged with prescription for Keflex for 10 more days per ID recommendations. Bilateral lower extremity Dopplers negative for DVT. Dr. Burt is following in infection disease consultation. Dr. Delcid is following in podiatry consultation. - Hyperkalemia. Dr. Dobbins is following in nephrology consultation - Hemodialysis dependent end-stage renal disease. - Diabetes. Continue Lantus and NovoLog. - PPM - Hypertension. Continue Norvasc and lisinopril. - History of coronary artery disease, status post myocardial infarction. Continue aspirin. - Preserved EF 55% per last Echo Plan of care discussed with Dr. Mujica. Home Meds Active Scripts Cephalexin* (Keflex*) 250 Mg Capsule, 250 MG PO Q8 for 10 Days, #21 CAP Prov:YUMIKO PAINTING 10/10/18 Hydralazine Hcl* (Apresoline*) 50 Mg Tab, 50 MG GTB TID for 30 Days, TAB Prov:YUMIKO PAINTING 10/10/18 Aspirin Delayed Release (Aspirin Delayed Release) 81 Mg Tablet., 81 MG PO DAILY for 30 Days Prov:YUMIKO PAINTING 10/10/18 Pantoprazole* (Pantoprazole*) 40 Mg Tablet., 40 MG PO DAILY@06 for 30 Days Prov:YUMIKO PAINTING 07/22/18 Insulin Glargine* (Lantus*) 100 Unit/Ml Soln, 9 UNIT SC HS for 30 Days, #1 BOTTLE Prov:YUMIKO PAINTING 07/22/18 Reported Medications Simvastatin* (Zocor*) 10 Mg Tablet, 10 MG PO QHS, #30 TAB 08/07/18 Potassium Chloride* (Klor-Con*) 20 Meq Tabsr, 20 MEQ PO DAILY, TAB.SA 08/07/18 Calcium Acetate* (Calcium Acetate*) 667 Mg Capsule, 667 MG PO WITH MEALS, #30 CAP 08/07/18 Ferrous Sulfate* (Ferrous Sulfate*) 325 Mg Tabec, 325 MG PO DAILY, TAB 08/07/18 Amlodipine Besylate* (Amlodipine Besylate*) 10 Mg Tablet, 10 MG PO DAILY 09/13/12 Follow-up Plan Discharge home with home health services tomorrow morning, care arrange for home health services for wound care by case management, follow-up with Dr. Fowler, podiatry, in 1 week. Follow-up in hemodialysis center for next hemodialysis on Sunday. Primary Care Provider Not On Staff Doctor Time spent on discharge: > 30 minutes Pending Labs Laboratory Tests Test 10/09/18 21:10 10/10/18 08:28 10/10/18 11:52 10/10/18 18:02 Bedside 128 106 202 115 Glucose mg/dL (70-220) mg/dL (70-220) mg/dL (70-220) mg/dL (70-220) YUMIKO PAINTING October 10, 2018 18:16
--- NOTE | 2018-10-10 19:42 | CONS ---
Assessment/Plan Assessment/Plan Assessment/Plan (Daily) Left 2nd digit diabetic ulcer Left lower extremity cellulitis DM2 with peripheral neuropathy Edema ESRD on HD CAD Plan Wound cultures showing staph aureus. Copious betadine saline irrigation to the wound site. Patient not a candidate for MRI due to pacemaker. Repeat X-rays were reviewed with no signs of osteomyelitis, no soft tissue emphysema, no fractures or dislocation appreciated. DVT scan is negative. Patient on IV abx and appreciate ID recommendations. Continue to elevate and offload left lower extremity. Recommend compression dressings to assist with edema control. Dressing instructions provided to the nursing staff. Recommend packing to the 2nd digit wound site. Consultation Date/Type/Reason Admit Date/Time September 30, 2018 at 22:07 Initial Consult Date 10/01/18 Date/Time of Note DATE: 10/10/18 TIME: 19:42 24 HR Interval Summary Free Text/Dictation No acute events overnight. Exam/Review of Systems Exam Vitals Vital Signs Date Temp Pulse Resp B/P (MAP) Pulse Ox O2 O2 Flow FiO2 Time Delivery Rate 10/10/18 67 19:20 10/10/18 18 164/67 97 Nasal 2.0 16:20 (99) Cannula 10/10/18 98.0 08:26 Intake and Output 10/09/18 10/09/18 10/10/18 1515:00 23:00 07:00 IntakeIntake Total 360 ml 730 ml BalanceBalance 360 ml 730 ml Exam DP/PT and popliteal pulses palpable Localized erythema to the left 2nd digit Lateral aspect of 2nd digit ulceration 0.2 x 0.2 x 0.6cm with purulent drainage, probes to bone. Partial thickness ulceration to the medial and distal aspect of the left 2nd digit granular wound bed 1.5 x 1 x 0.1cm, does not probe to bone, no purulent drainage Absent protective sensations. No proximal streaking appreciated Muscle strength 5/5 in all compartments fo the foot. Results Result Diagram: 10/07/18 0444 10/07/18 0444 Results 24hrs Laboratory Tests Test 10/09/18 21:10 10/10/18 08:28 10/10/18 11:52 10/10/18 18:02 Bedside Glucose 128 106 202 115 Medications Medication Current Medications Vancomycin HCl (Vanco Iv Per Pharmacy) VANCOMYCIN PER PHARMACY PER PROTOCOL XX ; Start 09/30/18 at 23:30 Acetaminophen (Tylenol Tab) 500 mg Q4 PRN PO FEVER GREATER THAN 100.6 Last administered on 10/02/18 14:44; Admin Dose 500 MG; Start 09/30/18 at 23:30 Acetaminophen/ Hydrocodone Bitart (Barton (5/325)) 1 tab Q6H PRN PO MODERATE PAIN LEVEL 4-6; Start 09/30/18 at 23:30 Insulin Aspart (Novolog Insulin Pen) NOVOLOG *MILD* ALGORITHM WITH MEALS BEDTIME SC Last administered on 10/10/18 11:54; Admin Dose 2 UNIT; Start 10/01/18 at 08:00 Amlodipine Besylate (Norvasc) 10 mg DAILY PO Last administered on 10/09/18 08:41; Admin Dose 10 MG; Start 10/01/18 at 09:00 Calcium Acetate (Phoslo) 667 mg WITH MEALS PO Last administered on 10/10/18 18:02; Admin Dose 667 MG; Start 10/01/18 at 08:00 Ferrous Sulfate (Ferrous Sulfate (Ec)) 325 mg DAILY PO Last administered on 10/10/18 08:27; Admin Dose 325 MG; Start 10/01/18 at 09:00 Pantoprazole (Protonix Tab) 40 mg DAILY@06 PO Last administered on 10/10/18 05:41; Admin Dose 40 MG; Start 10/01/18 at 06:00 Atorvastatin Calcium (Lipitor) 10 mg QHS PO Last administered on 10/09/18 20:29; Admin Dose 10 MG; Start 10/01/18 at 21:00 Miscellaneous Information 1 ea NOTE XX ; Start 10/01/18 at 04:00 Glucose (Glutose) 15 gm Q15M PRN PO DECREASED GLUCOSE; Start 10/01/18 at 04:00 Glucose (Glutose) 22.5 gm Q15M PRN PO DECREASED GLUCOSE Last administered on 10/05/18 08:16; Admin Dose 22.5 GM; Start 10/01/18 at 04:00 Dextrose (D50w Syringe) 25 ml Q15M PRN IV DECREASED GLUCOSE; Start 10/01/18 at 04:00 Dextrose (D50w Syringe) 50 ml Q15M PRN IV DECREASED GLUCOSE; Start 10/01/18 at 04:00 Glucagon (Glucagen) 1 mg Q15M PRN IM DECREASED GLUCOSE; Start 10/01/18 at 04:00 Glucose (Glutose) 15 gm Q15M PRN BUCCAL DECREASED GLUCOSE; Start 10/01/18 at 04:00 Clonidine (Catapres) 0.1 mg Q4H PRN GTB hypertension Last administered on 10/05/18 14:16; Admin Dose 0.1 MG; Start 10/01/18 at 16:00 Hydralazine HCl (Apresoline) 50 mg TID GTB Last administered on 10/09/18 20:29; Admin Dose 50 MG; Start 10/04/18 at 21:00 Aspirin (Halfprin) 81 mg DAILY PO Last administered on 10/10/18 08:27; Admin Dose 81 MG; Start 10/05/18 at 09:00 Vancomycin HCl 250 ml @ 125 mls/hr Q96H IVPB Last administered on 10/09/18 20:18; Admin Dose 125 MLS/HR; Start 10/05/18 at 20:00 Insulin Glargine (Lantus) 6 units HS SC Last administered on 10/08/18 20:26; Admin Dose 6 UNITS; Start 10/05/18 at 21:00 Sodium Hypochlorite (Dakins Diluted ()) 1 applic DAILY TP Last administered on 10/10/18 14:42; Admin Dose 1 APPLIC; Start 10/08/18 at 09:00 AMBER GOMEZ DPM October 10, 2018 19:42
[2018-10-10] MEDS: ATORVASTATIN 10 MG TAB PO SCH (20:48)
[2018-10-10] MEDS: INSULIN GLARGINE [LANTus] (100 UNITS/ML) SYG SC SCH (20:54)
[2018-10-11 02:38] VITALS: BP 183/77; PULSE 72; RESP 16
[2018-10-11] MEDS: PANTOPRAZOLE (EC) 40 MG TAB PO SCH (05:40)
[2018-10-11] MEDS: CALCIUM ACETATE 667 MG CAP PO SCH ×2 (08:05→12:41)
[2018-10-11] MEDS: FERROUS SULFATE (EC) 325 MG TAB PO SCH (08:05)
[2018-10-11] MEDS: ASPIRIN (EC) 81 MG TAB PO SCH (08:05)
[2018-10-11] MEDS: AMLODIPINE 10 MG TAB PO SCH (08:06)
[2018-10-11] MEDS: INSULIN ASPART [NOVOLOG] 3 ML PEN SC SCH ×2 (08:09→12:00)
[2018-10-11 08:16] VITALS: BP 190/81; PULSE 69; RESP 20
[2018-10-11] MEDS: DAKINS 0.0125%(1/40) 473 ML SOLUTION TP SCH ×2 (09:00→14:36)
--- NOTE | 2018-10-11 11:46 | DS ---
Date/Time of Note Date/Time of Note DATE: 10/11/18 TIME: 11:46 Discharge Summary Admission/Discharge Info Admit Date/Time September 30, 2018 at 22:07 Discharge Date/Time Patient Condition: Stable Home Meds Active Scripts Cephalexin* (Keflex*) 250 Mg Capsule, 250 MG PO Q8 for 10 Days, #21 CAP Prov:YUMIKO PAINTING 10/10/18 Hydralazine Hcl* (Apresoline*) 50 Mg Tab, 50 MG GTB TID for 30 Days, TAB Prov:YUMIKO PAINTING 10/10/18 Aspirin Delayed Release (Aspirin Delayed Release) 81 Mg Tablet.dr, 81 MG PO DAILY for 30 Days Prov:YUMIKO PAINTING 10/10/18 Pantoprazole* (Pantoprazole*) 40 Mg Tablet.dr, 40 MG PO DAILY@06 for 30 Days Prov:YUMIKO PAINTING 07/22/18 Insulin Glargine* (Lantus*) 100 Unit/Ml Soln, 9 UNIT SC HS for 30 Days, #1 BOTTLE Prov:YUMIKO PAINTING 07/22/18 Reported Medications Simvastatin* (Zocor*) 10 Mg Tablet, 10 MG PO QHS, #30 TAB 08/07/18 Calcium Acetate* (Calcium Acetate*) 667 Mg Capsule, 667 MG PO WITH MEALS, #30 CAP 08/07/18 Ferrous Sulfate* (Ferrous Sulfate*) 325 Mg Tabec, 325 MG PO DAILY, TAB 08/07/18 Amlodipine Besylate* (Amlodipine Besylate*) 10 Mg Tablet, 10 MG PO DAILY 09/13/12 Discontinued Reported Medications Potassium Chloride* (Klor-Con*) 20 Meq Tabsr, 20 MEQ PO DAILY, TAB.SA 08/07/18 Follow-up Plan Discharge home with home health services tomorrow morning, care arrange for home health services for wound care by case management, follow-up with Dr. Fowler, podiatry, in 1 week. Follow-up in hemodialysis center for next hemodialysis on Sunday. Primary Care Provider Not On Staff Doctor Pending Labs Laboratory Tests Test 10/10/18 11:52 10/10/18 18:02 10/10/18 20:50 10/11/18 08:06 Bedside 202 115 145 146 Glucose mg/dL (70-220) mg/dL (70-220) mg/dL (70-220) mg/dL (70-220) FANI AYALA October 11, 2018 11:46
--- NOTE | 2018-10-11 12:53 | CONS ---
Assessment/Plan Assessment/Plan Hospital Course (Demo Recall) Alert feels good Microbiology: Wound culture + MSSA Indwelling: Left upper extremity AV fistula Antimicrobials: Vancomycin PHYSICAL EXAMINATION: GENERAL: A well-nourished, well-developed, pleasant, elderly man who is alert, in no distress. HEENT: Head is atraumatic, normocephalic. Sclerae are anicteric. Buccal mucosa is pink. NECK: Supple. CHEST: Rise symmetrical. Breath sounds are clear. HEART: S1, S2. ABDOMEN: Soft. Bowel tones are present. EXTREMITIES: Left lower extremity decreased swelling Assessment: 1. Left diabetic foot with cellulitis/2nd digit diabetic ulcer 2. Diabetes 3. End-stage renal disease, hemodialysis dependent 4. Coronary artery disease Plan: Patient remains stable, ok dc on oral Keflex for 10 more days Consultation Date/Type/Reason Admit Date/Time September 30, 2018 at 22:07 Initial Consult Date 10/01/18 Type of Consult id Date/Time of Note DATE: 10/11/18 TIME: 12:52 Exam/Review of Systems Exam Vitals Vital Signs Date Temp Pulse Resp B/P (MAP) Pulse Ox O2 O2 Flow FiO2 Time Delivery Rate 10/11/18 98.1 69 20 190/81 96 08:16 (117) 10/10/18 Nasal 2.0 16:20 Cannula Intake and Output 10/10/18 10/10/18 10/11/18 1515:00 23:00 07:00 IntakeIntake Total 480 ml 400 ml OutputOutput Total 2400 ml BalanceBalance 480 ml -2000 ml Results Result Diagram: 10/07/18 0444 10/07/18 0444 Results 24hrs Laboratory Tests Test 10/10/18 18:02 10/10/18 20:50 10/11/18 08:06 10/11/18 12:38 Bedside Glucose 115 145 146 136 Medications Medication Current Medications Vancomycin HCl (Vanco Iv Per Pharmacy) VANCOMYCIN PER PHARMACY PER PROTOCOL XX ; Start 09/30/18 at 23:30 Acetaminophen (Tylenol Tab) 500 mg Q4 PRN PO FEVER GREATER THAN 100.6 Last administered on 10/02/18at 14:44; Admin Dose 500 MG; Start 09/30/18 at 23:30 Acetaminophen/ Hydrocodone Bitart (Rice (5/325)) 1 tab Q6H PRN PO MODERATE PAIN LEVEL 4-6; Start 09/30/18 at 23:30 Insulin Aspart (Novolog Insulin Pen) NOVOLOG *MILD* ALGORITHM WITH MEALS BEDTIME SC Last administered on 10/11/18 08:09; Admin Dose 1 UNIT; Start 10/01/18 at 08:00 Amlodipine Besylate (Norvasc) 10 mg DAILY PO Last administered on 10/11/18 08:06; Admin Dose 10 MG; Start 10/01/18 at 09:00 Calcium Acetate (Phoslo) 667 mg WITH MEALS PO Last administered on 10/11/18 12:41; Admin Dose 667 MG; Start 10/01/18 at 08:00 Ferrous Sulfate (Ferrous Sulfate (Ec)) 325 mg DAILY PO Last administered on 10/11/18 08:05; Admin Dose 325 MG; Start 10/01/18 at 09:00 Pantoprazole (Protonix Tab) 40 mg DAILY@06 PO Last administered on 10/11/18 05:40; Admin Dose 40 MG; Start 10/01/18 at 06:00 Atorvastatin Calcium (Lipitor) 10 mg QHS PO Last administered on 10/10/18 20:48; Admin Dose 10 MG; Start 10/01/18 at 21:00 Miscellaneous Information 1 ea NOTE XX ; Start 10/01/18 at 04:00 Glucose (Glutose) 15 gm Q15M PRN PO DECREASED GLUCOSE; Start 10/01/18 at 04:00 Glucose (Glutose) 22.5 gm Q15M PRN PO DECREASED GLUCOSE Last administered on 10/05/18 08:16; Admin Dose 22.5 GM; Start 10/01/18 at 04:00 Dextrose (D50w Syringe) 25 ml Q15M PRN IV DECREASED GLUCOSE; Start 10/01/18 at 04:00 Dextrose (D50w Syringe) 50 ml Q15M PRN IV DECREASED GLUCOSE; Start 10/01/18 at 04:00 Glucagon (Glucagen) 1 mg Q15M PRN IM DECREASED GLUCOSE; Start 10/01/18 at 04:00 Glucose (Glutose) 15 gm Q15M PRN BUCCAL DECREASED GLUCOSE; Start 10/01/18 at 04:00 Clonidine (Catapres) 0.1 mg Q4H PRN GTB hypertension Last administered on 10/05/18 14:16; Admin Dose 0.1 MG; Start 10/01/18 at 16:00 Hydralazine HCl (Apresoline) 50 mg TID GTB Last administered on 10/11/18 12:41; Admin Dose 50 MG; Start 10/04/18 at 21:00 Aspirin (Halfprin) 81 mg DAILY PO Last administered on 10/11/18 08:05; Admin Dose 81 MG; Start 10/05/18 at 09:00 Vancomycin HCl 250 ml @ 125 mls/hr Q96H IVPB Last administered on 10/09/18 20:18; Admin Dose 125 MLS/HR; Start 10/05/18 at 20:00 Insulin Glargine (Lantus) 6 units HS SC Last administered on 10/10/18 20:54; Admin Dose 6 UNITS; Start 10/05/18 at 21:00 Sodium Hypochlorite (Dakins Diluted (40)) 1 applic DAILY TP Last administered on 10/10/18 14:42; Admin Dose 1 APPLIC; Start 10/08/18 at 09:00 SYEDA LEÓN NP October 11, 2018 12:53
[2018-10-11 14:25] VITALS: BP 170/75; PULSE 70; RESP 20
== END 2018-10-11 16:56 | disposition home health service (06) | DRG 623 ==
LOC: E/R 19:31 → 6WM 22:07 → UNDODISIN 10-03 16:10 → 2NE 10-04 17:23
PROVIDERS: ADMIT Internal Medicine; ATTEND Internal Medicine
PROC: 5A1D70Z Performance of Urinary Filtration, Intermittent, Less than 6 Hours Per Day (ICD-10-PCS; 2018-10-01)
PROC: 0JBR0ZZ Excision of Left Foot Subcutaneous Tissue and Fascia, Open Approach (ICD-10-PCS; principal; 2018-10-07)
DX: E11.628 Type 2 diabetes mellitus with other skin complications (principal); L03.116 Cellulitis of left lower limb; I12.0 Hypertensive chronic kidney disease with stage 5 chronic kidney disease or end stage renal disease; E11.621 Type 2 diabetes mellitus with foot ulcer; L97.529 Non-pressure chronic ulcer of other part of left foot with unspecified severity; N18.6 End stage renal disease; E11.22 Type 2 diabetes mellitus with diabetic chronic kidney disease; Z99.2 Dependence on renal dialysis; E83.39 Other disorders of phosphorus metabolism; E87.5 Hyperkalemia; I25.2 Old myocardial infarction; E11.42 Type 2 diabetes mellitus with diabetic polyneuropathy; Z87.891 Personal history of nicotine dependence; Z95.0 Presence of cardiac pacemaker
CPT/HCPCS: 36415; 71045; 73700; 80048; 80053; 80061; 80202; 81001; 82962; 83036; 83605; 84145; 84484; 85025; 85610; 85651; 85730; 86140; 87070; 87081; 87086; 87340; 90935; 93005; 93971; 94664; 96374; 96375; J0692; J1815; J2270; J2405; J2543; J3370; J7030

== ENCOUNTER 2019-03-02 04:06 | Inpatient (IN) | payer MEDICARE, OTHER ==
[2019-03-02] VITALS (12 sets, daily range): BP systolic 154–179; BP diastolic 66–80; PULSE 62–81; RESP 16–22; Ht 177.8 cm; Wt 86.2 kg
[~2019-03-02] VITALS: Ht 177.8 cm; Wt 86.2 kg
[~2019-03-02 04:06] MED LIST changes: +ASPI-1163 PO; +ASPI-817 PO; +ATOR40TA68 PO; +CEPH-442 PO; +CLOP75TA28 PO; +FAMO20TA18 PO; +FINA5TAB4 PO; +HYDR-3601 PO; +HYDR-3672 GTB; +HYDR-3672 PO; +INSU100I33 SC; -POTA-57 PO; +SIMV20TA PO; +TAMS-14 PO
[2019-03-02] MEDS ORDERED: morphine 4 MG/ML VIAL IV STA (06:25)
[2019-03-02] MEDS ORDERED: ONDANSETRON 4 MG INJ IV STA (06:25)
[2019-03-02] MEDS ORDERED: ACETAMINOPHEN 325 MG TAB PO PRN ×2 (08:00→12:30)
[2019-03-02] MEDS ORDERED: ONDANSETRON 4 MG INJ IV PRN ×3 (08:00→21:00)
[2019-03-02] MEDS ORDERED: LIDOCAINE 2% VISC 15 ML CUP PO ONE (08:30)
[2019-03-02] MEDS: SOD CHLORIDE 0.9% 1,000 ML IV SCH (12:17)
[2019-03-02] MEDS ORDERED: NACL 0.9% 3 ML SYG IV SCH (12:30)
[2019-03-02] MEDS ORDERED: morphine 2 MG INJ IV PRN (12:30)
[2019-03-02] MEDS: HEPARIN 5,000 UNIT/1 ML VIAL SC SCH ×2 (13:21→23:13)
[2019-03-02] MEDS: hydrALAzine 20 MG INJ IV PRN (15:39)
[2019-03-02] MEDS ORDERED: GLUCOSE GEL 15 GRAM TUBE PO PRN ×2 (16:00)
[2019-03-02] MEDS ORDERED: DEXTROSE 50% 50 ML SYRINGE IV PRN ×2 (16:00)
[2019-03-02] MEDS ORDERED: GLUCAGON 1 MG INJ IM PRN (16:00)
[2019-03-02] MEDS ORDERED: GLUCOSE GEL 15 GRAM TUBE BUCCAL PRN (16:00)
[2019-03-02] MEDS: INSULIN ASPART [NOVOLOG] 3 ML PEN SC SCH ×2 (16:46→21:00)
[2019-03-02] MEDS: HYDROmorphONE 1 MG/ML SYG IV PRN ×2 (17:32→22:24)
[2019-03-02] MEDS ORDERED: BUPIVACAINE 0.5%/EPI (SDV) 30 ML INJ ONE (19:07)
[2019-03-02] MEDS ORDERED: LIDOCAINE 1% (MPF) 30 ML INJ ONE (19:07)
[2019-03-02] MEDS ORDERED: FENTAnyl 50 MCG/ML VIAL ONE (19:33)
[2019-03-02] MEDS ORDERED: SEVOFLURANE 15 MIN ONE (19:33)
[2019-03-02] MEDS ORDERED: DEXTROSE 50% 50 ML SYRINGE ONE (19:33)
[2019-03-02] MEDS ORDERED: CEFAZOLIN 1 GM INJ ONE (20:05)
[2019-03-02] MEDS ORDERED: ETOMIDATE 20 MG INJ ONE (20:05)
[2019-03-02] MEDS ORDERED: LIDOCAINE 2% (SDV) 5 ML INJ ONE (20:05)
[2019-03-02] MEDS ORDERED: SUCCINYLCHOLINE CHLORIDE 100 MG/5 ML SYG IV ONE (20:05)
[2019-03-02] MEDS ORDERED: ROCURONIUM 50 MG INJ ONE (20:05)
[2019-03-02] MEDS ORDERED: SUGAMMADEX SODIUM 200 MG/2 ML VIAL IV ONE ×2 (20:20→20:25)
[2019-03-02] MEDS ORDERED: MEPERIDINE 25 MG INJ IV PRN (21:00)
[2019-03-02] MEDS ORDERED: FENTAnyl 50 MCG/ML VIAL IV PRN (21:00)
[2019-03-02] MEDS ORDERED: DIPHENHYDRAMINE 50 MG INJ IV PRN (21:00)
[2019-03-02] MEDS ORDERED: LABETALOL HCL 20MG INJ IV PRN (21:00)
[2019-03-02] MEDS ORDERED: hydrALAzine 20 MG INJ IV PRN (21:00)
[2019-03-02] MEDS ORDERED: HYDROmorphONE 1 MG/5 ML IV SYRINGE IV PRN ×3 (21:00)
[2019-03-02] MEDS: FAMOTIDINE 20 MG INJ IV SCH (22:20)
[2019-03-03] VITALS (8 sets, daily range): BP systolic 143–172; BP diastolic 67–73; PULSE 65–76; RESP 18–20
[2019-03-03] MEDS: INSULIN ASPART [NOVOLOG] 3 ML PEN SC SCH ×6 (01:00→20:54)
[2019-03-03] MEDS: HEPARIN 5,000 UNIT/1 ML VIAL SC SCH ×3 (05:36→21:14)
[2019-03-03] MEDS: HYDROmorphONE 1 MG/ML SYG IV PRN (05:37)
[2019-03-03] MEDS: SOD CHLORIDE 0.9% 1,000 ML IV SCH ×2 (08:01→10:55)
[2019-03-03] MEDS: AMLODIPINE 10 MG TAB PO SCH (09:34)
[2019-03-03] MEDS: FAMOTIDINE 20 MG INJ IV SCH (20:59)
[2019-03-04] VITALS (21 sets, daily range): BP systolic 136–180; BP diastolic 63–80; PULSE 58–77; RESP 18–20
[2019-03-04] MEDS: hydrALAzine 20 MG INJ IV PRN ×2 (03:56→12:54)
[2019-03-04] MEDS: SOD CHLORIDE 0.9% 1,000 ML IV SCH (04:01)
[2019-03-04] MEDS: HEPARIN 5,000 UNIT/1 ML VIAL SC SCH ×3 (05:37→23:34)
[2019-03-04] MEDS: INSULIN ASPART [NOVOLOG] 3 ML PEN SC SCH ×4 (08:00→21:00)
[2019-03-04] MEDS: AMLODIPINE 10 MG TAB PO SCH (08:14)
[2019-03-04] MEDS: CEPASTAT LOZENGE MT PRN ×2 (16:44→18:57)
[2019-03-04] MEDS: FAMOTIDINE 20 MG INJ IV SCH (20:37)
[2019-03-05] VITALS: BP 147/70; PULSE 72; RESP 20
[2019-03-05] MEDS: SOD CHLORIDE 0.9% 1,000 ML IV SCH (00:44)
[2019-03-05 04:00] VITALS: BP 159/70; PULSE 85; RESP 20
[2019-03-05 07:32] VITALS: BP 159/68; PULSE 52; RESP 18
[2019-03-05] MEDS: INSULIN ASPART [NOVOLOG] 3 ML PEN SC SCH ×4 (07:55→20:39)
[2019-03-05] MEDS: AMLODIPINE 10 MG TAB PO SCH (08:08)
[2019-03-05] MEDS: HEPARIN 5,000 UNIT/1 ML VIAL SC SCH ×2 (08:09→20:48)
[2019-03-05 11:22] VITALS: BP 152/67; PULSE 65; RESP 18
[2019-03-05] MEDS ORDERED: AMLODIPINE 10 MG TAB PO SCH (13:30)
[2019-03-05 15:22] VITALS: BP 152/65; PULSE 91; RESP 18
[2019-03-05] MEDS: FAMOTIDINE 20 MG INJ IV SCH (20:39)
[2019-03-05 20:54] VITALS: BP 158/66; PULSE 52; RESP 18
[2019-03-06] VITALS (20 sets, daily range): BP systolic 127–169; BP diastolic 58–75; PULSE 51–63; RESP 18–20
[2019-03-06] MEDS: INSULIN ASPART [NOVOLOG] 3 ML PEN SC SCH ×4 (08:00→20:41)
[2019-03-06] MEDS: AMLODIPINE 10 MG TAB PO SCH (08:59)
[2019-03-06] MEDS: HEPARIN 5,000 UNIT/1 ML VIAL SC SCH ×2 (08:59→20:44)
[2019-03-06] MEDS: FAMOTIDINE 20 MG INJ IV SCH (20:41)
[2019-03-07 00:23] VITALS: BP 165/75; PULSE 87; RESP 16
[2019-03-07 04:35] VITALS: BP 148/64; PULSE 59; RESP 18
[2019-03-07 07:27] VITALS: BP 154/76; PULSE 58; RESP 22
[2019-03-07] MEDS: INSULIN ASPART [NOVOLOG] 3 ML PEN SC SCH ×4 (08:00→20:18)
[2019-03-07] MEDS: AMLODIPINE 10 MG TAB PO SCH (09:41)
[2019-03-07] MEDS: HEPARIN 5,000 UNIT/1 ML VIAL SC SCH ×2 (09:44→20:21)
[2019-03-07 11:36] VITALS: BP 190/77; PULSE 57; RESP 20
[2019-03-07] MEDS: hydrALAzine 20 MG INJ IV PRN (12:30)
[2019-03-07 15:19] VITALS: BP 188/83; PULSE 61; RESP 22
[2019-03-07 19:43] VITALS: BP 169/75; PULSE 63; RESP 18
[2019-03-07] MEDS: FAMOTIDINE 20 MG INJ IV SCH (20:19)
[2019-03-08] VITALS (21 sets, daily range): BP systolic 127–164; BP diastolic 53–85; PULSE 51–91; RESP 15–22
[2019-03-08] MEDS: INSULIN ASPART [NOVOLOG] 3 ML PEN SC SCH ×4 (07:50→20:20)
[2019-03-08] MEDS: AMLODIPINE 10 MG TAB PO SCH (08:24)
[2019-03-08] MEDS: HEPARIN 5,000 UNIT/1 ML VIAL SC SCH ×2 (08:30→19:43)
[2019-03-08] MEDS: FAMOTIDINE 20 MG TAB PO SCH (20:20)
[2019-03-09 04:00] VITALS: BP_SYST 174; BP_SYST 184; BP_DIAS 71; BP_DIAS 86; PULSE 67; RESP 18
[2019-03-09 08:00] VITALS: BP 167/73
[2019-03-09] MEDS: INSULIN ASPART [NOVOLOG] 3 ML PEN SC SCH ×4 (08:00→20:53)
[2019-03-09] MEDS: AMLODIPINE 10 MG TAB PO SCH (08:11)
[2019-03-09] MEDS: HEPARIN 5,000 UNIT/1 ML VIAL SC SCH ×2 (09:00→20:52)
[2019-03-09 14:33] VITALS: BP 152/67; PULSE 60; RESP 18
[2019-03-09 15:17] VITALS: BP 158/70; PULSE 56; RESP 20
[2019-03-09] MEDS: HYDROCODONE/APAP (5/325) TAB PO PRN ×2 (17:07→21:14)
[2019-03-09] MEDS ORDERED: LIDOCAINE 1% (MPF) 5 ML VIAL ONE (18:15)
[2019-03-09 19:55] VITALS: BP 153/67; PULSE 54; RESP 18
[2019-03-09] MEDS: FAMOTIDINE 20 MG TAB PO SCH (20:48)
[2019-03-10] VITALS: BP 150/63; PULSE 54; RESP 18
[2019-03-10 04:13] VITALS: BP 146/66; PULSE 52; RESP 18
[2019-03-10 07:29] VITALS: BP 136/60; PULSE 50; RESP 20
[2019-03-10] MEDS: INSULIN ASPART [NOVOLOG] 3 ML PEN SC SCH ×4 (08:00→21:00)
[2019-03-10] MEDS: AMLODIPINE 10 MG TAB PO SCH (08:35)
[2019-03-10] MEDS: HEPARIN 5,000 UNIT/1 ML VIAL SC SCH ×2 (09:02→21:42)
[2019-03-10 11:41] VITALS: BP 139/64; PULSE 52; RESP 20
[2019-03-10 15:52] VITALS: BP 156/67; PULSE 56; RESP 20
[2019-03-10 20:00] VITALS: BP 142/60; PULSE 63; RESP 19
[2019-03-10] MEDS: FAMOTIDINE 20 MG TAB PO SCH (21:39)
[2019-03-11] VITALS (17 sets, daily range): BP systolic 130–164; BP diastolic 60–75; PULSE 50–78; RESP 18–20
[2019-03-11] MEDS: INSULIN ASPART [NOVOLOG] 3 ML PEN SC SCH ×2 (08:00→12:00)
[2019-03-11] MEDS: AMLODIPINE 10 MG TAB PO SCH (13:50)
[2019-03-11] MEDS: HEPARIN 5,000 UNIT/1 ML VIAL SC SCH (14:09)
== END 2019-03-11 16:25 | disposition home or self-care (01) | DRG 353 ==
LOC: E/R 04:06 → 6WM 07:47
PROVIDERS: ADMIT Internal Medicine; ATTEND Internal Medicine
PROC: 0W9G4ZZ Drainage of Peritoneal Cavity, Percutaneous Endoscopic Approach (ICD-10-PCS; 2019-03-02)
PROC: 0WQF4ZZ Repair Abdominal Wall, Percutaneous Endoscopic Approach (ICD-10-PCS; principal; 2019-03-02 19:00)
PROC: 5A1D70Z Performance of Urinary Filtration, Intermittent, Less than 6 Hours Per Day (ICD-10-PCS; 2019-03-04)
PROC: 0W993ZZ Drainage of Right Pleural Cavity, Percutaneous Approach (ICD-10-PCS; 2019-03-09)
DX: K42.0 Umbilical hernia with obstruction, without gangrene (principal); N18.6 End stage renal disease; K56.609 Unspecified intestinal obstruction, unspecified as to partial versus complete obstruction; J90 Pleural effusion, not elsewhere classified; I12.0 Hypertensive chronic kidney disease with stage 5 chronic kidney disease or end stage renal disease; D61.818 Other pancytopenia; D63.1 Anemia in chronic kidney disease; E83.39 Other disorders of phosphorus metabolism; E11.22 Type 2 diabetes mellitus with diabetic chronic kidney disease; I25.10 Atherosclerotic heart disease of native coronary artery without angina pectoris; K70.31 Alcoholic cirrhosis of liver with ascites; I25.2 Old myocardial infarction; Z95.0 Presence of cardiac pacemaker; Z99.2 Dependence on renal dialysis; Z79.4 Long term (current) use of insulin; Z79.82 Long term (current) use of aspirin
CPT/HCPCS: 32555; 36415; 71045; 74176; 80048; 80053; 82607; 82668; 82728; 82746; 82945; 82962; 83036; 83540; 83615; 83690; 84155; 84157; 84165; 85025; 85610; 85730; 87070; 87081; 87102; 87116; 87340; 88104; 88305; 89051; 90935; 93005; 96374; 96375; J0360; J0690; J1170; J1644; J1815; J2270; J2405; J3010; J7030

== ENCOUNTER 2019-03-12 08:49 | Observation (INO) | payer MEDICARE, OTHER ==
[2019-03-12] VITALS (42 sets, daily range): BP systolic 125–194; BP diastolic 53–79; PULSE 50–66; RESP 11–70; Ht 177.8 cm; Wt 82.0 kg
[~2019-03-12] VITALS: Ht 177.8 cm; Wt 82.0 kg
[~2019-03-12 08:49] MED LIST changes: -ASPI-1163 PO; -CEPH-442 PO; -HYDR-3672 GTB; -LANT3I SC; -PANT40TA4 PO; +SOD CHLORIDE 0.9% 1,000 ML IV SCH
[2019-03-12] MEDS ORDERED: IODIXANOL LOCM 100 ML BTL ONE ×2 (11:11→12:37)
[2019-03-12] MEDS ORDERED: HEPARIN 1000 UNITS/ML 10 ML INJ ONE (11:11)
[2019-03-12] MEDS ORDERED: LIDOCAINE 1% (MDV) 20 ML INJ ONE (11:11)
[2019-03-12] MEDS ORDERED: NITROGLYCERIN (IC) 100 MCG/ML INJ ONE (11:12)
[2019-03-12] MEDS ORDERED: VERAPAMIL 5 MG INJ ONE ×2 (11:12→11:58)
[2019-03-12] MEDS ORDERED: MIDAZOLAM 1 MG/ML 2 ML INJ ONE (11:12)
[2019-03-12] MEDS ORDERED: FENTAnyl 50 MCG/ML VIAL ONE (11:12)
[2019-03-12] MEDS ORDERED: CLOPIDOGREL 300 MG TAB ONE (11:54)
[2019-03-12] MEDS ORDERED: ASPIRIN 325 MG TAB ONE (11:54)
[2019-03-12] MEDS ORDERED: IOHEXOL 350MG/ML 50 ML BTL ONE (12:37)
[2019-03-12] MEDS ORDERED: ONDANSETRON 4 MG INJ IV PRN (13:00)
[2019-03-12] MEDS ORDERED: ACETAMINOPHEN 325 MG TAB PO PRN (13:00)
[2019-03-12] MEDS ORDERED: AL HYDROX/MG HYDROX/SIMETH 30 ML CUP PO PRN (13:00)
[2019-03-12] MEDS: AMLODIPINE 2.5 MG TAB PO SCH ×2 (13:30→20:16)
[2019-03-12] MEDS ORDERED: AMLODIPINE 5 MG TAB PO ONE (14:00)
[2019-03-12] MEDS: hydrALAzine 20 MG INJ IV PRN ×2 (14:09→18:46)
[2019-03-12] MEDS ORDERED: GLUCOSE GEL 15 GRAM TUBE PO PRN ×2 (15:30)
[2019-03-12] MEDS ORDERED: GLUCOSE GEL 15 GRAM TUBE BUCCAL PRN (15:30)
[2019-03-12] MEDS ORDERED: DEXTROSE 50% 50 ML SYRINGE IV PRN ×2 (15:30)
[2019-03-12] MEDS ORDERED: GLUCAGON 1 MG INJ IM PRN (15:30)
[2019-03-12] MEDS: INSULIN ASPART [NOVOLOG] 3 ML PEN SC SCH ×2 (17:35→20:14)
[2019-03-12] MEDS: FERROUS SULFATE (EC) 325 MG TAB PO SCH (17:55)
[2019-03-12] MEDS: CALCIUM ACETATE 667 MG CAP PO SCH (17:55)
[2019-03-12] MEDS ORDERED: TAMSULOSIN (SR) 0.4 MG CAP PO SCH (21:00)
[2019-03-12] MEDS ORDERED: ATORVASTATIN 10 MG TAB PO SCH (21:00)
[2019-03-12] MEDS ORDERED: ATORVASTATIN 40 MG TAB PO SCH (21:00)
[2019-03-13] VITALS (34 sets, daily range): BP systolic 129–159; BP diastolic 48–72; PULSE 49–66; RESP 15–43
[2019-03-13] MEDS ORDERED: ALBUMIN HUMAN 25% 100 ML IV PRN (07:30)
[2019-03-13] MEDS: CALCIUM ACETATE 667 MG CAP PO SCH ×3 (07:35→11:33)
[2019-03-13] MEDS: INSULIN ASPART [NOVOLOG] 3 ML PEN SC SCH ×2 (07:35→11:30)
[2019-03-13] MEDS ORDERED: ASPIRIN (EC) 81 MG TAB PO SCH (09:00)
[2019-03-13] MEDS ORDERED: AMLODIPINE 10 MG TAB PO SCH (09:00)
[2019-03-13] MEDS ORDERED: CLOPIDOGREL 75 MG TAB PO SCH (09:00)
[2019-03-13] MEDS ORDERED: FINASTERIDE 5 MG TAB PO SCH (09:00)
[2019-03-13] MEDS: AMLODIPINE 2.5 MG TAB PO SCH (11:29)
[2019-03-13] MEDS: FERROUS SULFATE (EC) 325 MG TAB PO SCH (11:29)
== END 2019-03-13 16:46 | disposition home or self-care (01) ==
LOC: SDS 08:49 → REC 12:52 → ICU 13:14
PROVIDERS: ADMIT Internal Medicine Cardiovascular Disease; ATTEND Internal Medicine Cardiovascular Disease
DX: I25.10 Atherosclerotic heart disease of native coronary artery without angina pectoris (principal); E11.22 Type 2 diabetes mellitus with diabetic chronic kidney disease; I12.0 Hypertensive chronic kidney disease with stage 5 chronic kidney disease or end stage renal disease; N18.6 End stage renal disease; Z99.2 Dependence on renal dialysis; K74.60 Unspecified cirrhosis of liver; Z95.5 Presence of coronary angioplasty implant and graft; Z79.4 Long term (current) use of insulin; Z79.899 Other long term (current) drug therapy
CPT/HCPCS: 80048; 82962; 85025; 85610; 85730; 87081; 93005; 93458; C1724; C1725; C1874; C1887; C9600; G0257; G0378; J0360; J1644; J1815; J2250; J3010; Q9967; 90935; J7030